=== PATIENT | female | born 2005 | race Caucasian/White ===

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

== ENCOUNTER 2023-11-20 15:23 | Inpatient (IN) | payer SELFPAY ==
[2023-11-20] VITALS (10 sets, daily range): BP systolic 114–130; BP diastolic 71–95; PULSE 75–94; RESP 15–17; TEMP 36.6–37; O2SAT 96–99; BMI 24.0; BMI 24.2
--- NOTE | 2023-11-20 16:03 | CT_ITS ---
PROCEDURE INFORMATION: Exam: CT Abdomen And Pelvis With Contrast Exam date and time: 11/20/2023 5:59 PM Age: 18 years old Clinical indication: Abdominal pain; Additional info: Generalized abdominal pain, brbpr TECHNIQUE: Imaging protocol: Computed tomography of the abdomen and pelvis with contrast. Radiation optimization: All CT scans at this facility use at least one of these dose optimization techniques: automated exposure control; mA and/or kV adjustment per patient size (includes targeted exams where dose is matched to clinical indication); or iterative reconstruction. Contrast material: ISOVUE; Contrast volume: 75 ml; Contrast route: IV; COMPARISON: CR XR ABDOMEN MIN 2V 03/27/2019 3:34 PM FINDINGS: Liver: Normal. No mass. Gallbladder and biliary ducts: Normal. No calcified stones. No ductal dilation. Pancreas: Normal. No ductal dilation. Spleen: Normal. No splenomegaly. Adrenal glands: Normal. No mass. Kidneys and ureters: Normal. No hydronephrosis. Stomach and bowel: Hoyt colonic wall thickening concerning for colitis. No small bowel obstruction. Appendix: No evidence of appendicitis. Intraperitoneal space: Unremarkable. No free air. No significant fluid collection. Vasculature: Unremarkable. No abdominal aortic aneurysm. Lymph nodes: Unremarkable. No enlarged lymph nodes. Urinary bladder: Unremarkable as visualized. Reproductive: Unremarkable as visualized. Bones/joints: Unremarkable. No acute fracture. Soft tissues: Unremarkable. IMPRESSION: Moderate to severe pancolitis
--- NOTE | 2023-11-20 16:04 | ED_ITS ---
Discharge Plan Disposition Patient Disposition: Admitted Clinical Impressions Clinical Impression: Infection, Shigella, E. coli colitis, Dehydration, Intractable abdominal pain Discharge ED Provider: Ivana Hughes General Adult HPI General Chief complaint: GI Bleed Stated complaint: cramps,nausea,abdomen pain Time Seen by Provider: 11/20/23 15:27 Mode of Arrival: Ambulatory Source of Information: Patient Limitations: No Limitations Description of Symptoms (Recalled from ER Triage Doc. by RN): pt presents to ED with c/o vomitting, diarrhea, nausea, abdominal pain/cramps. pt reports that today she noticed bllod in the toilet and on the toielt paper. pt reports she has had foue episodes of bloody diarrhea today History of Present Illness HPI narrative: This patient is a 18-year-old female who denies significant past medical history presenting to the emergency department for evaluation with concern for generalized abdominal pain, nausea, vomiting, and diarrhea for 7 days. Patient states that today, she started noticing a lot of blood in the toilet when she has a bowel movement. She states that she is pooping straight bright red blood and having bad periumbilical/generalized abdominal pain. No hematemesis, melena, or urinary symptoms noted. She states that she has had IBS type symptoms for a long time but denies any prior abdominal history, such as abdominal surgeries or prior abdominal imaging. Related Data Home Medications Medication Instructions Recorded Confirmed cholecalciferol (vitamin D3) 50 50 mcg PO DAILY 05/02/23 05/02/23 mcg (2,000 unit) capsule desvenlafaxine succinate 100 mg 100 mg PO DAILY Depression 07/25/23 07/25/23 tablet,extended release 24 hr Previous Rx's Medication Instructions Recorded medroxyprogesterone 150 mg/mL 150 mg IM [id number] #1 mL 02/02/23 intramuscular suspension (Depo-Provera) Allergies Allergy/AdvReac Type Severity Reaction Status Date / Time No Known Allergies Allergy Verified 07/25/23 10:10 [facility] Disclaimer: The information contained in this section may have been updated after the patient was seen, as this information can be updated by other users. Medical History Abnormal uterine bleeding Migraine with aura Family History Other Asthma Cancer Diabetes FHx: mental illness Hypertension Kidney disease Social History Smoking Status: Never smoker alcohol intake: never substance use type: denies use current occupational status: unemployed and other Travel in the last 8 weeks: None ROS Obtained: Yes All systems reviewed & no additional complaints except as documented Physical Exam General General appearance: alert and in no apparent distress Comment: Uncomfortable appearing Head Head exam: atraumatic and normocephalic Eye Eye exam: Present normal appearance, PERRL and EOMI ENT ENT exam: Present mucous membranes dry and normal external ear exam Neck Neck exam: Present normal inspection, full ROM and trachea midline; Absent tenderness Chest Chest inspection: Present normal inspection and symmetric chest wall rise; Absent tenderness Respiratory Respiratory exam: Present normal lung sounds bilaterally; Absent respiratory distress, wheezes, stridor or accessory muscle use Cardiovascular Cardiovascular exam: Present regular rate and normal rhythm Abdominal Exam Abdominal exam: Present soft and tenderness (Generalized); Absent distention or guarding Extremities Exam Extremities exam: Present normal inspection, full ROM and normal capillary refill; Absent tenderness or edema Back Exam Back exam: Present normal inspection and full ROM; Absent tenderness Neurological Exam Neurological exam: Present alert, oriented X3, CN II-XII intact and normal gait; Absent motor sensory deficit Psychiatric Psychiatric exam: Present normal affect and normal mood Skin Skin exam: Present warm and dry Medical Decision Making Medical Records Medical records reviewed: Yes I reviewed the patient's medical records. Eliseo Inquiry Pt receiving controlled substance: No Vital Signs: 11/20/23 15:26 11/20/23 15:34 11/20/23 16:00 Temperature 97.8 F Temperature Source Oral Pulse Rate 91 H 94 H Pulse Rate [Left Radial] 79 Respiratory Rate 15 Blood Pressure 123/80 114/84 Blood Pressure [Right Arm] 123/80 Blood Pressure Mean Blood Pressure Mean [Right Arm] 94 02 Sat by Pulse Oximetry 98 98 97 Oxygen Delivery Method Room Air Room Air Room Air 11/20/23 16:14 11/20/23 16:30 11/20/23 17:00 Temperature Temperature Source Pulse Rate 86 89 86 Pulse Rate [Left Radial] Respiratory Rate Blood Pressure 130/95 H 117/77 119/76 Blood Pressure [Right Arm] Blood Pressure Mean 86 Blood Pressure Mean [Right Arm] 02 Sat by Pulse Oximetry 97 97 99 Oxygen Delivery Method Room Air Room Air 11/20/23 17:50 11/20/23 18:30 11/20/23 21:21 Temperature 98.6 F Temperature Source Oral Pulse Rate 84 82 90 Pulse Rate [Left Radial] Respiratory Rate 16 Blood Pressure 123/71 122/84 114/81 Blood Pressure [Right Arm] Blood Pressure Mean Blood Pressure Mean [Right Arm] 02 Sat by Pulse Oximetry 97 96 Oxygen Delivery Method Room Air Room Air Room Air Lab Data Lab results reviewed: Yes I reviewed the patient's lab results. Lab Results 11/20/23 15:37: Urine Color Yellow, Urine Appearance Clear, Urine pH 6.0, Ur Specific [place] >= 1.030, Urine Protein Negative, Urine Glucose (UA) Negative, Urine Ketones Negative, Urine Blood Negative, Urine Nitrate Negative, Urine Bilirubin Negative, Urine Urobilinogen 0.2, Ur Leukocyte Esterase Negative, Urine WBC 3-5, Ur Squamous Epith Cells Occasional, Urine Bacteria 1+ 11/20/23 15:43: WBC 12.1, RBC 4.91, Hgb 14.4, Hct 43.2, MCV 87.9, MCH 29.3, MCHC 33.3, RDW 13.3, Plt Count 217, MPV 8.7, Neut % (Auto) 85.9 H, Lymph % (Auto) 7.5 L, Prentiss % (Auto) 5.7, Eos % (Auto) 0.7, Baso % (Auto) 0.3, Neut # (Auto) 10.4 H, Lymph # (Auto) 0.9, Prentiss # (Auto) 0.7, Eos # (Auto) 0.1, Baso # (Auto) 0.0, Total Counted 100, Neutrophils % (Manual) 81 H, Band Neutrophils % 3.0, L ymphocytes % (Manual) 9 L, Monocytes % (Manual) 7, Platelet Estimate Normal, RBC Morphology Normal, Sodium 141, Potassium 3.6, Chloride 108 H, Carbon Dioxide 21 L, Anion Gap 15.6 H, BUN 8, Creatinine 0.60, Estimated Creat Clear 150, Estimated GFR 127, Est GFR ( Amer) 154, Glucose 97, Calcium 9.6, Total Bilirubin 0.7, AST 28, ALT 19, Alkaline Phosphatase 93, Total Protein 7.5, Albumin 4.5, Globulin 3.0, Albumin/Globulin Ratio 1.5, Lipase 52, Serum HCG, Qual Negative 11/20/23 17:48: Stl Aeromonas (PCR) Not detected, Stl C. cayetanensis PCR Not detected, Stool Rotavirus (PCR) Not detected, Stl Adenov F 40/41 PCR Not detected, Stool Astrovirus (PCR) Not detected, Stool Campylobacter PCR Not detected, Stl C.difficile Tox PCR Not detected, Stool Cryptosporidium PCR Not detected, Stl E.coli Shiga Tox PCR Not detected, Stool E coli O157 PCR Detected A, Stl Enterotoxigenic E PCR Not detected, Stool EPEC (PCR) Not detected, Stool EAEC (PCR) Not detected, Stl E. histolytica PCR Not detected, Stool Giardia Lamblia PCR Not detected, Stool Salmonella PCR Not detected, Stool Sapovirus (PCR) Not detected, Stl P. shigelloides PCR Not detected, Stl Shigella/EIEC PCR Detected A, St Y.enterocolitica PCR Not detected, Stool Vibrio (PCR) Not detected, Stl Vibrio cholerae PCR Not detected, Stl Norovirus GI/GII PCR Not detected 11/20/23 15:43 11/20/23 15:43 Orders (Tests/Meds): ED MEDICATIONS Generic Name Dose Route Start Last Admin Trade Name Freq PRN Reason Stop Dose Admin Sodium Chloride 10 ml 11/20/23 18:06 11/20/23 18:07 Sodium Chloride 0.9% 10ml Syr (Rad Only) IV 12/20/23 18:05 10 ml NEEDED PRN Administration Maintain IV Site Discontinued Medications Generic Name Dose Route Start Last Admin Trade Name Freq PRN Reason Stop Dose Admin Acetaminophen 1,000 mg 11/20/23 16:02 11/20/23 16:08 Acetaminophen 1,000mg/100ml Vial IV 11/20/23 16:03 1,000 mg ONCE ONE Administration Dicyclomine HCl 20 mg 11/20/23 18:25 11/20/23 18:29 Dicyclomine 10mg Capsule PO 11/20/23 18:26 20 mg ONCE ONE Administration Lactated Ringer's 1,000 mls @ 999 mls/hr 11/20/23 16:02 11/20/23 16:09 Lactated Ringer's 1000 Ml Bag IV 11/20/23 17:02 999 mls/hr .Q1H1M ONE Administration Lactated Ringer's 1,000 mls @ 999 mls/hr 11/20/23 20:11 11/20/23 20:28 Lactated Ringer's 1000 Ml Bag IV 11/20/23 21:11 999 mls/hr .Q1H1M ONE Administration Iopamidol 75 ml 11/20/23 18:06 11/20/23 18:07 Iopamidol-370 (76%);100ml Bottle IV 11/20/23 18:07 75 ml ONCE ONE Administration Ketorolac Tromethamine 15 mg 11/20/23 16:02 11/20/23 16:08 Ketorolac 30mg/Ml Vial IV 11/20/23 16:03 15 mg ONCE ONE Administration Ketorolac Tromethamine 15 mg 11/20/23 18:50 11/20/23 19:37 Ketorolac 30mg/Ml Vial IV 11/20/23 18:51 15 mg ONCE ONE Administration Metoclopramide HCl 5 mg 11/20/23 18:25 11/20/23 18:30 Metoclopramide Hcl 10mg/2ml Vial IVP 11/20/23 18:26 5 mg ONCE ONE Administration Morphine Sulfate 4 mg 11/20/23 18:54 11/20/23 19:37 Morphine 4mg/Ml Syringe IV 11/20/23 18:55 4 mg ONCE ONE Administration Ondansetron HCl 4 mg 11/20/23 16:02 11/20/23 16:08 Ondansetron 4mg/2ml Vial IV 11/20/23 16:03 4 mg ONCE ONE Administration Oxycodone HCl 5 mg 11/20/23 20:30 11/20/23 20:35 Oxycodone 5mg Immediate Release Tablet PO 11/20/23 20:31 5 mg ONCE ONE Administration ORDERS Category Date Time Status CT abdomen pelvis w con Stat Cat Scan 11/20/23 16:03 Completed CBC w/Auto Diff [Complete Blood Count Auto Diff] Stat Lab 11/20/23 15:43 Completed CMP [Comprehensive Metabolic Panel] Stat Lab 11/20/23 15:43 Completed Diarrhea 23 Panel, PCR Stat Lab 11/20/23 17:48 Completed Lipase Stat Lab 11/20/23 15:43 Completed Serum [HCG Qualitative, Serum] Stat Lab 06/23/24 15:43 Completed UA [Urinalysis and Microscopic] Stat Lab 11/20/23 15:37 Completed Medical Decision Narrative: In summary, this patient is a 18-year-old female presenting to the Emergency Department for evaluation of generalized abdominal pain, nausea, vomiting, diarrhea, and bright red blood per rectum. Differential diagnoses considered include but are not limited to infectious colitis, bacterial gastroenteritis, viral gastroenteritis, Crohn's disease, ulcerative colitis, dehydration. Ruling out the most morbid conditions drove assessment. On exam, the patient is uncomfortable appearing with dry mucous membranes. She has mild abdominal tenderness that is generalized, but no focal tenderness with rebound or guarding. Workup included CBC, CMP, lipase, urinalysis, diarrhea panel, test, and CT abdomen pelvis with IV contrast. Patient was given a bolus of IV fluids as well as IV Toradol, acetaminophen, and Zofran for symptomatic improvement. I independently interpreted CT scan prior to the radiologist read and noted findings concerning for colitis. Please see their read for final interpretation. Labs were obtained that demonstrated mild left shift and her white blood cell count. She also appears dry with very mildly elevated anion gap. Stool panel tested positive for Shigella as well as E. coli. On multiple subsequent reassessments, the patient continues to have severe pain that is poorly controlled as well as multiple loose bowel movements anytime that she moves. She has stooled on herself multiple times. She was given multiple rounds of IV and oral pain medications and nausea medications but continued to have severe symptoms. Advised that she I felt she would be appropriate for discharge home with supportive management of infectious colitis if we get her symptoms under control, but she continued to have severe symptoms and inability to tolerate oral fluids. Given this, I feel that she would benefit from admission for symptomatic management of severe infectious colitis. I called and had an interactive discussion with the hospitalist who admitted the patient. I did not administer antibiotics, as antibiotics could worsen symptoms in the setting of E. coli colitis, though it is usually indicated to treat Shigella. Will defer to inpatient management. Patient was admitted in stable condition. Critical Care Critical Care Time Critical Care Time: No
[2023-11-20] MEDS: ONDANSETRON 4MG/2ML VIAL 4 MG IV (16:08)
[2023-11-20] MEDS: KETOROLAC 30MG/ML VIAL 15 MG IV ×2 (16:08→19:37)
[2023-11-20] MEDS: ACETAMINOPHEN 1,000MG/100ML VIAL 1000 MG IV (16:08)
[2023-11-20] MEDS: LACTATED RINGERS 1000ML 1,000 ML 999 ML IV ×2 (16:09→20:28)
--- NOTE | 2023-11-20 16:15 | PC.NURSE ---
I rounded on the pt, she was having N/V and took her zofran IV amongst other meds per MAR. I took her a blanket, changed her sheet, and helped her readjust in bed to make her more comfortable. pt denies any new symptoms. pt declines needing anything else at this time. vss.
[2023-11-20 16:26] LABS: Microscopic, Urine URINE MICROSCOPIC (MICROSCOPIC)
[2023-11-20 16:27] LABS: Appearance,Urine CLEAR (Clear); Bilirubin,Urine Negative (Negative); Blood, Urine Negative (Negative); Color,Urine YELLOW (Yellow); Glucose,Urine (UA) Negative (Negative); Ketones,Urine Negative (Negative); Leukocyte Esterase,Urine Negative (Negative); Nitrate,Urine Negative (Negative); Protein,Urine Negative (Negative); Specific Gravity, Urine >= 1.030 (1.005-1.030); Urobilinogen,Urine 0.2 EU/dl (0.2)
[2023-11-20 16:34] LABS: Alanine Aminotransferase 19 U/L (12-78); Albumin Level 4.5 g/dl (3.5-5.0); Albumin/Globulin Ratio 1.5 (1.1-1.8); Alkaline Phosphatase 93 U/L (38-126); Anion Gap 15.6 mEq/L (5-15); Aspartate Amino Transferase 28 U/L (14-36); Bilirubin,Total 0.7 mg/dl (0.2-1.3); Blood Urea Nitrogen 8 mg/dl (7-17); Calcium 9.6 mg/dl (8.4-10.2); Carbon Dioxide 21 mmol/L (22.0-30.0); Chloride 108 mmol/L (98-107); Creatinine Clearance Estimated 150 mL/min (50-200); Estimated Glomerular Filt Rate 127 ml/min (>60); GFR (African American) 154 ML/MIN (>60); Glucose 97 mg/dl (74-100); Lipase 52 U/L (23-300); Potassium 3.6 mmoL/L (3.5-5.1); Sodium 141 mmol/L (136-145); Total Protein,Serum 7.5 g/dl (6.3-8.2)
[2023-11-20 16:39] LABS: HCG Qualitative, Serum Negative (Negative)
[2023-11-20 16:40] LABS: Basophils % 0.3 % (0.1-2.0); Eosinophils # 0.1 K/mm3 (0.0-0.4); Eosinophils % 0.7 % (0.1-12.0); Hematocrit 43.2 % (37.0-47.0); Hemoglobin 14.4 g/dL (12.2-16.2); Lymphocytes # 0.9 K/mm3 (0.7-4.5); Lymphocytes % 7.5 % (10-50); Mean Corpuscular HGB Conc 33.3 g/dL (31.8-35.4); Mean Corpuscular Hemoglobin 29.3 pg (27.0-31.2); Mean Corpuscular Volume 87.9 fl (81-99); Mean Platelet Volume 8.7 fl (7.4-10.4); Monocytes # 0.7 K/mm3 (0.1-1.0); Monocytes % 5.7 % (1.7-9.3); Neutrophils # 10.4 K/mm3 (1.8-7.8); Neutrophils % 85.9 % (37.0-80.0); Platelet Count 217 K/mm3 (142-424); Red Blood Count 4.91 M/mm3 (4.20-5.40); Red Cell Distribution Width 13.3 % (11.5-17.5); White Blood Count 12.1 K/mm3 (4.5-13.0)
[2023-11-20 16:42] LABS: MANUAL DIFFERENTIAL MANUAL DIFFERENTIAL (MANUAL DIFF)
[2023-11-20 16:44] LABS: Bacteria,Urine 1+ /lpf; Squamous Epithelial Cell,Urine Occasional #/hpf (0-5)
--- NOTE | 2023-11-20 16:51 | PC.NURSE ---
pt reports that she is feeling much better. She is still having minimal abd cramping. pt states her pain was a 10/10 premedication and is now a 3/10
[2023-11-20 17:55] LABS: Adenovirus F 40/41, stool Not Detected (NotDetected); Astrovirus Not Detected (NotDetected); Campylobacter Not Detected (NotDetected); Clostridium Difficile A/B, PCR Not Detected (NotDetected); Cryptosporidium Not Detected (NotDetected); Cyclospora Cayetanesis Not Detected (NotDetected); Entamoeba histolytica Not Detected (NotDetected); Enteroaggregative E coli Not Detected (NotDetected); Enteropathogenic E coli Not Detected (NotDetected); Enterotoxigenic E coli Not Detected (NotDetected); Giardia lamblia Not Detected (NotDetected); Norovirus Not Detected (NotDetected); Plesimonas Shigalloides, PCR Not Detected (NotDetected); Rotavirus A Not Detected (NotDetected); Salmonella, PCR Not Detected (NotDetected); Sapovirus Not Detected (NotDetected); Shiga-like toxin E coli Not Detected (NotDetected); Vibrio Cholerae Not Detected (NotDetected); Vibrio, PCR Not Detected (NotDetected); Yersinia Entercolitica, PCR Not Detected (NotDetected)
[2023-11-20] MEDS: SODIUM CHLORIDE 0.9% 10ML SYR (RAD ONLY) 10 ML IV (18:07)
[2023-11-20] MEDS: IOPAMIDOL-370 (76%);100ML BOTTLE 75 ML IV (18:07)
[2023-11-20 18:21] LABS: Lymphocytes % 9 % (10-50); Monocytes % 7 % (2-9); Neutrophils % 81 % (42-76); Platelet Estimate Normal; RBC Morphology Normal; Total Cells Counted 100
[2023-11-20] MEDS: DICYCLOMINE 10MG CAPSULE 20 MG PO (18:29)
[2023-11-20] MEDS: METOCLOPRAMIDE HCL 10MG/2ML VIAL 5 MG IVP (18:30)
[2023-11-20] MEDS: MORPHINE 4MG/ML SYRINGE 4 MG IV (19:37)
--- NOTE | 2023-11-20 19:53 | PC.NURSE ---
Jessie from the Lab called and advised that the pts diarrhea panel came back and is showing code Ecoli [id number] like toxins producing ecoli. and RN made aware. CR
[2023-11-20 19:55] LABS: Shigella Enterovasive E coli Detected (NotDetected)
--- NOTE | 2023-11-20 20:31 | PC.NURSE ---
Pt is having 8/10 pain. notified
[2023-11-20] MEDS: OXYCODONE 5MG IMMEDIATE RELEASE TABLET 5 MG PO (20:35)
--- NOTE | 2023-11-20 21:18 | PC.NURSE ---
Report called to KAYLA Aguilar
--- NOTE | 2023-11-20 21:38 | PC.NURSE ---
Patient arrived to floor via wheelchair from ED at 21:34.
--- NOTE | 2023-11-20 22:31 | P.HP_ITS ---
History of Present Illness *Admission Date: 11/20/23 *Reason for visit:: 1 week of abdominal pain diarrhea and now blood in stools. *History of present illness: Patient's that this problem began about a week ago. Has progressively worsened until she is now having blood in her stool and not able to control her bowel movements. She denies vomiting or fever. Denies that she has been traveling or camping where she would have been exposed to abnormal water sources. 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 No history of any other immediate contacts being ill. [facility] Disclaimer: The information contained in this section may have been updated after the patient was seen, as this information can be updated by other users. Mother has IBS And a Aunt has Crohn's disease. Medical History Abnormal uterine bleeding Migraine with aura Family History Other Asthma Cancer Diabetes FHx: mental illness Hypertension Kidney disease Social History (Updated 11/20/23 @ 22:30 by Anu Watson RN) Smoking Status: Never smoker alcohol intake: never substance use type: denies use current occupational status: unemployed and other Travel in the last 8 weeks: None Review of Systems Review of Systems Review of systems:: pertinent systems reviewed and negative unless documented below Review of systems (narrative): Patient noted she had been on Depo-Provera in the past but stopped this 1 month ago. Constitutional Constitutional: Reports system reviewed and no additional complaints, except as documented Comments: Patient notes besides this abdominal pain with the diarrhea she had been feeling healthy Eyes Eyes: Reports system reviewed and no additional complaints, except as documented ENT Ears, Nose, Mouth, and Throat: Reports system reviewed and no additional complaints, except as documented *Cardiovascular Cardiovascular: Reports system reviewed and no additional complaints, except as documented *Respiratory Respiratory: Reports system reviewed and no additional complaints, except as documented *Gastrointestinal Gastrointestinal: Reports abdominal pain, Reports change in bowel habits, Reports change in stool character, Reports diarrhea, Reports fecal incontinence and Reports hematochezia *Genitourinary Genitourinary: Reports system reviewed and no additional complaints, except as documented Comments: Has recently stopped Depo-Provera shot *Musculoskeletal Musculoskeletal: Reports system reviewed and no additional complaints, except as documented Integumentary/Breasts Skin/Breast: Reports system reviewed and no additional complaints, except as documented *Neurologic Neurologic: Reports system reviewed and no additional complaints, except as documented Psychiatric Psychiatric: Reports system reviewed and no additional complaints, except as documented Endocrine Endocrine: Reports system reviewed and no additional complaints, except as documented Hematologic/Lymphatic Hematologic/Lymphatic: Reports system reviewed and no additional complaints, except as documented Allergic/Immunologic Allergic/Immunologic: Reports system reviewed and no additional complaints, except as documented Meds Home Medications and Allergies Home Medications Medication Instructions Recorded Confirmed Type sertraline 100 mg tablet 100 mg PO BID 11/21/23 11/21/23 History New Prescriptions to Start Prescriptions: Allergies Allergy/AdvReac Type Severity Reaction Status Date / Time No Known Allergies Allergy Verified 07/25/23 10:10 Exam Data for Last 24 hours Vital signs and Labs for Last 24 Hours: Temp Pulse Resp BP Pulse Ox O2 Del Method 97.9 F 75 17 128/81 99 Room Air 11/20/23 21:47 11/20/23 21:47 11/20/23 21:47 11/20/23 21:47 11/20/23 21:47 11/20/23 21:47 Laboratory Results - last 24 hr 11/20/23 15:37: Urine Color Yellow, Urine Appearance Clear, Urine pH 6.0, Ur Specific [place] >= 1.030, Urine Protein Negative, Urine Glucose (UA) Negative, Urine Ketones Negative, Urine Blood Negative, Urine Nitrate Negative, Urine Bilirubin Negative, Urine Urobilinogen 0.2, Ur Leukocyte Esterase Negative, Urine WBC 3-5, Ur Squamous Epith Cells Occasional, Urine Bacteria 1+ 11/20/23 15:43: WBC 12.1, RBC 4.91, Hgb 14.4, Hct 43.2, MCV 87.9, MCH 29.3, MCHC 33.3, RDW 13.3, Plt Count 217, MPV 8.7, Neut % (Auto) 85.9 H, Lymph % (Auto) 7.5 L, [place] % (Auto) 5.7, Eos % (Auto) 0.7, Baso % (Auto) 0.3, Neut # (Auto) 10.4 H, Lymph # (Auto) 0.9, [place] # (Auto) 0.7, Eos # (Auto) 0.1, Baso # (Auto) 0.0, Total Counted 100, Neutrophils % (Manual) 81 H, Band Neutrophils % 3.0, Lymphocytes % (Manual) 9 L, Monocytes % (Manual) 7, Platelet Estimate Normal, R BC Morphology Normal, Sodium 141, Potassium 3.6, Chloride 108 H, Carbon Dioxide 21 L, Anion Gap 15.6 H, BUN 8, Creatinine 0.60, Estimated Creat Clear 150, Estimated GFR 127, Est GFR ( Amer) 154, Glucose 97, Calcium 9.6, Total Bilirubin 0.7, AST 28, ALT 19, Alkaline Phosphatase 93, Total Protein 7.5, Albumin 4.5, Globulin 3.0, Albumin/Globulin Ratio 1.5, Lipase 52, Serum HCG, Qual Negative 11/20/23 17:48: Stl Aeromonas (PCR) Not detected, Stl C. cayetanensis PCR Not detected, Stool Rotavirus (PCR) Not detected, Stl Adenov F 40/41 PCR Not detected, Stool Astrovirus (PCR) Not detected, Stool Campylobacter PCR Not detected, Stl C.difficile Tox PCR Not detected, Stool Cryptosporidium PCR Not detected, Stl E.coli Shiga Tox PCR Not detected, Stool E coli O157 PCR Detected A, Stl Enterotoxigenic E PCR Not detected, Stool EPEC (PCR) Not detected, Stool EAEC (PCR) Not detected, Stl E. histolytica PCR Not detected, Stool Giardia Lamblia PCR Not detected, Stool Salmonella PCR Not detected, Stool Sapovirus (PCR) Not detected, Stl P. shigelloides PCR Not detected, Stl Shigella/EIEC PCR Detected A, St Y.enterocolitica PCR Not detected, Stool Vibrio (PCR) Not detected, Stl Vibrio cholerae PCR Not detected, Stl Norovirus GI/GII PCR Not detected I & O for Last 24 hours: Intake & Output 11/17/23 11/18/23 11/19/23 11/20/23 23:59 23:59 23:59 23:59 Weight 64.365 kg Microbiology Reports for the Last 24 Hours: Labs reviewed with stool with E. coli and Shigella Radiology Reports for the Last 24 Hours: CT scan of the abdomen finding thickening of bowel wall indicating colitis Constitutional Constitutional: moderate distress Comments: pain in control at this time *Routine HEENT Exam Head: Present normocephalic and atraumatic Eye: Present EOMI and PERRL ENT: Present mucous membranes moist *Routine Neck Exam Neck: Present supple and full ROM Routine Chest/Breast/Axilla Exam Comments: Chest exam normal *Routine Respiratory Exam Respiratory: Present normal respiratory effort Comments: Clear bowel sounds all duffy no signs of respiratory illness *Routine Cardiovascular Exam Cardiovascular: Present RRR, Normal S1 and Normal S2 *Routine Abdominal Exam Abdominal: Present soft Comments: Noted very quiet bowel sounds, tenderness basically holistic gentle palpation causes tenderness *Routine Rectal Exam Rectal:: deferred Comments:: Has been noting patient unable to control stools with bright red bleeding, in diaper from ER . *Routine Genitalia Exam Genitalia:: deferred *Routine Extremities Exam Comments: Moves all extremities well can stand has a good balance full range of motion in all limbs Routine Back/Spine/Pelvis Exam Back/Spine: Present full ROM *Routine Skin Exam Skin: Present intact Comments: No signs of rash or abnormal bruising *Routine Neurological Exam Neurological: Present alert, oriented X3, CN II-XII intact, moving all extremities and normal tone Routine Psychiatric Exam Psychiatric: Present normal affect and normal thought process Comments: Patient is appropriate and friendly, and is good historian H&P: Result Impressions 1. Onset of bloody diarrhea for the last week indicating colitis of unknown origin 2. Positive for E. coli and Shigella on stool specimen Imaging and Cardiology CT scan - abdomen: Status: image reviewed by me and final report Additional comments: Bowel wall thickening indicating colitis Assessment and Plan *Assessment and plan (1) Intractable abdominal pain: Start date: 11/13/23 Status: Acute Category: Medical Code(s): R10.9 - Unspecified abdominal pain Plan: Will admit to the hospital and monitor for pain and apply medication as needed for control (2) Dehydration: Start date: 11/20/23 Problem Comment: Large amounts of diarrhea Status: Acute Category: Medical Code(s): E86.0 - Dehydration Plan: Will add a fiber bulking agent (3) E. coli colitis: Start date: 11/13/23 Status: Acute Category: Medical Code(s): A04.4 - Other intestinal Escherichia coli infections Plan: Continue with hydration to see if the patient will clear this infection herself. Also noting that labs are stable at this time (4) Infection, Shigella: Start date: 11/20/23 Status: Acute Category: Medical Code(s): A03.9 - Shigellosis, unspecified Plan: Will not add antibiotics to bowel regime at this time to the presence of the E. coli, see if we can get the diarrhea to stop and then would treat this underlying infection (5) Bloody stools: Start date: 11/20/23 Status: Acute Category: Medical Code(s): K92.1 - Melena Plan: Unsure of source of intestinal, or is rectal from having so many stools that this may be hemorrhoidal blood Plan Discussed case with the ER, request admission due to at risk for decompensation and instability along with severity of symptoms and bloody stools. Agreed to admit for further management. Continue with bowel rest. Morphine 4 mg for pain as needed every 2 hours. Initiated on maintenance IV fluids. Continuing to have bloody stools. Decision made to hold on antibiotics due to positive culture for E. coli 0157 and risk of HUS/TTP. Kidney function electrolytes normal. White cell count within normal range. Ordered repeat labs for the morning CBC, CMP, magnesium. Severe condition acute at risk for decompensation Rounded on patient after nurse practitioner. Personally examined and interviewed patient. Agree with exam findings and care plan as documented.
[2023-11-20] MEDS: 0.9 % SODIUM CHLORIDE 1000ML 1,000 ML 50 ML IV (22:52)
[2023-11-21] VITALS (7 sets, daily range): BP systolic 117–159; BP diastolic 76–97; PULSE 88–140; RESP 16–18; TEMP 36.6–37.9; O2SAT 96–100; BMI 24.2
[2023-11-21] MEDS: HYDROCODONE/APAP 5/325 MG TABLET 1 TAB PO ×2 (00:11→03:54)
[2023-11-21] MEDS: MORPHINE 2MG/ML SYRINGE 2 MG IV ×8 (01:31→22:39)
--- NOTE | 2023-11-21 04:07 | PC.NURSE ---
Since admitting to the floor, pt has continued to have issues with abdominal pain. Since 930 pm, she has been medicated with morphine 2 mg IVP X 2 doses and [place] 5 mg x 2 doses. She has continued to have small BMS with mucus like blood in appearance, foul odor noted. She is wearing an adult diaper due to episodes of incont. Pt remains NPO
[2023-11-21] MEDS: ONDANSETRON 4MG/2ML VIAL 4 MG IV ×2 (06:48→18:12)
--- NOTE | 2023-11-21 07:18 | EXP.ACUTE.PN ---
Subjective *Date: 11/21/23 *Time: 21:49 Interval history: Having significant abdominal pain. Still having frequent loose bowel movements that are bloody. No nausea or vomiting. Afebrile this morning. On room air. Medical Exam Vital signs and Labs for Last 24 Hours: Vital Signs Temp Pulse Pulse Resp BP BP Pulse Ox 11/21/23 05:00 11/21/23 04:00 97.9 F 88 16 117/76 96 11/20/23 23:00 11/20/23 21:47 97.9 F 75 17 128/81 99 11/20/23 21:21 98.6 F 90 16 114/81 11/20/23 18:30 82 122/84 96 11/20/23 17:50 84 123/71 97 11/20/23 17:00 86 119/76 99 11/20/23 16:30 89 117/77 97 11/20/23 16:14 86 130/95 H 97 11/20/23 16:00 94 H 114/84 97 11/20/23 15:34 91 H 123/80 98 11/20/23 15:26 97.8 F 79 15 123/80 98 O2 Del Method 11/21/23 05:00 Room Air 11/21/23 04:00 Room Air 11/20/23 23:00 Room Air 11/20/23 21:47 Room Air 11/20/23 21:21 Room Air 11/20/23 18:30 Room Air 11/20/23 17:50 Room Air 11/20/23 17:00 11/20/23 16:30 Room Air 11/20/23 16:14 Room Air 11/20/23 16:00 Room Air 11/20/23 15:34 Room Air 11/20/23 15:26 Room Air Intake and Output 11/20/23 11/20/23 11/21/23 15:59 23:59 07:59 Intake Total 0 / 0 Output Total 0 / 0 Balance 0 / 0 Intake: Intake, Oral Amount 0 / 0 Output: Output, Urine Amount 0 / 0 Other: Intake, Other Source Saline Solution Number of Unmeasured Voids 1 Number of Bowel Movements 1 Weight 63.503 kg 64.365 kg 64.365 kg Patient Weight 11/21/23 23:59 Weight 64.365 kg Laboratory Results - last 24 hr 11/20/23 15:37: Urine Color Yellow, Urine Appearance Clear, Urine pH 6.0, Ur Specific [place] >= 1.030, Urine Protein Negative, Urine Glucose (UA) Negative, Urine Ketones Negative, Urine Blood Negative, Urine Nitrate Negative, Urine Bilirubin Negative, Urine Urobilinogen 0.2, Ur Leukocyte Esterase Negative, Urine WBC 3-5, Ur Squamous Epith Cells Occasional, Urine Bacteria 1+ 11/20/23 15:43: WBC 12.1, RBC 4.91, Hgb 14.4, Hct 43.2, MCV 87.9, MCH 29.3, MCHC 33.3, RDW 13.3, Plt Count 217, MPV 8.7, Neut % (Auto) 85.9 H, Lymph % (Auto) 7.5 L, [place] % (Auto) 5.7, Eos % (Auto) 0.7, Baso % (Auto) 0.3, Neut # (Auto) 10.4 H, Lymph # (Auto) 0.9, [place] # (Auto) 0.7, Eos # (Auto) 0.1, Baso # (Auto) 0.0, Total Counted 100, Neutrophils % (Manual) 81 H, Band Neutrophils % 3.0, Lymphocytes % (Manual) 9 L, Monocytes % (Manual) 7, Platelet Estimate Normal, RBC Morphology Normal, Sodium 141, Potassium 3.6, Chloride 108 H, Carbon Dioxide 21 L, Anion Gap 15.6 H, BUN 8, Creatinine 0.60, Estimated Creat Clear 150, Estimated GFR 127, Est GFR ( Amer) 154, Glucose 97, Calcium 9.6, Total Bilirubin 0.7, AST 28, ALT 19, Alkaline Phosphatase 93, Total Protein 7.5, Albumin 4.5, Globulin 3.0, Albumin/Globulin Ratio 1.5, Lipase 52, Serum HCG, Qual Negative 11/20/23 17:48: Stl Aeromonas (PCR) Not detected, Stl C. cayetanensis PCR Not detected, Stool Rotavirus (PCR) Not detected, Stl Adenov F 40/41 PCR Not detected, Stool Astrovirus (PCR) Not detected, Stool Campylobacter PCR Not detected, Stl C.difficile Tox PCR Not detected, Stool Cryptosporidium PCR Not detected, Stl E.coli Shiga Tox PCR Not detected, Stool E coli O157 PCR Detected A, Stl Enterotoxigenic E PCR Not detected, Stool EPEC (PCR) Not detected, Stool EAEC (PCR) Not detected, Stl E. histolytica PCR Not detected, Stool Giardia Lamblia PCR Not detected, Stool Salmonella PCR Not detected, Stool Sapovirus (PCR) Not detected, Stl P. shigelloides PCR Not detected, Stl Shigella/EIEC PCR Detected A, St Y.enterocolitica PCR Not detected, Stool Vibrio (PCR) Not detected, Stl Vibrio cholerae PCR Not detected, Stl Norovirus GI/GII PCR Not detected I & O for Labs for Last 24 Hours: Intake & Output 11/18/23 11/19/23 11/20/23 11/21/23 23:59 23:59 23:59 23:59 Intake Total 0 / 0 Output Total 0 / 0 Balance 0 / 0 Weight 64.365 kg 64.365 kg Constitutional: Present moderate distress Head: Present atraumatic ENT: Present normal exam Neck: Present normal inspection Respiratory: Present normal respiratory effort; Absent rhonchi, wheezes or crackles Cardiac: Present Regular Rhythm and Tachycardia GI: Present soft, tenderness (Diffuse moderate tenderness), guarding and hyperactive bowel sounds; Absent distention or rebound Extremities: Present normal inspection and full ROM Skin: Present intact; Absent erythema Comment:: No mottling Neuro: Present Grossly Intact, alert, awake, oriented x 3 and moves all extremities Assessment and Plan *Assessment and plan (1) E. coli colitis: Start date: 11/13/23 Status: Acute Category: Medical Code(s): A04.4 - Other intestinal Escherichia coli infections Plan: Continue with hydration to see if the patient will clear this infection herself. Also noting that labs are stable at this time (2) Intractable abdominal pain: Start date: 11/13/23 Status: Acute Category: Medical Code(s): R10.9 - Unspecified abdominal pain Plan: Will admit to the hospital and monitor for pain and apply medication as needed for control (3) Dehydration: Start date: 11/20/23 Problem Comment: Large amounts of diarrhea Status: Acute Category: Medical Code(s): E86.0 - Dehydration Plan: Will add a fiber bulking agent (4) Infection, Shigella: Start date: 11/20/23 Status: Acute Category: Medical Code(s): A03.9 - Shigellosis, unspecified Plan: Will not add antibiotics to bowel regime at this time to the presence of the E. coli, see if we can get the diarrhea to stop and then would treat this underlying infection (5) Bloody stools: Start date: 11/20/23 Status: Acute Category: Medical Code(s): K92.1 - Melena Plan: Unsure of source of intestinal, or is rectal from having so many stools that this may be hemorrhoidal blood Plan 18-year-old female with severe abdominal pain and diarrhea. Found to have E. coli 0157 and Shigella on stool panel. Discussed case with ER, request admission. I agree to admit for further management and supportive care. Patient having a lot of cramping pain overnight. Continues to have numerous loose bowel movements. Afebrile overnight. Problems addressed as follows: E. coli 0157 diarrhea Pancolitis Shigella -Continue supportive care. Administered bolus of IV fluids this morning. Will monitor for further fluid needs. Encourage p.o. fluid intake. -Fiber supplement to bulk stools. -Initiate probiotic -Due to risk factor for HUS/TTP in the setting of confirmed E. coli 0157 sample, will continue with supportive care and hold on antibiotics. High risk of decompensation and risk for organ dysfunction -White cell count elevated to 14 this morning. Repeat CBC, CMP, magnesium ordered for the morning. Kidney function remained stable -With BUN 4, creatinine 0.5. Platelets remain normal 196 -Tylenol 650mg every 6 hours as needed for pain. Oxycodone 5 mg immediate release every 4 hours as needed. Morphine 4 mg as needed every 2 hours for severe breakthrough pain. Given agitation, will trial as needed Ativan 0.5 mg IV. Monitoring for toxicity and side effects. Due to risk for decompensation, attempted transfer to [facility] today. Had discussion with hospitalist on-call, recommend continuing supportive management. Patient placed on wait list for transfer. Full code full liquid diet PPI
[2023-11-21] MEDS: OXYCODONE 5MG IMMEDIATE RELEASE TABLET 5 MG PO ×3 (07:26→21:26)
[2023-11-21] MEDS: ACETAMINOPHEN 325MG TAB 650 MG PO ×3 (07:26→21:26)
--- NOTE | 2023-11-21 07:39 | HMH.PHAINT1 ---
Pharmacy Intervention Comments: MEDICATION RECONCILIATION COMPLETED ON PATIENT USING EXTERNAL FILL HISTORY FROM PHARMACY. -CHER GALINDO, NORMAD
[2023-11-21] MEDS: PANTOPRAZOLE 40MG VIAL 40 MG IV ×2 (08:52→20:16)
[2023-11-21] MEDS: SODIUM CHLORIDE 0.9% 10ML VIAL 10 ML IV (08:52)
[2023-11-21] MEDS: PSYLLIUM UD PACKET 1 EACH PO (10:22)
[2023-11-21] MEDS: LORazepam 2MG/ML VIAL 0.5 MG IV ×3 (10:23→23:39)
[2023-11-21 11:10] LABS: Basophils % 0.1 % (0.1-2.0); Eosinophils % 0.1 % (0.1-12.0); Hematocrit 42.9 % (37.0-47.0); Hemoglobin 13.8 g/dL (12.2-16.2); Lymphocytes # 0.6 K/mm3 (0.7-4.5); Lymphocytes % 4.3 % (10-50); Mean Corpuscular HGB Conc 32.2 g/dL (31.8-35.4); Mean Corpuscular Hemoglobin 28.6 pg (27.0-31.2); Mean Corpuscular Volume 88.7 fl (81-99); Mean Platelet Volume 9.2 fl (7.4-10.4); Monocytes # 0.7 K/mm3 (0.1-1.0); Monocytes % 4.4 % (1.7-9.3); Neutrophils # 13.6 K/mm3 (1.8-7.8); Platelet Count 196 K/mm3 (142-424); Red Blood Count 4.83 M/mm3 (4.20-5.40); Red Cell Distribution Width 13.1 % (11.5-17.5); White Blood Count 14.9 K/mm3 (4.5-13.0)
[2023-11-21 11:11] LABS: Chloride 107 mmol/L (98-107); Potassium 3.6 mmoL/L (3.5-5.1); Sodium 136 mmol/L (136-145)
[2023-11-21 11:14] LABS: Alanine Aminotransferase 22 U/L (12-78); Albumin Level 3.8 g/dl (3.5-5.0); Albumin/Globulin Ratio 1.5 (1.1-1.8); Alkaline Phosphatase 85 U/L (38-126); Anion Gap 11.6 mEq/L (5-15); Aspartate Amino Transferase 27 U/L (14-36); Bilirubin,Total 0.7 mg/dl (0.2-1.3); Blood Urea Nitrogen 4 mg/dl (7-17); Calcium 8.8 mg/dl (8.4-10.2); Carbon Dioxide 21 mmol/L (22.0-30.0); Creatinine Clearance Estimated 182 mL/min (50-200); Estimated Glomerular Filt Rate 157 ml/min (>60); GFR (African American) 190 ML/MIN (>60); Globulin 2.6 g/dL (1.3-3.2); Glucose 110 mg/dl (74-100); Total Protein,Serum 6.4 g/dl (6.3-8.2)
[2023-11-21 11:25] LABS: MANUAL DIFFERENTIAL MANUAL DIFFERENTIAL (MANUAL DIFF)
[2023-11-21 11:29] LABS: Magnesium 1.6 mg/dl (1.6-2.3)
[2023-11-21 12:00] LABS: Erythrocyte Sedimentation Rate 9 mm/hr (0-20)
[2023-11-21 12:22] LABS: Lymphocytes % 8 % (10-50); Monocytes % 6 % (2-9); Neutrophils % 86 % (42-76); Platelet Estimate Normal; RBC Morphology Normal; Total Cells Counted 100
[2023-11-21 12:55] LABS: C-Reactive Protein 66.8 mg/L (0-4)
--- NOTE | 2023-11-21 17:26 | PC.NURSE ---
Pt has C/O abdominal discomfort t/o shift and has required multiple pain and anxiety medication for relief. She has had multiple incontinent liquid stools. Has slept at intervals today.Ambulated to BR some this shift. Call light within reach.
--- NOTE | 2023-11-21 18:23 | PC.NURSE ---
kelley at [facility] called and said patient was on wait list but no bed available
[2023-11-21] MEDS: LACTATED RINGERS 1000ML 1,000 ML 250 ML IV (20:30)
--- NOTE | 2023-11-21 21:02 | EXP.PN ---
Subjective *Date: 11/21/23 *Time: 22:07 Interval history: While rounding on patient, nursing reported that patient now has developed a fever and also heart rate going to 130 at a time. Exam Data for Last 24 hours Vital signs and Labs for Last 24 Hours: Temp Pulse Resp BP Pulse Ox O2 Del Method 100.3 F H 88 18 130/82 100 Room Air 11/21/23 20:57 11/21/23 16:00 11/21/23 16:00 11/21/23 16:00 11/21/23 16:00 11/21/23 19:00 Laboratory Results - last 24 hr 11/21/23 10:47: WBC 14.9 H, RBC 4.83, Hgb 13.8, Hct 42.9, MCV 88.7, MCH 28.6, MCHC 32.2, RDW 13.1, Plt Count 196, MPV 9.2, Neut % (Auto) 91.0 H, Lymph % (Auto) 4.3 L, [place] % (Auto) 4.4, Eos % (Auto) 0.1, Baso % (Auto) 0.1, Neut # (Auto) 13.6 H, Lymph # (Auto) 0.6 L, [place] # (Auto) 0.7, Eos # (Auto) 0.0, Baso # (Auto) 0.0, Total Counted 100, Neutrophils % (Manual) 86 H, Lymphocytes % (Manual) 8 L, Monocytes % (Manual) 6, Platelet Estimate Normal, RBC Morphology Normal, ESR 9, Sodium 136, Potassium 3.6, Chloride 107, Carbon Dioxide 21 L, Anion Gap 11.6, BUN 4 L D, Creatinine 0.50 L, Estimated Creat Clear 182, Estimated GFR 157, Est GFR ( Amer) 190 D, Glucose 110 H, Calcium 8.8, Magnesium 1.6, Total Bilirubin 0.7, AST 27, ALT 22, Alkaline Phosphatase 85, C-Reactive Protein 66.8 H, Total Protein 6.4, Albumin 3.8 D, Globulin 2.6, Albumin/Globulin Ratio 1.5 I & O for Last 24 hours: Intake & Output 11/18/23 11/19/23 11/20/23 11/21/23 23:59 23:59 23:59 23:59 Intake Total 300 / 300 Output Total 0 / 0 Balance 300 / 300 Weight 64.365 kg 64.365 kg Constitutional Constitutional: moderate distress Comments: Patient is in bed she is awake and alert but is in quite a bit of discomfort. Mother and other family members at bedside. *Routine Respiratory Exam Respiratory: Present normal respiratory effort Comments: Lung sounds are clear in all duffy *Routine Cardiovascular Exam Cardiovascular: Present RRR and tachycardia Comments: Patient is tachycardic but with a regular rhythm extremities showing no edema and are pink with brisk capillary refill *Routine Abdominal Exam Comments: Exam is limited as the patient is an acute abdominal pain with cramping so no palpation was done *Routine Skin Exam Skin: Present intact Comments: Examination of the skins finds no mottling or redness or signs of infection or rash *Routine Neurological Exam Neurological: Present alert, oriented X3 and CN II-XII intact Comments: Patient is in quite a bit of discomfort but she is able to answer questions respond appropriately. She is able to move all extremities with normal associate dean [employer] strength Assessment and Plan *Assessment and plan (1) Tachycardia: Start date: 11/21/23 Start time: 21:07 Status: Acute Category: Medical Code(s): R00.0 - Tachycardia, unspecified (2) Fever: Start date: 11/21/23 Start time: 21:07 Status: Acute Category: Medical Code(s): R50.9 - Fever, unspecified Plan 1. Onset of fever with increased heart rate, plan at this time have ordered CBC CMP mag, and blood cultures. IV fluids started 1 L of LR was started at 250 an hour for 4 hours. Once completed we will evaluate heart rate and continue to monitor urine output. Patient was placed on cardiac technologist. Presently awaiting for a bed to open at a transfer facility that was discussed by Dr. Sargent. Family members have been updated on condition and plans for treatment.
[2023-11-21 21:27] LABS: MANUAL DIFFERENTIAL MANUAL DIFFERENTIAL (MANUAL DIFF)
[2023-11-21 21:30] LABS: Basophils % 0.1 % (0.1-2.0); Eosinophils # 0.1 K/mm3 (0.0-0.4); Eosinophils % 0.3 % (0.1-12.0); Hematocrit 45.1 % (37.0-47.0); Hemoglobin 14.8 g/dL (12.2-16.2); Lymphocytes # 0.6 K/mm3 (0.7-4.5); Lymphocytes % 3.5 % (10-50); Mean Corpuscular HGB Conc 32.9 g/dL (31.8-35.4); Mean Corpuscular Hemoglobin 29.4 pg (27.0-31.2); Mean Corpuscular Volume 89.5 fl (81-99); Mean Platelet Volume 8.9 fl (7.4-10.4); Monocytes # 1.1 K/mm3 (0.1-1.0); Monocytes % 5.9 % (1.7-9.3); Neutrophils % 90.2 % (37.0-80.0); Platelet Count 210 K/mm3 (142-424); Red Blood Count 5.04 M/mm3 (4.20-5.40); Red Cell Distribution Width 13.3 % (11.5-17.5); White Blood Count 17.8 K/mm3 (4.5-13.0)
[2023-11-21 21:40] LABS: Chloride 106 mmol/L (98-107); Potassium 3.8 mmoL/L (3.5-5.1); Sodium 134 mmol/L (136-145)
[2023-11-21 21:42] LABS: Alanine Aminotransferase 18 U/L (12-78); Aspartate Amino Transferase 23 U/L (14-36); Blood Urea Nitrogen 4 mg/dl (7-17); Creatinine Clearance Estimated 182 mL/min (50-200); Estimated Glomerular Filt Rate 157 ml/min (>60); GFR (African American) 190 ML/MIN (>60)
[2023-11-21 21:43] LABS: Albumin Level 3.7 g/dl (3.5-5.0); Albumin/Globulin Ratio 1.4 (1.1-1.8); Alkaline Phosphatase 88 U/L (38-126); Anion Gap 12.8 mEq/L (5-15); Bilirubin,Total 0.7 mg/dl (0.2-1.3); Calcium 8.7 mg/dl (8.4-10.2); Carbon Dioxide 19 mmol/L (22.0-30.0); Globulin 2.6 g/dL (1.3-3.2); Glucose 114 mg/dl (74-100); Total Protein,Serum 6.3 g/dl (6.3-8.2)
[2023-11-21 21:45] LABS: Magnesium 1.6 mg/dl (1.6-2.3)
[2023-11-21 22:19] LABS: Lymphocytes % 6 % (10-50); Monocytes % 3 % (2-9); Neutrophils % 89 % (42-76); Platelet Estimate Normal; RBC Morphology Normal; Total Cells Counted 100
--- NOTE | 2023-11-21 22:59 | P.EN_ITS ---
Follow-up on care of patient heart rate has decreased to the 120s, presently afebrile. Have called transfer line for [facility]. Given them the upgrade of need the patient now has elevated white count was running temperature requiring boluses to keep heart rate down. The separator operator [employer] taking the information said that she will add this but that there is a long line and they are completely full at [facility]. That by morning they will then get together to discuss if they have beds of who to except with the greatest need. Will continue present care and will start IV fluids on a continuous basis at 125 cc / hr.
[2023-11-21] MEDS: 0.9 % SODIUM CHLORIDE 1000ML 1,000 ML 125 ML IV (23:42)
[2023-11-22] VITALS: BP 125/83; PULSE 120; PULSE 124; RESP 18; TEMP 37.1; O2SAT 99
[2023-11-22] MEDS: MORPHINE 2MG/ML SYRINGE 2 MG IV ×7 (00:39→14:13)
[2023-11-22 00:48] VITALS: TEMP 36.9
[2023-11-22] MEDS: OXYCODONE 5MG IMMEDIATE RELEASE TABLET 5 MG PO ×3 (02:22→14:58)
[2023-11-22] MEDS: ONDANSETRON 4MG/2ML VIAL 4 MG IV ×3 (03:34→14:58)
[2023-11-22 04:00] VITALS: BP 138/78; PULSE 117; PULSE 127; RESP 16; TEMP 37.2; O2SAT 98; BMI 24.2
[2023-11-22] MEDS: LORazepam 2MG/ML VIAL 0.5 MG IV (05:24)
[2023-11-22 06:04] LABS: Basophils % 0.2 % (0.1-2.0); Eosinophils # 0.1 K/mm3 (0.0-0.4); Eosinophils % 0.9 % (0.1-12.0); Hematocrit 43.2 % (37.0-47.0); Lymphocytes # 0.8 K/mm3 (0.7-4.5); Lymphocytes % 5.1 % (10-50); Mean Corpuscular HGB Conc 32.4 g/dL (31.8-35.4); Mean Corpuscular Volume 89.5 fl (81-99); Mean Platelet Volume 8.7 fl (7.4-10.4); Monocytes % 6.1 % (1.7-9.3); Neutrophils # 14.3 K/mm3 (1.8-7.8); Neutrophils % 87.8 % (37.0-80.0); Platelet Count 184 K/mm3 (142-424); Red Blood Count 4.83 M/mm3 (4.20-5.40); Red Cell Distribution Width 13.6 % (11.5-17.5); White Blood Count 16.3 K/mm3 (4.5-13.0)
[2023-11-22 06:06] LABS: MANUAL DIFFERENTIAL MANUAL DIFFERENTIAL (MANUAL DIFF)
[2023-11-22 06:11] LABS: Chloride 105 mmol/L (98-107); INR 1.18 (0.9-1.1); Prothrombin Time 12.6 seconds (10.1-12.5)
[2023-11-22 06:12] LABS: Potassium 4.1 mmoL/L (3.5-5.1); Sodium 133 mmol/L (136-145)
[2023-11-22 06:14] LABS: Alanine Aminotransferase 15 U/L (12-78); Aspartate Amino Transferase 19 U/L (14-36); Blood Urea Nitrogen 3 mg/dl (7-17); Creatinine Clearance Estimated 182 mL/min (50-200); Estimated Glomerular Filt Rate 157 ml/min (>60); GFR (African American) 190 ML/MIN (>60)
[2023-11-22 06:15] LABS: Albumin Level 3.2 g/dl (3.5-5.0); Albumin/Globulin Ratio 1.2 (1.1-1.8); Alkaline Phosphatase 79 U/L (38-126); Anion Gap 12.1 mEq/L (5-15); Bilirubin,Total 0.6 mg/dl (0.2-1.3); Calcium 8.4 mg/dl (8.4-10.2); Carbon Dioxide 20 mmol/L (22.0-30.0); Globulin 2.6 g/dL (1.3-3.2); Glucose 123 mg/dl (74-100); Magnesium 1.6 mg/dl (1.6-2.3); Total Protein,Serum 5.8 g/dl (6.3-8.2)
--- NOTE | 2023-11-22 07:27 | PC.NURSE ---
pt temp 100.1 hr 130's. provider, daria robison made aware. labs ordered. bolus ordered. pt cont to report intermitten cramping that makes patient holler out in pain. pt being treated frequently with prn pain medications, pt cont to have diarrhea, bright red blood at times, pt did have some bile colored emesis, zofran given, provide made aware
[2023-11-22] MEDS: PANTOPRAZOLE 40MG VIAL 40 MG IV (07:34)
[2023-11-22] MEDS: 0.9 % SODIUM CHLORIDE 1000ML 1,000 ML 125 ML IV (07:49)
[2023-11-22 08:00] VITALS: PULSE 120
[2023-11-22 08:06] LABS: Lactate Dehydrogenase 264 U/L (313-618)
[2023-11-22 08:18] LABS: Lymphocytes % 8 % (10-50); Monocytes % 4 % (2-9); Neutrophils % 88 % (42-76); Platelet Estimate Normal; RBC Morphology Normal; Total Cells Counted 100
--- NOTE | 2023-11-22 09:06 | PC.NURSE ---
emesis times one and dr. Kimbrough aware.
--- NOTE | 2023-11-22 09:31 | PC.NURSE ---
Pt. was medicated at 07:30 with morphine 2 mg and called out at 09:30 for more pain meds. Pt. states her pain is a 9 out of a ten but was sleeping and drowsy when i entered the room. Pt's mother requested a pain pill for the patient.
[2023-11-22 12:00] VITALS: BP 139/93; PULSE 120; PULSE 126; RESP 16; TEMP 37.1; O2SAT 98
--- NOTE | 2023-11-22 12:34 | PC.NURSE ---
Pt's mother requested for dr. Kimbrough to be aware she wants her transferred to [facility]! Luis E aware
[2023-11-22] MEDS: 0.9 % SODIUM CHLORIDE 1000ML 1,000 ML 150 ML IV (14:13)
--- NOTE | 2023-11-22 14:49 | PC.NURSE ---
Report called to Goldie GARZA at [facility].
--- NOTE | 2023-11-22 15:54 | P.DS_ITS ---
General Admission date:: 11/20/23 Discharge date: 11/22/23 HPI HPI HPI: Patient's that this problem began about a week ago. Has progressively worsened until she is now having blood in her stool and not able to control her bowel movements. She denies vomiting or fever. Denies that she has been traveling or camping where she would have been exposed to abnormal water sources. 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 No history of any other immediate contacts being ill. Hospital Course Hospital Course Hospital Course: 18-year-old female with severe abdominal pain and diarrhea. Found to have E. coli 0157 and Shigella on stool panel. Discussed case with ER, request admission. I agree to admit for further management and supportive care. Patient having a lot of cramping pain overnight. Continues to have numerous loose bowel movements. Afebrile overnight. Problems addressed as follows: E. coli 0157 diarrhea Pancolitis Shigella Patient remained symptomatic for abdominal pain. Patient family requesting to be transferred to higher level of care with ID and GI services, [facility]. Main was contacted and patient was discharged in stable condition Exam Data for Last 24 hours Vital signs and Labs for Last 24 Hours: Temp Pulse Resp BP Pulse Ox O2 Del Method 98.8 F 126 H 16 139/93 H 98 Room Air 11/22/23 12:00 11/22/23 12:00 11/22/23 12:00 11/22/23 12:00 11/22/23 12:00 11/22/23 13:50 Laboratory Results - last 24 hr 11/21/23 21:10: WBC 17.8 H, RBC 5.04, Hgb 14.8, Hct 45.1, MCV 89.5, MCH 29.4, MCHC 32.9, RDW 13.3, Plt Count 210, MPV 8.9, Neut % (Auto) 90.2 H, Lymph % (Auto) 3.5 L, Merrick % (Auto) 5.9, Eos % (Auto) 0.3, Baso % (Auto) 0.1, Neut # (Auto) 16.0 H, Lymph # (Auto) 0.6 L, Merrick # (Auto) 1.1 H, Eos # (Auto) 0.1, Baso # (Auto) 0.0, Total Counted 100, Neutrophils % (Manual) 89 H, Band Neutrophils % 1.0, Lymphocytes % (Manual) 6 L, Atypical Lymphs % 1.0, Monocytes % (Manual) 3, Platelet Estimate Normal, RBC Morphology Normal, Sodium 134 L, Potassium 3.8, Chloride 106, Carbon Dioxide 19 L, Anion Gap 12.8, BUN 4 L, Creatinine 0.50 L, Estimated Creat Clear 182, Estimated GFR 157, Est GFR ( Amer) 190, Glucose 114 H, Lactate 1.0, Calcium 8.7, Magnesium 1.6, Total Bilirubin 0.7, AST 23, ALT 18, Alkaline Phosphatase 88, Total Protein 6.3, Albumin 3.7, Globulin 2.6, Albumin/Globulin Ratio 1.4 11/22/23 05:51: WBC 16.3 H, RBC 4.83, Hgb 14.0, Hct 43.2, MCV 89.5, MCH 29.0, MCHC 32.4, RDW 13.6, Plt Count 184, MPV 8.7, Neut % (Auto) 87.8 H, Lymph % (Auto) 5.1 L, Merrick % (Auto) 6.1, Eos % (Auto) 0.9, Baso % (Auto) 0.2, Neut # (Auto) 14.3 H, Lymph # (Auto) 0.8, Merrick # (Auto) 1.0, Eos # (Auto) 0.1, Baso # (Auto) 0.0, Total Counted 100, Neutrophils % (Manual) 88 H, Lymphocytes % (Manual) 8 L, Monocytes % (Manual) 4, Platelet Estimate Normal, RBC Morphology Normal, PT 12.6 H, INR 1.18 H, Sodium 133 L, Potassium 4.1, Chloride 105, Carbon Dioxide 20 L, Anion Gap 12.1, BUN 3 L, Creatinine 0.50 L, Estimated Creat Clear 182, Estimated GFR 157, Est GFR ( Amer) 190, Glucose 123 H, Calcium 8.4, Magnesium 1.6, Total Bilirubin 0.6, AST 19, ALT 15, Alkaline Phosphatase 79, Lactate Dehydrogenase 264 L, Total Protein 5.8 L, Albumin 3.2 L D, Globulin 2.6, Albumin/Globulin Ratio 1.2 I & O for Last 24 hours: Intake & Output 11/19/23 11/20/23 11/21/23 11/22/23 23:59 23:59 23:59 23:59 Intake Total 300 / 300 2216 Output Total 0 / 0 300 / 300 Balance 300 / 300 1916 Weight 64.365 kg 64.365 kg 64.363 kg Constitutional Constitutional: no acute distress *Routine HEENT Exam Head: Present normocephalic Eye: Present EOMI and PERRL ENT: Present mucous membranes moist *Routine Neck Exam Neck: Present supple; Absent lymphadenopathy *Routine Respiratory Exam Respiratory: Present CTA bilaterally *Routine Cardiovascular Exam Cardiovascular: Present RRR *Routine Abdominal Exam Abdominal: Present soft and normoactive bowel sounds; Absent tenderness *Routine Extremities Exam Extremities: Absent cyanosis, clubbing or edema *Routine Skin Exam Skin: Present warm; Absent rash *Routine Neurological Exam Neurological: Present alert and oriented X3 Results Data Completed and Pending Labs on day of discharge: Labs from last 24 hours 11/22/23 11/21/23 05:51 21:10 WBC 16.3 H 17.8 H RBC 4.83 5.04 Hgb 14.0 14.8 Hct 43.2 45.1 MCV 89.5 89.5 MCH 29.0 29.4 MCHC 32.4 32.9 RDW 13.6 13.3 Plt Count 184 210 MPV 8.7 8.9 Neut % (Auto) 87.8 H 90.2 H Lymph % (Auto) 5.1 L 3.5 L Merrick % (Auto) 6.1 5.9 Eos % (Auto) 0.9 0.3 Baso % (Auto) 0.2 0.1 Neut # (Auto) 14.3 H 16.0 H Lymph # (Auto) 0.8 0.6 L Merrick # (Auto) 1.0 1.1 H Eos # (Auto) 0.1 0.1 Baso # (Auto) 0.0 0.0 Total Counted 100 100 Neutrophils % (Manual) 88 H 89 H Band Neutrophils % 1.0 Lymphocytes % (Manual) 8 L 6 L Atypical Lymphs % 1.0 Monocytes % (Manual) 4 3 Platelet Estimate Normal Normal RBC Morphology Normal Normal PT 12.6 H INR 1.18 H Sodium 133 L 134 L Potassium 4.1 3.8 Chloride 105 106 Carbon Dioxide 20 L 19 L Anion Gap 12.1 12.8 BUN 3 L 4 L Creatinine 0.50 L 0.50 L Estimated Creat Clear 182 182 Estimated GFR 157 157 Est GFR ( Amer) 190 190 Glucose 123 H 114 H Lactate 1.0 Calcium 8.4 8.7 Magnesium 1.6 1.6 Total Bilirubin 0.6 0.7 AST 19 23 ALT 15 18 Alkaline Phosphatase 79 88 Lactate Dehydrogenase 264 L Total Protein 5.8 L 6.3 Albumin 3.2 L D 3.7 Globulin 2.6 2.6 Albumin/Globulin Ratio 1.2 1.4 DS: Diagnosis Discharge Diagnosis (1) Tachycardia: Status: Acute Code(s): R00.0 - Tachycardia, unspecified (2) Fever: Status: Acute Code(s): R50.9 - Fever, unspecified Meds Home Medications and Allergies Home Medications Medication Instructions Recorded Confirmed Type sertraline 100 mg tablet 100 mg PO BID 11/21/23 11/21/23 History New Prescriptions to Start Prescriptions: Allergies Allergy/AdvReac Type Severity Reaction Status Date / Time No Known Allergies Allergy Verified 07/25/23 10:10 Discharge Plan Disposition Patient Disposition: Xfer Short-Term Hosp Condition: Fair Discharge Order Discharge Orders: Discharge Order (Routine); Ordered 11/22/23 Ordered By: Martinez Kimbrough Follow up Plan Prescriptions/Medication Reconciliation: Continued sertraline 100 mg tablet 100 mg PO BID Patient Comments: TAKE 1 TABLET BY MOUTH TWICE DAILY Problem Reconciliation Problems Reviewed?: Yes Patient Discharge Instructions ACTIVITY: Continue current activity DIET: continue same diet Patient Instructions: DI for Escherichia Coli (E. Coli) Infection, DI for Dehydration -- Adult, DI for Abdominal Pain-Adult, DI for Rectal Bleeding, DI for Shigellosis Providers Primary Care Provider: Edelmira Ma Admit Provider: Santhosh Sargent Attending Provider: Santhosh Sargent
== END 2023-11-22 16:01 | disposition short-term general hospital (02) | DRG 372 ==
LOC: ER 17:50 → 2ND 21:04
PROVIDERS: Nurse Practitioner Family; Admitting Provider Internal Medicine Adolescent Medicine; Emergency Provider Emergency Medicine; PCP Nurse Practitioner Family; Visit Provider Internal Medicine Adolescent Medicine
DX: A03.9 Shigellosis, unspecified (principal); K92.1 Melena; A04.4 Other intestinal Escherichia coli infections; E86.0 Dehydration
CPT/HCPCS: 36415; 74177; 80053; 81001; 83605; 83615; 83690; 83735; 84703; 85007; 85014; 85018; 85025; 85048; 85049; 85610; 85651; 86140; 87040; 87507; 99285; J0131; J1885; J2060; J2270; J2405; J2765; J7120; Q9967

== ENCOUNTER 2024-07-05 08:30 | Outpatient (CLI) | payer MEDICAID, SELFPAY ==
--- NOTE | 2024-07-05 08:35 | XR_ITS ---
FINAL REPORT TECHNIQUE: Chest PA & Lateral CLINICAL HISTORY: soa, hx of collapsed lung COMPARISON: None FINDINGS: 2 views of the chest were performed. The heart size is normal. The mediastinum is within normal limits. There is no acute cardiopulmonary process. There are no pleural effusions. There is no pneumothorax. The bony thorax appears intact. IMPRESSION: No acute cardiopulmonary process. Reviewed, Interpreted and Dictated by Leodan Ghosh MD Transcribed by Balbina Lacy Authenticated and . [facility]
== END 2024-07-05 23:59 | disposition home or self-care (01) ==
PROVIDERS: PCP Nurse Practitioner Family; Visit Provider Nurse Practitioner Family
DX: R06.02 Shortness of breath (principal); Z68.27 Body mass index [BMI] 27.0-27.9, adult
CPT/HCPCS: 71046

== ENCOUNTER 2024-07-16 14:53 | Outpatient (CLI) | payer MEDICAID, SELFPAY ==
[2024-07-16 15:30] VITALS: PULSE 87; PULSE 93
[2024-07-16] MEDS: ALBUTEROL 0.083% 2.5 MG/3 ML NEB IH (15:30)
== END 2024-07-16 23:59 | disposition home or self-care (01) ==
LOC: RT 14:54
PROVIDERS: PCP Nurse Practitioner Family; Visit Provider Nurse Practitioner Family
DX: R06.00 Dyspnea, unspecified (principal); Z87.891 Personal history of nicotine dependence
CPT/HCPCS: 94060; 94640; J7613

== ENCOUNTER 2024-12-19 01:09 | Emergency (ER) | payer MEDICAID, SELFPAY ==
--- OUTSIDE RECORDS SUMMARY | 2024-11-09 13:00 | XMS_ITS | Encounter Summary ---
Author Organization Healthcare Address [address] [place] [address] Care Team Providers Care Men'S Garment Fitter Name Role Phone Edelmira Ma APRN Primary Care Provider [phone] Reason for Visit * Consultation (Routine) - Authorized Specialty Diagnoses / Procedures Referred By Contcassidy t Referred To Contact [facility] Diagnoses Dysphonia Rebeka Palma MD [address] [place] [address] Phone: tel: fax: Referral ID Status Reason Start Date Expiration Date Visits Requested Visits Authorized [id number] Authorized Specialty Services Required 09/05/2024 03/07/2026 1 8 Encounter Details Date Type Department Care Team (Late st Contact Info) Description 11/09/2024 1:00 PM EDT Office Visit [facility] [address] [place] [address] Cheyenne Lozoya MS CCC-CLEANER ASSISTANT Dysphonia (Primary Dx) Social History Tobacco Use Types Packs/Day Years Used Date Smoking Tobacco: Never Smokeless Tobacco: Never Alcohol Use Standard Drinks/Week Comments Yes 0 (1 standard drink = 0.6 oz pur e alcohol) occ - not often PHQ-2 Answer Date Recorded Patient Health Questionnaire-2 Score 6 03/16/2021 Comments No Sex and Gender Information Value Date Recorded Sex Assigned at Female 06/10/2022 7:28 PM EST Legal Sex Female 7:31 PM EDT Gender Identity Female 06/10/2022 7:28 PM EST Sexual Orientation Straight 06/10/2022 7: 28 PM EST documented as of this encounter Miscellaneous Notes * Progress Notes - Cheyenne Lozoya MS CCC-CLEANER ASSISTANT - 11/09/2024 1:00 PM EDT [facility] Patient's name: Jennifer Franklin Date: 11/09/2024 Providing CLEANER ASSISTANT: Cheyenne Lozoya MM, , CCC-CLEANER ASSISTANT Treatment time: 45 minutes 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 Patient denies and discernible changes to her voice quality since her evaluation and last visit with Dr. Palma. She continues to have difficulty being heard and finds her voice to be hoarse chronically. The session was observed by Kaitlynn Bauer, financial business analyst internal medicine specialist. OBJECTIVE: A protocol was used to promote vocal loudness, respiratory effort, and encourage maximal glottic closure. The treatment focuses on the singular target of increasing vocal loudness to normal levels and delivering the treatment in an intensive, high-effort manner across a number of stimuli including modal pitch, pitch glides, and functional phrases. . Tasks: 10 trials of loud /a/ sustained phonation 3-5 seconds MPT 10 trials of hiz-myke-ddc glides 10 higher register increased loudness phrases- fair to good accuracy given moderate cueing 10 lower register increased loudness phrases- fair to good accuracy given moderate cueing Patient participated in spontaneous conversation for 4 minutes to address carryover of the techniques and achieve improved volume in connected speech tasks. ASSESSMENT: Patient incorporated all corrections provided today into the execution of exercises. Patient was motivated and compliant with all therapeutic activities. Patient benefited from cues to maintain adequate upright posture and appropriate respiratory drive for voicing. This patient continues to make progress within a reasonable time frame and will continue to benefit from skilled therapy. PLAN: Patient will return to the clinic in 2 wks to recheck for technique and progress. Patient will continue to practice exercises per the recommended twice daily schedule. Log sheets and instructions were provided. . documented in this encounter Plan of Treatment Upcoming Encounters Date Type Department Care Team (Latest Contact Info) Description 01/11/2025 7:30 AM EDT Hospital Encounter [facility] [address] [place] [address] Rebeka Palma MD [address] [address] 01/11/2025 7:30 AM EDT - 01/11/2025 11:30 AM EDT Surgery [facility] [address] [place] [id number] Rebeka Palma MD [address] [address] Endoscopic muscosal posterior glottic rotation flap with CO2 laser and endoscopic 01/17/2025 12:40 PM EDT Office [facility] [address], [address] [place] [address] Rebeka Palma MD [address] [phone] Scheduled Procedures Name Priority Associated Diagnoses Date/Ti me LARYNGOSCOPY, DIRECT, WITH L ASER PROCEDURE Dysphonia 01/11/2025 7:30 AM EDT LARYNGOSCOPY, WITH VOCAL COR D NODULE EXCISION Dysphonia 01/11/2025 7:30 AM EDT documented as of this encounter Visit Diagnoses Diagnosis Dysphonia- Primary Dysphonia documented in this encounter Additional Health Concerns Infection Onset Date Last Indicated Resolved Time 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 Source: [employer]. 12/25/2023 Assessment Noted Time PHQ-9 Depression Total Score: 15 1018/2 021 9:54 AM EDT A Body Mass Index follow-up plan has been documented for the patient 11/09/2024 2:15 PM EDT documented as of this encounter Care Teams Men'S Garment Fitter Relationship Specialty Start Date End Date Edelmira Ma APRN [address] [place] [address] PCP - General 08/23/24 documented as of this encounter
--- OUTSIDE RECORDS SUMMARY | 2024-12-04 13:30 | XMS_ITS | Encounter Summary ---
Author Organization Healthcare Address [address] [place] [address] Care Team Providers Care Typing Bookkeeper Name Role Phone Edelmira Ma APRN Primary Care Provider [phone] Reason for Visit * Reason Comments Follow-up Encounter Details Date Type Department Care Team (Latest Contact Info) Description 12/04/2024 1:30 PM EDT Office Visit [place] [facility] [address] [place] [address] Rebeka Palma MD [address] [place] [address] Dysphonia (Primary Dx); Glottic insufficiency Social History Tobacco Use Types Packs/Day Years [...] PM EST documented as of this encounter Last Filed Vital Signs Vital Sign Reading Time Taken Comments Blood Pressure 105/74 12/04/2024 2:23 PM EDT Pulse 80 12/04/2024 2:23 PM EDT Temperature - - Respiratory Rate - - Oxygen Saturation - - Inhaled Oxygen Concentration - - Weight 76.1 kg (167 lb 12.3 oz) 12/04/2024 2:23 PM EDT Height - - Body Mass Index 28.8 08/23/2024 11:53 AM EDT documented in this encounter Miscellaneous Notes * Progress Notes - Alex Lawson MD - 12/04/2024 1:30 PM EDT OTOLARYNGOLOGY - HEAD & NECK SURGERY FOLLOW-UP NOTE No chief complaint on file. TREATMENT HISTORY: Jennifer Franklin is a 19 y.o. female who presented to clinic for dysphonia. She had a tracheostomy inthe setting of prolonged intubation and bacteremia. On exam, she was found to have glottic insufficiency. There also appeared to be a posterior keyhole from the ETT. Recommendation was made for an injection augmentation in the operating room. She underwent this procedure on 08/23/2024; we injected 0.1 ml of prolaryn gel into each vocal cord. Following surgery, she had a few days where she felt like her voice was back to normal, before it returned to being raspy again. She was last seen on 09/04/2024 and found to have no residual material in the vocal folds and had persistent cooley hole deformity an d glottic insufficiency. She was recommended to continue voice therapy and follow up today to discuss further options. Voice therapy does not seem to be helping. She still has difficulty with people hearing her. PHYSICAL EXAM: There were no vitals taken for this visit. Gen: Well developed, well nourished female in no apparent distress. Neuro: A&Ox3. Respiratory: No increased WOB, no stridor Neck: Well healed tracheostomy scare. Lymph: No palpable lymphadenopathy Voice: G- 2 R- 1 B- 2 A- 1 S- 1 PROCEDURE NOTE: PROCEDURE PERFORMED: Flexible laryngoscopy with stroboscopy Indications: Dysphonia PROVIDER: Rebeka Palma MD ANESTHESIA: Local (4% lidocaine with afrin) PROCEDURE IN DETAIL: The patient was placed in the seated sniffing position. A flexible laryngoscope was inserted through the nasal cavity and guided to an area just above the vocal folds. The larynxwas visualized during respiration and phonation. See findings below. The patient was discharged in good condition. Velopharynx: Complete closure without weakness Vocal Fold Color/Quality: Normal Vocal Fold Mobility/Position: Normal Atrophy of Vocal Folds: Present bilaterally. The injected material no longer appears present. Vocal Fold Lesions: There is some fullness of the bilateral TVF, although this appears to be possibly the vocal process. Supraglottic Hyperfrunctional Contraction: Present Tremor: None Subglottis: Clear Other Findings (Nasopharynx, Base of tongue, Piriforms): Normal Vibratory Parameters: Symmetry: No phase asymmetry Amplitude: Decreased Mucosal Wave: Decreased Periodicity: 100% periodic Closure: At modal pitch, incomplete, and there is a posterior cooley hole which appears larger than a glottic chink. There is complete membranous vocal fold closure. Summary: Does not appear to have any residual material within the vocal folds. Continues to have a posterior cooley hole deformity that may be contributing to her dysphonia. Continued glottic insufficiency Difficult time tolerating the scope exam EAT-10: 0 RSI: 15 VHI-10: 20 CSI: 0 DI: 0 I reviewed her voice therapy notes. I reviewed her care with Cheyenne Butts, LEAD CARPENTER Assessment/Plan Jennifer Franklin is a 18 y.o. female who presented to clinic for dysphonia. She had a tracheostomy inthe setting of prolonged intubation and bacteremia. On exam, she was found to have glottic insufficiency. There also appeared to be a posterior keyhole from the ETT. Recommendation was made for an injection augmentation in the operating room. Her voice was back to normal for 3 days. It was really clear and strong . However, the results wore off after about 3 days.On exam, she does not appear to have any residual material within the vocal folds. There is continued glottic insufficiency. Continues to have a posterior cooley hole deformity that may be contributing to her dysphonia. I recommended co ntinued voice therapy. She is working on [employer], but does not feel like she has improvement in her voice. 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 I believe she had improvement in the voice after the injection augmentation due to inflammation/swelling in the posterior glottis from intubation. We discussed a trial of injection of filler into the interarytenoidspace/posterior glottis. We also discussed a more permanent surgery with an endoscopic posterior glottic rotation flap. She is aware that this may not resolve her symptoms. She is aware of the risks of bleeding, infection, mucocele, flap ischemia/loss, persistent glottic insufficiency, and posterior glottic scarring. She is aware of the need for a soft diet initially. Cosigned by Rebeka Palma MD at 12/05/2024 9:40 PM EDT Associated attestation - Rebeka Palma MD - 12/05/2024 9:40 PM EDT I saw and evaluated the patient with the resident/fellow. I discussed the case with the resident/fellow and agree with the findings and plan as documented. and I was present for the entirety of the procedure(s). documented in this encounter Plan of Treatment Upcoming Encounters Date Type Department Care Team (Latest Contact Info) Description 01/11/2025 7:30 AM EDT Hospital Encounter [facility] [address] [place] [address] Rebeka Palma MD [address] [address] 01/11/2025 7:30 AM EDT - 01/11/2025 11:30 AM EDT Surgery [facility] [address] [place] [address] Rebeka Palma MD [address] [address] Endoscopic muscosal posterior glottic rotation flap with CO2 laser and endoscopic 01/17/2025 12:40 PM EDT Office Visit [place] [facility] [address] [place] [address] Rebeka Palma MD [address] [place] [address] Scheduled Procedures Name Priority Associated Diagnoses Date/Ti me LARYNGOSCOPY, DIRECT, WITH L ASER PROCEDURE Dysphonia 01/11/2025 7:30 AM EDT LARYNGOSCOPY, WITH VOCAL COR D NODULE EXCISION Dysphonia 01/11/2025 7:30 AM EDT documented as of this encounter Visit Diagnoses Diagnosis Dysphonia- Primary Glottic insufficiency Other diseases of vocal cords Dysphonia documented in this encounter Additional Health Concerns Infection Onset Date Last Indicated Resolved Time 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 Source: [employer]. 12/25/2023 Assessment Noted Time PHQ-9 Depression Total Score: 15 10/ 021 9:54 AM EDT A Body Mass Index follow-up plan has been documented for the patient 12/05/2024 9:40 PM EDT documented as of this encounter Care Teams Typing Bookkeeper Relationship Specialty Start Date End Date Edelmira Ma APRN [address] [place] [address] PCP - General 08/23/24 documented as of this encounter
--- OUTSIDE RECORDS SUMMARY | 2024-12-19 01:14 | XMS_ITS | Encounter Summary ---
Author Organization Healthcare Address [address] [place] [address] Care Team Providers Care Sales Superintendent Name Role Phone Edelmira Ma APRN Primary Care Provider [phone] Encounter Details Date Type Department Care Team (Latest Contact Info) Description 11/09/2024 Travel Social History Tobacco Use Types Packs/Day Years [...] PM EST documented as of this encounter Plan of Treatment Upcoming Encounters Date Type Department Care Team (Latest Contact Info) Description 01/11/2025 7:30 AM EDT Hospital Encounter [facility] [address] [place] [address] Rebeka Palma MD [address] [facility] [address] [place] [address] 01/11/2025 7:30 AM EDT - 01/11/2025 11:30 AM EDT Surgery [facility] [address] [place] [phone] Rebeka Palma MD [address] [facility] [address] [place] [address] Endoscopic muscosal posterior glottic rotation flap with CO2 laser and endoscopic 01/17/2025 12:40 PM EDT [facility] [address] [place] [address] Rebeka Palma MD [address] [facility] [address] [place] [address] Scheduled Procedures Name Priority Associated Diagnoses Date/Ti me LARYNGOSCOPY, DIRECT, WITH L ASER PROCEDURE Dysphonia 01/11/2025 7:30 AM EDT LARYNGOSCOPY, WITH VOCAL COR D NODULE EXCISION Dysphonia 01/11/2025 7:30 AM EDT documented as of this encounter Visit Diagnoses Not on filedocumented in this encounter Additional Health Concerns Infection Onset Date Last Indicated Resolved Time 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 Source: [employer]. 12/25/2023 Assessment Noted Time PHQ-9 Depression Total Score: 15 021 9:54 AM EDT A Body Mass Index follow-up plan has been documented for the patient 11/09/2024 2:15 PM EDT documented as of this encounter Care Teams Sales Superintendent Relationship Specialty Start Date End Date Edelmira Ma APRN [address] [place] [address] PCP - General 08/23/24 documented as of this encounter
--- OUTSIDE RECORDS SUMMARY | 2024-12-19 01:14 | XMS_ITS | Encounter Summary ---
Author Organization Healthcare Address [address] [place] [address] Care Team Providers Care Janitor Custodian Name Role Phone Edelmira Ma APRN Primary Care Provider [phone] Encounter Details Date Type Department Care Team (Latest Contact Info) Description 12/04/2024 Travel Social History Tobacco Use Types Packs/Day [...] Hospital Encounter [facility] RO[facility] [address] [place] [address] Rebeka Palma MD [address] [facility] [address] [place] [address] 01/11/2025 7:30 AM EDT - 01/11/2025 11:30 AM EDT Surgery [facility] RO[facility] [address] [place] [address] Rebeka Palma MD [address] [facility] [address] [place] [address] Endoscopic muscosal posterior glottic rotation flap with CO2 laser and endoscopic 01/17/2025 12:40 PM EDT Office Visit [facility] [address] [place] [address] Rebeka Palma MD [address] [facility] [address] [place] [address] Scheduled Procedures Name Priority Associated Diagnoses Date/Ti me LARYNGOSCOPY, DIRECT, WITH L ASER PROCEDURE Dysphonia 01/11/2025 7:30 AM EDT LARYNGOSCOPY, WITH VOCAL COR D NODULE EXCISION Dysphonia 01/11/2025 7:30 AM EDT documented as of this encounter Visit Diagnoses Not on filedocumented in this encounter Additional Health Concerns Infection Onset Date Last Indicated Resolved Time 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 Source: [employer]. 12/25/2023 Assessment Noted Time PHQ-9 Depression Total Score: 15 03/16/ 021 9:54 AM EDT A Body Mass Index follow-up plan has been documented for the patient 12/05/2024 9:40 PM EDT documented as of this encounter Care Teams Janitor Custodian Relationship Specialty Start Date End Date Edelimra Ma APRN [address] [place] [address] PCP - General 08/23/24 documented as of this encounter
--- OUTSIDE RECORDS SUMMARY | 2024-12-19 01:14 | XMS_ITS | Clinical Summary ---
Author Organization [facility] Address [address] [place] [address] Care Team Providers Care Microfilm Mounter Name Role Phone Edelmira Ma APRN Primary Care Provider [phone] Allergies No known active allergies Medications escitalopram (Lexapro) 5 MG tabletIndications: Generalized anxiety disorder with panic attacks Take 1 tablet (5 mg total) by mouth 1 (one) time each day. 30 tablet 2 03/16/20 21 Active naproxen (Naprosyn) 500 MG tablet if needed. 12/02/19 22 Active ondansetron ODT (Zofran-ODT) 4 MG disintegrating tablet if needed. 12/30/19 22 Active azithromycin (Zithromax) 250 MG tabletIndications: Pelvic and perineal pain Take 2 tablets now and repeat in 4 hours 4 tablet 02/11/20 22 Active Additional Information Patient not taking.Reported on 12/04/2024 busPIRone (Buspar) 10 MG tablet Take 1 tablet by mouth in the morning and 1 tablet before bedtime. Active Vraylar 1.5 MG capsule Take 1 capsule by mouth 1 (one) time each day. 05/16/20 24 Active FLUoxetine (PROzac) 20 MG capsule 02/02/20 24 Active loratadine (Claritin) 10 MG tablet Take 1 tablet by mouth nightly. Active fluticasone (Flonase) 50 MCG/ACT nasal spray Administer 1 spray into each nostril nightly. Shake gently. Before first use, prime pump. After use, clean tip and replace cap. Active pantoprazole (Protonix) 40 MG EC tablet Take 1 tablet (40 mg) by mouth daily. 01/13/20 24 Active omeprazole OTC (PriLOSEC OTC) 20 MG EC tablet Take 1 tablet by mouth daily. Do not crush, chew, or split. Active Active Problems Problem Noted Date Diagnosed Date Dysphonia 09/04/2024 Menorrhagia with regular cycle 03/18/2021 Assessment & Plan (03/18/2021 9:57 AM EDT): - discussed different medical management options including OCPs and IUD. She would like to try an IUD. Recommended Kyleena. She would like to return for placement after premedicating with ibuprofen. Generalized anxiety disorder with panic attacks 03/16/2021 Encounters Date Type Department Care Team Description 12/04/2024 1:30 PM EDT Office Visit 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 Voice & Swallow [address] [place] [address] [facility] Dysphonia (Primary Dx) 11/09/2024 Travel from Last 3 Months Immunizations Immunization Administration Dates Next Due DTaP 12/11/2013, 9,06/08/2004,04/13,02/10/2004 HPV 9-Valent 09/29/2017,09/27/2016,02/24/2015 HPV, Quadrivalent 12/24/2014 Hep A, ped/adol, 2 dose 02/21/2009,09/26/2006 Hep B, Adolescent or Pediatric 11/19/2004,2003,2003 Hib (PRP-T) 11/19/2004,02/10/2004,2003 IPV 02/21/2009, 5,02/10/2004,12/11 Influenza, injectable, quadr ivalent, preservative free 02/24/2021,03/08/2020,02/21/2019,04/15 Influenza, live, intranasal, quadrivalent 05/10/2014 Influenza, seasonal, injectable 03/03/2017 MMR 02/21/2009,04/08/2005 Meningococcal B, Omv 02/24/2021,01/09/2020 Meningococcal MCV4O 01/09/2020,12/24/2014 Pneumococcal Conjugate PCV 13 11/19/2004 ,04/13/2004,02/10/2004,12/11 Pneumococcal Conjugate PCV 7 11/19/2004, 04/13/2004,02/10/2004,12/11 Tdap 12/24/2014 Varicella 02/21/2009,11/19/2004 Family History Medical History Relation Name Comments Allergy (severe) Brother Asthma Maternal Grandmother Diabetes Maternal Grandmother Hyperlipidemia Maternal Grandmother Liver disease Maternal Grandmother tobacco Maternal Grandmother Allergy (severe) Mother Conversions - Other Mother Healthy adult Asthma Paternal Grandmother Allergy (severe) Sister Anesthesia problems Neg Hx Malig Hyperthermia Neg Hx Relation Name Status Comments Brother Maternal Grandmother Mother Paternal Grandmother Sister Social History Tobacco Use Types Packs/Day Years [...] Orientation Straight 06/10/2022 7: 28 PM EST Last Filed Vital Signs Vital Sign Reading Time Taken Comments Blood Pressure 105/74 12/04/2024 2:23 PM EDT Pulse 80 12/04/2024 2:23 PM EDT Temperature 37 C (98.6 F) 08/23/2024 3:00 PM EDT Respiratory Rate 13 08/23/2024 3:00 PM EDT Oxygen Saturation 99% 08/23/2024 3:00 PM EDT Inhaled Oxygen Concentration - - Weight 76.1 kg (167 lb 12.3 oz) 12/04/2024 2:23 PM EDT Height 162.6 cm (5' 4 ) 08/23/2024 11:5 3 AM EDT Body Mass Index 28.8 08/23/2024 11:53 AM EDT Plan of Treatment Upcoming Encounters Date Type Department Care Team (Latest Contact Info) Description 01/11/2025 7:30 AM EDT Hospital Encounter [facility] [address] [place] [address] Rebeka Palma MD [address] [address] 01/11/2025 7:30 AM EDT - 01/11/2025 11:30 AM EDT Surgery [facility] [address] [place] [address] Rebeka Palma MD [address] [address] Endoscopic muscosal posterior glottic rotation flap with CO2 laser and endoscopic 01/17/2025 12:40 PM EDT Office Visit [facility] [address], [address] [place] [address] Rebeka Palma MD [address] [phone] Scheduled Procedures Name Priority Associated Diagnoses Date/Ti me LARYNGOSCOPY, DIRECT, WITH L ASER PROCEDURE Dysphonia 01/11/2025 7:30 AM EDT LARYNGOSCOPY, WITH VOCAL COR D NODULE EXCISION Dysphonia 01/11/2025 7:30 AM EDT Health Maintenance Due Date Last Done Comments [facility]-HIV Screening 2003 [facility]-Hepatitis C Screening 2003 [facility]-Infant/Child/Adol SDOH Screenings 2003 [facility]- SDOH Screenings 10/08/2021 [facility]-Adult SDOH Screenings 10/08/2021 [facility]-Depression Screening 03/16/2022 03/16/2021, 02/27 [id number] Vaccine ( season) 2024 [facility]-Pap Smear 10/08/2024 [facility]-DTaP,Tdap,and Td Vaccines (7 - Td or Tdap) 12/24/2024 12/24/2014, 12/11/2013, 02/21/2009, Additional history exists [facility]-Influenza Vaccine (#1) 01/28/202502/13, 04/25/2023, 02/24/2021, Additional history exists [facility]-Zoster Vaccines (1 of 2) 10/08/2053 02/21/2009, 11/19/2004 [facility]-Hepatitis B Vaccines Completed 005, 02/10/2004, 2003 [facility]-Hepatitis A Vaccines Completed 02/21/2009, 08/30 [facility]-IPV Vaccines Completed 02/21/2009, , 02/10/2004, Additional history exists [facility]-Varicella Vaccines Completed 02/21/2009, 2004 HPV Vaccines Completed 09/29/2017, 05/0 05/2016, 02/24/2015, Additional history exists [facility]-HIB Vaccines Completed 04/06/2024, , 02/10/2004, Additional history exists [facility]-Pneumococcal Vaccine: Pediatrics (0 to 5 Years) and At-Risk Patients (6 to 49 Years) Aged Out 04/06/2024, 11/19/2004, 11/19/2004, Additional history exists No longer eligible based on patient's age to complete this topic [facility]-Obesity Intervention Completed 025, 11/09/2024, 09/04/2024, Additional history exists [facility]-Rotavirus Vaccines Aged Out No lo nger eligible based on patient's age to complete this topic Goals Goal Patient Goal Type Associated Problems Recent Progress Patient-Stated? 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 Source: [employer]. 12/25/2023 Insurance Care Teams Microfilm Mounter Relationship Specialty Start Date End Date Edelmira Ma APRN [address] [place] [address] PCP - General 08/23/24
--- OUTSIDE RECORDS SUMMARY | 2024-12-19 01:14 | XMS_ITS | Clinical Summary ---
Author Organization [facility] Address [address] [facility] [address] [place] [address] Phone Care Team Providers Care Prop Attendant Name Role Phone Unavailable Unavailable Conditions or Problems No information available. Medications No information available. Medications Administered No information available. Allergies, Adverse Reactions, Alerts No information available. Results No information available. Plan of Care No information available. Procedures No information available. Vital Signs No information available. Immunizations No information available. Advance Directives No information available.
--- OUTSIDE RECORDS SUMMARY | 2024-12-19 01:14 | XMS_ITS | Clinical Summary ---
Author Organization [employer] ([place], [place], [place], [place]) Address [address] [place] [address] Care Team Providers Care Metal Punch Press Operator Name Role Phone Anil Edelmira TRIANA Primary Care Provider [phone] Allergies Active Allergy Reactions Criticality Noted Date Comments Adhesive 02/03/2024 Eucalyptus Lwh-Xcbst-Dnjdhgrx Swelling,Rash High 11/22/2023 Headache, rash and swelling Grass Pollen 02/03/2024 Medications busPIRone (BUSPAR) 10 MG tablet Take 1 tablet (10 mg total) by mouth 2 (two) times daily. 60 tablet 01/13/2024 Active fLUoxetine (PROzac) 10 MG capsule Take 1 capsule (10 mg total) by mouth daily. Active Vraylar 1.5 mg capsule Take 1 capsule (1.5 mg total) by mouth daily. 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 12/15/2023 Colitis due to Escherichia coli 11/22/2023 GIB (gastrointestinal bleeding) 11/22/2023 Choledocholithiasis 11/22/2023 Generalized anxiety disorder with panic attacks 03/16/2021 12/17/2023 Immunizations Name Administration Dates Next Due HiB 04/06/2024 Meningococcal B, Omv 04/06/2024,12/07/2023,11/26 Meningococcal Conjugate 04/06/2024,12/07/2023, Pneumococcal Conjugate Vacci ne (20-Valent) IM 04/06/2024 Social History Tobacco Use Types Packs/Day Years Used Date Smoking Tobacco: Never Smokeless Tobacco: Never Alcohol Use Standard Drinks/Week Comments Never 0 (1 standard drink = 0.6 oz pur e alcohol) Utilities Answer Date Recorded In the past 12 months, has t he electric, gas, oil, or water company threatened to shut off services in your home? No 11/22/2023 Interpersonal Safety Answer Date Record ed How often does anyone, chao raines family and friends, physically hurt you? Never 11/22/2023 How often does anyone, chao raines family and friends, insult or talk down to you? Never 11/22/2023 How often does anyone, chao raines family and friends, threaten you with harm? Never 11/22/2023 How often does anyone, chao raines family and friends, scream or curse at you? Never 11/22/2023 Housing Stability Answer Date Recorded What is your living situation today? [facility] 11/22/[address] you li ve. Do you have problems with any of the following? None of the above 11/22/2023 Food Insecurity Answer Date Recorded Within the past 12 months, y ou worried that your food would run out before you got money to buy more. Never true 11/22/2023 Within the past 12 months, t he food you bought just didn't last and you didn't have money to get more. Never true 11/22/2023 Transportation Needs Answer Date Record ed In the past 12 months, has l ack of reliable transportation kept you from medical appointments, meetings, work or from getting things needed for daily living? No 11/22/2023 Financial Resource Strain Answer Date R ecorded How hard is it for you to pa y for the very basics like food, housing, medical care, and heating? Would you say it is: Not hard at all 11/22/2023 Employment Answer Date Recorded Do you want help finding or keeping work or a job? I do not need or want help 11/22/2023 Family and Community Support Answer Brock e Recorded If for any reason you need h elp with day-to-day activities such as bathing, preparing meals, shopping, managing finances, etc., do you get the help you need? I don't need any help 11/22/2023 Feeling Lonely or Isolated 0 11/21 Educational Attainment Answer Date Gaston rded Do you speak a language other than [place] at [facility]? No 11/22/2023 Do you want help with school or training? For example, starting or completing job training or getting a high school diploma, GED or equivalent. No 11/22/2023 Physical Activity Answer Date Recorded Number of minutes of exercise per week 0 11/22/2023 Self Management Answer Date Recorded Because of a physical, menta l, or emotional condition, do you have serious difficulty concentrating, remembering, or making decisions? (5 years or older) No 11/22/2023 Because of a physical, menta l, or emotional condition, do you have difficulty doing errands alone such as visiting a doctor's office or shopping? (15 years or older) No 11/22/2023 Substance Use Answer Date Recorded How many times in the past y ear have you used prescription drugs for non-medical reasons? Never 11/22/2023 How many times in the past year have you used [place] legal drugs? Never 11/22/2023 Mental Health Answer Date Recorded Calculation of above two rows 0 Comments No Sex and Gender Information Value Date Recorded Sex Assigned at Female 11/22/2023 4:38 PM CDT Legal Sex Female 12:00 PM CDT Gender Identity Not on file Sexual Orientation Not on file Last Filed Vital Signs Vital Sign Reading Time Taken Comments Blood Pressure 130/79 08/17/2024 2:01 PM EDT Pulse 108 08/17/2024 2:01 PM EDT Temperature 37.1 C (98.7 F) 08/17/2024 2:01 PM EDT Respiratory Rate 18 08/17/2024 2:01 PM EDT Oxygen Saturation 97% 08/17/2024 2:01 PM EDT Inhaled Oxygen Concentration 28% 01/08/2024 8 :00 PM EDT Weight 71.8 kg (158 lb 6.4 oz) 08/17/2024 2:01 P M EDT Height 162.6 cm (5' 4 ) 04/06/2024 2:07 PM EST Body Mass Index 27.19 04/06/2024 2:07 PM EST Plan of Treatment Upcoming Encounters Date Type Department Care Team (Late st Contact Info) Description 02/22/2025 1:40 PM EDT Office Visit [facility] [address] [place] [address] Jeremy Molina MD [address] [place] [address] Health Maintenance Due Date Last Done Comments Depression Screening (12+) 2015 HIV Screening 10/08/2018 COVID-19 VACCINE ( - 2023-2 5 season) 2024 Meningococcal B Vaccine (1 o f 2 - Standard) 05/04/2024 04/06/2024, 12/07/2023, 11/27/2023 Pap Smear 10/08/2024 DTAP/TDAP/TD VACCINES (7 - T d or Tdap) 12/24/2024 12/24/2014, 12/11/2013, 02/21/2009, Additional history exists Influenza Vaccine (#1) 2025 02/28/2024, 2013 Tobacco Cessation Counseling and Screening (12+) 08/17/2025 08/17/2024 Hepatitis C Screening Completed 12/06/2023 , 12/04/2023, 12/03/2023, Additional history exists Pneumococcal Vaccine: 0-49 Years Completed 04/06/2024, 11/19/2004, 11/19/2004, Additional history exists Procedures Procedure Name Priority Date/Time Associated Diagnosis Comments HEPATITIS PANEL, ACUTE STAT 12/06/2023 1:53 PM EDT from Last 3 Months or Most Recently Relevant to Health Maintenance Results * Hepatitis panel, acute (12/06/2023 1:53 PM EDT) Hep A IgM Nonreactive Nonreactive, Equivocal 12/06/2023 3:54 PM EDT [facility] Hep B C IgM Nonreactive Nonreactive 12/06/2023 3:54 PM EDT [facility] Hepatitis B surface antigen Nonreactive Nonreactive, Equivocal 12/06/2023 3:54 PM EDT [facility] Hepatitis C Ab Nonreactive Nonreactive, Equivocal 12/06/2023 3:54 PM EDT [facility] Blood Venipuncture / Unknown 12/06/2023 1:53 PM EDT 12/06/2023 2:07 PM EDT [facility] - 12/06/2023 3:54 PM EDT Hepatitis A Antibody IgM: (a) A negative test result does not exclude the possibility of exposure to the hepatitis A virus. (b) This test can be used to determine if a patient has or recently had an acute or asymptomatic hepatitis A infection. (c) A reactive result does not exclude co-infection by another hepatitis virus. Biotin supplements can cause clinically significant incorrect lab results. The FDA has seen an increase in the number of adverse events related to biotin interference with lab tests. Hepatitis B Core Antibody IgM: A reactive anti-HBc IgM result does not exclude co-infection by another hepatitis virus. Biotin supplements can cause clinically significant incorrect lab results. The FDA has seen an increase in the number of adverse events related to biotin interference with lab tests. Hepatitis B Surface Antibody Qual: This test does not differentiate between a vaccine induced immune response and an immune response induced by infection with HBV. Individuals that have received blood component therapies, (e.g. whole blood, plasma, immunoglobulin) administered during the previous 3 to 6 months may have a false reactive anti HBs due to passive transfer of anti HBs. A positive anti HBs result does not exclude co infection by another hepatitis virus. Biotin supplements can cause clinically significant incorrect lab results. The FDA has seen an increase in the number of adverse events related to biotin interference with lab tests. Hepatitis B Surface Antigen: This test may not detect all HBV mutants. If acute or chronic HBV infection is suspected and this test is non-reactive other HBV markers should be tested. Biotin supplements can cause clinically significant incorrect lab results. The FDA has seen an increase in the number of adverse events related to biotin interference with lab tests. Hepatitis C Antibody: A negative test result does not exclude the possibility of exposure to the hepatitis C virus and a reactive result does not exclude co-infection by another hepatitis virus. Biotin supplements can cause clinically significant incorrect lab results. The FDA has seen an increase in the number of adverse events related to biotin interference with lab tests. Nusrat Prieto MD LAB BLOOD ORDERABLES Final Resu lt [facility] [address] [place] [address], [facility] [phone] from Last 3 Months or Most Recently Relevant to Health Maintenance Additional Health Concerns Infection Onset Date Last Indicated Other - see comment Comment:CTX-M 12/24/2023 12/24/2023 MDR Klebsiella pneumoniae (C ) Comment:ESBL 12/26 mdr in cath tip 12/25/2023 12/25/2023 [facility] [employer] [facility] Advance Directives For more information, please contact: [phone] * Full Code (Latest Code Status on File) Date Activated Date Inactivated Comments 11/22/2023 5:43 PM 01/13/2024 2:32 PM Care Teams Metal Punch Press Operator Relationship Specialty Start Date End Date Edelmira Ma APRN [address] [place] [address] PCP - General Nurse Practitioner 01/13/24
--- OUTSIDE RECORDS SUMMARY | 2024-12-19 01:14 | XMS_ITS | Encounter Summary ---
Author Organization Healthcare Address [address] [place] [address] Care Team Providers Care Video Editing Internship Name Role Phone Masoud Collazo MD Primary Care Provider [phone] Edelmira Ma APRN Primary Care Provider [phone] Encounter Details Date Type Department Care Team (Late st Contact Info) Description 01/09/2024 Orders Only External Location [address] [place] [id number] Provider, External Social History Tobacco Use Types Packs/Day Years Used Date Smoking Tobacco: Never Smokeless Tobacco: Never PHQ-2 Answer Date Recorded Patient Health Questionnaire-2 [...] Hospital Encounter [facility] [address] [place] [id number] Rebeka Palma MD [address] [facility] [address] [place] [phone] 01/11/2025 7:30 AM EDT - 01/11/2025 11:30 AM EDT Surgery [facility] [address] [place] [address] Rebeka Palma MD [address] [facility] [address] [place] [address] Endoscopic muscosal posterior glottic rotation flap with CO2 laser and endoscopic 01/17/2025 12:40 PM EDT Office Visit [facility] [address] [place] [address] Rebeka Palma MD [address] [place] [address] Scheduled Procedures Name Priority Associated Diagnoses Date/Ti me LARYNGOSCOPY, DIRECT, WITH L ASER PROCEDURE Dysphonia 01/11/2025 7:30 AM EDT LARYNGOSCOPY, WITH VOCAL COR D NODULE EXCISION Dysphonia 01/11/2025 7:30 AM EDT documented as of this encounter Procedures Procedure Name Priority Date/Time Associated Diagnosis Comments XR OUTSIDE IMAGES 01/09/2024 2:20 PM EDT documented in this encounter Results * XR OUTSIDE IMAGES (01/09/2024 2:20 PM EDT) Anatomical Region Laterality Modality Radiographic Jennifer ging 01/09/2024 2:20 PM EDT us External Provider IMG XR PROCEDURES Final Result documented in this encounter Visit Diagnoses Not on filedocumented in this encounter Additional Health Concerns Infection Onset Date Last Indicated Resolved Time 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 Source: [facility]. 12/25/2023 Assessment Noted Time PHQ-9 Depression Total Score: 15 03/16/2 021 9:54 AM EDT documented as of this encounter Care Teams Video Editing Internship Relationship Specialty Start Date End Date Masoud Collazo MD [facility] [place] [address] PCP - General 10/10/20 08/22/24 Edelmira Ma APRN [address] [place] [address] PCP - General 08/23/24 documented as of this encounter
--- OUTSIDE RECORDS SUMMARY | 2024-12-19 01:14 | XMS_ITS | Encounter Summary ---
Author Organization Healthcare Address [address] [place] [address] Care Team Providers Care Filler Shredder Helper Name Role Phone Masoud Collazo MD Primary Care Provider [phone] Edelmira Ma APRN Primary Care Provider [phone] Encounter Details Date Type Department Care Team (Late Contact Info) Description 07/03/2024 Community [facility] [address] [place] [address] Edelmira Ma APRN [address] [place] [address] Social History Tobacco Use Types Packs/Day Years [...] Hospital Encounter [facility] [address] [place] [phone] Rebeka Palma MD [address] [place] [phone] 01/11/2025 7:30 AM EDT - 01/11/2025 11:30 AM EDT Surgery [facility] [address] [place] [address] Rebeka Palma MD [address] [place] [address] Endoscopic muscosal posterior glottic rotation flap with CO2 laser and endoscopic 01/17/2025 12:40 PM EDT Office Visit [facility] Otol[facility]ology [address] [place] [address] Rebeka Palma MD [address] [facility] [address] [place] [address] Scheduled Procedures Name Priority Associated Diagnoses Date/Ti me LARYNGOSCOPY, DIRECT, WITH L ASER PROCEDURE Dysphonia 01/11/2025 7:30 AM EDT LARYNGOSCOPY, WITH VOCAL COR D NODULE EXCISION Dysphonia 01/11/2025 7:30 AM EDT documented as of this encounter Visit Diagnoses Not on filedocumented in this encounter Additional Health Concerns Infection Onset Date Last Indicated Resolved Time 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 Source: [facility]. 12/25/2023 Assessment Noted Time PHQ-9 Depression Total Score: 15 1018/2 021 9:54 AM EDT documented as of this encounter Care Teams Filler Shredder Helper Relationship Specialty Start Date End Date Masoud Collazo MD [facility] [place] [address] PCP - General 10/10/20 08/22/24 Edelmira Ma APRN [address] [place] [address] PCP - General 08/23/24 documented as of this encounter
--- OUTSIDE RECORDS SUMMARY | 2024-12-19 01:14 | XMS_ITS | Referral Summary ---
Author Organization [facility] ([place], [place], [place], [place]) Address [address] [place] [address] Care Team Providers Care Toll Mechanic Name Role Phone Anil Edelmira TRIANA Primary Care Provider [phone] Allergies Active Allergy Reactions Criticality Noted Date Comments Adhesive 02/03/2024 Eucalyptus Xye-Hnjix-Qppyaora Swelling,Rash High 11/22/2023 Headache, rash and swelling [...] your living situation today? I have a [facility] place to live 11/22/2023 Think [...] Do you speak a language other than [place] at [facility]? No 11/22/2023 Do you want help [...] Description 02/22/2025 1:40 PM EDT Office Visit [facility] [address] [place] [address] Jeremy Molina MD [address] [place] [address] Procedures Procedure Name Priority Date/Time Associated Diagnosis Comments HEPATITIS PANEL, ACUTE STAT 12/06/2023 1:53 PM EDT from Last 3 Months or Most Recently Relevant to Health Maintenance Results * Hepatitis panel, acute (12/06/2023 1:53 PM EDT) Hep A IgM Nonreactive Nonreactive, Equivocal 12/06/2023 3:54 PM EDT [facility] Hep B C IgM Nonreactive Nonreactive 12/06/2023 3:54 PM EDT [facility] Hepatitis B surface antigen Nonreactive Nonreactive, Equivocal 12/06/2023 3:54 PM EDT [facility] Hepatitis C Ab Nonreactive Nonreactive, Equivocal 12/06/2023 3:54 PM EDT [facility] Blood Venipuncture / Unknown 12/06/2023 1:53 PM EDT 12/06/2023 2:07 PM EDT Narrative [facility] - 12/06/2023 3:54 PM EDT Hepatitis [...] MD LAB BLOOD ORDERABLES Final Resu lt Performing Organization Address City/State/[facility] Co de Phone Number [facility] [address] [phone] from Last 3 Months or Most Recently Relevant to Health Maintenance Additional Health Concerns Infection Onset Date Last Indicated Other - see comment 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 Member Subscriber Plan / Payer (Ef fective 2023-Present) Name:Jennifer Campbell Relation to Subscriber:Self Name:Jennifer Campbell Payer ID:[id number] Group ID:Not on file Type:Not on file Address: [address] [id number] [address] MEDICAID Advance Directives For more information, please contact: [phone] * Full Code (Latest Code Status on File) Date Activated Date Inactivated Comments 11/22/2023 5:43 PM 01/13/2024 2:32 PM Care Teams Toll Mechanic Relationship Specialty Start Date End Date Edelmira Ma APRN [address] [place] [address] PCP - General Nurse Practitioner 01/13/24
--- NOTE | 2024-12-19 01:19 | HMH.EDGENADL ---
Discharge Plan Disposition Patient Disposition: Home, Self-Care Prescriptions Prescriptions: No Action sertraline 100 mg tablet 100 mg PO BID Patient Comments: TAKE 1 TABLET BY MOUTH TWICE DAILY Referrals Follow up/Referrals: Edelmira Ma APRN [Primary Care Provider, Medical] - See instructions Activity Restrictions/Add. Instructions Additional Instructions/Restrictions: Recommend following up with your PCP/specialist for continued laboratory assessment, especially if you have a bacterial diarrheal illness that is high risk for HUS. Clinical Impressions Clinical Impression: Bloody stools, History of hemolytic uremic syndrome Instructions Patient Instructions: DI for Acute Abdominal Pain Print Language Print Language: Spanish Discharge ED Provider: Antonio Foss General Adult HPI General Chief complaint: Abdominal Pain Stated complaint: abd pain, blood in stool, history of HUS Time Seen by Provider: 12/19/24 01:19 History of Present Illness HPI narrative: 19-year-old female with history of of HUS last year after E. coli diarrhea, presents for bloody stools. She reports that she has had some abdominal pain and vomiting today and has started having bloody stools. She denies fever. She reports that when she had HUS last year she was severely ill and almost . Related Data Home Medications ?Medication ?Instructions ?Recorded ?Confirmed sertraline 100 mg tablet 100 mg PO BID 11/21/23 11/21/23 Allergies Allergy/AdvReac Type Severity Reaction Status Date / Time No Known Allergies Allergy Verified 07/25/23 10:10 [facility] Disclaimer: The information contained in this section may have been updated after the patient was seen, as this information can be updated by other users. Medical History Abnormal uterine bleeding Migraine with aura Family History Other Asthma Cancer Diabetes FHx: mental illness Hypertension Kidney disease Social History (Updated 11/20/23 @ 22:30 by Anu Watson RN) Smoking Status: Never smoker alcohol intake: never substance use type: denies use current occupational status: unemployed and other Travel in the last 8 weeks?: None Have you lived/traveled outside US in past 30 days?: No Contact w/someone who lives/traveled outside US past 30 days?: No Exposure to someone with infectious disease in past 14 days?: No Do you have a fever (greater than 100.4 F or 38 C)?: No Have you tested positive for COVID-19?: No Exposed to someone with COVID-19 in past 14 days?: No Do you have a sore throat?: No Do you have a cough?: No Do you have any weakness?: No Do you have any diarrhea?: No Are you experiencing any unusual bleeding?: Yes Do you have any muscle aches/pain?: No Do you have any abdominal pain?: Yes Are you experiencing loss of taste or smell?: No Other Medical History Have you received the Flu Vaccine for this season: No Have you received the Pneumonia Vaccine: No ROS Obtained: Yes All systems reviewed & no additional complaints except as documented Physical Exam General General appearance: alert and in no apparent distress Head Head exam: atraumatic and normocephalic Eye Eye exam: Present normal appearance, PERRL and EOMI ENT ENT exam: Present normal oropharynx and normal external ear exam Neck Neck exam: Present normal inspection and full ROM Chest Chest inspection: Present normal inspection and symmetric chest wall rise; Absent tenderness Respiratory Respiratory exam: Present normal lung sounds bilaterally; Absent respiratory distress Cardiovascular Cardiovascular exam: Present regular rate and normal rhythm Abdominal Exam Abdominal exam: Present soft; Absent distention, tenderness or guarding Extremities Exam Extremities exam: Present normal inspection; Absent edema or joint swelling Back Exam Back exam: Present normal inspection; Absent tenderness Neurological Exam Neurological exam: Present alert and oriented X3; Absent motor sensory deficit Psychiatric Psychiatric exam: Present normal affect and normal mood Skin Skin exam: Present warm, dry and normal color Lymphatic Lymphatic Findings: no adenopathy Medical Decision Making Medical Records Medical records reviewed: Yes I reviewed the patient's medical records. Screening: Per USPSTF and CDC recommendations, given the prevalence of disease in our region, it is our hospital?s policy to screen for HIV and viral Hepatitis for all patients aged 18 and over and those with ongoing risk factors. Eliseo Inquiry Pt receiving controlled substance: No Eliseo was queried for this patient: No Vital Signs: 12/19/24 01:20 12/19/24 02:50 Temperature 98.7 F 98.7 F Temperature Source Oral Oral Pulse Rate 94 H Pulse Rate [Radial] 103 H Respiratory Rate 16 16 Blood Pressure 128/78 Blood Pressure [Right Arm] 130/91 H Blood Pressure Mean [Right Arm] 104 Blood Pressure Position Sitting Blood Pressure Position [Right Arm] Sitting 02 Sat by Pulse Oximetry 100 Oxygen Delivery Method Room Air Room Air Lab Data Lab results reviewed: Yes I reviewed the patient's lab results. Lab Results 12/19/24 01:29: WBC 9.1, RBC 4.89, Hgb 14.1, Hct 41.5, MCV 84.9, MCH 28.8, MCHC 34.0, RDW 12.4, Plt Count 272, MPV 10.9 H, Neut % (Auto) 64.3, Lymph % (Auto) 27.3, [place] % (Auto) 6.8, Eos % (Auto) 1.1, Baso % (Auto) 0.3, Neut # (Auto) 5.8, Lymph # (Auto) 2.5, [place] # (Auto) 0.6, Eos # (Auto) 0.1, Baso # (Auto) 0.0, Sodium 134 L, Potassium 3.7, Chloride 103, Carbon Dioxide 26, Anion Gap 8.7, BUN 11, Creatinine 0.80, Estimated Creat Clear 136, Estimated GFR 91, Est GFR ( Amer) 110, Glucose 102 H, Calcium 9.5, Magnesium 1.8, Total Bilirubin 1.0, AST 25, ALT 20, Alkaline Phosphatase 99, Total Protein 8.1 D, Albumin 4.8, Globulin 3.3 H, Albumin/Globulin Ratio 1.5, Lipase 91, Serum HCG, Qual Negative 12/19/24 01:29 12/19/24 01:29 Orders (Tests/Meds): ORDERS Category Date Time Status CBC w/Auto Diff [Complete Blood Count Auto Diff] Stat Lab 12/19/24 01: Completed CMP [Comprehensive Metabolic Panel] Stat Lab 12/19/24 01: Completed Lipase Stat Lab 12/19/24 01: Completed Magnesium Stat Lab 12/19/24 01: Completed Peripheral Smear Review Stat Lab 12/19/24 01: Received Serum [HCG Qualitative, Serum] Stat Lab 12/19/24 01: Completed Medical Decision Narrative: 19-year-old female with history of HUS presents for abdominal pain and bloody diarrhea x 1 day. History was obtained via interactive discussion with patient, family, chart review. On arrival, patient is [afebrile, hemodynamically stable, satting appropriately, alert, oriented x4, GCS 15], moving all extremities spontaneously. Full physical exam performed and significant for no significant physical exam abnormalities. Differential includes but is not limited to bacterial diarrheal illness, gastroenteritis, inflammatory bowel disease, anal fissure. Workup initiated including CBC CMP stool PCR, peripheral smear. On re-evaluation, patient [remains afebrile, HD stable.] Laboratory workup independently interpreted by me and significant for no evidence of anemia, thrombocytopenia, renal dysfunction or other signs of HUS. Peripheral smear results not back yet. Patient unable to provide stool sample.. CT imaging was considered, but deemed unnecessary due to low utility at this time.. Given patient history, exam and workup, patient's presentation most likely represents diarrheal illness. Unclear the source as patient was unable to provide stool sample. No evidence of HUS or more serious pathology at this time. Given her history, recommend that she return with a stool sample, was discharged with a collection kit and an outpatient order form. Recommend she follow-up with her PCP for further assessment. Return precautions given. Procedures Risk/Benefits of Procedure(s) Were Explained: Yes Critical Care Critical Care Time Critical Care Time: No
[2024-12-19 01:20] VITALS: BP 130/91; PULSE 103; RESP 16; TEMP 37.1; O2SAT 100; BMI 29.3
[2024-12-19 02:04] LABS: Chloride 103 mmol/L (98-107)
[2024-12-19 02:05] LABS: Albumin Level 4.8 g/dl (3.5-5.0); Potassium 3.7 mmoL/L (3.5-5.1); Sodium 134 mmol/L (136-145)
[2024-12-19 02:07] LABS: Alanine Aminotransferase 20 U/L (12-78); Anion Gap 8.7 mEq/L (5-15); Aspartate Amino Transferase 25 U/L (14-36); Blood Urea Nitrogen 11 mg/dl (7-17); Carbon Dioxide 26 mmol/L (22.0-30.0); Creatinine Clearance Estimated 136 mL/min (50-200); Creatinine,Serum 0.80 mg/dl (0.52-1.04); Estimated Glomerular Filt Rate 91 ml/min (>60); GFR (African American) 110 ML/MIN (>60); Hematocrit 41.5 % (37.0-47.0); Hemoglobin 14.1 g/dL (12.2-16.2); Immature Granulocytes % 0.2 %; Mean Corpuscular HGB Conc 34.0 g/dL (31.8-35.4); Mean Corpuscular Hemoglobin 28.8 pg (27.0-31.2); Mean Corpuscular Volume 84.9 fl (81-99); Nucleated Red Blood Cells % 0 %; Platelet Count 272 K/mm3 (142-424); Red Blood Count 4.89 M/mm3 (4.20-5.40); Red Cell Distribution Width-SD 38.0 fL; White Blood Count 9.1 K/mm3 (4.8-10.8)
[2024-12-19 02:08] LABS: Albumin/Globulin Ratio 1.5 (1.1-1.8); Alkaline Phosphatase 99 U/L (38-126); Bilirubin,Total 1.0 mg/dl (0.2-1.3); Calcium 9.5 mg/dl (8.4-10.2); Globulin 3.3 g/dL (1.3-3.2); Glucose 102 mg/dl (74-100); Lipase 91 U/L (23-300); Magnesium 1.8 mg/dl (1.6-2.3); Total Protein,Serum 8.1 g/dl (6.3-8.2)
[2024-12-19 02:24] LABS: HCG Qualitative, Serum Negative (Negative)
--- NOTE | 2024-12-19 02:32 | PC.NURSE ---
pt ambulatory to restroom to attempt to provide stool for testing.
[2024-12-19 02:50] VITALS: BP 128/78; PULSE 94; RESP 16; TEMP 37.1; O2SAT 100
== END 2024-12-19 02:52 | disposition home or self-care (01) ==
PROVIDERS: Emergency Provider Emergency Medicine; PCP Nurse Practitioner Family
DX: R10.9 Unspecified abdominal pain (principal); K92.1 Melena
CPT/HCPCS: 80053; 83690; 83735; 84703; 85025; 99284

== ENCOUNTER 2025-01-14 14:39 | Emergency (ER) | payer MEDICAID, SELFPAY ==
--- OUTSIDE RECORDS SUMMARY | 2024-12-04 13:30 | XMS_ITS | Encounter Summary ---
Author Organization Healthcare Address [address] [place] [address] Care Team Providers Care Cutter Operator Tile Name Role Phone AnilEdelmira Henny TRIANA Primary Care Provider [phone] Reason for Visit * Reason Comments Follow-up Encounter Details Date Type Department Care Team (Latest Contact Info) Description 12/04/2024 1:30 PM EDT Office Visit [place] [facility] [address] [place] [address] Rebeka Palma MD [address] [place] [address] Dysphonia (Primary Dx); Glottic insufficiency [...] I reviewed her care with Cheyenne Butts, VENEER MANUFACTURER Assessment/Plan Jennifer Franklin is a 18 y.o. [...] ntinued voice therapy. She is working on [employer], but does not feel like she has [...] Upcoming Encounters Date Type Department Care Team (Late st Contact Info) Description 01/17/2025 12:40 PM EDT Office Visit [facility] Ot[facility] [address] [place] [address] Rebeka Palma MD [address] [place] [address] documented as of this encounter Visit Diagnoses Diagnosis Dysphonia- Primary Glottic insufficiency Other diseases of vocal cords documented in this encounter Additional Health Concerns Infection Onset Date Last Indicated Resolved Time 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 Source: [employer]. 12/25/2023 Assessment Noted Time PHQ-9 Depression Total Score: 15 1018/2 021 9:54 AM EDT A Body Mass Index follow-up plan has been documented for the patient 12/05/2024 9:40 PM EDT documented as of this encounter Care Teams Cutter Operator Tile Relationship Specialty Start Date End Date Edelmira Ma APRN [address] [place] [address] PCP - General 08/23/24 documented as of this encounter
--- OUTSIDE RECORDS SUMMARY | 2025-01-11 06:04 | XMS_ITS | Encounter Summary ---
Author Organization [facility] Address [address] [place] [address] Care Team Providers Care Handcrew Foreman Name Role Phone Edelmira Ma APRN Primary Care Provider [phone] Reason for Visit * Auth/Cert (Routine) Specialty Diagnoses / Procedures Referred By Hazel gay Referred To Contact Diagnoses Dysphonia Dysphonia [R49.0] Procedures TN LARYNGOSCOPY,DIRCT,OP SCOP,EXC TUMR TN LARYNGOSCOPY,DIR,OP,EXC TUMR,LCL FLAP Endoscopic mucosal posterior glottic rotation flap with CO2 laser and endoscopic sutures LARYNGOSCOPY, WITH VOCAL CORD NODULE EXCISION Rebeka Palma MD [address] [place] [address] [address] Phone: tel: fax: [facility] [address] [place] [address] Phone: tel: Referral ID Status Reason Start Date Expiration Date Visits Re quested Visits Authorized [id number] 1 1 Encounter Details Date Type Department Care Team (Latest Contact Info) Description 01/11/2025 6:04 AM EDT - 01/12/2025 1:16 PM EDT Hospital Encounter [facility] [address] [place] [address] Rebeka Palma MD [address] [address] Discharge Disposition: Home or Self Care Social History Tobacco Use Types Packs/Day Years Used Date Smoking Tobacco: Never Smokeless Tobacco: Never Alcohol Use Standard Drinks/Week Comments Yes 0 (1 standard drink = 0.6 oz pur e alcohol) occ - not often reuben 6 months PHQ-2 Answer Date Recorded Patient Health Questionnaire-2 [...] Sign Reading Time Taken Comments Blood Pressure 108/69 01/12/2025 12:16 PM EDT Pulse 85 01/12/2025 12:16 PM EDT Temperature 36.6 C (97.8 F) 01/12/2025 12:16 PM EDT Respiratory Rate 14 01/12/2025 8:30 AM EDT Oxygen Saturation 97% 01/12/2025 12: 16 PM EDT Inhaled Oxygen Concentration - - Weight 77.1 kg (169 lb 15.6 oz) 025 11:00 AM EDT Height 162.6 cm (5' 4.02 ) 01/11/2025 1 1:00 AM EDT Body Mass Index 29.16 01/11/2025 11:00 AM EDT documented in this encounter Functional Status * Question Answer Date of Assessment Author 1. Wish to be (Past 1 Month) No 025 11:00 AM EDT Jesica Cárdenas RN 2. Non-Specific Active Suici makenna Thoughts (Past 1 Month) No 01/11/2025 11:00 AM EDT Duglas Cárdenas ra, RN * Calculated C-SSRS Risk Score (Lifetime/Recent) Answer Date of Assessment Author No Risk Indicated 01/11/2025 11:00 AM EDT Jesica Barnard RN * Question Answer Date of Assessment Author 6. Suicidal Behavior (Lifetime) No 6:43 AM EDT Freemire, Barb D, RN documented as of this encounter Discharge Instructions * Discharge Instructions* Jonna Ambrosio MD - 01/11/2025 12:34 PM EDT Medications: - You should take Tylenol and ibuprofen (unless not allowed to) for pain every 6 hours as scheduledor as needed - You have been prescribed opioid pain medications to be taken as needed for SEVERE pain only. If you are having constipation, then you can take [id number] stool softener as needed. - Take Nexium and Pepcid as prescribed - Resume your previous home medications unless otherwise instructed. Diet: - Resume your regular home diet as tolerated, focusing on liquids to keep yourself hydrated Activity: - Walking and climbing stairs are okay and encouraged. Avoid strenuous activity for 2 weeks from surgery - No lifting anything >10lbs for the next 2 weeks Precautions/Potential Issues: - It is normal to have some pain and soreness and a small amount of clear drainage from the incision NOTIFY PHYSICIAN IF: - you have difficulty breathing - you develop a fever >102 or show other obvious signs of infection (shaking, chills) - you start to have increased redness, swelling, pain, and/or bloody, purulent (pus), or foul-smelling drainage around your incision - you have severe pain not controlled with the prescribed medications Follow up: - You will follow up with Dr. Palma as scheduled on 01/17/25 Future Appointments Date Time Provider Department Center 01/17/2025 12:40 PM [facility] Third Floor, [facility], [address] [address] Call [phone] documented in this encounter Medications at Time of Discharge acetaminophen (Tylenol) 500 MG tablet Take 2 tablets by mouth every 6 hours as needed for pain. 60 tablet 01/12/2025 azithromycin (Zithromax) 250 MG tabletIndications:P elvic and perineal pain Take 2 tablets now and repeat in 4 hours 4 tablet 02/10/2022 busPIRone (Buspar) 10 MG tablet Take 1 tablet by mouth 2 times a day. esomeprazole (NexIUM) 40 MG packet 40 mg by Per G Tube route daily. 30 packet 01/13/2025 famotidine (Pepcid) 20 MG tablet Take 1 tablet by mouth 2 times a day. 60 tablet 01/12/2025 FLUoxetine (PROzac) 20 MG capsule 02/02/2024 fluticasone (Flonase) 50 MCG/ACT nasal spray Administer 1 spray into each nostril nightly. Shake gently. Before first use, prime pump. After use, clean tip and replace cap. ibuprofen 400 MG tablet Take 1 tablet by mouth every 6 hours as needed for moderate pain. 30 tablet 01/12/2025 Melatonin 10 MG chewable tablet Chew. ondansetron ODT (Zofran-ODT) 4 MG disintegrating tablet if needed. 12/29/2021 oxyCODONE (Roxicodone) 5 MG immediate release tablet Take 1 tablet by mouth every 6 hours as needed for moderate pain or severe pain. 5 tablet 01/12/2025 Vraylar 1.5 MG capsule Take 1 capsule by mouth 1 time each day. 05/16/2024 documented as of this encounter Miscellaneous Notes * Care Plan - Hunter Kohler RN - 01/12/2025 12:35 PM EDT Problem: Adult Inpatient Plan of Care Goal: Plan of Care Review 01/12/2025 1234 by Hunter Kohler RN Outcome: Met Flowsheets (Taken 01/12/2025 1234) Progress: improving Plan of Care Reviewed With: patient 01/12/2025 0956 by Hunter Kohler RN Outcome: Ongoing, Progressing Flowsheets Taken 01/12/2025 0956 Plan of Care Reviewed With: patient significant other Taken 01/12/2025 0955 Progress: improving 01/12/2025 0955 by Hunter Kohler RN Outcome: Ongoing, Progressing Flowsheets (Taken 01/12/2025954) Progress: improving Plan of Care Reviewed With: patient significant other Goal: Patient-Specific Goal (Individualized) 01/12/2025 1234 by Hunter Kohler RN Outcome: Met 01/12/2025 0956 by Hunter Kohler RN Outcome: Ongoing, Progressing Flowsheets (Taken 01/12/2025 08) Patient/Family-Specific Goals (Include Timeframe): pt will tolerate soft/bite size 6 diet this shift Individualized Care Needs: safety Anxieties, Fears or Concerns: asking when she will get to go home 01/12/2025 09 by Hunter Kohler RN Outcome: Ongoing, Progressing Flowsheets (Taken 01/12/2025799) Patient/Family-Specific Goals (Include Timeframe): pt will tolerate soft/bite size 6 diet this shift Individualized Care Needs: safety Anxieties, Fears or Concerns: asking when she will get to go home Goal: Absence of Hospital-Acquired Illness or Injury 01/12/2025 1234 by Hunter Kohler RN Outcome: Met 01/12/2025955 by Hunter Kohler RN Outcome: Ongoing, Progressing 01/12/2025954 by Hunter Kohler RN Outcome: Ongoing, Progressing Intervention: Identify and Manage Fall Risk 01/12/2025955 by Hunter Kohler RN Flowsheets (Taken 01/12/2025954) Safety Promotion/Fall Prevention: assistive device/personal items within reach clutter-free environment maintained fall prevention program maintained lighting adjusted nonskid shoes/slippers when out of bed room organization consistent safety round/check completed 01/12/2025954 by Hunter Kohler RN Flowsheets (Taken 01/12/2025954) Safety Promotion/Fall Prevention: assistive device/personal items within reach clutter-free environment maintained fall prevention program maintained lighting adjusted nonskid shoes/slippers when out of bed room organization consistent safety round/check completed Intervention: Prevent Skin Injury 01/12/2025955 by Hunter Kohler RN Flowsheets (Taken 01/12/2025954) Body Position: (able to turn self, up ad luis) weight shifting other (see comments) 01/12/2025 0955 by Hunter Kohler RN Flowsheets (Taken 01/12/2025954) Body Position: (able to turn self, up ad luis) weight shifting other (see comments) Goal: Optimal Comfort and Wellbeing 01/12/2025 1234 by Hunter Kohler RN Outcome: Met 01/12/2025 0956 by Hunter Kohler RN Outcome: Ongoing, Progressing 01/12/2025 0955 by Hunter Kohler RN Outcome: Ongoing, Progressing Problem: Infection Goal: Absence of Infection Signs and Symptoms 01/12/2025 1234 by Hunter Kohler RN Outcome: Met 01/12/2025 0956 by Hunter Kohler RN Outcome: Ongoing, Progressing 01/12/2025 09 by Hunter Kohler RN Outcome: Ongoing, Progressing Intervention: Prevent or Manage Infection Flowsheets (Taken 01/12/2025955) Infection Management: aseptic technique maintained Fever Reduction/Comfort Measures: lightweight bedding Isolation Precautions: precautions maintained contact Problem: Airway Clearance Ineffective Goal: Effective Airway Clearance 01/12/2025 1234 by Hunter Kohler RN Outcome: Met 01/12/2025 0956 by Hunter Kohler RN Outcome: Ongoing, Progressing Note: No intervention option had been selected. Encouraging cough and deep breathing. 01/12/2025 09 by Hunter Kohler RN Outcome: Ongoing, Progressing Problem: Pain Acute Goal: Optimal Pain Control and Function 01/12/2025 1234 by Hunter Kohler RN Outcome: Met 01/12/2025 0956 by Hunter Kohler RN Outcome: Ongoing, Progressing 01/12/2025 09 by Hunter Kohler RN Outcome: Ongoing, Progressing Intervention: Optimize Psychosocial Wellbeing Flowsheets (Taken 01/12/2025955) Supportive Measures: active listening utilized self-care encouraged verbalization of feelings encouraged decision-making supported Diversional Activities: television * Quirino Fenton - Hunter Kohler RN - 01/12/2025 12:15 PM EDT Images from the original note were not included. [id number] Ibuprofen IMPORTANT WARNING: People who take nonsteroidal anti-inflammatory drugs (NSAIDs) (other than aspirin) such as ibuprofen may have a higher risk of having a heart attack or a stroke than people who do not take these medications. These events may happen without warning and may cause . These problems may develop at any time during treatment, but the risk may be higher for people who take NSAIDs for a long time or at higher doses. Do not take an NSAID such as ibuprofen if you have recently had a heart attack, unless directed to do so by your doctor. Tell your doctor if you or anyone in your family has or has ever had heart disease, a heart attack, or a stroke; if you smoke; and if you have or have ever had high cholesterol, high blood pressure, or diabetes. Get emergency medical help right away if you experience any of the following symptoms: chest pain, shortness of breath, weakness in one part or side of the body, or slurred speech. If you will be undergoing a coronary artery bypass graft (CABG; a type of heart surgery), you should not take ibuprofen right before or right after the surgery. NSAIDs such as ibuprofen may cause ulcers, bleeding, or holes in the esophagus (tube between the mouth and stomach), stomach, or intestine. These problems may develop at any time during treatment, may happen without warning symptoms, and may cause . The risk may be higher for people who take NSAIDs for a long time, are older in age, have poor health, who smoke, or who drink large amounts of alcohol while taking ibuprofen. Tell your doctor if you take any of the following medications: anticoagulants ('blood thinners'); aspirin; other NSAIDs such as naproxen (Aleve, Naprosyn); oral steroids such as dexamethasone, methylprednisolone (Medrol), and prednisone (David);selective serotonin reuptake inhibitors (SSRIs) such as citalopram (Celexa), fluoxetine (Prozac, Sarafem, Selfemra, in Symbyax), fluvoxamine (Luvox), paroxetine (Brisdelle, Paxil, Pexeva), and sertraline (Zoloft); or serotonin norepinephrine reuptake inhibitors (SNRIs) such as desvenlafaxine (Khedezla, Pristiq), duloxetine (Cymbalta), and venlafaxine (Effexor XR). Also tell your doctor if you have or have ever had ulcers, bleeding in your stomach or intestines, or other bleeding disorders. If you experience any of thefollowing symptoms, stop taking ibuprofen and call your doctor: stomach pain, heartburn, vomit thatis bloody or looks like coffee grounds, blood in the stool, or black and tarry stools. Keep all appointments with your doctor and the laboratory. Your doctor will monitor your symptoms carefully and will probably order certain tests to check your body's response to ibuprofen. Be sure to tell your doctor how you are feeling so that your doctor can prescribe the right amount of medication to treat your condition with the lowest risk of serious side effects. Your doctor or pharmacist will give you the employee communications intern's patient information sheet (Medication Guide) when you begin treatment with prescription ibuprofen and each time you refill your prescription. Read the information carefully and ask your doctor or pharmacist if you have any questions. You can also visit the Food and Drug Administration (FDA) website (https://www.fda.gov/Drugs/DrugSafety/oma512837.htm) or the employee communications intern's website to obtain the Medication Guide. WHY is this medicine prescribed? Prescription ibuprofen is used to relieve pain, tenderness, swelling, and stiffness caused by osteoarthritis (arthritis caused by a breakdown of the lining of the joints) and rheumatoid arthritis (arthritis caused by swelling of the lining of the joints). It is also used to relieve mild to moderatepain, including menstrual pain (pain that happens before or during a menstrual period). Nonprescription ibuprofen is used to reduce fever and to relieve minor aches and pain from headaches, muscle aches, arthritis, menstrual periods, the common cold, toothaches, and backaches. Ibuprofen is in a class of medications called NSAIDs. It works by stopping the body's production of a substance that causes pain, fever, and inflammation. HOW should this medicine be used? Prescription ibuprofen comes as a tablet and suspension (liquid) to take by mouth. It is usually taken three or four times a day for arthritis or every 4 to 6 hours as needed for pain. Nonprescription ibuprofen comes as a tablet, chewable tablet, capsule, gel capsule, suspension (liquid), and drops (concentrated liquid). Adults and children older than 12 years of age may usually take nonprescription ibuprofen every 4 to 6 hours as needed for pain or fever, but should not take more than 6 doses in 24 hours. Children and infants may usually be given nonprescription ibuprofen every 6 to 8 hours as needed for pain or fever, but should not be given more than 4 doses in 24 hours. Ibuprofen may betaken with food or milk to prevent stomach upset. If you are taking ibuprofen on a regular basis, you should take it at the same time(s) every day. Follow the directions on the package or prescription label carefully, and ask your doctor or pharmacist to explain any part you do not understand. Take ibuprofen exactly as directed. Do not take more or less of it or take it more often than directed by the package label or prescribed by your doctor. Ibuprofen comes alone and in combination with other medications. Some of these combination productsare available by prescription only, and some of these combination products are available without a prescription and are used to treat cough and cold symptoms and other conditions. If your doctor has prescribed a medication that contains ibuprofen, you should be careful not to take any nonprescription medications that also contain ibuprofen. Swallow the tablet whole; do not chew or crush it. If you are selecting a product to treat cough or cold symptoms, ask your doctor or pharmacist for advice on which product is best for you. Check nonprescription product labels carefully before using two or more products at the same time. These products may contain the same active ingredient(s) and taking them together could cause you to receive an overdose. This is especially important if you will be giving cough and cold medications to a child. Nonprescription cough and cold combination products, including products that contain ibuprofen, cancause serious side effects or in young children. Do not give these products to children younger than 4 years of age. If you give these products to children 4 to 11 years of age, use caution andfollow the package directions carefully. If you are giving ibuprofen or a combination product that contains ibuprofen to a child, read the package label carefully to be sure that it is the right product for a child of that age. Do not give ibuprofen products that are made for adults to children. Before you give an ibuprofen product to a child, check the package label to find out how much medication the child should receive. Give the dose that matches the child's age on the chart. Ask the child's doctor if you don't know how much medication to give the child. Shake the suspension and drops well before each use to mix the medication evenly. Use the measuringcup provided to measure each dose of the suspension, and use the dosing device provided to measure each dose of the drops. Stop taking nonprescription ibuprofen and call your doctor if your symptoms get worse, you develop new or unexpected symptoms, the part of your body that was painful becomes red or swollen, your painlasts for more than 10 days, or your fever lasts more than 3 days. Stop giving nonprescription ibuprofen to your child and call your child's doctor if your child does not start to feel better during the first 24 hours of treatment. Also stop giving nonprescription ibuprofen to your child and call your child's doctor if your child develops new symptoms, including redness or swelling on the painfulpart of his body, or if your child's pain or fever get worse or lasts longer than 3 days. Do not give nonprescription ibuprofen to a child who has a sore throat that is severe or does not go away, or that comes along with fever, headache, nausea, or vomiting. Call the child's doctor rightaway, because these symptoms may be signs of a more serious condition. Are there OTHER USES for this medicine? Ibuprofen is also sometimes used to treat ankylosing spondylitis (arthritis that mainly affects thespine), gouty arthritis (joint pain caused by a build-up of certain substances in the joints), and psoriatic arthritis (arthritis that occurs with a long-lasting skin disease that causes scaling and swelling). Talk to your doctor about the risks of using this drug for your condition. This medication is sometimes prescribed for other uses; ask your doctor or pharmacist for more information. What SPECIAL PRECAUTIONS should I follow? Before taking ibuprofen, ? tell your doctor and pharmacist if you are allergic to ibuprofen, aspirin or other NSAIDs such asketoprofen and naproxen (Aleve, Naprosyn), any other medications, or any of the inactive ingredients in the type of ibuprofen you plan to take. Ask your pharmacist or check the label on the package for a list of the inactive ingredients. ? tell your doctor and pharmacist what prescription and nonprescription medications, vitamins, nutritional supplements, and herbal products you are taking or plan to take.Your doctor may need to change the doses of your medications or monitor you more carefully for side effects. ? do not take nonprescription ibuprofen with any other medication for pain unless your doctor tellsyou that you should. ? tell your doctor if you have or have ever had any of the conditions mentioned in the IMPORTANT WARNING section or asthma, especially if you also have frequent stuffed or runny nose or nasal polyps (swelling of the inside of the nose); heart failure; swelling of the hands, arms, feet, ankles, or lower legs; lupus (a condition in which the body attacks many of its own tissues and organs, often including the skin, joints, blood, and kidneys); or liver or kidney disease. If you are giving ibuprofen to a child, tell the child's doctor if the child has not been drinking fluids or has lost a largeamount of fluid from repeated vomiting or diarrhea. ? tell your doctor if you are , plan to become ; or are breast- feeding. Ibuprofen may harm the fetus and cause problems with delivery if it is taken around 20 weeks or later during . Do not take ibuprofen around or after 20 weeks of , unless you are told to do so by your doctor. If you become while taking ibuprofen, call your doctor. ? if you are having surgery, including dental surgery, tell the doctor or dentist that you are taking ibuprofen. ? talk to your doctor about the risks and benefits of taking ibuprofen if you are 75 years of age or older. Do not take this medication for a longer period of time or at a higher dose than recommended on the product label or by your doctor. ? if you have phenylketonuria (PKU, an inherited condition in which a special diet must be followedto prevent damage to your brain that can cause severe intellectual disability), read the package label carefully before taking nonprescription ibuprofen. Some types of nonprescription ibuprofen may be sweetened with aspartame, a source of phenylalanine. What SPECIAL DIETARY instructions should I follow? Unless your doctor tells you otherwise, continue your normal diet. What should I do IF I FORGET to take a dose? If you are taking ibuprofen on a regular basis, take the missed dose as soon as you remember it. However, if it is almost time for the next dose, skip the missed dose and continue your regular dosingschedule. Do not take a double dose to make up for a missed one. What SIDE EFFECTS can this medicine cause? Some side effects can be serious. If you experience any of the following symptoms, or those mentioned in the IMPORTANT WARNING section, call your doctor immediately. Do not take any more ibuprofen until you speak to your doctor. ? unexplained weight gain ? shortness of breath or difficulty breathing ? swelling of the abdomen, feet, ankles, or lower legs ? diarrhea ? fever, rash, blisters, or peeling skin ? itching ? hives ? swelling of the eyes, face, throat, arms, or hands ? difficulty breathing or swallowing ? hoarseness ? excessive tiredness ? pain in the upper right part of the stomach ? nausea ? loss of appetite ? yellowing of the skin or eyes ? flu-like symptoms ? pale skin ? fast heartbeat ? cloudy, discolored, or bloody urine ? back pain ? difficult or painful urination ? blurred vision, changes in color vision, or other vision problems ? headache, stiff neck, fever Ibuprofen may cause other side effects. Call your doctor if you have any unusual problems while taking this medication. If you experience a serious side effect, you or your doctor may send a report to the Food and Drug Administration's (FDA) MedWatch Adverse Event Reporting program online (https://www.fda.gov/Safety/MedWatch) or by phone ( ). What should I know about STORAGE and DISPOSAL of this medication? Keep this medication in the container it came in, tightly closed, and out of reach of children. Store it at room temperature and away from excess heat and moisture (not in the bathroom). Keep all medication out of sight and reach of children as many containers are not child-resistant. Always lock safety caps. Place the medication in a safe location - one that is up and away and out of their sight and reach. https://www.upandaway.org Dispose of unneeded medications in a way so that pets, children, and other people cannot take them.Do not flush this medication down the toilet. Use a medicine take-back program. Talk to your pharmacist about take-back programs in your community. Visit the FDA's Safe Disposal of Medicines website h ttps://goo.gl/c4Rm4p for more information. What should I do in case of OVERDOSE? In case of overdose, call the poison control helpline at . Information is also available online at https://www.poisonhelp.org/help. If the victim has collapsed, had a seizure, has trouble breathing, or can't be awakened, immediately call emergency services at 911. Symptoms of overdosage may include: ? extreme tiredness ? drowsiness ? stomach pain ? nausea ? vomiting ? slow or difficult breathing ? dizziness ? fast eye movements that you cannot control ? blue color around the lips, mouth, and nose What OTHER INFORMATION should I know? If you are taking prescription ibuprofen, do not let anyone else take your medication. Ask your pharmacist any questions you have about refilling your prescription. Keep a written list of all of the prescription and nonprescription (kzek-ftq-hunyhjb) medicines, vitamins, minerals, and dietary supplements you are taking. Bring this list with you each time you visit a doctor or if you are admitted to the hospital. You should carry the list with you in case of mariaelena rgencies. Brand Name(s): ? Addaprin? Advil?? ? Cedaprin? I-Prin? Midol?? ? Motrin?? ? Motrin?? IB ? NeoProfen? Profen IB? Proprinal? Ultraprin? Advil?? PM (as a combination product containing Diphenhydramine, Ibuprofen) ? Combunox?? (as a combination product containing Ibuprofen, Oxycodone)?? ? Duexis?? (as a combination product containing Famotidine, Ibuprofen) ? Ibudone?? (as a combination product containing Hydrocodone, Ibuprofen)?? ? Reprexain?? (as a combination product containing Hydrocodone, Ibuprofen)?? ? Vicoprofen?? (as a combination product containing Hydrocodone, Ibuprofen)?? also available generically ?? This branded product is no longer on the market. Generic alternatives may be available. This report on medications is for your information only, and is not considered individual patient advice. Because of the changing nature of drug information, please consult your physician or pharmacist about specific clinical use. [employer] represents that the information provided hereunder was formulated with a reasonable standard of care, and in conformity with professional standards in the field. [employer] makes no representations or warranties, express or implied, including, but not limited to, any implied warranty of merchantability and/or fitness for a particular purpose, with respect to such information and specifically disclaims all such warranties. Users are advised that decisions regarding drug therapy are complex medical decisions requiring the independent, informed decision of an appropriate health child care counselor, and the information is provided for informational purposes only. The entire monograph for a drug should be reviewed for a thorough understanding of the drug's actions, uses and side effects. The [employer] does not endorse or recommend the use of any drug.The information is not a substitute for medical care. AHFS?? Patient Medication Information?. ?? Copyright, 2023. [employer]??, [address], [address], [place], [place]. All Rights Reserved. Duplication for commercial use must be authorized by [facility]. Selected Revisions: February 11, 2023. AHFS?? Patient Medication Information?. ?? Copyright, 2024 * Quirino ParnellVANDANA - Hunter Kohler RN - 01/12/2025 12:15 PM EDT Images from the original note were not included. [id number] Famotidine WHY is this medicine prescribed? Prescription famotidine is used to treat ulcers (sores on the lining of the stomach or small intestine); gastroesophageal reflux disease (GERD, a condition in which backward flow of acid from the stomach causes heartburn and injury of the esophagus [tube that connects the mouth and stomach]); and conditions where the stomach produces too much acid, such as Bereket-Coleman syndrome (tumors in the pancreas or small intestine that cause increased production of stomach acid). Gkva-mbr-dbumsxk famotidine is used to prevent and treat heartburn due to acid indigestion and sour stomach caused by eating or drinking certain foods or drinks. Famotidine is in a class of medications called H2 blockers. It works by decreasing the amount of acid made in the stomach. HOW should this medicine be used? Prescription famotidine comes as a tablet and a suspension (liquid) to take by mouth. It is usuallytaken once daily at bedtime or two to four times a day. Bsos-wli-kyagnex famotidine comes as a tablet, a chewable tablet, and a capsule to take by mouth. It is usually taken once or twice a day. To prevent symptoms, it is taken 15 to 60 minutes before eating foods or drinking drinks that may cause heartburn. Follow the directions on your prescription or the package label carefully, and ask your doctor or pharmacist to explain any part you do not understand. Take famotidine exactly as directed. Do not take more or less of it or take it more often or for a longer time than prescribed by your doctor. Shake the liquid well for 5 to 10 seconds before each use to mix the medicine evenly. Swallow the tablets and capsules with a full glass of water. Thoroughly chew the chewable tablets before swallowing them. Swallow the chewed tablet with a full glass of water. Do not take more than two tablets, capsules, or chewable tablets of dozn-gxq-bzxjccb famotidine in 24 hours and do not take jkdm-fyi-zavccjq famotidine for longer than 2 weeks unless your doctor tells you that you should. If symptoms of heartburn, acid indigestion, or sour stomach last longer than 2 weeks, stop taking ipqv-yih-ebzjzdr famotidine and call your doctor. Are there OTHER USES for this medicine? This medication may be prescribed for other uses; ask your doctor or pharmacist for more information. What SPECIAL PRECAUTIONS should I follow? Before taking famotidine, ? tell your doctor and pharmacist if you are allergic to famotidine, cimetidine (Tagamet), nizatidine (Axid), ranitidine (Zantac), or any other medications. ? tell your doctor and pharmacist what prescription and nonprescription medications, vitamins, nutritional supplements, and herbal products you are taking while taking famotidine Your doctor may needto change the doses of your medications or monitor you carefully for side effects. ? the following nonprescription products may interact with famotidine: other medications for heartburn. Be sure to let your doctor and pharmacist know that you are taking these medications before youstart taking famotidine. Do not start any of these medications while taking famotidine without discussing with your healthcare provider. ? tell your doctor if you have phenylketonuria (PKU, an inherited condition in which a special dietmust be followed to prevent damage to your brain that can cause severe intellectual disability), and if you have or have ever had trouble swallowing or kidney disease. ? tell your doctor if you are , plan to become , or are breast- feeding. If you become while taking famotidine, call your doctor. What SPECIAL DIETARY instructions should I follow? Unless your doctor tells you otherwise, continue your normal diet. What should I do IF I FORGET to take a dose? If you forget a dose of prescription famotidine, take the missed dose as soon as you remember it. However, if it is almost time for the next dose, skip the missed dose and continue your regular dosing schedule. Do not take a double dose to make up for a missed one. Aeps-edz-ceygerz famotidine is usually taken as needed. If your doctor has told you to take hpoc-bng-fclicpn famotidine regularly, take the missed dose as soon as you remember it. However, if it is almost time for the next dose, skip the missed dose and continue your regular dosing schedule. Do nottake a double dose to make up for a missed one. What SIDE EFFECTS can this medicine cause? Some side effects can be serious. The following symptoms are uncommon, but if you experience any ofthem call your doctor immediately: ? hives ? skin rash ? itching ? swelling of the face, throat, tongue, lips, eyes, hands, feet, ankles, or lower legs ? hoarseness ? difficulty breathing or swallowing Famotidine may cause other side effects. Call your doctor if you have any unusual problems while taking this medication. If you experience a serious side effect, you or your doctor may send a report to the Food and Drug Administration's (FDA) MedWatch Adverse Event Reporting program online (https://www.fda.gov/Safety/MedWatch) or by phone ( ). What should I know about STORAGE and DISPOSAL of this medication? Keep this medication in the container it came in, tightly closed, and out of reach of children. Store it at room temperature and away from excess heat and moisture (not in the bathroom). Do not allowthe liquid to freeze. Dispose of unused famotidine liquid after 30 days. Dispose of unneeded medications in a way so that pets, children, and other people cannot take them.Do not flush this medication down the toilet. Use a medicine take-back program. Talk to your pharmacist about take-back programs in your community. Visit the FDA's Safe Disposal of Medicines website h ttps://goo.gl/c4Rm4p for more information. Keep all medication out of sight and reach of children as many containers are not child-resistant. Always lock safety caps. Place the medication in a safe location - one that is up and away and out of their sight and reach. https://www.upandaway.org What should I do in case of OVERDOSE? In case of overdose, call the poison control helpline at . Information is also available online at https://www.poisonhelp.org/help. If the victim has collapsed, had a seizure, has trouble breathing, or can't be awakened, immediately call emergency services at [phone]. What OTHER INFORMATION should I know? Keep all appointments with your doctor. Do not let anyone else take your medicine. Ask your pharmacist any questions you have about refilling your prescription. Keep a written list of all of the prescription and nonprescription (qssh-erg-cijagvr) medicines, vitamins, minerals, and dietary supplements you are taking. Bring this list with you each time you visit a doctor or if you are admitted to the hospital. You should carry the list with you in case of mariaelena rgencies. Brand Name(s): ? Fluxid? Pepcid?? ? Pepcid?? AC ? Pepcid?? RPD?? ? Duexis?? (as a combination product containing Famotidine, Ibuprofen) ? Pepcid?? Complete (as a combination product containing Calcium Carbonate, Famotidine, Magnesium Hydroxide) also available generically ?? This branded product is no longer on the market. Generic alternatives may be available. This report on medications is for your information only, and is not considered individual patient advice. Because of the changing nature of drug information, please consult your physician or pharmacist about specific clinical use. The [employer] represents that the information provided hereunder was formulated with a reasonable standard of care, and in conformity with professional standards in the field. The [employer] makes no representations or warranties, express or implied, including, but not limited to, any implied warranty of merchantability and/or fitness for a particular purpose, with respect to such information and specifically disclaims all such warranties. Users are advised that decisions regarding drug therapy are complex medical decisions requiring the independent, informed decision of an appropriate health child care counselor, and the information is provided for informational purposes only. The entire monograph for a drug should be reviewed for a thorough understanding of the drug's actions, uses and side effects. The [employer] does not endorse or recommend the use of any drug.The information is not a substitute for medical care. AHFS?? Patient Medication Information?. ?? Copyright, 2023. [employer]??, [address], [address], [place], [place]. All Rights Reserved. Duplication for commercial use must be authorized by [facility]. Selected Revisions: June 13, 2021. AHFS?? Patient Medication Information?. ?? Copyright, 2024 * Quirino Fenton - Hunter Kohler RN - 01/12/2025 12:15 PM EDT Images from the original note were not included. [id number] Esomeprazole WHY is this medicine prescribed? Prescription esomeprazole is used to treat the symptoms of gastroesophageal reflux disease (GERD), a condition in which backward flow of acid from the stomach causes heartburn and possible injury of the esophagus (the tube between the throat and stomach) in adults and children 1 year of age and older. Prescription esomeprazole is used to treat damage from GERD in adults and children 1 month of age and older. Prescription esomeprazole is used to allow the esophagus to heal and prevent further damage to the esophagus in adults with GERD. Prescription esomeprazole is also used to decrease the chance that people who are taking nonsteroidal anti-inflammatory drugs (NSAIDs) will develop ulcers (sores in the lining of the stomach or intestine) in adults. It is also used with other medications totreat and prevent the return of stomach ulcers caused by a certain type of bacteria (H. pylori) in adults. Prescription esomeprazole is also used to treat conditions in which the stomach produces toomuch acid such as Bereket-Coleman syndrome in adults. Nonprescription (shch-zxf-aeexgsu) esomeprazole is used to treat frequent heartburn (heartburn that occurs at least 2 or more days a week) in adults. Esomeprazole is in a class of medications called proton pump inhibitors. It works by decreasing the amount of acid made in the stomach. HOW should this medicine be used? Prescription esomeprazole comes as a delayed-release (releases the medication in the intestine to prevent break-down of the medication by stomach acids) capsule to take by mouth or to open, mix with water, and give through a feeding tube, and as packets of delayed-release (releases the medication in the intestine to prevent break-down of the medication by stomach acids) granules for suspension (to be mixed with water) to take by mouth or give through a feeding tube. Nonprescription (ipgo-bsd-maqeljn) esomeprazole comes as a delayed-release capsule and tablet to take by mouth. Prescription esomeprazole is usually taken once a day at least 1 hour before a meal. When prescription esomeprazole is used to treat certain conditions in which the stomach makes too much acid, it is taken twice a day. The nonprescription delayed-release capsules and tablets are usually taken once a day in the morning at least 1 hour before eating for 14 days in a row. If needed, additional 14-day treatments may be repeated, not more often than once every 4 months. Take esomeprazole at around the same time(s) every day. Follow the directions on your prescription label carefully, and ask your doctor or pharmacist to explain any part you do not understand. Take esomeprazole exactly as directed. Do not take more or less of it or take it more often than or for a longer period of time than prescribed by your doctor or stated on the package. Swallow the capsules whole; do not split, chew, or crush them. If you cannot swallow the capsule, put 1 tablespoon of cool, soft applesauce in an empty bowl. Open one esomeprazole capsule and carefully sprinkle the pellets onto the applesauce. Mix the pellets with the applesauce and swallow the entire tablespoonful of the applesauce and pellet mixture immediately. Do not crush or chew the pelletsin the applesauce. Do not save the pellets and applesauce for later use. If you are taking the granules for oral suspension, you will need to mix it with water before use. If you are using the 2.5- or 5-mg packet, place 1 teaspoonful (5 mL) of water in a container. If youare using the 10-, 20-, or 40-mg packet, place 1 tablespoonful (15 mL) of water in a container. Addthe contents of the powder packet and stir. Wait 2 to 3 minutes to allow the mixture to thicken, and stir the mixture again. Drink the entire mixture within 30 minutes. If any of the mixture is stuckto the container, pour more water into the container, stir and drink all the mixture immediately. The granules and the contents of the prescription delayed-release capsules can both be given through a feeding tube. If you have a feeding tube, ask your doctor or pharmacist how you should take the medication. Follow those directions carefully. Do not take nonprescription esomeprazole for immediate relief of heartburn symptoms. It may take 1 to 4 days for you to feel the full benefit of the medication. Call your doctor if your symptoms get worse or do not improve after 14 days or if your symptoms return sooner than 4 months after you finish your treatment. Do not take nonprescription esomeprazole for longer than 14 days or treat yourself with esomeprazole more often than once every 4 months without talking to your doctor. Continue to take prescription esomeprazole, even if you feel well. Call your doctor if your symptoms worsen or do not improve during this time. Do not stop taking esomeprazole without talking to yourdoctor. Ask your pharmacist or doctor for a copy of the employee communications intern's information for the patient. Are there OTHER USES for this medicine? This medication may be prescribed for other uses; ask your doctor or pharmacist for more information. What SPECIAL PRECAUTIONS should I follow? Before taking esomeprazole, ? tell your doctor and pharmacist if you are allergic to esomeprazole, dexlansoprazole (Dexilant), lansoprazole (Prevacid), omeprazole (Prilosec, in [place], in Zegerid), pantoprazole (Protonix), rabeprazole (AcipHex), any other medications, or any of the ingredients in esomeprazole capsules or powder. Ask your pharmacist for a list of the ingredients. ? Some medications should not be taken with esomeprazole. Other medications may cause dosing changes or extra monitoring when taken with esomeprazole. Make sure you have discussed any medications youare currently taking or plan to take before starting esomeprazole with your doctor and pharmacist. Before starting, stopping, or changing any medications while taking esomeprazole, please get the advice of your doctor or pharmacist. ? The following nonprescription or herbal products may interact with esomeprazole: iron supplements, Samantha's wort. Be sure to let your doctor and pharmacist know that you are taking these medications before you start taking esomeprazole. Do not start any of these medications while taking esomeprazole without discussing with your healthcare provider. ? if you plan to take nonprescription esomeprazole, tell your doctor if your heartburn has lasted 3months or longer, if you have taken nonprescription esomeprazole for a longer period of time than stated on the package, or if you have experienced any of the following symptoms: lightheadedness, sweating, or dizziness along with your heartburn; chest pain or shoulder pain; shortness of breath or wheezing; pain that spreads to your arms, neck, or shoulders; unexplained weight loss; nausea; vomiting, especially if the vomit is bloody; stomach pain; difficulty swallowing food or pain when you swallow food; or black or bloody stools. You may have a more serious condition that cannot be treated with nonprescription medication. ? tell your doctor if you have or have ever had a low level of magnesium, calcium, or potassium in your blood; hypoparathyroidism (condition in which the body does not produce enough parathyroid hormone [PTH; a natural substance needed to control the amount of calcium in the blood]); low levels of vitamin B12 in your body, osteoporosis (a condition in which the bones become thin and weak and break easily); an autoimmune disease (condition in which the body attacks its own organs, causing swelling and loss of function) such as systemic lupus erythematosus; or liver disease. ? tell your doctor if you are , plan to become , or are . If you become while taking esomeprazole, call your doctor. ? talk to your doctor about the risks and benefits of taking esomeprazole if you are 70 years of age or older. Do not take this medication for a longer period of time than recommended on the product label or by your doctor. What SPECIAL DIETARY instructions should I follow? Unless your doctor tells you otherwise, continue your normal diet. What should I do IF I FORGET to take a dose? Take the missed dose as soon as you remember it. However, if it is almost time for the next dose, skip the missed dose and continue your regular dosing schedule. Do not take a double dose to make up for a missed one. What SIDE EFFECTS can this medicine cause? Some side effects can be serious. If you experience any of these symptoms, call your doctor immediately, or get emergency medical help: ? blisters, peeling, or bleeding skin; sores on the lips, nose, mouth, or genitals; swollen glands;shortness of breath; fever; or flu-like symptoms ? rash; hives; itching; swelling of the eyes, face, lips, mouth, throat, or tongue; difficulty breathing or swallowing; or hoarseness ? irregular, fast, or pounding heartbeat; muscle spasms; uncontrollable shaking of a part of the body; excessive tiredness; lightheadedness; dizziness; or seizures ? severe diarrhea with watery stools, stomach pain, or fever that does not go away ? new or worsening joint pain; rash on cheeks or arms that is sensitive to sunlight ? increased or decreased urination, blood in urine, fatigue, nausea, loss of appetite, fever, rash,or joint pain People who take proton pump inhibitors such as esomeprazole may be more likely to fracture their wrists, hips, or spine than people who do not take one of these medications. People who take proton pump inhibitors may also develop fundic gland polyps (a type of growth on the stomach lining). These risks are highest in people who take high doses of one of these medications or take them for one yearor longer. Talk to your doctor about the risk of taking esomeprazole. Esomeprazole may cause other side effects. Call your doctor if you have any unusual problems while taking this medication. If you experience a serious side effect, you or your doctor may send a report to the Food and Drug Administration's (FDA) MedWatch Adverse Event Reporting program online (https://www.fda.gov/Safety/MedWatch) or by phone ( ). What should I know about STORAGE and DISPOSAL of this medication? Keep this medication in the container it came in, tightly closed, and out of reach of children. Store it at room temperature and away from excess heat and moisture (not in the bathroom). Keep all medication out of sight and reach of children as many containers are not child-resistant. Always lock safety caps. Place the medication in a safe location - one that is up and away and out of their sight and reach. https://www.[employer]KECHAR[employer].org Dispose of unneeded medications in a way so that pets, children, and other people cannot take them.Do not flush this medication down the toilet. Use a medicine take-back program. Talk to your pharmacist about take-back programs in your community. Visit the FDA's Safe Disposal of Medicines website h ttps://goo.gl/c4Rm4p for more information. What should I do in case of OVERDOSE? In case of overdose, call the poison control helpline at . Information is also available online at https://www.poisonhelp.org/help. If the victim has collapsed, had a seizure, has trouble breathing, or can't be awakened, immediately call emergency services at [phone]. Symptoms of overdose may include the following: ? confusion ? drowsiness ? blurred vision ? fast heartbeat ? nausea ? sweating ? flushing ? headache ? dry mouth What OTHER INFORMATION should I know? Keep all appointments with your doctor and the laboratory. Your doctor may order certain laboratorytests before and during your treatment. Before having any laboratory test, tell your doctor and the laboratory personnel that you are taking esomeprazole. Do not let anyone else take your medication. Ask your pharmacist any questions you have about refilling your prescription. Keep a written list of all of the prescription and nonprescription (urmq-cfg-lonbjkl) medicines, vitamins, minerals, and dietary supplements you are taking. Bring this list with you each time you visit a doctor or if you are admitted to the hospital. You should carry the list with you in case of mariaelena rgencies. Brand Name(s): ? Nexium?? ? Nexium?? 24HR ? Vimovo?? (as a combination product containing Esomeprazole, Naproxen)? This branded product is no longer on the market. Generic alternatives may be available. This report on medications is for your information only, and is not considered individual patient advice. Because of the changing nature of drug information, please consult your physician or pharmacist about specific clinical use. The [employer] represents that the information provided hereunder was formulated with a reasonable standard of care, and in conformity with professional standards in the field. The [employer] makes no representations or warranties, express or implied, including, but not limited to, any implied warranty of merchantability and/or fitness for a particular purpose, with respect to such information and specifically disclaims all such warranties. Users are advised that decisions regarding drug therapy are complex medical decisions requiring the independent, informed decision of an appropriate health child care counselor, and the information is provided for informational purposes only. The entire monograph for a drug should be reviewed for a thorough understanding of the drug's actions, uses and side effects. The [employer] does not endorse or recommend the use of any drug.The information is not a substitute for medical care. AHFS?? Patient Medication Information?. ?? Copyright, 2023. The [employer]??, [address], [address], [place], [place]. All Rights Reserved. Duplication for commercial use must be authorized by [facility]. Selected Revisions: April 13, 2023. AHFS?? Patient Medication Information?. ?? Copyright, 2024 * [facility] Hunter Kohler RN - 01/12/2025 12:15 PM EDT Images from the original note were not included. [id number] Acetaminophen IMPORTANT WARNING: Taking too much acetaminophen can cause liver damage, sometimes serious enough to require liver transplantation or cause . You might accidentally take too much acetaminophen if you do not followthe directions on the prescription or package label carefully, or if you take more than one productthat contains acetaminophen. To be sure that you take acetaminophen safely, you should ? not take more than one product that contains acetaminophen at a time. Read the labels of all the prescription and nonprescription medications you are taking to see if they contain acetaminophen. Beaware that abbreviations such as APAP, AC, Acetaminophen, Acetaminoph, Acetaminop, Acetamin, or Acetam. may be written on the label in place of the word acetaminophen. Ask your doctor or pharmacist if you don't know if a medication that you are taking contains acetaminophen. ? take acetaminophen exactly as directed on the prescription or package label. Do not take more acetaminophen or take it more often than directed, even if you still have fever or pain. Ask your doctor or pharmacist if you do not know how much medication to take or how often to take your medication.Call your doctor if you still have pain or fever after taking your medication as directed. ? be aware that you should not take more than 4000 mg of acetaminophen per day. If you need to takemore than one product that contains acetaminophen, it may be difficult for you to calculate the total amount of acetaminophen you are taking. Ask your doctor or pharmacist to help you. ? tell your doctor if you have or have ever had liver disease. ? not take acetaminophen if you drink three or more alcoholic drinks every day. Talk to your doctorabout the safe use of alcohol while you are taking acetaminophen. ? stop taking your medication and call your doctor right away if you think you have taken too much acetaminophen, even if you feel well. Talk to your pharmacist or doctor if you have questions about the safe use of acetaminophen or acetaminophen-containing products. WHY is this medicine prescribed? Acetaminophen is used to relieve mild to moderate pain from headaches, muscle aches, menstrual periods, colds and sore throats, toothaches, backaches, reactions to vaccinations (shots), and to reducefever. Acetaminophen may also be used to relieve the pain of osteoarthritis (arthritis caused by the breakdown of the lining of the joints). Acetaminophen is in a class of medications called analgesics (pain relievers) and antipyretics (fever reducers). It works by changing the way the body senses pain and by cooling the body. HOW should this medicine be used? Acetaminophen comes as a tablet, chewable tablet, capsule, suspension or solution (liquid), extended-release (long-acting) tablet, and orally disintegrating tablet (tablet that dissolves quickly in the mouth), to take by mouth, with or without food. Acetaminophen is available without a prescription, but your doctor may prescribe acetaminophen to treat certain conditions. Follow the directions on the package or prescription label carefully, and ask your doctor or pharmacist to explain any part you do not understand. If you are giving acetaminophen to your child, read the package label carefully to make sure that it is the right product for the age of the child. Do not give children acetaminophen products that are made for adults. Some products for adults and older children may contain too much acetaminophen for a younger child. Check the package label to find out how much medication the child needs. If you know how much your child weighs, give the dose that matches that weight on the chart. If you don't know your child's weight, give the dose that matches your child's age. Ask your child's doctor if you don't know how much medication to give your child. Acetaminophen comes in combination with other medications to treat cough and cold symptoms. Ask your doctor or pharmacist for advice on which product is best for your symptoms. Check nonprescription cough and cold product labels carefully before using two or more products at the same time. These products may contain the same active ingredient(s) and taking them together could cause you to receivean overdose. This is especially important if you will be giving cough and cold medications to a child. Swallow the extended-release tablets whole; do not split, chew, crush, or dissolve them. Place the orally disintegrating tablet ('Meltaways') in your mouth and allow it to dissolve, or chew it before swallowing. Shake the suspension well before each use to mix the medication evenly. Always use the measuring cup or syringe provided by the employee communications intern to measure each dose of the solution or suspension. Do notswitch dosing devices between different products; always use the device that comes in the product packaging. Stop taking acetaminophen and call your doctor if your symptoms get worse, you develop new or unexpected symptoms, including redness or swelling, your pain lasts for more than 10 days, or your fever gets worse or lasts more than 3 days. Also stop giving acetaminophen to your child and call your child's doctor if your child develops new symptoms, including redness or swelling, or if your child's pain lasts for longer than 5 days, or if a fever gets worse or lasts longer than 3 days. Do not give acetaminophen to a child who has a sore throat that is severe or does not go away, or that occurs along with fever, headache, rash, nausea, or vomiting. Call the child's doctor right away, because these symptoms may be signs of a more serious condition. Are there OTHER USES for this medicine? Acetaminophen may also be used in combination with aspirin and caffeine to relieve the pain associated with migraine headache. This medication is sometimes prescribed for other uses; ask your doctor or pharmacist for more information. What SPECIAL PRECAUTIONS should I follow? Before taking acetaminophen, ? tell your doctor and pharmacist if you are allergic to acetaminophen, any other medications, or any of the ingredients in the product. Ask your pharmacist or check the label on the package for a list of ingredients. ? tell your doctor and pharmacist what prescription and nonprescription medications, vitamins, nutritional supplements, or herbal products you are taking or plan to take while taking acetaminophen. Your doctor may need to change the doses of your medications or monitor you carefully for side effects. ? The following nonprescription products may interact with acetaminophen: medications for pain, coughs, fever, and colds. Be sure to let your doctor and pharmacist know that you are taking these medications before you start taking acetaminophen. Do not start any of these medications while taking acetaminophen without discussing with your healthcare provider. ? tell your doctor if you have ever developed a rash after taking acetaminophen. ? tell your doctor if you are , plan to become , or are breast- feeding. If you become while taking acetaminophen, call your doctor. ? if you drink three or more alcoholic beverages every day, do not take acetaminophen. Ask your doctor or pharmacist about the safe use of alcoholic beverages while taking acetaminophen. ? you should know that combination acetaminophen products for cough and colds that contain nasal decongestants, antihistamines, cough suppressants, and expectorants should not be used in children younger than 2 years of age. Use of these medications in young children can cause serious and life-threatening effects or . In children 2 through 11 years of age, combination cough and cold productsshould be used carefully and only according to the directions on the label. ? if you have phenylketonuria (PKU, an inherited condition in which a special diet must be followedto prevent damage to your brain that can cause severe intellectual disability), you should know that some brands of acetaminophen chewable tablets may be sweetened with aspartame, a source of phenylalanine. What SPECIAL DIETARY instructions should I follow? Unless your doctor tells you otherwise, continue your normal diet. What should I do IF I FORGET to take a dose? This medication is usually taken as needed. If your doctor has told you to take acetaminophen regularly, take the missed dose as soon as you remember it. However, if it is almost time for the next dose, skip the missed dose and continue your regular dosing schedule. Do not take a double dose to make up for a missed one. What SIDE EFFECTS can this medicine cause? Some side effects can be serious. If you experience any of the following symptoms, stop taking acetaminophen and call your doctor immediately or get emergency medical attention: ? red, peeling or blistering skin ? rash ? hives ? itching ? swelling of the face, throat, tongue, lips, eyes, hands, feet, ankles, or lower legs ? hoarseness ? difficulty breathing or swallowing Acetaminophen may cause other side effects. Call your doctor if you have any unusual problems whileyou are taking this medication. If you experience a serious side effect, you or your doctor may send a report to the Food and Drug Administration's (FDA) MedWatch Adverse Event Reporting program online (https://www.fda.gov/Safety/MedWatch) or by phone ( ). What should I know about STORAGE and DISPOSAL of this medication? Keep this medication in the container it came in, tightly closed, and out of reach of children. Store it at room temperature and away from excess heat and moisture (not in the bathroom). Keep all medication out of sight and reach of children as many containers are not child-resistant. Always lock safety caps. Place the medication in a safe location - one that is up and away and out of their sight and reach. https://www.upandaway.org Dispose of unneeded medications in a way so that pets, children, and other people cannot take them.Do not flush this medication down the toilet. Use a medicine take-back program. Talk to your pharmacist about take-back programs in your community. Visit the FDA's Safe Disposal of Medicines website h ttps://goo.gl/c4Rm4p for more information. What should I do in case of OVERDOSE? In case of overdose, call the poison control helpline at . Information is also available online at https://www.poisonhelp.org/help. If the victim has collapsed, had a seizure, has trouble breathing, or can't be awakened, immediately call emergency services at 911. If someone takes more than the recommended dose of acetaminophen, get medical help immediately, even if the person does not have any symptoms. Symptoms of overdose may include the following: ? nausea ? vomiting ? loss of appetite ? sweating ? extreme tiredness ? unusual bleeding or bruising ? pain in the upper right part of the stomach ? yellowing of the skin or eyes ? flu-like symptoms What OTHER INFORMATION should I know? Before having any laboratory test, tell your doctor and the laboratory personnel that you are taking acetaminophen. Ask your pharmacist any questions you have about acetaminophen. Keep a written list of all of the prescription and nonprescription (mdzh-ycl-nroglnd) medicines, vitamins, minerals, and dietary supplements you are taking. Bring this list with you each time you visit a doctor or if you are admitted to the hospital. You should carry the list with you in case of mariaelena rgencies. Brand Name(s): ? Actamin?? ? Feverall?? ? Panadol?? ? Tempra Quicklets?? ? Tylenol?? ? Dayquil?? (as a combination product containing Acetaminophen, Dextromethorphan, Pseudoephedrine) ? NyQuil Cold/Flu Relief?? (as a combination product containing Acetaminophen, Dextromethorphan, Doxylamine) ? Percocet?? (as a combination product containing Acetaminophen, Oxycodone) APAP, M-sgxcdv-xdji-aminophenol, Paracetamol This report on medications is for your information only, and is not considered individual patient advice. Because of the changing nature of drug information, please consult your physician or pharmacist about specific clinical use. The [employer] represents that the information provided hereunder was formulated with a reasonable standard of care, and in conformity with professional standards in the field. The [employer] makes no representations or warranties, express or implied, including, but not limited to, any implied warranty of merchantability and/or fitness for a particular purpose, with respect to such information and specifically disclaims all such warranties. Users are advised that decisions regarding drug therapy are complex medical decisions requiring the independent, informed decision of an appropriate health child care counselor, and the information is provided for informational purposes only. The entire monograph for a drug should be reviewed for a thorough understanding of the drug's actions, uses and side effects. The [employer] does not endorse or recommend the use of any drug.The information is not a substitute for medical care. AHFS?? Patient Medication Information?. ?? Copyright, 2023. The [employer]??, [address], [address], [place], [place]. All Rights Reserved. Duplication for commercial use must be authorized by [facility]. Selected Revisions: February 11, 2023. AHFS?? Patient Medication Information?. ?? Copyright, 2024 * Quirino Fenton - Hunter Kohler RN - 01/12/2025 12:14 PM EDT Images from the original note were not included. [id number] Vocal Cord Dysfunction (VCD) You have been told that you may have vocal cord dysfunction (VCD). What is VCD? The vocal cords are 2 bands of muscle and connective tissue inside the larynx (voice box). The larynx rests at the top of your trachea (windpipe). This is in your throat. Normally, when a person breathes in and out, air flows through the vocal cords and in and out of the lungs, allowing the person to breathe easily. But with VCD, the vocal cords close when they should open. When you breathe in, instead of opening, the vocal cords close and cut off the air supply. Sometimes another part of your voice box above or around the vocal cords is causing the blockage ofyour breathing. The problem is then called inspiratory laryngeal obstruction (ILO). VCD and ILO often have the same triggers and symptoms. They are also usually diagnosed and treated the same way. What causes VCD? The cause of VCD is often unclear. But these conditions or triggers can lead to it: ? Postnasal drip ? Acid reflux, or gastroesophageal reflux disease (GERD) ? Upper respiratory infections from a virus or bacteria ? Exercise ? Strong emotions, such as stress ? Strong odors (fumes) ? Cigarette smoke Symptoms of VCD Symptoms of VCD are like those for asthma. Sometimes people with VCD are thought to have asthma. But VCD symptoms are not eased by asthma medicines used to open the airway in your lungs, like bronchodilators. Also, symptoms of VCD often don't occur while you're sleeping. Possible symptoms of VCD are: ? Trouble breathing or shortness of breath. With VCD, you have more trouble breathing in than breathing out. ? Noisy breathing (gasping, wheezing, or making raspy sounds). ? Hoarseness. ? Voice changes. ? Repeated coughing or throat clearing. ? Tightness in the chest or throat. Diagnosing VCD Because VCD is sometimes confused with asthma, you might see an corporate training manager or ethernet network architect for an accurate diagnosis. This is a specialist in complex conditions such as asthma and VCD. You may be asked to do breathing tests to measure how well air flows into and out of your lungs. Laryngoscopy may also be done. This test allows the health care provider to view your vocal cords using a thin, often flexible scope called a laryngoscope. Tests for asthma may be done. Some people may have both asthmaand VCD. Treating VCD The main treatment for VCD is learning to manage and control symptoms when they happen. Your provider may advise: ? Speech therapy. This treatment teaches you how to control your vocal cords. A speech therapist orother specialist instructs you how to relax the muscles in your throat. ? Relaxation methods. Deep breathing, meditation, and activities like yoga can help reduce stress. ? Biofeedback. This treatment teaches you how to control certain physical functions and responses. You learn how to reduce muscle tension. ? Psychotherapy. You work with a specially trained mental health professional about your problems. They can help you better cope with stress. Other methods of treatment may be available. Your provider can tell you more, if needed. Preventing VCD To help prevent episodes of VCD, make changes in your life to reduce and manage triggers. If the cause of your VCD is a health problem, such as acid reflux, you may need to take medicine and change certain eating habits. If you smoke, quitting can help you control VCD. Stay away from secondhand smoke, too. Don't let people smoke in your car or your home. Your provider can tell you more. When to call 911 Call 911 right away if you have severe trouble breathing. Last Reviewed Date: 2024 00:00:00 ?? [id number] [employer]. All rights reserved. This information is not intended as a substitute for professional medical care. Always follow your healthcare professional's instructions. * Quirino Fenton - Hunter Kohler RN - 01/12/2025 12:13 PM EDT Images from the original note were not included. [id number] Direct Rigid Laryngoscopy Direct rigid laryngoscopy is a procedure to look at the vocal cords or larynx. A laryngoscope is a rigid, hollow tube with a light attached. Using this tool, your healthcare provider can look behind your tongue and down your throat to your vocal cords. A tissue sample (biopsy) can be taken for study in a lab, or a growth can be removed. Your healthcare provider can tell you more about your procedure depending on why it?s being done. Getting ready for the procedure Prepare for the procedure as you have been instructed. Be sure to tell your healthcare provider about all medicines you take. This includes crjk-wiq-wjysswu medicines, herbs, and other supplements. You may need to stop taking some or all of them before surgery. Your healthcare provider will let youknow. Also, follow any directions you?re given for not eating or drinking before surgery. The day of the procedure The procedure takes 15 to 30 minutes. You will likely go home the same day. Before the procedure Here is what to expect before the procedure begins: ? An IV (intravenous) line is put into a vein in your arm or hand. This line delivers fluids and medicines. ? You will be given medicine (anesthesia) to keep you pain-free during the procedure. This may be general anesthesia, which allows you to sleep comfortably during the procedure. During the procedure Here is what to expect during the procedure: ? You will lie on your back on a table. You may need to extend your head and straighten your neck to allow the endoscope to pass. Let your healthcare provider know if you have neck problems. The scope is put into your mouth and passed down into the throat. ? If you have dentures, they will be removed for the laryngoscopy. ? Your healthcare provider examines the larynx and surrounding areas with the scope. If needed, a small tissue sample (biopsy) is taken using small tools put through the scope. ? If a growth is found, tools can be put through the scope to remove it. After the procedure You will be taken to the post anesthesia care unit (PACU) to be monitored as you wake up from the anesthesia. At first, your throat may feel numb, but once that wears off, your throat may feel sore and scratchy. Your voice may be hoarse, making talking difficult and it may be hard to swallow. You will receive medicine to control pain, if needed. When you are released to go home, have an adult family member or friend ready to drive you. Recovering at home Once home, follow any instructions you have been given. Be sure to: ? Take pain medicine as directed. ? Drink plenty of water as soon as you can swallow normally. ? Use throat lozenges as advised by your healthcare provider to help ease throat soreness. ? Rest your voice as instructed by your healthcare provider. When to call your healthcare provider After you get home, call your healthcare provider right away if you have any of the following: ? Chest pain or trouble breathing (call 911) ? Fever of 100.4?? F ( 38?? C) or higher, or as directed by your healthcare provider ? Problems swallowing that prevent you from eating or drinking ? Pain that does not go away, even after taking pain medicine ? Severe nausea or vomiting ? Bloody vomit ? Cough that brings up blood Follow-up Within a few weeks, you will see your healthcare provider for a follow-up visit. During this visit,your provider will discuss the results of the procedure. Depending on what was found, you may need further evaluation and treatment. Risks and possible complications The risks of this procedure include: ? Bleeding ? Infection ? Gagging ? Vomiting ? Cuts in the mouth or throat ? Injury to the teeth ? Vocal cord injury ? Breathing problems ? Collapsed lung ? Risks of anesthesia Last Reviewed Date: 2022 00:00:00 ?? [id number] [employer]. All rights reserved. This information is not intended as a substitute for professional medical care. Always follow your healthcare professional's instructions. * Care Plan - Hunter Kohler RN - 01/12/2025 10:00 AM EDT Problem: Adult Inpatient Plan of Care Goal: Plan of Care Review 01/12/2025955 by Hunter Kohler RN Outcome: Ongoing, Progressing Flowsheets Taken 01/12/2025955 Plan of Care Reviewed With: patient significant other Taken 01/12/2025954 Progress: improving 01/12/2025954 by Hunter Kohler RN Outcome: Ongoing, Progressing Flowsheets (Taken 01/12/2025954) Progress: improving Plan of Care Reviewed With: patient significant other Goal: Patient-Specific Goal (Individualized) 01/12/2025955 by Hunter Kohler RN Outcome: Ongoing, Progressing Flowsheets (Taken 01/12/2025799) Patient/Family-Specific Goals (Include Timeframe): pt will tolerate soft/bite size 6 diet this shift Individualized Care Needs: safety Anxieties, Fears or Concerns: asking when she will get to go home 01/12/2025954 by Hunter Kohler RN Outcome: Ongoing, Progressing Flowsheets (Taken 01/12/2025799) Patient/Family-Specific Goals (Include Timeframe): pt will tolerate soft/bite size 6 diet this shift Individualized Care Needs: safety Anxieties, Fears or Concerns: asking when she will get to go home Goal: Absence of Hospital-Acquired Illness or Injury 01/12/2025955 by Hunter Kohler RN Outcome: Ongoing, Progressing 01/12/2025954 by Hunter Kohler RN Outcome: Ongoing, Progressing Intervention: Identify and Manage Fall Risk 01/12/2025955 by Hunter Kohler RN Flowsheets (Taken 01/12/2025954) Safety Promotion/Fall Prevention: assistive device/personal items within reach clutter-free environment maintained fall prevention program maintained lighting adjusted nonskid shoes/slippers when out of bed room organization consistent safety round/check completed 01/12/2025954 by Hunter Kohler RN Flowsheets (Taken 01/12/2025954) Safety Promotion/Fall Prevention: assistive device/personal items within reach clutter-free environment maintained fall prevention program maintained lighting adjusted nonskid shoes/slippers when out of bed room organization consistent safety round/check completed Intervention: Prevent Skin Injury 01/12/2025955 by Hunter Kohler RN Flowsheets (Taken 01/12/2025954) Body Position: (able to turn self, up ad luis) weight shifting other (see comments) 01/12/2025954 by Hunter Kohler RN Flowsheets (Taken 01/12/2025954) Body Position: (able to turn self, up ad luis) weight shifting other (see comments) Goal: Optimal Comfort and Wellbeing 01/12/2025955 by Hunter Kohler RN Outcome: Ongoing, Progressing 01/12/2025954 by Hunter Kohler RN Outcome: Ongoing, Progressing Problem: Infection Goal: Absence of Infection Signs and Symptoms 01/12/2025955 by Hunter Kohler RN Outcome: Ongoing, Progressing 01/12/2025954 by Hunter Kohler RN Outcome: Ongoing, Progressing Intervention: Prevent or Manage Infection Flowsheets (Taken 01/12/2025955) Infection Management: aseptic technique maintained Fever Reduction/Comfort Measures: lightweight bedding Isolation Precautions: precautions maintained contact Problem: Airway Clearance Ineffective Goal: Effective Airway Clearance 01/12/2025955 by Hunter Kohler RN Outcome: Ongoing, Progressing Note: No intervention option had been selected. Encouraging cough and deep breathing. 01/12/2025954 by Hunter Kohler RN Outcome: Ongoing, Progressing Problem: Pain Acute Goal: Optimal Pain Control and Function 01/12/2025955 by Hunter Kohler RN Outcome: Ongoing, Progressing 01/12/2025954 by Hunter Kohler RN Outcome: Ongoing, Progressing Intervention: Optimize Psychosocial Wellbeing Flowsheets (Taken 01/12/2025955) Supportive Measures: active listening utilized self-care encouraged verbalization of feelings encouraged decision-making supported Diversional Activities: television * Care Plan - Michelle Lao - 01/12/2025 5:00 AM EDT Problem: Adult Inpatient Plan of Care Goal: Plan of Care Review 01/12/2025457 by Michelle Lao Outcome: Ongoing, Progressing Flowsheets (Taken 01/12/2025 0458) Progress: improving Plan of Care Reviewed With: patient sibling 01/12/2025456 by Michelle Lao Flowsheets (Taken 01/12/2025456) Progress: improving Plan of Care Reviewed With: patient Goal: Patient-Specific Goal (Individualized) Outcome: Ongoing, Progressing Goal: Absence of Hospital-Acquired Illness or Injury Outcome: Ongoing, Progressing Goal: Optimal Comfort and Wellbeing Outcome: Ongoing, Progressing Problem: Infection Goal: Absence of Infection Signs and Symptoms Outcome: Ongoing, Progressing Intervention: Prevent or Manage Infection 01/12/2025457 by Michelle Lao Flowsviola (Taken 01/11/20251999) Isolation Precautions: precautions maintained protective 01/12/2025456 by Michelle Lao Flowsviola (Taken 01/11/20251999) Isolation Precautions: precautions maintained protective Problem: Airway Clearance Ineffective Goal: Effective Airway Clearance Outcome: Ongoing, Progressing Problem: Pain Acute Goal: Optimal Pain Control and Function Outcome: Ongoing, Progressing Intervention: Develop Pain Management Plan Flowsheets (Taken 01/12/2025457) Pain Management Interventions: medication (see MAR) rest quiet environment facilitated Intervention: Prevent or Manage Pain Flowsheets (Taken 01/12/2025457) Sensory Stimulation Regulation: care clustered lighting decreased Sleep/Rest Enhancement: awakenings minimized Medication Review/Management: medications reviewed * Care Plan - Selina Saavedra RN - 01/11/2025 5:24 PM EDT Problem: Adult Inpatient Plan of Care Goal: Plan of Care Review Outcome: Ongoing, Progressing Flowsheets (Taken 01/11/2025 1723) Progress: improving Plan of Care Reviewed With: patient Goal: Patient-Specific Goal (Individualized) Outcome: Ongoing, Progressing Flowsheets (Taken 01/11/2025 1600) Patient/Family-Specific Goals (Include Timeframe): Patient's pain will be controlled during shift Individualized Care Needs: Pain control Anxieties, Fears or Concerns: Pain Goal: Absence of Hospital-Acquired Illness or Injury Outcome: Ongoing, Progressing Goal: Optimal Comfort and Wellbeing Outcome: Ongoing, Progressing Problem: Infection Goal: Absence of Infection Signs and Symptoms Outcome: Ongoing, Progressing Intervention: Prevent or Manage Infection Flowsheets (Taken 01/11/2025 1723) Isolation Precautions: precautions maintained contact Problem: Airway Clearance Ineffective Goal: Effective Airway Clearance Outcome: Ongoing, Progressing * Anesthesia PACU Signout - Gabe Vazquez MD - 01/11/2025 1:32 PM EDT Patient: Jennifer Franklin Patient is s/p Procedure(s) and Anesthesia Type: * Endoscopic mucosal posterior glottic rotation flap with CO2 laser and endoscopic sutures - General * LARYNGOSCOPY, WITH VOCAL CORD NODULE EXCISION - General. Patient remains HDS on room air, neurologically appropriate, pain is controlled, and tolerating PO w/o N/V. Patient is appropriate for discharge from PACU to inpatient unit for continued postop care. Anesthesia Type: No value filed. Vitals Value Taken Time BP 106/73 01/11/25 13:30 Temp 36.9 ??C (98.5 ??F) 01/11/25 11:00 Pulse 101 01/11/25 13:31 Resp 19 01/11/25 13:31 SpO2 95 % 01/11/25 13:31 Vitals shown include unfiled device data. Anesthesia PACU Signout Patient location during evaluation: PACU Patient participation: complete - patient participated Level of consciousness: baseline and awake Pain management: adequate (pain score 0-3) Airway patency: natural airway Hydration status: acceptable PONV: none Cardiovascular status: acceptable and hemodynamically stable Respiratory status: acceptable, spontaneous ventilation, unassisted and nonlabored ventilation Discharge Disposition: admit to inpatient unit Cosigned by Kurt Day MD at 01/11/2025 2:55 PM EDT Associated attestation - Kurt Day MD - 01/11/2025 2:55 PM EDT Agree with above assessment and evaluation from resident/PLATE WORKER HELPER. * Hospital Course - Jonna Ambrosio MD - 01/11/2025 12:32 PM EDT Jennifer Franklin is a 19 y.o. female who presented to clinic with dysphonia and glottic insufficiencyin the setting of a prior tracheostomy and prolonged intubation. She was taken to the operating room on 01/11/2025 for posterior glottis rotational flap. The patient tolerated the procedure well with no significant intraoperative complications and was subsequently extubated and transferred to the PACU for recovery. After recovery, the patient was transferred to the floor. * Discharge Summary - Jonna Ambrosio MD - 01/11/2025 12:27 PM EDT Hospitalization Admit Date/Time: 01/11/2025 6:04 AM Admitting Attending: Rbeeka Palma Discharge Date: 01/12/2025 Discharge Attending Physician: Rebeka Palma MD PCP name and Address: Edelmira Ma, APPLICATION DEVELOPMENT INTERN [address] [address] Referring provider name and address: No referring provider defined for this encounter. Chief Concern, Brief History of Present Illness, and Hospital Course Jennifer Franklin is a 19 y.o. female who presented to clinic with dysphonia and glottic insufficiencyin the setting of a prior tracheostomy and prolonged intubation. She was taken to the operating room on 01/11/2025 for posterior glottis rotational flap. The patient tolerated the procedure well with no significant intraoperative complications and was subsequently extubated and transferred to the PACU for recovery. After recovery, the patient was transferred to the floor. Surgeries and Procedures Endoscopic mucosal posterior glottic rotation flap with CO2 laser and endoscopic sutures (Bilateral), LARYNGOSCOPY, WITH VOCAL CORD NODULE EXCISION (Bilateral) Medication List .. acetaminophen 500 MG tablet Commonly known as: Tylenol Take 2 tablets by mouth every 6 hours as needed for pain. busPIRone 10 MG tablet Commonly known as: Buspar Take 1 tablet by mouth 2 times a day. escitalopram 5 MG tablet Commonly known as: Lexapro Take 1 tablet (5 mg total) by mouth 1 (one) time each day. esomeprazole 40 MG packet Commonly known as: NexIUM 40 mg by Per G Tube route daily. Start taking on: January 13, 2025 famotidine 20 MG tablet Commonly known as: Pepcid Take 1 tablet by mouth 2 times a day. FLUoxetine 20 MG capsule Commonly known as: PROzac fluticasone 50 MCG/ACT nasal spray Commonly known as: Flonase Administer 1 spray into each nostril nightly. Shake gently. Before first use, prime pump. After use, clean tip and replace cap. ibuprofen 400 MG tablet Take 1 tablet by mouth every 6 hours as needed for moderate pain. Melatonin 10 MG chewable tablet Chew. oxyCODONE 5 MG immediate release tablet Commonly known as: Roxicodone Take 1 tablet by mouth every 6 hours as needed for moderate pain or severe pain. Vraylar 1.5 MG capsule Generic drug: cariprazine Take 1 capsule by mouth 1 time each day. . azithromycin 250 MG tablet Commonly known as: Zithromax Take 2 tablets now and repeat in 4 hours ondansetron ODT 4 MG disintegrating tablet Commonly known as: Zofran-ODT if needed. Where to Get Your Medications These medications were sent to [facility] - [place], [place] - [address] [facility] [address] [facility] [address] [facility] [address] acetaminophen 500 MG tablet esomeprazole 40 MG packet famotidine 20 MG tablet ibuprofen 400 MG tablet oxyCODONE 5 MG immediate release tablet Discharge Diagnosis Medical Problems Active and Resolved Hospital Problems Hospital * (Principal) Post-operative state Post Discharge Instructions -Medications: - You should take Tylenol and ibuprofen (unless not allowed to) for pain every 6 hours as scheduledor as needed - You have been prescribed opioid pain medications to be taken as needed for SEVERE pain only. If you are having constipation, then you can take [id number] stool softener as needed. - Take Nexium and Pepcid as prescribed - Resume your previous home medications unless otherwise instructed. Diet: - Resume your regular home diet as tolerated, focusing on liquids to keep yourself hydrated Activity: - Walking and climbing stairs are okay and encouraged. Avoid strenuous activity for 2 weeks from surgery - No lifting anything >10lbs for the next 2 weeks Precautions/Potential Issues: - It is normal to have some pain and soreness and a small amount of clear drainage from the incision NOTIFY PHYSICIAN IF: - you have difficulty breathing - you develop a fever >102 or show other obvious signs of infection (shaking, chills) - you start to have increased redness, swelling, pain, and/or bloody, purulent (pus), or foul-smelling drainage around your incision - you have severe pain not controlled with the prescribed medications Follow up: - You will follow up with Dr. Palma as scheduled on 01/17/25 Future Appointments Date Time Provider Department Center 01/17/2025 12:40 PM [facility] Third Floor, Wing [address], [address] [address] Call [phone] Test Results Pending At Discharge Pertinent Physical Exam At Time of Discharge Vitals: Vitals: 01/12/25 0830 BP: 109/72 Pulse: 77 Resp: 14 Temp: 36.7 ??C (98 ??F) SpO2: 96% Physical Exam: GEN: No apparent distress. Resting comfortably in bed. NEURO: Awake, alert and oriented x3. No focal deficits. HENT: NCAT. Trachea appears midline. CV: Appears well-perfused. Normal rate. RESP: Symmetric chest rise. Non-labored breathing. ABD: Non-distended, soft MSK: Moves all extremities. No obvious deformities. SKIN: Warm and dry. Without pallor. Discharge Disposition/Condition Disposition: Home Condition: Stable (s/sx potential problems absent or manageable) I spent < 30 minutes of patient care and instruction time in preparation for this discharge. Cosigned by Rebeka Palma MD at 01/13/2025 1:56 PM EDT Associated attestation - Rebeka Palma MD - 01/13/2025 1:56 PM EDT I saw and evaluated the patient. I discussed the case with the resident/fellow and agree with the findings and plan as documented. and I spent < 30 minutes of patient care and instruction time in preparation for this discharge. * Care Plan - Jesica Cárdenas RN - 01/11/2025 11:10 AM EDT Problem: Airway Clearance Ineffective Goal: Effective Airway Clearance Outcome: Ongoing, Progressing Note: Pt able to swallow without difficulty * Op Note - Rebeka Palma MD - 01/11/2025 8:05 AM EDT Operative Note Otolaryngology- Head and Neck Surgery PATIENT NAME:Kortney Franklin DATE OF : 2005 DATE OF PROCEDURE: 01/11/2025 [place] [facility] [place]: Dysphonia Prolonged intubation Post intubation phonatory insufficiency Posterior glottic insufficiency PROCEDURE PERFORMED: Suspension microlaryngoscopy CO2 assisted Endoscopic Mucosal glottic inversion flap with endoscopic suturing ATTENDING SURGEON: Rebeka Palma MD RESIDENT SURGEON: MD Efrain ANESTHESIA: General ASA: III DRAINS, STENTS, IMPLANTS: None SPECIMEN: none ESTIMATED BLOOD LOSS: 5 cc. OPERATIVE FINDINGS: No obvious keyhole deformity of the vocal processes. Although the vocal processes extended anteriorly to what should be the mid membranous TVF. Grade 1 view with the Buster laryngoscope. Laryngoscope easily placed posterior to the ETT. A flap was successfully raised with excellent appearing blood flow. The flap was secured with vicryls. There was some cheese wiring of the flap due to the suture, which did not impact viability or position. OPERATIVE DESCRIPTION: On the day of surgery, the patient was met in the preoperative holding area. Informed consent was confirmed, and the patient's medical history was updated. The surgical plan was discussed and all thepatient's questions were answered. The patient was brought to the operating room and placed on the operating table in supine position. General anesthesia was induced, and the patient was intubated with a5-0 laser safe ETT and positioned for surgery with the bed turned 90 degrees from anesthesia. A time-out was performed to ensure the correct patient and correct procedure. A tooth guard was placedover the maxillary and mandibular dentition. A suspension microlaryngoscopy using a Buster laryngoscope was performed. The glottis was inspected and photo documented with a 0 degree Hopkin's amado. The Laryngoscope was the placed posterior to the ETT. The ETT was protected with a saline pledget. Laser safe precautions were employed. The microscope was brought into the field. A CO2 LASER with setting of a line, 5W, 0.3 repeat, 0.6 depth created a trapezoidal incision between the arytenoids and onto the anterior face of posterior cricoid mucosa. It extended laterally to the posterior face of the cricoid, and then laterally and then back superior over the arytenoid and then anteriorly onto the vocal process. A flap was elevated with the laser and microflap elevator. The microflap elevator was used to create a midline pocket between the vocal processes. The mucosa on the distal portion of the flap was ablated with a defocused laser to decrease the risk of mucocele. The distal edge of the flap was tucked deep into the pocket, then secured with two 4?0 Vicryl sutures. The patient was extubated without difficulty and accompanied to PACU in stable condition. COMPLICATIONS:? None immediate 22 modifier due to the complexity of the surgery which required extra preparation and prolonged time. * H&P - Francisco Zuniga MD - 01/11/2025 6:13 AM EDT The H&P below from 12/04/24 was reviewed with the patient for accuracy and there are no changes to be made. Patient to OR for Endoscopic mucosal posterior glottic rotational flap with CO2 laser andendoscopic sutures.. A 14-point review of systems was obtained and is negative except as noted in the HPI. Francisco Zuniga MD Otolaryngology-Head and Neck Surgery PGY-1 Pager: [phone] OTOLARYNGOLOGY - HEAD & NECK SURGERY FOLLOW-UP [...] A&Ox3. Respiratory: No increased WOB, no stridor Chest: Regular rate and rhythm Neck: Well healed tracheostomy scare. Lymph: No [...] I reviewed her care with Cheyenne Butts, ENVIRONMENTAL SYSTEMS COORDINATOR Assessment/Plan Jennifer Franklin is a 18 y.o. [...] ntinued voice therapy. She is working on NovoED, but does not feel like she has [...] initially. Cosigned by Rebeka Palma MD at 01/13/2025 1:54 PM EDT * PAT Phone Note - Jael Ball RN - 01/03/2025 2:43 PM EDT HPI Date scheduled is 01/11/2025. Last surgery @ [facility] 08/23/24 - microlaryngoscopy with vocal folds injection. See Last PAT 07/30/24 by Deysi Wallace. Jennifer Franklin is a 19 y.o. female who presents with Pre-op Diagnosis * Dysphonia [R49.0] now scheduled for Endoscopic muscosal posterior glottic rotation flap with CO2 laser and endoscopic (Bilateral), LARYNGOSCOPY, WITH VOCAL CORD NODULE EXCISION (Bilateral). Past Medical History[1] Family History[2] Social History[3] SURGICAL HISTORY: Surgical History[4] Allergies[5] MEDICATIONS: Current Medications[6] Jael Ball RN [1] Past Medical History: Diagnosis Date Allergic Anxiety Astigmatism of both eyes Depression Headache Irritable bowel syndrome Migraines Motion sickness [2] Family History Problem Relation Name Age of Onset Allergy (severe) Mother Conversions - Other Mother Healthy adult Allergy (severe) Sister Allergy (severe) Brother Diabetes Maternal Grandmother Asthma Maternal Grandmother Hyperlipidemia Maternal Grandmother Liver disease Maternal Grandmother Other (tobacco) Maternal Grandmother Asthma Paternal Grandmother Anesthesia problems Neg Hx Malig Hyperthermia Neg Hx [3] Social History Tobacco Use Smoking status: Never Smokeless tobacco: Never Vaping Use Vaping status: Never Used Substance Use Topics Alcohol use: Yes Comment: occ - not often reuben 6 months Drug use: Never [4] Past Surgical History: Procedure Laterality Date CHEST TUBE INSERTION CHOLECYSTECTOMY 2023 ERCP 12/17/2023 with balloon sweeping ERCP W/ SPHINCTEROTOMY AND BALLOON DILATION 12/06/2023 ESOPHAGOSCOPY / EGD 12/2023 LARYNGOSCOPY N/A 08/23/2024 TRACHEOSTOMY CLOSURE TRACHEOSTOMY TUBE PLACEMENT [5] Allergies Allergen Reactions Lavender Oil Rash Itching and hives [6] No current facility-administered medications for this encounter. Current Outpatient Medications: busPIRone, Take 1 tablet by mouth 2 times a day. FLUoxetine, fluticasone, Administer 1 spray into each nostril nightly. Shake gently. Before first use, prime pump. After use, clean tip and replace cap. ibuprofen, Take 1 tablet by mouth every 6 hours as needed for mild pain. Melatonin, Chew. omeprazole OTC, Take 1 tablet by mouth daily. Do not crush, chew, or split. Vraylar, Take 1 capsule by mouth 1 time each day. azithromycin, Take 2 tablets now and repeat in 4 hours (Patient not taking: Reported on 12/04/2024) escitalopram, Take 1 tablet (5 mg total) by mouth 1 (one) time each day. loratadine, Take 1 tablet by mouth nightly. (Patient not taking: Reported on 01/03/2025) naproxen, if needed. (Patient not taking: Reported on 07/12/2024) ondansetron ODT, if needed. (Patient not taking: Reported on 07/12/2024) pantoprazole, Take 1 tablet (40 mg) by mouth daily. (Patient not taking: Reported on 08/23/2024) * Preprocedure Instructions - Jael Ball RN - 01/03/2025 2:20 PM EDT Home Medication Instructions Current Medications Medication Instructions busPIRone (Buspar) 10 MG tablet Take morning of surgery FLUoxetine (PROzac) 20 MG capsule Take night before surgery fluticasone (Flonase) 50 MCG/ACT nasal spray Take as needed ibuprofen 800 MG tablet Hold 5 days before surgery Melatonin 10 MG chewable tablet Take night before surgery omeprazole OTC (PriLOSEC OTC) 20 MG EC tablet Take night before surgery Vraylar 1.5 MG capsule Take night before surgery General Preoperative Instructions You will be called the business day before surgery with your arrival time Do not eat or drink anything after midnight except water, apple juice or light colored gatorade up to 2 hours before arrival time. No alcohol or smoking prior to surgery Arrive on time to avoid delays Parking/Registration procedure explained You MUST have a responsible adult available for transport to and from hospital Visitation policy for the day of surgery reviewed Bring insurance card, photo ID, along with power of sports attorney, guardianship or advanced directives if applicable Do not bring money, jewelry or other valuables Hibiclens bathing instructions reviewed if applicable Notify surgeon of fever, illness, any changes or if you decide not to have surgery documented in this encounter Plan of Treatment Upcoming Encounters Date Type Department Care Team (Late st Contact Info) Description 01/17/2025 12:40 PM EDT Office Visit [facility] [address], [address] [place] [address] Rebeka Palma MD [address] [place] [address] documented as of this encounter Goals Goal Patient Goal Type Associated Problems Recent Progress Patient-Stated? Author Autogenera isiah Goal Care Plan Autogenerated Problem No EneMaryanne documented as of this encounter Procedures Procedure Name Priority Date/Time Associated Diagnosis Comments LARYNGOSCOPY, WITH VOCAL CORD NODULE EXCISION 01/11/2025 7:25 AM EDT Dysphonia LARYNGOSCOPY, DIRECT, WITH LASER PROCEDURE 01/11/2025 7:25 AM EDT Dysphonia POCT , URINE Routine 01/11/2025 6:57 AM EDT documented in this encounter Results * POCT , URINE (01/11/2025 6:57 AM EDT) POCT Test, Urine Negative Males and Non- Females: Negative 01/11/2025 7:04 AM EDT [facility] Ob Tech ID Summer Rutherford 01/11/2025 7:04 AM EDT HEALTHCARE LAB Device ID [id number] 01/11/2025 7:04 AM EDT [facility] Urine Urine specimen obtained by clean catch procedure / Unknown 01/11/2025 6:57 AM EDT 01/11/2025 7:04 AM EDT us Rebeka Palma MD LAB POINT OF CARE TE ST DOCKED DEVICE UNSOLICITED RESULTS Final Result [facility] [address] [place] [address] documented in this encounter Visit Diagnoses Diagnosis Post-operative state- Primary Other postprocedural status documented in this encounter Admitting Diagnoses Diagnosis Post-operative state Other postprocedural status documented in this encounter Administered Medications Inactive Administered Medications - up to 3 most recent administrations Medication Order MAR Action Action Date Dose Rate Site acetaminophen (Tylenol) tablet 1,000 mg 1,000 mg, Oral, Every 6 hours scheduled, First dose on Tue01/11/25 at 1200, Until Discontinued, Routine, Recovery(Phase II-Outpatient)/On Unit(Inpatient) Given 01/12/2025 12:02 PM EDT 1,000 mg Given 01/12/2025 6:13 AM EDT 1,000 mg Given 01/11/2025 11:49 PM EDT 1,000 mg docusate sodium (Colace) 50 MG/5ML oral liquid 100 mg 100 mg, Oral, 2 times daily, First dose on Tue01/11/25 at 1130, Until Discontinued, Routine, Recovery(Phase II-Outpatient)/On Unit(Inpatient) esomeprazole (NexIUM) packet for suspension 40 mg 40 mg, Per G Tube, Daily, First dose on Tue01/11/25 at 1130, Until Discontinued, Routine, Recovery(Phase II-Outpatient)/On Unit(Inpatient) Given 01/12/2025 8:47 AM EDT 40 mg famotidine (Pepcid) tablet 20 mg 20 mg, Oral, 2 times daily, First dose on Tue01/11/25 at 1130, Until Discontinued, Routine, Recovery(Phase II-Outpatient)/On Unit(Inpatient) Given 01/12/2025 8:48 AM EDT 20 mg Given 01/11/2025 8:45 PM EDT 20 mg Given 01/11/2025 11:30 AM EDT 20 mg ibuprofen tablet 400 mg 400 mg, Oral, Every 8 hours, First dose on Tue01/11/25 at 1130, Until Discontinued, Routine, Recovery(Phase II-Outpatient)/On Unit(Inpatient) Given 01/12/2025 12:02 PM EDT 400 mg Given 01/12/2025 4:29 AM EDT 400 mg Given 01/11/2025 8:45 PM EDT 400 mg ipratropium-albuterol (Duo-Neb) 0.5-2.5 mg/3 mL nebulizer solution 3 mL 3 mL, Nebulization, Every 4 hours PRN, Starting on Tue01/11/25 at 1044, Until 01/12/25 at 1517, Routine, Recovery(Phase II-Outpatient)/On Unit(Inpatient), shortness of breath lactated Ringer's infusion 20 mL/hr, Intravenous, Continuous, Starting on Tue01/11/25 at 0745, Until 01/12/25 at 1517, Routine New Bag 01/11/2025 10:18 AM EDT New Bag 01/11/2025 7:40 AM EDT ondansetron (Zofran) 4 MG/5ML solution 4 mg 4 mg, Oral, Every 6 hours PRN, Starting on Tue01/11/25 at 1044, Until 01/12/25 at 1517, Routine, Recovery(Phase II-Outpatient)/On Unit(Inpatient), nausea, vomiting ondansetron (Zofran) injection 4 mg 4 mg, Intravenous, Once as needed, 1 dose, Starting on Tue01/11/25 at 1037, Until Tue01/11/25 at 1230, Routine, Recovery (Phase I only), nausea, vomiting Given 01/11/2025 12:30 PM EDT 4 mg ondansetron (Zofran) injection 4 mg 4 mg, Intravenous, Every 6 hours PRN, Starting on Tue01/11/25 at 1044, Until 01/12/25 at 1517, Routine, Recovery(Phase II-Outpatient)/On Unit(Inpatient), vomiting, nausea Given 01/11/2025 12:21 PM EDT 4 mg ondansetron ODT (Zofran-ODT) disintegrating tablet 4 mg 4 mg, Oral, Every 6 hours PRN, Starting on Tue01/11/25 at 1044, Until 01/12/25 at 1517, Routine, Recovery(Phase II-Outpatient)/On Unit(Inpatient), nausea, vomiting oxyCODONE (Roxicodone) immediate release tablet 5 mg 5 mg, Oral, Every 6 hours PRN, Starting on Tue01/11/25 at 1044, Until 01/12/25 at 1517, Routine, Recovery(Phase II-Outpatient)/On Unit(Inpatient), moderate pain, severe pain senna (Senokot) 8.8 MG/5ML syrup 17.6 mg 17.6 mg, Oral, 2 times daily, First dose on Tue01/11/25 at 1130, Until Discontinued, Routine, Recovery(Phase II-Outpatient)/On Unit(Inpatient) documented in this encounter Active and Recently Administered Medications Times are shown in EDT. Scheduled Medication Order 01/10/2025 01/11/2025 01/12/2025 acetaminophen (Tylenol) tablet 1,000 mg 1,000 mg, Oral, Every 6 hours scheduled, First dose on Tue01/11/25 at 1200, Until Discontinued, Routine, Recovery(Phase II-Outpatient)/On Unit(Inpatient) 1130 (Given - Provider: Jesica Cárdenas RN)1744 (Given - Provider: Selina Saavedra RN)2349 (Given - Provider: Michelle Lao) 0613 (Given - Provider: Michelle Lao)1202 (Given - Provider: Hunter Kohler, KAYLA) dexamethasone (Decadron) injection 10 mg 10 mg, Intravenous, Once, 1 dose, On Tue01/11/25 at 0930, STAT 0930 (Canceled Entry - Provider: Automatic Discharge Provider - Comment: Automatically canceled at discontinue of medication order) docusate sodium (Colace) 50 MG/5ML oral liquid 100 mg 100 mg, Oral, 2 times daily, First dose on Tue01/11/25 at 1130, Until Discontinued, Routine, Recovery(Phase II-Outpatient)/On Unit(Inpatient) 1133 (Not Given - Provider: Jesica Cárdenas RN - Reason: Patient/family refused)2045 (Not Given - Provider: Michelle Lao - Reason: Patient/family refused) 0848 (Not Given - Provider: Hunter Kohler RN - Reason: Patient/family refused) esomeprazole (NexIUM) packet for suspension 40 mg 40 mg, Per G Tube, Daily, First dose on Tue01/11/25 at 1130, Until Discontinued, Routine, Recovery(Phase II-Outpatient)/On Unit(Inpatient) 1133 (Not Given - Provider: Jesica Cárdenas RN - Reason: Patient/family refused) 0847 (Given - Provider: Hunter Kohler, KAYLA) famotidine (Pepcid) tablet 20 mg 20 mg, Oral, 2 times daily, First dose on Tue01/11/25 at 1130, Until Discontinued, Routine, Recovery(Phase II-Outpatient)/On Unit(Inpatient) 1130 (Given - Provider: Jesica Cárdenas RN)204 (Given - Provider: Michelle Lao) 0848 (Given - Provider: Hunter Kohler RN) ibuprofen tablet 400 mg 400 mg, Oral, Every 8 hours, First dose on Tue01/11/25 at 1130, Until Discontinued, Routine, Recovery(Phase II-Outpatient)/On Unit(Inpatient) 1130 (Given - Provider: Jesica Cárdenas RN)204 (Given - Provider: Michelle Lao) 0429 (Given - Provider: Michelle Lao)1202 (Given - Provider: Hunter Kohler, KAYLA) senna (Senokot) 8.8 MG/5ML syrup 17.6 mg 17.6 mg, Oral, 2 times daily, First dose on Tue01/11/25 at 1130, Until Discontinued, Routine, Recovery(Phase II-Outpatient)/On Unit(Inpatient) 1133 (Not Given - Provider: Jesica Cárdenas RN - Reason: Patient/family refused)2044 (Not Given - Provider: Michelle Lao - Reason: Patient/family refused) 0848 (Not Given - Provider: Hunter Kohler RN - Reason: Patient/family refused) Continuous Medication Order 01/10/2025 01/11/2025 01/12/2025 lactated Ringer's infusion 20 mL/hr, Intravenous, Continuous, Starting on Tue01/11/25 at 0745, Until 01/12/25 at 1517, Routine 0740 (New Bag - Provider: Dontrell Patterson MD)1018 (New Bag - Provider: Dontrell Patterson MD) PRN Medication Order 01/10/2025 01/11/2025 01/12/2025 EPINEPHrine (Adrenalin) 1 MG/ML injection (CANCELED) As needed, Starting on Tue01/11/25 at 0830, Until Tue01/11/25 at 1055, Routine, Intraprocedure 0830 (Given - Provider: Sharon Palma MD - Comment: To field mixed with 9mL normal saline for hemostasis) ipratropium-albuterol (Duo-Neb) 0.5-2.5 mg/3 mL nebulizer solution 3 mL 3 mL, Nebulization, Every 4 hours PRN, Starting on Tue01/11/25 at 1044, Until 01/12/25 at 1517, Routine, Recovery(Phase II-Outpatient)/On Unit(Inpatient), shortness of breath ondansetron (Zofran) 4 MG/5ML solution 4 mg(Linked Group 1) 4 mg, Oral, Every 6 hours PRN, Starting on Tue01/11/25 at 1044, Until 01/12/25 at 1517, Routine, Recovery(Phase II-Outpatient)/On Unit(Inpatient), nausea, vomiting 1221 (See Alternative - Provider: Jesica Cárdenas RN) ondansetron (Zofran) injection 4 mg (COMPLETED) 4 mg, Intravenous, Once as needed, 1 dose, Starting on Tue01/11/25 at 1037, Until Tue01/11/25 at 1230, Routine, Recovery (Phase I only), nausea, vomiting 1230 (Given - Provider: Raphael Cárdenas RN) ondansetron (Zofran) injection 4 mg(Linked Group 1) 4 mg, Intravenous, Every 6 hours PRN, Starting on Tue01/11/25 at 1044, Until 01/12/25 at 1517, Routine, Recovery(Phase II-Outpatient)/On Unit(Inpatient), vomiting, nausea 1221 (Given - Provider: Raphael Cárdenas RN) ondansetron ODT (Zofran-ODT) disintegrating tablet 4 mg(Linked Group 1) 4 mg, Oral, Every 6 hours PRN, Starting on Tue01/11/25 at 1044, Until 01/12/25 at 1517, Routine, Recovery(Phase II-Outpatient)/On Unit(Inpatient), nausea, vomiting 1221 (See Alternative - Provider: Jesica Cárdenas, KAYLA) oxyCODONE (Roxicodone) immediate release tablet 5 mg 5 mg, Oral, Every 6 hours PRN, Starting on 01/11/25 at 1044, Until 01/12/25 at 1517, Routine, Recovery(Phase II-Outpatient)/On Unit(Inpatient), moderate pain, severe pain Linked Groups Order Group 1: ondansetron ODT (Zofran-ODT) disintegrating tablet 4 mgJump to med 4 mg, Oral, Every 6 hours PRN, Starting on 01/11/25 at 1044, Until 01/12/25 at 1517, Routine, Recovery(Phase II-Outpatient)/On Unit(Inpatient), nausea, vomiting Or ondansetron (Zofran) injection 4 mgJump to med 4 mg, Intravenous, Every 6 hours PRN, Starting on 01/11/25 at 1044, Until 01/12/25 at 1517, Routine, Recovery(Phase II-Outpatient)/On Unit(Inpatient), vomiting, nausea Or ondansetron (Zofran) 4 MG/5ML solution 4 mgJump to med 4 mg, Oral, Every 6 hours PRN, Starting on 01/11/25 at 1044, Until 01/12/25 at 1517, Routine, Recovery(Phase II-Outpatient)/On Unit(Inpatient), nausea, vomiting documented in this encounter Additional Health Concerns Active Problems Noted Date Diagnosed Date Autogenerated Problem 12/06/2024 Infection Onset Date Last Indicated Resolved Time 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 Source: [employer] [facility]. 12/25/2023 Assessment Noted Time PHQ-9 Depression Total Score: 15 021 9:54 AM EDT A Body Mass Index follow-up plan has been documented for the patient 01/12/2025 12:17 PM EDT documented as of this encounter Care Teams Handcrew Foreman Relationship Specialty Start Date End Date Edelmira Ma APRN [address] [place] [address] PCP - General 08/23/24 documented as of this encounter
--- OUTSIDE RECORDS SUMMARY | 2025-01-11 07:41 | XMS_ITS | Encounter Summary ---
Author Organization [facility] Address [address] [place] [address] Care Team Providers Care Yard Coupler Name Role Phone Edelmira Ma APRN Primary Care Provider [phone] Reason for Visit * Auth/Cert (Routine) Specialty Diagnoses / Procedures Referred By Hazel gay Referred To Contact Diagnoses Dysphonia Dysphonia [R49.0] Procedures AR LARYNGOSCOPY,DIRCT,OP SCOP,EXC TUMR AR LARYNGOSCOPY,DIR,OP,EXC TUMR,LCL FLAP Endoscopic mucosal posterior glottic rotation flap with CO2 laser and endoscopic sutures LARYNGOSCOPY, WITH VOCAL CORD NODULE EXCISION Rebeka Palma MD [address] [facility] [address] [place] [address] Phone: tel: fax: [facility] [address] [place] [address] Phone: tel: Referral ID Status Reason Start Date Expiration Date Visits Re quested Visits Authorized [id number] 1 1 Encounter Details Date Type Department Care Team (Late st Contact Info) Description 01/11/2025 7:41 AM EDT Anesthesia Event [facility] [address] [place] [address] Marcellus Noel MD [address] [place] [address] Dontrell Patterson MD [address] [place] [id number] Anesthesia Record Procedure Summary Procedure Name Responsible Anesthesiologist Anesthesia Start Time Anesthesia Stop Time Endoscopic mucosal posterior glottic rotation flap with CO2 laser and endoscopic sutures (Bilateral: Throat) Marcellus Noel MD 01/11/25 0741 01/11/25 1059 Events Date Time Event Comment 01/11/2025 0740 In Room 0741 An Start The patient was reevaluated immediately before sedation and remains eligible for anesthesia plan. 0741 An Start Data 0745 An Induction The patient was reevaluated immediately before moderate or deep sedation use and before anesthesia induction. 0753 An Intubation 0756 Anesthesia Ready 0805 Proc Start 1032 Proc Fin 1051 An Extubation 1052 an stop data 1054 Out of Room 1059 Handoff to Receiving I compl eted my handoff to the receiving clinician during which we: 1. Identified the patient 2. Identified the responsible provider 3. Reviewed the pertinent medical history 4. Discussed the surgical course 5. Reviewed intra-op anesthesia management and issues during anesthesia 6. Set expectations for post-procedure period 7. Allowed opportunity for questions and acknowledgement of understanding. 1059 An Stop Meds Name Total fentaNYL (Sublimaze) injection 50 mcg/mL 200 mcg lidocaine PF (Xylocaine-MPF) 2% 80 mg propofol (Diprivan) injection 10 mg/mL 2 00 mg rocuronium (ZeMuron) injection 10 mg/mL 80 mg dexamethasone (Decadron) injection 4 mg/ mL 4 mg HYDROmorphone PF (Dilaudid) injection 1 mg/mL 0.6 mg phenylephrine (Rosas-Synephrine) prefilled syringe 1 mg/10 mL 200 mcg ondansetron (Zofran) injection 2 mg/mL 4 mg sugammadex (Bridion) injection 100 mg/mL 300 mg dexmedetomidine (Precedex) infusion in N aCl 4 mcg/mL 8 mcg ketorolac (Toradol) injection 30 mg/mL 3 0 mg lactated Ringer's infusion 1,000 mL * Agents Name O2 Sevoflurane Inspired Sevoflurane * Blood No blood administrations on file. Lines, Drains, and Airways Type Details Placement Removal Wound 08/23/24; 1307; N; Y es; Surgical; Closed Surgi; Throat; 01/12/25; 0936; Healed 08/23/24 1307 by Brianna Marley 01/12/25 0936 by Hunter Kohler RN Peripheral IV Placement Date: 12/28 10/21; Placement Time: 0700; Catheter Size: 20 G; Orientation: Posterior, Right; Location: Hand; Site Prep: Chlorhexidine ; Local Anesth: Hubbell; Technique: Anatomical landmarks; Inserted by: Aliya; Insertion Attempts: 1; Patient Tolerance: Tolerated well; Removal Date: 01/12/25; Removal Time: 1212 01/11/25 0700 by Barb Pisano RN 01/12/25 1212 by Hunter Kohler RN ETT Placement Date: 12/28 10/21; Placement Time: 0753 (created via procedure documentation); Mask Ventilation: 2; Technique: Video laryngoscopy; Type: ETT - single; Single Lumen Tube Size: 5 mm (Laser tube); Cuffed: Yes; Laryngoscope: (Hyper 3); Location: Oral; Grade View: Grade I; Insertion Attempts: 1; Placement Verification: Auscultation, Capnometry; Airway Comments: Atraumatic. No change to dentition. Small 5.0 laser tube used per surgeon request; Placed by: Resident ; Removal Date: 01/11/25; Removal Time: 1051 01/11/25 0753 by Dontrell Patterson MD 01/11/25 1051 by Dontrell Patterson MD Peripheral IV Placement Date: 12/28 10/21; Placement Time: 1100; Catheter Size: 18 G; Orientation: Left, Posterior; Location: Forearm; Removal Date: 01/11/25; Removal Time: 1800; Removal Reason: Per patient/family request 01/11/25 1100 by Jesica Cárdenas RN 01/11/25 1800 by Selina Saavedra RN documented in this encounter Social History Tobacco Use Types Packs/Day Years [...] PM EST documented as of this encounter Functional Status * Calculated C-SSRS Risk Score (Lifetime/Recent) Answer Date of Assessment Author No Risk Indicated 01/11/2025 6:43 AM EDT Barb Perkins RN * Question Answer Date of Assessment Author 1. Wish to be (Past 1 Month) No 01/11/2025 6:43 AM EDT Barb Pisano RN 2. Non-Specific Active Suici makenna Thoughts (Past 1 Month) No 01/11/2025 6:43 AM EDT Magali Pisano RN 6. Suicidal Behavior (Lifetime) No 6:43 AM EDT Barb Pisano RN documented as of this encounter Miscellaneous Notes * Anesthesia Preprocedure Evaluation - Marcellus Noel MD - 01/11/2025 6:38 AM EDT Images from the original note were not included. No anesthesia staff entered. Patient: Jennifer Franklin is a 19 y.o. female with body mass index is 29.18 kg/m??. who presents with No Principal Problem: There is no principal problem currently on the Problem List. Please update the ProblemList and refresh., now for Endoscopic mucosal posterior glottic rotation flap with CO2 laser and endoscopic sutures (Bilateral), LARYNGOSCOPY, WITH VOCAL CORD NODULE EXCISION (Bilateral) Procedure Information Date/Time: 01/11/25 0745 Procedures: Endoscopic mucosal posterior glottic rotation flap with CO2 laser and endoscopic sutures (Bilateral) LARYNGOSCOPY, WITH VOCAL CORD NODULE EXCISION (Bilateral) Location: [facility] Surgeons: Rebeka Palma MD Department of Anesthesiology Perioperative Critical Care and Pain Medicine Anesthesia Preoperative Evaluation EMIL Franklin is a 19 y.o. female and presents for the above procedure: HPI: Dysphonia, had a tracheostomy from prolonged intubation from bacteremia. 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 Recommendation was made for an injection augmentation in the operating room. She underwent this procedure on 08/23/2024; we injected 0.1 ml of prolaryn gel into each vocal cord. Following surgery, shehad a few days where she felt like her voice was back to normal, before it returned to being raspy again. 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 PMH: Allergies, depression, anxiety, motion sickness, IBS, migraines, Pshx: EGD, clemente, tracheostomy and closure, chest tube insertion, ERCP sphincterotomy and balloon dilation, laryngoscopy Social Hx: Never smoker, NPO: >8 Hours METS/Activity Level: > 4 METS GLP-1 ag./SGLT-2 in.: Allergies: Labs: Anesthesia History: Imaging: Cardiovascular: EKG: ECHO: Imaging and other studies: CXR: PFTs: ROS Relevant Problems No relevant active problems SOCIAL HX Tobacco Use History[1] Social History Substance and Sexual Activity Alcohol Use Yes Comment: occ - not often reuben 6 months Social History Substance and Sexual Activity Drug Use Never SURGICAL HX Surgical History[2] MEDICATIONS Scheduled Current Scheduled Medications[3] PHYSICAL EXAM Body mass index is 29.18 kg/m??. There were no vitals filed for this visit. Marcellus Noel MD Anesthesiology 01/11/2025 Physical Exam Anesthesia Plan Anesthesia Evaluation [1] Social History Tobacco Use Smoking Status Never Smokeless Tobacco Never [2] Past Surgical History: Procedure Laterality Date CHEST TUBE INSERTION CHOLECYSTECTOMY 2023 ERCP 12/17/2023 with balloon sweeping ERCP W/ SPHINCTEROTOMY AND BALLOON DILATION 12/06/2023 ESOPHAGOSCOPY / EGD 12/2023 LARYNGOSCOPY N/A 08/23/2024 TRACHEOSTOMY CLOSURE TRACHEOSTOMY TUBE PLACEMENT [3] documented in this encounter Plan of Treatment Upcoming Encounters Date Type Department Care Team (Late st Contact Info) Description 01/17/2025 12:40 PM EDT Office Visit [facility] [address] [place] [address] Rebeka Palma MD [address] [facility] [address] [place] [id number] Pending Results Name Type Priority Associated Diagnoses Date /Time Airway Procedures Routine 01/11/2025 7:5 3 AM EDT documented as of this encounter Goals Goal Patient Goal Type Associated Problems Recent Progress Patient-Stated? Author Autogenera isiah Goal Care Plan Autogenerated Problem No Maryanne Luque documented as of this encounter Procedures Procedure Name Priority Date/Time Associated Diagnosis Comments ANESTHESIA INTUBATION Routine 01/11/2025 7:53 AM EDT documented in this encounter Visit Diagnoses Not on filedocumented in this encounter Administered Medications Inactive Administered Medications - up to 3 most recent administrations Medication Order MAR Action Action Date Dose Rate Site dexamethasone (Decadron) injection Intravenous, As needed, Starting on Tue01/11/25 at 0805, Until Tue01/11/25 at 1059, Routine, Anesthesia Intraprocedure Given 01/11/2025 8:05 AM EDT 4 mg dexmedetomidine in NS (Precedex) 4 mcg/mL infusion Intravenous, As needed, Starting on Tue01/11/25 at 1007, Until Tue01/11/25 at 1059, Routine Given 01/11/2025 10:07 AM EDT 8 mcg fentaNYL (Sublimaze) injection Intravenous, As needed, Starting on Tue01/11/25 at 0745, Until Tue01/11/25 at 1059, Routine, Anesthesia Intraprocedure Given 01/11/2025 9:37 AM EDT 50 mcg Given 01/11/2025 8:34 AM EDT 50 mcg Given 01/11/2025 7:45 AM EDT 100 mcg HYDROmorphone PF (Dilaudid) injection Intravenous, As needed, Starting on Tue01/11/25 at 0813, Until Tue01/11/25 at 1059, Routine, Anesthesia Intraprocedure Given 01/11/2025 8:50 AM EDT 0.3 mg Given 01/11/2025 8:13 AM EDT 0.3 mg ketorolac (Toradol) injection Intravenous, As needed, Starting on Tue01/11/25 at 1008, Until Tue01/11/25 at 1059, Routine, Anesthesia Intraprocedure Given 01/11/2025 10:08 AM EDT 30 mg lactated Ringer's infusion 20 mL/hr, Intravenous, Continuous, Starting on Tue01/11/25 at 0745, Until 01/12/25 at 1517, Routine New Bag 01/11/2025 10:18 AM EDT New Bag 01/11/2025 7:40 AM EDT lidocaine PF (Xylocaine) 2 % injection Intravenous, As needed, Starting on Tue01/11/25 at 0745, Until Tue01/11/25 at 1059, Routine, Anesthesia Intraprocedure Given 01/11/2025 7:45 AM EDT 80 mg ondansetron (Zofran) injection Intravenous, As needed, Starting on Tue01/11/25 at 1002, Until Tue01/11/25 at 1059, Routine, Anesthesia Intraprocedure Given 01/11/2025 10:02 AM EDT 4 mg phenylephrine in NS (Rosas-Synephrine) 100 mcg/mL prefilled syringe Intravenous, As needed, Starting on Tue01/11/25 at 0758, Until Tue01/11/25 at 1059, Routine, Anesthesia Intraprocedure Given 01/11/2025 8:21 AM EDT 100 mcg Given 01/11/2025 7:58 AM EDT 100 mcg propofol (Diprivan) injection Intravenous, As needed, Starting on Tue01/11/25 at 0747, Until Tue01/11/25 at 1059, Routine, Anesthesia Intraprocedure Given 01/11/2025 8:11 AM EDT 50 mg Given 01/11/2025 7:47 AM EDT 150 mg rocuronium (ZeMuron) injection Intravenous, As needed, Starting on Tue01/11/25 at 0747, Until Tue01/11/25 at 1059, Routine, Anesthesia Intraprocedure Given 01/11/2025 8:06 AM EDT 20 mg Given 01/11/2025 7:47 AM EDT 60 mg sugammadex (Bridion) 100 MG/ML injection Intravenous, As needed, Starting on Tue01/11/25 at 1034, Until Tue01/11/25 at 1059, Routine, Anesthesia Intraprocedure Given 01/11/2025 10:40 AM EDT 100 mg Given 01/11/2025 10:34 AM EDT 200 mg documented in this encounter Additional Health Concerns Active Problems Noted Date Diagnosed Date Autogenerated Problem 12/06/2024 Infection Onset Date Last Indicated Resolved Time 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 Source: [facility]. 12/25/2023 Assessment Noted Time PHQ-9 Depression Total Score: 15 021 9:54 AM EDT A Body Mass Index follow-up plan has been documented for the patient 01/12/2025 12:17 PM EDT documented as of this encounter Care Teams Yard Coupler Relationship Specialty Start Date End Date Edelmira Ma APRN [address] [place] [address] PCP - General 08/23/24 documented as of this encounter
--- OUTSIDE RECORDS SUMMARY | 2025-01-11 07:45 | XMS_ITS | Encounter Summary ---
Author Organization [facility] Address [address] [place] [address] Care Team Providers Care Pest Control Operator Name Role Phone Edelmira Ma APRN Primary Care Provider [phone] Reason for Visit * Auth/Cert (Routine) Specialty Diagnoses / Procedures Referred By Hazel gay Referred To Contact Diagnoses Dysphonia Dysphonia [R49.0] Procedures CT LARYNGOSCOPY,DIRCT,OP SCOP,EXC TUMR CT LARYNGOSCOPY,DIR,OP,EXC TUMR,LCL FLAP Endoscopic mucosal posterior glottic rotation flap with CO2 laser and endoscopic sutures LARYNGOSCOPY, WITH VOCAL CORD NODULE EXCISION Rebeka Palma MD [address] [address] Phone: tel: fax: [facility] [address] [place] [address] Phone: tel: Referral ID Status Reason Start Date Expiration Date Visits Re quested Visits Authorized [id number] 1 1 Encounter Details Date Type Department Care Team (Late st Contact Info) Description 01/11/2025 7:45 AM EDT - 01/11/2025 11:45 AM EDT Surgery [facility] [address] [place] [id number] Rebeka Palma MD [address] [address] Endoscopic mucosal posterior glottic rotation flap with CO2 laser and endoscopic sutures Surgery Details Date/Time Status Location OR Service Patient Class Case Class Case Type Trauma Case? 01/11/2025 7:45 AM Posted [facility] OR Tomi[facility] 03 ENT Extended Recovery E-Electiv e Panel 1 Procedure LRB Anes Op Region Wound Class Comments Endoscopic mucosal posterior glottic rotation flap with CO2 laser and endoscopic sutures Bilateral General Throat Class II/ Clean Contaminated LARYNGOSCOPY, WITH VOCAL CORD NODULE EXCISION Bilateral General Throat Class II/ Clean Contaminated Surgeon Surgeon Role Service Panel Rebeka Palma MD Primary ENT 1 Francisco Zuniga MD Resident - Assisting 1 documented in this encounter Social History Tobacco [...] Sign Reading Time Taken Comments Blood Pressure 122/75 01/11/2025 11:45 AM EDT Pulse 90 01/11/2025 11:45 AM EDT Temperature 36.9 C (98.5 F) 01/11/2025 11:00 AM EDT Respiratory Rate 18 01/11/2025 11:4 5 AM EDT Oxygen Saturation 93% 01/11/2025 11: 45 AM EDT Inhaled Oxygen Concentration - - Weight 77.1 kg (169 lb 15.6 oz) 025 11:00 AM EDT Height 162.6 cm (5' 4.02 ) 01/11/2025 1 1:00 AM EDT Body Mass Index 29.16 01/11/2025 11:00 AM EDT documented in this encounter Functional Status * Question Answer Date of Assessment Author 1. Wish to be (Past 1 Month) No 025 11:00 AM EDT Jesica Cárdenas, RN 2. Non-Specific Active Suici makenna Thoughts (Past 1 Month) No 01/11/2025 11:00 AM EDT Duglas Cárdenas ra, RN * Calculated C-SSRS Risk Score (Lifetime/Recent) Answer Date of Assessment Author No Risk Indicated 01/11/2025 11:00 AM EDT Jesica Barnard RN * Question Answer Date of Assessment Author 6. Suicidal Behavior (Lifetime) No 6:43 AM EDT Barb Pisano RN documented as of this encounter Discharge [...] are having constipation, then you can take kies-lzb-jplrmbs stool softener as needed. - Take Nexium [...] Center 01/17/2025 12:40 PM [facility] Third Floor, Wing [address], [address] [place] [address] Call [phone] documented in this encounter Medications at Time [...] RN Outcome: Ongoing, Progressing Flowsheets Taken 01/12/2025 09 Plan of Care Reviewed With: patient significant other Taken 01/12/2025 09 Progress: improving 01/12/2025954 by Hunter Kohler RN Outcome: Ongoing, Progressing Flowsheets (Taken 01/12/2025 09) Progress: improving Plan of Care Reviewed With: patient significant other Goal: Patient-Specific Goal (Individualized) 01/12/2025 1234 by Hunter Kohler RN Outcome: Met 01/12/2025 09 by Hunter Kohler RN Outcome: Ongoing, Progressing Flowsheets (Taken 01/12/2025 0800) Patient/Family-Specific Goals (Include Timeframe): pt will tolerate soft/bite size 6 diet this shift Individualized Care Needs: safety Anxieties, Fears or Concerns: asking when she will get to go home 01/12/2025954 by Hunter Kohler RN Outcome: Ongoing, Progressing Flowsheets (Taken 01/12/2025 0800) Patient/Family-Specific Goals (Include Timeframe): pt will tolerate [...] 01/12/2025955 by Hunter Kohler RN Flowsheets (Taken 01/12/2025 09) Safety Promotion/Fall Prevention: assistive device/personal items within [...] safety round/check completed Intervention: Prevent Skin Injury 01/12/2025 09 by Hunter Kohler RN Flowsheets (Taken 01/12/2025954) Body Position: (able to turn self, up ad luis) weight shifting other (see comments) 01/12/2025954 by Hunter Kohler RN Flowsheets (Taken 01/12/2025954) Body Position: (able to turn self, up ad luis) weight shifting other (see comments) Goal: Optimal Comfort and Wellbeing 01/12/2025 1234 by Hunter Kohler RN Outcome: Met 01/12/2025 09 by Hunter Kohler RN Outcome: [...] by Hunter Kohler RN Outcome: Met 01/12/2025 09 by Hunter Kohler RN Outcome: Ongoing, Progressing Note: No intervention option had been selected. Encouraging cough and deep breathing. 01/12/2025954 by Hunter Kohler RN Outcome: Ongoing, Progressing Problem: Pain Acute Goal: Optimal Pain Control and Function 01/12/2025 1234 by Hunter Kohler RN Outcome: Met 01/12/2025 09 by Hunter Kohler RN Outcome: Ongoing, Progressing 01/12/2025 0955 by Hunter Kohler RN Outcome: Ongoing, Progressing Intervention: Optimize Psychosocial Wellbeing Flowsheets (Taken 01/12/2025 0956) Supportive Measures: active listening utilized self-care encouraged verbalization of feelings encouraged decision-making supported Diversional Activities: television * Quirino Fenton - Hunter Kohler RN - 01/12/2025 12:15 PM EDT Images from the original note were not included. [id number] Ibuprofen IMPORTANT WARNING: People who take nonsteroidal [...] doctor or pharmacist will give you the finance lecturer's patient information sheet (Medication Guide) when you begin treatment with prescription ibuprofen and each time you refill your prescription. Read the information carefully and ask your doctor or pharmacist if you have any questions. You can also visit the Food and Drug Administration (FDA) website (https://www.fda.gov/Drugs/DrugSafety/kob693673.htm) or the finance lecturer's website to obtain the Medication Guide. WHY [...] and out of their sight and reach. https://www.ViaCyte.org Dispose of unneeded medications in a way [...] be awakened, immediately call emergency services at 962. Symptoms of overdosage may include: ? extreme [...] of all of the prescription and nonprescription (qokd-nfi-emklhjl) medicines, vitamins, minerals, and dietary supplements you [...] or pharmacist about specific clinical use. The [employer] represents that the information provided hereunder was formulated with a reasonable standard of care, and in conformity with professional standards in the field. The [place] makes no representations or warranties, express or implied, including, but not limited to, any implied warranty of merchantability and/or fitness for a particular purpose, with respect to such information and specifically disclaims all such warranties. Users are advised that decisions regarding drug therapy are complex medical decisions requiring the independent, informed decision of an appropriate health in home caregiver, and the information is provided for informational purposes only. The entire monograph for a drug should be reviewed for a thorough understanding of the drug's actions, uses and side effects. The [employer] does not endorse or recommend the use of any drug.The information is not a substitute for medical care. AHFS?? Patient Medication Information?. ?? Copyright, 2023. The [employer]??, [address], [address], [place], [place]. All Rights Reserved. Duplication for commercial use must be authorized by [facility]. Selected Revisions: February 11, 2023. AHFS?? Patient Medication Information?. ?? Copyright, 2024 * Quirino ParnellVANDANA - Hunter Kohler RN - 01/12/2025 12:15 PM EDT Images from the original note were not included. [id number] Famotidine WHY is this medicine prescribed? Prescription [...] that cause increased production of stomach acid). Tymw-osn-asgkxha famotidine is used to prevent and treat [...] or two to four times a day. Inns-dov-pxyehqx famotidine comes as a tablet, a chewable [...] two tablets, capsules, or chewable tablets of xaya-ntq-rmhvpoc famotidine in 24 hours and do not take ogsf-kqd-wdsmukc famotidine for longer than 2 weeks unless your doctor tells you that you should. If symptoms of heartburn, acid indigestion, or sour stomach last longer than 2 weeks, stop taking gbfk-mpl-icdqekx famotidine and call your doctor. Are there [...] to make up for a missed one. Cltf-hue-jiexlvq famotidine is usually taken as needed. If your doctor has told you to take gyar-tcb-nlvvbdv famotidine regularly, take the missed dose as [...] to the Food and Drug Administration's (FDA) [employer] Adverse Event Reporting program online (https://www.fda.gov/Safety/MedWatch) or [...] awakened, immediately call emergency services at 911. What OTHER INFORMATION should I know? Keep all appointments with your doctor. Do not let anyone else take your medicine. Ask your pharmacist any questions you have about refilling your prescription. Keep a written list of all of the prescription and nonprescription (pdwz-bjv-zvjdpvg) medicines, vitamins, minerals, and dietary supplements you [...] or pharmacist about specific clinical use. The [employer] represents that the information provided hereunder was formulated with a reasonable standard of care, and in conformity with professional standards in the field. The [employer] makes no representations or warranties, express or implied, including, but not limited to, any implied warranty of merchantability and/or fitness for a particular purpose, with respect to such information and specifically disclaims all such warranties. Users are advised that decisions regarding drug therapy are complex medical decisions requiring the independent, informed decision of an appropriate health in home caregiver, and the information is provided for informational purposes only. The entire monograph for a drug should be reviewed for a thorough understanding of the drug's actions, uses and side effects. The [employer] does not endorse or recommend the use of any drug.The information is not a substitute for medical care. AHFS?? Patient Medication Information?. ?? Copyright, 2023. The [employer]??, [address], [address], [place], [place]. All Rights Reserved. Duplication for commercial use must be authorized by [facility]. Selected Revisions: June 13, 2021. AHFS?? Patient Medication Information?. ?? Copyright, 2024 * Hunter Parrish RN - 01/12/2025 12:15 PM EDT Images from the original note were not included. [id number] Esomeprazole WHY is this medicine prescribed? Prescription [...] such as Bereket-Coleman syndrome in adults. Nonprescription (trex-lsl-adlbefn) esomeprazole is used to treat frequent heartburn [...] or give through a feeding tube. Nonprescription (oqrb-xcf-dacpymw) esomeprazole comes as a delayed-release capsule and [...] or doctor for a copy of the finance lecturer's information for the patient. Are there OTHER [...] products may interact with esomeprazole: iron supplements, [place]'s wort. Be sure to let your doctor [...] and out of their sight and reach. https://www.SciencendChannelEyes.org Dispose of unneeded medications in a way [...] call emergency services at 911. Symptoms of overdose may include the following: [...] of all of the prescription and nonprescription (xogc-gkp-iimqmel) medicines, vitamins, minerals, and dietary supplements you [...] or pharmacist about specific clinical use. The [employer] represents that the information provided hereunder was formulated with a reasonable standard of care, and in conformity with professional standards in the field. The [employer] makes no representations or warranties, express or implied, including, but not limited to, any implied warranty of merchantability and/or fitness for a particular purpose, with respect to such information and specifically disclaims all such warranties. Users are advised that decisions regarding drug therapy are complex medical decisions requiring the independent, informed decision of an appropriate health in home caregiver, and the information is provided for informational purposes only. The entire monograph for a drug should be reviewed for a thorough understanding of the drug's actions, uses and side effects. The [employer] does not endorse or recommend the use of any drug.The information is not a substitute for medical care. AHFS?? Patient Medication Information?. ?? Copyright, 2023. The [employer]??, [address], [address], [place], [place]. All Rights Reserved. Duplication for commercial use must be authorized by [facility]. Selected Revisions: April 13, 2023. AHFS?? Patient Medication Information?. ?? Copyright, 2024 * Qiurino Fenton - Hunter Kohler RN - 01/12/2025 12:15 PM EDT Images from the original note were not included. [id number] Acetaminophen IMPORTANT WARNING: Taking too much acetaminophen [...] measuring cup or syringe provided by the finance lecturer to measure each dose of the solution [...] and out of their sight and reach. https://www.ViaCyte.org Dispose of unneeded medications in a way [...] be awakened, immediately call emergency services at 441. If someone takes more than the recommended [...] of all of the prescription and nonprescription (aone-qoj-uyviaac) medicines, vitamins, minerals, and dietary supplements you [...] a combination product containing Acetaminophen, Oxycodone) APAP, F-xjsczk-hrdf-aminophenol, Paracetamol This report on medications is for your information only, and is not considered individual patient advice. Because of the changing nature of drug information, please consult your physician or pharmacist about specific clinical use. The [employer] represents that the information provided hereunder was formulated with a reasonable standard of care, and in conformity with professional standards in the field. The [employer] makes no representations or warranties, express or implied, including, but not limited to, any implied warranty of merchantability and/or fitness for a particular purpose, with respect to such information and specifically disclaims all such warranties. Users are advised that decisions regarding drug therapy are complex medical decisions requiring the independent, informed decision of an appropriate health in home caregiver, and the information is provided for informational purposes only. The entire monograph for a drug should be reviewed for a thorough understanding of the drug's actions, uses and side effects. The [employer] does not endorse or recommend the use of any drug.The information is not a substitute for medical care. AHFS?? Patient Medication Information?. ?? Copyright, 2023. The [employer]??, [address], [address], [place], [place]. All Rights Reserved. Duplication for commercial use must be authorized by [facility]. Selected Revisions: February 11, 2023. AHFS?? Patient Medication Information?. ?? Copyright, 2024 * [facility] - Hunter Kohler RN - 01/12/2025 12:14 PM EDT Images from the original note were not included. 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 This is a [...] breathing. Last Reviewed Date: 2024 00:00:00 ?? [id number] [employer]. All rights reserved. This information is not intended as a substitute for professional medical care. Always follow your healthcare professional's instructions. * Quirino Fenton - Hunter Kohler RN - 01/12/2025 12:13 PM EDT Images from the original note were not included. [id number] Direct Rigid Laryngoscopy Direct rigid laryngoscopy is [...] about all medicines you take. This includes cfrs-zrl-wdbvtac medicines, herbs, and other supplements. You may [...] anesthesia Last Reviewed Date: 2022 00:00:00 ?? [id number] [employer]. All rights reserved. This information is not [...] Michelle Lao Outcome: Ongoing, Progressing Flowsheets (Taken 01/12/2025457) Progress: improving Plan of Care Reviewed With: patient sibling 01/12/2025456 by Michelle Lao (Taken 01/12/2025456) Progress: improving Plan of Care Reviewed With: patient Goal: Patient-Specific Goal (Individualized) Outcome: Ongoing, Progressing Goal: Absence of Hospital-Acquired Illness or Injury Outcome: Ongoing, Progressing Goal: Optimal Comfort and Wellbeing Outcome: Ongoing, Progressing Problem: Infection Goal: Absence of Infection Signs and Symptoms Outcome: Ongoing, Progressing Intervention: Prevent or Manage Infection 01/12/2025457 by Michelle Lao (Taken 01/11/20251999) Isolation Precautions: precautions maintained protective 01/12/2025456 by Michelle Lao (Taken 01/11/20251999) Isolation Precautions: precautions maintained protective [...] Agree with above assessment and evaluation from resident/XEROX MACHINE OPERATOR. * Hospital Course - Jonna Ambrosio MD [...] Admit Date/Time: 01/11/2025 6:04 AM Admitting Attending: Rebeka Palma Discharge Date: 01/12/2025 Discharge Attending Physician: Rebeka Palma MD PCP name and Address: Edelmira Ma, [place] [employer]ER [address] [id number] Referring provider name and address: No referring [...] Your Medications These medications were sent to [facility] - [place], [place] - [address] , [facility] [id number] acetaminophen 500 MG tablet esomeprazole 40 MG [...] are having constipation, then you can take tijy-uij-ucyirjn stool softener as needed. - Take Nexium [...] Center 01/17/2025 12:40 PM [facility] Third Floor, [address], [address] [address] Call [phone] Test Results Pending At Discharge Pertinent Physical [...] : 2005 DATE OF PROCEDURE: 01/11/2025 LOCATION: [facility] [place] [place] PREOPERATIVE DIAGNOSIS: Dysphonia Prolonged intubation Post intubation [...] MD Otolaryngology-Head and Neck Surgery PGY-1 Pager: [phone] OTOLARYNGOLOGY - HEAD & NECK SURGERY FOLLOW-UP [...] I reviewed her care with Cheyenne Butts, POLICE STENOGRAPHER Assessment/Plan Jennifer Franklin is a 18 y.o. [...] ntinued voice therapy. She is working on [employer], but does not feel like she has [...] a soft diet initially. Cosigned by Rebeka Palam MD at 01/13/2025 1:54 PM EDT * PAT Phone Note - Jael Ball RN - 01/03/2025 2:43 PM EDT HPI Date scheduled is 01/11/2025. Last surgery @ [facility] 08/23/24 - microlaryngoscopy with vocal folds injection. See Last PAT 07/30/24 by Deysi Wallace. Jennifer rFanklin is a 19 y.o. female who presents [...] card, photo ID, along with power of county attorney, guardianship or advanced directives if applicable Do not bring money, jewelry or other valuables Hibiclens bathing instructions reviewed if applicable Notify surgeon of fever, illness, any changes or if you decide not to have surgery documented in this encounter Plan of Treatment Upcoming Encounters Date Type Department Care Team (Late st Contact Info) Description 01/17/2025 12:40 PM EDT Office Visit [facility] Otolaryngology [address], [address] [place] [address] Rebeka Palma MD [address] [place] [address] documented as of this encounter [...] Negative 01/11/2025 7:04 AM EDT HEALTHCARE LAB Curator Of Education ID Summer Rutherford 01/11/2025 7:04 AM EDT HEALTHCARE LAB Device ID [id number] 01/11/2025 7:04 AM EDT HEALTHCARE LAB Urine Urine specimen obtained by clean catch procedure / Unknown 01/11/2025 6:57 AM EDT 01/11/2025 7:04 AM EDT Rebeka Palma MD LAB POINT OF CARE TE ST DOCKED DEVICE UNSOLICITED RESULTS Final Result [facility]ALTH[facility]ARE [facility] [address] [place] [address] documented in this encounter Visit Diagnoses Diagnosis Dysphonia documented in this encounter Admitting Diagnoses Diagnosis [...] 1130, Until Discontinued, Routine, Recovery(Phase II-Outpatient)/On Unit(Inpatient) EPINEPHrine (Adrenalin) 1 MG/ML injection As needed, Starting on Tue01/11/25 at 0830, Until Tue01/11/25 at 1055, Routine, Intraprocedure Given 01/11/2025 8:30 AM EDT 1 mL Oth er esomeprazole (NexIUM) packet for suspension 40 mg [...] Provider: Michelle Lao)1202 (Given - Provider: Hunter Kohler RN) dexamethasone (Decadron) injection 10 mg 10 mg, [...] Patient/family refused) 0847 (Given - Provider: Hunter Kohler RN) famotidine (Pepcid) tablet 20 mg 20 mg, Oral, 2 times daily, First dose on Tue01/11/25 at 1130, Until Discontinued, Routine, Recovery(Phase II-Outpatient)/On Unit(Inpatient) 1130 (Given - Provider: Jesica Cárdenas RN)2044 (Given - Provider: Michelle Lao) 0848 (Given - Provider: Hunter Kohler RN) ibuprofen tablet 400 mg 400 mg, Oral, Every 8 hours, First dose on Tue01/11/25 at 1130, Until Discontinued, Routine, Recovery(Phase II-Outpatient)/On Unit(Inpatient) 1130 (Given - Provider: Jesica Cárdenas RN)2044 (Given - Provider: Michelle Lao) 0429 (Given - Provider: Michelle Lao)1202 (Given - Provider: Hunter Kohler RN) senna (Senokot) 8.8 MG/5ML syrup 17.6 mg [...] (See Alternative - Provider: Jesica Cárdenas RN) oxyCODONE (Roxicodone) immediate release tablet 5 mg [...] Time 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 Source: [facility]. 12/25/2023 Assessment Noted Time PHQ-9 Depression Total Score: 15 021 9:54 AM EDT A Body Mass Index follow-up plan has been documented for the patient 01/12/2025 12:17 PM EDT documented as of this encounter Care Teams Pest Control Operator Relationship Specialty Start Date End Date Edelmira Ma APRN [address] [place] [address] PCP - General 08/23/24 documented as of this encounter
--- OUTSIDE RECORDS SUMMARY | 2025-01-14 07:17 | XMS_ITS | Continuity of Care Document ---
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 Unhealthy drug use screening due Goal Vitamin D. Due on due Goal Hepatitis C Screening due Goal PAP. Due on due Goal Depression screening. Due on due Goal Vitamin B12. Due on due Goal Drug Abuse Scree cyrus Test (DAST-10). Due on due Goal Obtain blood Pressure. Due o n due Goal Urinalysis due Goal ECG due Goal CMP. Due on due Goal Tobacco Use Screening. Due o n due Goal CBC. Due on due Goal Tobacco screening. Due on due Goal Obtain Height, Weight, and B TN. Due on due Goal Lipid panel. Due on due Goal Influenza vaccine. Due on due Goal CBC. Due on due Goal CMP. Due on due Goal Unhealthy drug use screening due Goal HIV screen due Goal Diabetes screening. Due on due Goal Generalized Anxi ety Disorder - 7 (RUI-7). Due on due Goal Tobacco Use Screening. Due o n due Goal Tobacco Use Cess ation Counseling. Due on due Goal Vitamin B12. Due on due Goal Follow up Plan f or abnormal BMI (Less than 18.5, greater than 25). Due on due Goal Tobacco screening. Due on due Goal TSH. Due on due Goal Drug Abuse Scree cyrus Test (DAST). Due on due Goal Vitamin D. Due on due Goal Obtain Height, Weight, and B TN. Due on due Goal Hepatitis C Screening due Goal Depression screening. Due on due Goal Drug Abuse Scree cyrus Test (DAST-10). Due on due Goal Urinalysis due Goal Obtain blood Pressure. Due o n due Goal ECG due Goal Unhealthy drug use screening due Goal CMP. Due on due Goal Depression screening. Due on due Goal Drug Abuse Scree cyrus Test (DAST). Due on due Goal Tobacco Use Cess ation Counseling. Due on due Goal Diabetes screening. Due on due Goal Generalized Anxi ety Disorder - 7 (RUI-7). Due on due Goal Vitamin D. Due on due Goal Follow up Plan f or abnormal BMI (Less than 18.5, greater than 25). Due on due Goal Tobacco Use Screening. Due o n due Goal Vitamin B12. Due on due Goal Tobacco screening. Due on due Goal Influenza vaccine. Due on due Goal Hepatitis C Screening due Goal TSH. Due on due Goal HIV screen due Goal CBC. Due on due Goal Obtain Height, Weight, and B TN. Due on due Goal Drug Abuse Scree cyrus Test (DAST-10). Due on due Goal Obtain blood Pressure. Due o n due Goal Urinalysis due Goal ECG due Goal Lipid panel. Due on due Goal Lipid panel. Due on due Goal Drug Abuse Scree cyrus Test (DAST-10). Due on due Goal Tobacco screening. Due on due Goal Unhealthy drug use screening due Goal Drug Abuse Scree cyrus Test (DAST). Due on due Goal Obtain Height, Weight, and B TN. Due on due Goal Tobacco Use Cess ation Counseling. Due on due Goal Tobacco Use Screening. Due o n due Goal Vitamin B12. Due on due Goal CMP. Due on due Goal Vitamin D. Due on due Goal TSH. Due on due Goal Diabetes screening. Due on due Goal Follow up Plan f or abnormal BMI (Less than 18.5, greater than 25). Due on due Goal CBC. Due on due Goal Generalized Anxi ety Disorder - 7 (RUI-7). Due on due Goal Depression screening. Due on due Goal Hepatitis C Screening due Goal Influenza vaccine. Due on due Goal HIV screen due Goal Obtain blood Pressure. Due o n due Goal ECG due Goal Urinalysis due Goal Tobacco screening. Due on due Goal Diabetes screening. Due on due Goal Tobacco Use Screening. Due o n due Goal Depression screening. Due on due Goal Vitamin B12. Due on due Goal HIV screen due Goal CMP. Due on due Goal Drug Abuse Scree cyrus Test (DAST). Due on due Goal Tobacco Use Cess ation Counseling. Due on due Goal Follow up Plan f or abnormal BMI (Less than 18.5, greater than 25). Due on due Goal Generalized Anxi ety Disorder - 7 (RUI-7). Due on due Goal Drug Abuse Scree cyrus Test (DAST-10). Due on due Goal Vitamin D. Due on due Goal Obtain Height, Weight, and B TN. Due on due Goal Lipid panel. Due on due Goal CBC. Due on due Goal Hepatitis C Screening due Goal Influenza vaccine. Due on due Goal Unhealthy drug use screening due Goal TSH. Due on due Goal Urinalysis due Goal Obtain blood Pressure. Due o n due Goal ECG due Goal Generalized Anxi ety Disorder - 7 (RUI-7). Due on due Goal Influenza vaccine. Due on due Goal Drug Abuse Scree cyrus Test (DAST). Due on due Goal Vitamin B12. Due on due Goal TSH. Due on due Goal CBC. Due on due Goal Diabetes screening. Due on due Goal Depression screening. Due on due Goal Tobacco Use Screening. Due o n due Goal Follow up Plan f or abnormal BMI (Less than 18.5, greater than 25). Due on due Goal Vitamin D. Due on due Goal Tobacco Use Cess ation Counseling. Due on due Goal Obtain Height, Weight, and B TN. Due on due Goal Lipid panel. Due on due Goal Unhealthy drug use screening due Goal HIV screen due Goal CMP. Due on due Goal Drug Abuse Scree cyrus Test (DAST-10). Due on due Goal Hepatitis C Screening due Goal ECG due Goal Urinalysis due Goal Obtain blood Pressure. Due o n due Goal Lifestyle education regardin g diet completed Goal Lipid panel. Due on 044 due Goal Diabetes screening. Due on due Goal Drug Abuse Scree cyrus Test (DAST-10). Due on due Goal Depression screening. Due on due Goal Follow up Plan f or abnormal BMI (Less than 18.5, greater than 25). Due on due Goal Hepatitis C Screening due Goal CBC. Due on due Goal HIV screen due Goal CMP. Due on due Goal Obtain Height, Weight, and B TN. Due on due Goal Influenza vaccine. Due on due Goal Tobacco Use Screening. Due o n due Goal Vitamin B12. Due on 026 due Goal Vitamin D. Due on due Goal Tobacco Use Cess ation Counseling. Due on due Goal Generalized Anxi ety Disorder - 7 (RUI-7). Due on due Goal TSH. Due on due Goal Unhealthy drug use screening due Goal Drug Abuse Scree cyrus Test (DAST). Due on due Goal Obtain blood Pressure. Due o n due Goal Urinalysis due Goal ECG due Goal Lifestyle education regardin g diet completed Goal TSH. Due on due Goal Vitamin D. Due on due Goal Depression screening. Due on due Goal Generalized Anxi ety Disorder - 7 (RUI-7). Due on due Goal Obtain Height, Weight, and B TN. Due on due Goal CMP. Due on due Goal Lipid panel. Due on 044 due Goal Influenza vaccine. Due on due Goal Tobacco Use Cess ation Counseling. Due on due Goal Diabetes screening. Due on due Goal Vitamin B12. Due on 026 due Goal Hepatitis C Screening due Goal Tobacco Use Screening. Due o n due Goal Unhealthy drug use screening . Due on due Goal CBC. Due on due Goal HIV screen due Goal Drug Abuse Scree cyrus Test (DAST-10). Due on due Goal Follow up Plan f or abnormal BMI (Less than 18.5, greater than 25). Due on due Goal Drug Abuse Scree cyrus Test (DAST). Due on due Goal ECG due Goal Urinalysis due Goal Obtain blood Pressure. Due o n due Goal Vitamin B12. Due on 024 due Goal Unhealthy drug use screening due Goal Vitamin D. Due on due Goal Lipid panel. Due on 044 due Goal Tobacco Use Cess ation Counseling. Due on due Goal Obtain Height, Weight, and B TN. Due on due Goal Influenza vaccine. Due on due Goal Diabetes screening. Due on due Goal Drug Abuse Scree cyrus Test (DAST-10). Due on due Goal Depression screening. Due on due Goal Follow up Plan f or abnormal BMI (Less than 18.5, greater than 25). Due on due Goal CMP. Due on due Goal Tobacco Use Screening. Due o n due Goal Hepatitis C Screening due Goal CBC. Due on due Goal HIV screen due Goal Drug Abuse Scree cyrus Test (DAST). Due on due Goal TSH. Due on due Goal Generalized Anxi ety Disorder - 7 (RUI-7). Due on due Goal ECG due Goal Obtain blood Pressure. Due o n due Goal Urinalysis due Goal Lifestyle education regardin g diet completed Goal Vitamin D. Due on due Goal Hepatitis C Screening due Goal Diabetes screening. Due on due Goal CBC. Due on due Goal Tobacco Use Screening. Due o n due Goal HIV screen due Goal Drug Abuse Scree cyrus Test (DAST-10). Due on due Goal Tobacco Use Cess ation Counseling. Due on due Goal Obtain Height, Weight, and B TN. Due on due Goal Vitamin B12. Due on 024 due Goal TSH. Due on due Goal Follow up Plan f or abnormal BMI (Less than 18.5, greater than 25). Due on due Goal Depression screening. Due on due Goal Unhealthy drug use screening due Goal Lipid panel. Due on 044 due Goal Generalized Anxi ety Disorder - 7 (RUI-7). Due on due Goal Influenza vaccine. Due on due Goal Drug Abuse Scree cyrus Test (DAST). Due on due Goal CMP. Due on due Goal Urinalysis due Goal Obtain blood Pressure. Due o n due Goal ECG due Goal Lifestyle education regardin g diet completed Goal Vitamin D. Due on due Goal Depression screening. Due on due Goal Tobacco Use Screening. Due o n due Goal Unhealthy drug use screening due Goal Hepatitis C Screening due Goal Drug Abuse Scree cyrus Test (DAST-10). Due on due Goal Obtain Height, Weight, and B TN. Due on due Goal Diabetes screening. Due on due Goal Tobacco Use Cess ation Counseling. Due on due Goal Drug Abuse Scree cyrus Test (DAST). Due on due Goal Generalized Anxi ety Disorder - 7 (RUI-7). Due on due Goal CMP. Due on due Goal TSH. Due on due Goal Vitamin B12. Due on 024 due Goal Influenza vaccine. Due on due Goal Lipid panel. Due on 044 due Goal CBC. Due on due Goal Follow up Plan f or abnormal BMI (Less than 18.5, greater than 25). Due on due Goal HIV screen due Goal Urinalysis due Goal Obtain blood Pressure. Due o n due Goal ECG due Goal Depression screening. Due on due Goal CMP. Due on due Goal Generalized Anxi ety Disorder - 7 (RUI-7). Due on due Goal Drug Abuse Scree cyrus Test (DAST). Due on due Goal Obtain Height, Weight, and B TN. Due on due Goal Vitamin B12. Due on due Goal Diabetes screening. Due on due Goal Unhealthy drug use screening due Goal HIV screen due Goal Follow up Plan f or abnormal BMI (Less than 18.5, greater than 25). Due on due Goal Hepatitis C Screening due Goal Drug Abuse Scree cyrus Test (DAST-10). Due on due Goal Tobacco Use Screening. Due o n due Goal Influenza vaccine. Due on due Goal TSH. Due on due Goal Vitamin D. Due on due Goal CBC. Due on due Goal ECG due Goal Obtain blood Pressure. Due o n due Goal Urinalysis due Goal Lifestyle education regardin g diet completed Goal HIV screen due Goal Hepatitis C Screening due Goal Follow up Plan f or abnormal BMI (Less than 18.5, greater than 25). Due on due Goal Generalized Anxi ety Disorder - 7 (RUI-7). Due on due Goal Vitamin D. Due on due Goal Vitamin B12. Due on due Goal Drug Abuse Scree cyrus Test (DAST). Due on due Goal CBC. Due on due Goal Drug Abuse Scree cyrus Test (DAST-10). Due on due Goal CMP. Due on due Goal Diabetes screening. Due on due Goal Obtain Height, Weight, and B TN. Due on due Goal TSH. Due on due Goal Depression screening. Due on due Goal Unhealthy drug use screening due Goal Tobacco Use Screening. Due o n due Goal Tobacco Use Cess ation Counseling. Due on due Goal Influenza vaccine. Due on due Goal Urinalysis due Goal ECG due Goal Obtain blood Pressure. Due o n due Goal Hepatitis C Screening due Goal HIV screen due Goal Follow up Plan f or abnormal BMI (Less than 18.5, greater than 25). Due on due Goal CBC. Due on due Goal Influenza vaccine. Due on due Goal Depression screening. Due on due Goal CMP. Due on due Goal Diabetes screening. Due on due Goal Generalized Anxi ety Disorder - 7 (RUI-7). Due on due Goal Unhealthy drug use screening due Goal Vitamin B12. Due on due Goal Tobacco Use Cess ation Counseling. Due on due Goal Vitamin D. Due on due Goal Obtain Height, Weight, and B TN. Due on due Goal Drug Abuse Scree cyrus Test (DAST-10). Due on due Goal Tobacco Use Screening. Due o n due Goal TSH. Due on due Goal Drug Abuse Scree cyrus Test (DAST). Due on due Goal Urinalysis due Goal Obtain blood Pressure. Due o n due Goal ECG due Goal Drug Abuse Scree cyrus Test (DAST). Due on due Goal Vitamin B12. Due on due Goal Unhealthy drug use screening due Goal Tobacco Use Screening. Due o n due Goal Influenza vaccine. Due on due Goal Obtain Height, Weight, and B TN. Due on due Goal Tobacco Use Cess ation Counseling. Due on due Goal CMP. Due on due Goal Urinalysis due Goal ECG due Goal Obtain blood Pressure. Due o n due Goal Hepatitis C Screening due Goal Diabetes screening. Due on due Goal Drug Abuse Scree cyrus Test (DAST-10). Due on due Goal Generalized Anxi ety Disorder - 7 (RUI-7). Due on due Goal Follow up Plan f or abnormal BMI (Less than 18.5, greater than 25). Due on due Goal CBC. Due on due Goal HIV screen due Goal Depression screening. Due on due Goal TSH. Due on due Goal Vitamin D. Due on due Goal Lifestyle education regardin g diet completed Goal Diabetes screening. Due on due Goal Influenza vaccine. Due on due Goal Obtain Height, Weight, and B TN. Due on due Goal Drug Abuse Scree cyrus Test (DAST). Due on due Goal TSH. Due on due Goal Hepatitis C Screening due Goal Unhealthy drug use screening due Goal CBC. Due on due Goal Depression screening. Due on due Goal Tobacco Use Cess ation Counseling. Due on due Goal Vitamin D. Due on due Goal Urinalysis due Goal Obtain blood Pressure. Due o n due Goal ECG due Goal Generalized Anxi ety Disorder - 7 (RUI-7). Due on due Goal Drug Abuse Scree cyrus Test (DAST-10). Due on due Goal Tobacco Use Screening. Due o n due Goal HIV screen due Goal Follow up Plan f or abnormal BMI (Less than 18.5, greater than 25). Due on due Goal CMP. Due on due Goal Vitamin B12. Due on due Goal Vitamin D. Due on due Goal HIV screen due Goal Unhealthy drug use screening due Goal CBC. Due on due Goal Generalized Anxi ety Disorder - 7 (RUI-7). Due on due Goal Drug Abuse Scree cyrus Test (DAST-10). Due on due Goal Influenza vaccine. Due on due Goal Depression screening. Due on due Goal Tobacco Use Screening. Due o n due Goal Diabetes screening. Due on due Goal TSH. Due on due Goal Hepatitis C Screening due Goal Vitamin B12. Due on due Goal Drug Abuse Scree cyrus Test (DAST). Due on due Goal Obtain Height, Weight, and B TN. Due on due Goal CMP. Due on due Goal Tobacco Use Cess ation Counseling. Due on due Goal ECG due Goal Obtain blood Pressure. Due o n due Goal Urinalysis due Goal HIV screen due Goal Drug Abuse Scree cyrus Test (DAST). Due on due Goal Influenza vaccine. Due on due Goal Depression screening. Due on due Goal TSH. Due on due Goal CBC. Due on due Goal Tobacco Use Screening. Due o n due Goal Generalized Anxi ety Disorder - 7 (RUI-7). Due on due Goal Hepatitis C Screening due Goal Unhealthy drug use screening due Goal Obtain Height, Weight, and B TN. Due on due Goal Vitamin B12. Due on due Goal CMP. Due on due Goal Vitamin D. Due on due Goal Drug Abuse Scree cyrus Test (DAST-10). Due on due Goal Diabetes screening. Due on due Goal Urinalysis due Goal Obtain blood Pressure. Due o n due Goal ECG due Goal Lifestyle education regardin g diet completed Goal Diabetes screening. Due on due Goal Influenza vaccine. Due on due Goal Depression screening. Due on due Goal TSH. Due on due Goal Drug Abuse Scree cyrus Test (DAST). Due on due Goal Unhealthy drug use screening due Goal Drug Abuse Scree cyrus Test (DAST-10). Due on due Goal Tobacco Use Cess ation Counseling. Due on due Goal Generalized Anxi ety Disorder - 7 (RUI-7). Due on due Goal Vitamin B12. Due on due Goal Follow up Plan f or abnormal BMI (Less than 18.5, greater than 25). Due on due Goal CBC. Due on due Goal Obtain Height, Weight, and B TN. Due on due Goal Vitamin D. Due on due Goal Tobacco Use Screening. Due o n due Goal Hepatitis C Screening due Goal HIV screen due Goal CMP. Due on due Goal Urinalysis due Goal Obtain blood Pressure. Due o n due Goal ECG. Due on due Goal Lifestyle education regardin g diet completed Goal TSH. Due on due Goal Tobacco Use Screening. Due o n due Goal Drug Abuse Scree cyrus Test (DAST-10). Due on due Goal HIV screen due Goal Diabetes screening. Due on due Goal Influenza vaccine. Due on due Goal Unhealthy drug use screening due Goal Depression screening. Due on due Goal Drug Abuse Scree cyrus Test (DAST). Due on due Goal Vitamin D. Due on 4 due Goal Generalized Anxi ety Disorder - 7 (RUI-7). Due on due Goal CBC. Due on due Goal Obtain Height, Weight, and B TN. Due on due Goal Hepatitis C Screening due Goal Vitamin B12. Due on 024 due Goal CMP. Due on due Goal Lifestyle education regardin g diet completed Goal Drug Abuse Scree cyrus Test (DAST). Due on due Goal HIV screen due Goal CBC. Due on due Goal CMP. Due on due Goal Influenza vaccine. Due on No due Goal Diabetes screening. Due on D due Goal Unhealthy drug use screening due Goal TSH. Due on due Goal Vitamin B12. Due on due Goal Hepatitis C Screening due Goal Tobacco Use Screening. Due o n due Goal Drug Abuse Scree cyrus Test (DAST-10). Due on due Goal Vitamin D. Due on due Goal Obtain Height, Weight, and B TN. Due on due Goal Depression screening. Due on due Goal Lifestyle education regardin g diet completed Goal Follow up Plan f or abnormal BMI (Less than 18.5, greater than 25). Due on due Goal HIV screen due Goal Tobacco Use Cess ation Counseling. Due on due Goal Influenza vaccine. Due on No due Goal Drug Abuse Scree cyrus Test (DAST-10). Due on due Goal Drug Abuse Scree cyrus Test (DAST). Due on due Goal Generalized Anxi ety Disorder - 7 (RUI-7). Due on due Goal Tobacco Use Screening. Due o n due Goal Hepatitis C Screening due Goal CMP. Due on due Goal Obtain Height, Weight, and B TN. Due on due Goal Vitamin B12. Due on due Goal Depression screening. Due on due Goal Unhealthy drug use screening due Goal Vitamin D. Due on due Goal Diabetes screening. Due on due Goal CBC. Due on due Goal TSH. Due on due Goal Diabetes screening. Due on due Goal Vitamin B12. Due on due Goal HIV screen due Goal Drug Abuse Scree cyrus Test (DAST-10). Due on due Goal Obtain Height, Weight, and B TN. Due on due Goal Generalized Anxi ety Disorder - 7 (RUI-7). Due on due Goal Hepatitis C Screening due Goal Drug Abuse Scree cyrus Test (DAST). Due on due Goal CBC. Due on due Goal Vitamin D. Due on due Goal Tobacco Use Cess ation Counseling. Due on due Goal CMP. Due on due Goal Depression screening. Due on due Goal Follow up Plan f or abnormal BMI (Less than 18.5, greater than 25). Due on due Goal TSH. Due on due Goal Unhealthy drug use screening due Goal Tobacco Use Screening. Due o n due Goal Influenza vaccine. Due on due Goal Lifestyle education regardin g diet completed Goal Obtain Height, Weight, and B TN. Due on due Goal Unhealthy drug use screening due Goal CBC. Due on due Goal Vitamin D. Due on due Goal Hepatitis C Screening due Goal HIV screen due Goal Vitamin B12. Due on due Goal Diabetes screening. Due on due Goal Generalized Anxi ety Disorder - 7 (RUI-7). Due on due Goal CMP. Due on due Goal Drug Abuse Scree cyrus Test (DAST-10). Due on due Goal Tobacco Use Screening. Due o n due Goal Drug Abuse Scree cyrus Test (DAST). Due on due Goal Influenza vaccine. Due on due Goal TSH. Due on due Goal Depression screening. Due on due Goal Drug Abuse Scree cyrus Test (DAST-10). Due on due Goal Vitamin D. Due on due Goal Vitamin B12. Due on due Goal Influenza vaccine. Due on due Goal CMP. Due on due Goal Drug Abuse Scree cyrus Test (DAST). Due on due Goal Unhealthy drug use screening due Goal Follow up Plan f or abnormal BMI (Less than 18.5, greater than 25). Due on due Goal Tobacco Use Screening. Due o n due Goal HIV screen due Goal TSH. Due on due Goal CBC. Due on due Goal Tobacco Use Cess ation Counseling. Due on due Goal Hepatitis C Screening due Goal Depression screening. Due on due Goal Generalized Anxi ety Disorder - 7 (RUI-7). Due on due Goal Obtain Height, Weight, and B TN. Due on due Goal Diabetes screening. Due on D due Goal Vitamin D. Due on due Goal Follow up Plan f or abnormal BMI (Less than 18.5, greater than 25). Due on due Goal Influenza vaccine. Due on due Goal Depression screening. Due on due Goal Unhealthy drug use screening due Goal CMP. Due on due Goal Drug Abuse Scree cyrus Test (DAST). Due on due Goal Tobacco Use Cess ation Counseling. Due on due Goal Tobacco Use Screening. Due o n due Goal Hepatitis C Screening due Goal Drug Abuse Scree cyrus Test (DAST-10). Due on due Goal CBC. Due on due Goal Generalized Anxi ety Disorder - 7 (RUI-7). Due on due Goal Vitamin B12. Due on due Goal Obtain Height, Weight, and B TN. Due on due Goal TSH. Due on due Goal Diabetes screening. Due on due Goal HIV screen due Goal Drug Abuse Scree cyrus Test (DAST). Due on due Goal Tobacco Use Screening. Due o n due Goal TSH. Due on due Goal Generalized Anxi ety Disorder - 7 (RUI-7). Due on due Goal CBC. Due on due Goal Diabetes screening. Due on due Goal Tobacco Use Cess ation Counseling. Due on due Goal Depression screening. Due on due Goal Unhealthy drug use screening due Goal Influenza vaccine. Due on due Goal Vitamin B12. Due on due Goal HIV screen due Goal Hepatitis C Screening due Goal Follow up Plan f or abnormal BMI (Less than 18.5, greater than 25). Due on due Goal Obtain Height, Weight, and B TN. Due on due Goal Vitamin D. Due on due Goal CMP. Due on due Goal Drug Abuse Scree cyrus Test (DAST-10). Due on due Goal Generalized Anxi ety Disorder - 7 (RUI-7). Due on due Goal Hepatitis C Screening due Goal Influenza vaccine. Due on due Goal CBC. Due on due Goal Tobacco Use Screening. Due o n due Goal Vitamin D. Due on due Goal Depression screening. Due on due Goal Unhealthy drug use screening due Goal Diabetes screening. Due on due Goal Drug Abuse Scree cyrus Test (DAST). Due on due Goal TSH. Due on due Goal Obtain Height, Weight, and B TN. Due on due Goal CMP. Due on due Goal Vitamin B12. Due on due Goal HIV screen due Goal Tobacco Use Cess ation Counseling. Due on due Goal Depression screening. Due on due Goal Vitamin D. Due on due Goal Vitamin B12. Due on due Goal CMP. Due on due Goal Diabetes screening. Due on due Goal Hepatitis C Screening due Goal Drug Abuse Scree cyrus Test (DAST). Due on due Goal Generalized Anxi ety Disorder - 7 (RUI-7). Due on due Goal Tobacco Use Screening. Due o n due Goal HIV screen due Goal Follow up Plan f or abnormal BMI (Less than 18.5, greater than 25). Due on due Goal TSH. Due on due Goal Drug Abuse Scree cyrus Test (DAST-10). Due on due Goal CBC. Due on due Goal Obtain Height, Weight, and B TN. Due on due Goal Influenza vaccine. Due on No due Goal Unhealthy drug use screening due Goal Obtain Height, Weight, and B TN. Due on due Goal CBC. Due on due Goal Hepatitis C Screening due Goal Unhealthy drug use screening due Goal Drug Abuse Scree cyrus Test (DAST). Due on due Goal Tobacco Use Screening. Due o n due Goal Influenza vaccine. Due on No due Goal Diabetes screening. Due on due Goal Vitamin B12. Due on due Goal CMP. Due on due Goal Generalized Anxi ety Disorder - 7 (RUI-7). Due on due Goal Depression screening. Due on due Goal Drug Abuse Scree cyrus Test (DAST-10). Due on due Goal TSH. Due on due Goal HIV screen due Goal Vitamin D. Due on due Goal CBC. Due on due Goal TSH. Due on due Goal Diabetes screening. Due on D due Goal Influenza vaccine. Due on due Goal Drug Abuse Scree cyrus Test (DAST-10). Due on due Goal Tobacco Use Screening. Due o n due Goal HIV screen. Due on due Goal Drug Abuse Scree cyrus Test (DAST). Due on due Goal Hepatitis C Screening. Due o n due Goal Follow up Plan f or abnormal BMI (Less than 18.5, greater than 25). Due on due Goal Unhealthy drug use screening due Goal Vitamin D. Due on due Goal Obtain Height, Weight, and B TN. Due on due Goal Depression screening. Due on due Goal CMP. Due on due Goal Vitamin B12. Due on 024 due Goal Generalized Anxi ety Disorder - 7 (RUI-7). Due on due Goal Tobacco Use Cess ation Counseling. Due on due Goal TSH. Due on due Goal Hepatitis C Screening. Due o n due Goal Vitamin D. Due on 3 due Goal Drug Abuse Scree cyrus Test (DAST-10). Due on due Goal Generalized Anxi ety Disorder - 7 (RUI-7). Due on due Goal Depression screening. Due on due Goal CMP. Due on due Goal HIV screen. Due on due Goal Influenza vaccine. Due on No due Goal Unhealthy drug use screening due Goal Tobacco Use Screening. Due o n due Goal CBC. Due on due Goal Tobacco Use Cess ation Counseling. Due on due Goal Diabetes screening. Due on N due Goal Vitamin B12. Due on 023 due Goal Drug Abuse Scree cyrus Test (DAST). Due on due Goal Follow up Plan f or abnormal BMI (Less than 18.5, greater than 25). Due on due Goal Obtain Height, Weight, and B TN. Due on due Goal HIV screen. Due on due Goal Vitamin B12. Due on 023 due Goal CBC. Due on due Goal Unhealthy drug use screening due Goal Hepatitis C Screening. Due o n due Goal TSH. Due on due Goal Tobacco Use Cess ation Counseling. Due on due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
--- NOTE | 2025-01-14 15:15 | ED_ITS ---
Discharge Plan Disposition Patient Disposition: Home, Self-Care Prescriptions Prescriptions: New ofloxacin 0.3 % drops 10 drp otic (ear) DAILY 7 Days Qty: 10 0RF Rx Instructions: Use in the left ear cefdinir 300 mg capsule 300 mg PO BID 7 Days Qty: 14 0RF No Action sertraline 100 mg tablet 100 mg PO BID Patient Comments: TAKE 1 TABLET BY MOUTH TWICE DAILY Referrals Follow up/Referrals: Edelmira Ma APRN [Primary Care Provider, Medical] - See instructions Activity Restrictions/Add. Instructions Additional Instructions/Restrictions: You are being prescribed antibiotic drops and antibiotics to take by mouth for what appears to be an infection of your left ear. Use these as prescribed. You can also take 600mg Ibuprofen and 1000mg Tylenol every 6 hours to help with pain. Follow up with your ENT on as scheduled. If you develop any new or worsening symptoms, or if you become concerned for your health for any reason, return to the ED for evaluation. Clinical Impressions Clinical Impression: Acute left otitis media, Otitis externa Print Language Print Language: Canadian Discharge ED Provider: Bobby Rosado Adult HPI General Chief complaint: Ear Stated complaint: surgery 01/11, sore throat, ear pain Time Seen by Provider: 01/14/25 15:15 History of Present Illness HPI narrative: Jennifer Franklin is a 19F with a history of septicemia status post trach placement and removal who presents to the emergency department for left ear pain. Patient states that on Tuesday of last week, she underwent vocal cord surgery by ENT at the [facility] due to hoarseness of her voice since her trach. She states that she was told that she will have some pain in her throat due to the surgery, which she has had, however over the last few days she has had pain and yellow drainage from her left ear. She called the ENT clinic today and was told that this is likely a separate issue unrelated to her surgery. She denies any worsening pain in her throat, swelling, shortness of breath, difficulty tolerating secretions, fever. She notes that she has follow- up with surgery team on . She denies any stiffness in her neck. On arrival, patient is normotensive, heart rate within normal limits, breathing comfortably on room air with oxygen saturation 98% SpO2. Afebrile. Related Data Home Medications ?Medication ?Instructions ?Recorded ?Confirmed sertraline 100 mg tablet 100 mg PO BID 11/21/2311/20 Previous Rx's ?Medication ?Instructions ?Recorded cefdinir 300 mg capsule 300 mg PO BID 7 days #14 cap s 01/14/25 ofloxacin 0.3 % ear drops 10 drp otic (ear) DAILY 7 da ys #10 01/14/25 mL Allergies Allergy/AdvReac Type Severity Reaction Status Date / Time No Known Allergies Allergy Verified 07/25/23 10:10 [facility] Disclaimer: The information contained in this section may have been updated after the patient was seen, as this information can be updated by other users. Medical History Abnormal uterine bleeding Migraine with aura Family History Other Asthma Cancer Diabetes FHx: mental illness Hypertension Kidney disease Social History (Updated 11/20/23 @ 22:30 by Anu Watson RN) Smoking Status: Never smoker alcohol intake: never substance use type: denies use current occupational status: unemployed and other Travel in the last 8 weeks?: None Have you lived/traveled outside US in past 30 days?: No Contact w/someone who lives/traveled outside US past 30 days?: No Exposure to someone with infectious disease in past 14 days?: No Do you have a fever (greater than 100.4 F or 38 C)?: No Have you tested positive for COVID-19?: No Exposed to someone with COVID-19 in past 14 days?: No Do you have a sore throat?: No Do you have a cough?: No Do you have any weakness?: No Do you have any diarrhea?: No Are you experiencing any unusual bleeding?: No Do you have any muscle aches/pain?: No Do you have any abdominal pain?: No Are you experiencing loss of taste or smell?: No Other Medical History Have you received the Flu Vaccine for this season: No Have you received the Pneumonia Vaccine: No ROS Obtained: Yes Systems reviewed as appropriate & no additional complaints except as documented Physical Exam General General appearance: alert and in no apparent distress Head Head exam: atraumatic Eye Eye exam: Present normal appearance ENT ENT exam: Absent TM's normal bilaterally (Left tympanic membrane is bulging and erythematous) or normal external ear exam (Swollen and mildly erythematous without active drainage) Neck Neck exam: Present full ROM and trachea midline; Absent tenderness or meningismus Chest Chest inspection: Present symmetric chest wall rise Respiratory Respiratory exam: Present normal lung sounds bilaterally; Absent respiratory distress Cardiovascular Cardiovascular exam: Present regular rate and normal rhythm Abdominal Exam Abdominal exam: Present soft; Absent tenderness or guarding Extremities Exam Extremities exam: Present normal inspection Back Exam Back exam: Present normal inspection Neurological Exam Neurological exam: Present alert and oriented X3 Psychiatric Psychiatric exam: Present normal affect Skin Skin exam: Present warm and dry Medical Decision Making Medical Records Screening: Per USPSTF and CDC recommendations, given the prevalence of disease in our region, it is our hospital?s policy to screen for HIV and viral Hepatitis for all patients aged 18 and over and those with ongoing risk factors. Eliseo Inquiry Pt receiving controlled substance: No Vital Signs: 01/14/25 15:25 01/14/25 16:01 Temperature 98.5 F 98.2 F Temperature Source Oral Pulse Rate 80 Pulse Rate [Left Brachial] 91 H Respiratory Rate 16 20 Blood Pressure 120/70 Blood Pressure [Left Arm] 120/78 Blood Pressure Mean [Left Arm] 92 Blood Pressure Source [Left Arm] Automatic Cuff Blood Pressure Position [Left Arm] Sitting 02 Sat by Pulse Oximetry 98 Oxygen Delivery Method Room Air Room Air Medical Decision Narrative: Jennifer Franklin is a 19F with a history of septicemia status post trach placement and removal who presents to the emergency department for left ear pain. Patient states that on Tuesday of last week, she underwent vocal cord surgery by ENT at the [facility] due to hoarseness of her voice since her trach. She states that she was told that she will have some pain in her throat due to the surgery, which she has had, however over the last few days she has had pain and yellow drainage from her left ear. She called the ENT clinic today and was told that this is likely a separate issue unrelated to her surgery. She denies any worsening pain in her throat, swelling, shortness of breath, difficulty tolerating secretions, fever. She notes that she has follow- up with surgery team on . She denies any stiffness in her neck. On arrival, patient is normotensive, heart rate within normal limits, breathing comfortably on room air with oxygen saturation 98% SpO2. Afebrile. Physical exam, stated above, revealed an overall well-appearing female in no distress. She is breathing comfortably. She speaking in full sentences. She does have a raspy voice, however she states that this is normal and unchanged from her baseline. She has no tenderness or fullness in her neck. Oropharyngeal exam is unremarkable without swelling, exudates. Uvula is midline. Tympanic membrane is red and swollen on the left. The external auditory canal also appears somewhat swollen and erythematous. She has full range of motion of her neck without meningismus. Differential diagnosis includes, but is not limited to: Otitis media, otitis externa, low concern for mastoiditis or malignant otitis externa based on physical exam and lack of fever. Low concern for retropharyngeal abscess, peritonsillar abscess or deep space abscess of the neck given she has not had fever, voice changes. The pain that she is having in her neck is likely secondary to the surgery she had she has no other red flag symptoms for infectious etiology in the neck. CT imaging soft tissue neck with IV contrast was considered, however was deferred at this time due to low suspicion for infectious etiology within the neck. Her diagnosis is consistent with otitis media and likely otitis externa. Will prescribe cefdinir orally for 7 days as well as ofloxacin eardrops. I did encourage her to take Tylenol and ibuprofen for her pain and return if any worsening or concerning symptoms. She does have follow-up with her textile clothing and footwear mechanic on and I encouraged her to follow-up with them as scheduled. Return precautions were given. All questions were answered. She demonstrated understanding and was in agreement this plan. She was then discharged from the emergency department in stable condition. Critical Care Critical Care Time Critical Care Time: No
[2025-01-14 15:25] VITALS: BP 120/78; PULSE 91; RESP 16; TEMP 36.9; O2SAT 98; BMI 29.2
--- OUTSIDE RECORDS SUMMARY | 2025-01-14 15:31 | XMS_ITS | Clinical Summary ---
Author Organization [facility] Address [address] [place] [address] Phone Care Team Providers Care Commercial Representative Name Role Phone Unavailable Unavailable Conditions or Problems No information available. Medications No information available. Medications Administered No information available. Allergies, Adverse Reactions, Alerts No information available. Results No information available. Plan of Care No information available. Procedures No information available. Vital Signs No information available. Immunizations No information available. Advance Directives No information available.
--- OUTSIDE RECORDS SUMMARY | 2025-01-14 15:32 | XMS_ITS | Referral Summary ---
Author Organization [facility] ([place], [place], [place], [place]) Address [address] [place] [address] Care Team Providers Care Spray Painting Machine Operator Name Role Phone MaEdelmira escalante KONG Primary Care Provider [phone] Encounters Date Type Department Care Team Description 12/19/2024 Telephone [facility] [place] [address] [place] [address] Jeremy Molina MD Hematochezia from Last 3 Months Allergies Active Allergy Reactions Criticality Noted Date Comments Adhesive 02/03/2024 Eucalyptus Jew-[id number]-[id number] Swelling,Rash High 11/22/2023 Headache, rash and swelling [...] 12/17/2023 Immunizations Name Administration Dates Next Due HIB (PRP-OMP) 04/06/2024 Meningococcal B, Omv 04/06/2024,12/07/2023,11/26 Meningococcal Conjugate [...] your living situation today? I have a [facility] place to live 11/22/2023 Think about [...] Do you speak a language other than Cameroonian at [facility]? No 11/22/2023 Do you want help with [...] Description 02/22/2025 1:40 PM EDT Office Visit [facility] [place] [address] [place] [address] Jeremy Molina MD [address] [place] [address] Procedures Procedure Name Priority Date/Time Associated Diagnosis Comments HEPATITIS PANEL, ACUTE STAT 12/06/2023 1:53 PM EDT from Last 3 Months or Most Recently Relevant to Health Maintenance Results * Hepatitis panel, acute (12/06/2023 1:53 PM EDT) Hep A IgM Nonreactive Nonreactive, Equivocal 12/06/2023 3:[address] [facility] [place] Hep B C IgM Nonreactive Nonreactive 12/06/2023 3:[address] [facility] [place] Hepatitis B surface antigen Nonreactive Nonreactive, Equivocal 12/06/2023 3:[address] [facility] [place] Hepatitis C Ab Nonreactive Nonreactive, Equivocal 12/06/2023 3:[address] [facility] [place] Blood Venipuncture / Unknown 12/06/2023 1:53 PM EDT 12/06/2023 2:[address] [facility] [place] - 12/06/2023 3:54 PM EDT Hepatitis [...] MD LAB BLOOD ORDERABLES Final Resu lt [facility] [place] [address] [phone] from Last 3 Months or Most Recently Relevant to Health Maintenance Additional Health Concerns Infection Onset Date Last Indicated Other - see comment Comment:CTX-M 12/24/2023 12/24/2023 MDR Klebsiella pneumoniae (C ) Comment:ESBL 12/26 mdr in cath tip 12/25/2023 12/25/2023 Insurance [facility] Member Subscriber Plan / Payer (Ef fective 2023-Present) Name:Jennifer Campbell Relation to Subscriber:Self Name:Jennifer Campbell Payer ID:[id number] Group ID:Not on file Type:Not on file Address: [address] [id number] [employer] Advance Directives For more information, please contact: [phone] * Full Code (Latest Code Status on File) Date Activated Date Inactivated Comments 11/22/2023 5:43 PM 01/13/2024 2:32 PM Care Teams Spray Painting Machine Operator Relationship Specialty Start Date End Date Edelmira Ma APRN [address] [place] [address] PCP - General Nurse Practitioner 01/13/24
--- OUTSIDE RECORDS SUMMARY | 2025-01-14 15:32 | XMS_ITS | Encounter Summary ---
Author Organization [facility] Address [address] [place] [address] Care Team Providers Care Green Marketing Specialist Name Role Phone Masoud Collazo MD Primary Care Provider [phone] Edelmira Ma APRN Primary Care Provider [phone] Encounter Details Date Type Department Care Team (Late st Contact Info) Description 07/03/2024 Community [facility] [address] [place] [address] Edelmira Ma APRN [address] [place] [address] Social History Tobacco Use Types Packs/Day Years [...] Description 01/17/2025 12:40 PM EDT Office Visit [facility] [address] [place] [address] Rebeka Palma MD [address] [place] [address] documented as of this encounter Visit Diagnoses Not on filedocumented in this encounter Additional Health Concerns Infection Onset Date Last Indicated Resolved Time 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 Source: [facility] [employer] [facility]. 12/25/2023 Assessment Noted Time PHQ-9 Depression Total Score: 15 021 9:54 AM EDT documented as of this encounter Care Teams Green Marketing Specialist Relationship Specialty Start Date End Date Masoud Collazo MD [address] [place] [address] PCP - General 10/10/20 08/22/24 Eedlmira Ma APRN [address] [place] [address] PCP - General 08/23/24 documented as of this encounter
--- OUTSIDE RECORDS SUMMARY | 2025-01-14 15:32 | XMS_ITS | Encounter Summary ---
Author Organization [facility] Address [address] [place] [address] Care Team Providers Care Cro Name Role Phone Masoud Collazo MD Primary Care Provider [phone] Edelmira Ma APRN Primary Care Provider [phone] Encounter Details Date Type Department Care Team (Late st Contact Info) Description 01/09/2024 Orders Only External Location [address] [place] [address] Provider, External Social History Tobacco Use Types [...] Description 01/17/2025 12:40 PM EDT Office Visit [facility] [address] [place] [address] Rebeka Palma MD [address] [place] [address] documented as of this encounter Procedures Procedure [...] Time 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 Source: [employer]. 12/25/2023 Assessment Noted Time PHQ-9 Depression Total Score: 15 021 9:54 AM EDT documented as of this encounter Care Teams Cro Relationship Specialty Start Date End Date Masoud Collazo MD [facility] [place] [address] PCP - General 10/10/20 08/22/24 Edelmira Ma APRN [address] [place] [address] PCP - General 08/23/24 documented as of this encounter
--- OUTSIDE RECORDS SUMMARY | 2025-01-14 15:32 | XMS_ITS | Encounter Summary ---
Author Organization [facility] ([place], [place], [place], [place]) Address [address] [place] [address] Care Team Providers Care Energy Administrator Name Role Phone AnilEdelmira KONG Primary Care Provider [phone] Reason for Visit * Reason Onset Date Comments Hematochezia 12/19/2024 Encounter Details Date Type Department Care Team (Late st Contact Info) Description 12/19/2024 Telephone [facility] [place] [address] [place] [address] Jeremy Molina MD [address] [place] [address] Hematochezia Social History Tobacco Use Types Packs/Day Years [...] your living situation today? I have a [facility] place to live 11/22/2023 Think about the [...] Do you speak a language other than Fijian at [facility]? No 11/22/2023 Do you want help [...] on file Sexual Orientation Not on file documented as of this encounter Miscellaneous Notes * Telephone Encounter - Kana Lopez RN - 12/19/2024 4:59 PM EDT Spoke with pt's mother and informed her of recommendations, she verbalized understanding. States that pt has not had any more episodes of hematochezia today. She is going to fax over pt's discharge summary for review. * Telephone Encounter - Kana Lopez RN - 12/19/2024 3:04 PM EDT Pt's mother called and said that pt started passing blood in her stool again, they took her to the ED last night and she states that all of her labs were fine. She is wondering if Dr. Molina would like for her to come in sooner than Jan. Or if he has other recommendations. documented in this encounter Plan of Treatment Upcoming Encounters Date Type Department Care Team (Late st Contact Info) Description 02/22/2025 1:40 PM EDT Office Visit [facility] [place] [address] [place] [address] Jeremy Molina MD [address] [place] [address] documented as of this encounter Visit Diagnoses Not on filedocumented in this encounter Additional Health Concerns Infection Onset Date Last Indicated Resolved Time Other - see comment Comment:CTX-M 12/24/2023 12/24/2023 MDR Klebsiella pneumoniae (C ) Comment:ESBL 12/26 mdr in cath tip 12/25/2023 12/25/2023 documented as of this encounter Care Teams Energy Administrator Relationship Specialty Start Date End Date Edelmira Ma, KONG [address] [place] [address] PCP - General Nurse Practitioner 01/13/24 documented as of this encounter
--- OUTSIDE RECORDS SUMMARY | 2025-01-14 15:32 | XMS_ITS | Encounter Summary ---
Author Organization [facility] Address [address] [place] [address] Care Team Providers Care Abstract Clerk Name Role Phone MaEdelmira Henny TRIANA Primary Care Provider [phone] Encounter Details Date Type Department Care Team [...] Description 01/17/2025 12:40 PM EDT Office Visit [facility] [address] [place] [address] Rebeka Palma MD [address] [place] [address] documented as of this encounter Visit Diagnoses Not on filedocumented in this encounter Additional Health Concerns Infection Onset Date Last Indicated Resolved Time 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 [facility] 12/25/2023 Assessment Noted Time PHQ-9 Depression Total Score: 15 021 9:54 AM EDT A Body Mass Index follow-up plan has been documented for the patient 12/05/2024 9:40 PM EDT documented as of this encounter Care Teams Abstract Clerk Relationship Specialty Start Date End Date Edelmira Ma APRN [address] [place] [address] PCP - General 08/23/24 documented as of this encounter
--- OUTSIDE RECORDS SUMMARY | 2025-01-14 15:32 | XMS_ITS | Clinical Summary ---
Author Organization [employer] ([place], [place], [place], [place]) Address [address] [place] [address] Care Team Providers Care Correctional Substance Abuse Counselor Name Role Phone MaEdelmira KONG Primary Care Provider [phone] Allergies Active Allergy Reactions Criticality Noted Date Comments Adhesive 02/03/2024 Eucalyptus Mdo-Ankkz-Zsblqnsx Swelling,Rash High 11/22/2023 Headache, rash and swelling [...] anxiety disorder with panic attacks 03/16/2021 12/17/2023 Encounters Date Type Department Care Team Description 12/19/2024 Telephone [facility] [place] [address] [place] [address] Jeremy Molina MD Hematochezia from Last 3 Months Immunizations Name Administration Dates Next Due HIB [...] your living situation today? I have a [facility] place to live 11/22/2023 Think about [...] Do you speak a language other than Latvian at [facility]? No 11/22/2023 Do you want help [...] Description 02/22/2025 1:40 PM EDT Office Visit [facility] [place] [address] [place] [address] Jeremy Molina MD [address] [place] [address] Health Maintenance Due Date Last [...] Nonreactive Nonreactive, Equivocal 12/06/2023 3:54 PM EDT [facility] Hep B C IgM Nonreactive Nonreactive 12/06/2023 3:54 PM EDT [facility] Hepatitis B surface antigen Nonreactive Nonreactive, Equivocal 12/06/2023 3:54 PM EDT [facility] Hepatitis C Ab Nonreactive Nonreactive, Equivocal 12/06/2023 3:54 PM EDT [facility] Blood Venipuncture / Unknown 12/06/2023 1:53 PM EDT 12/06/2023 2:07 PM EDT [facility] - 12/06/2023 3:54 PM EDT Hepatitis [...] MD LAB BLOOD ORDERABLES Final Resu lt [facility] [address] [phone] from Last 3 Months or Most Recently Relevant to Health Maintenance Additional Health Concerns Infection Onset Date Last Indicated Other - see comment Comment:CTX-M 12/24/2023 12/24/2023 MDR Klebsiella pneumoniae (C ) Comment:ESBL 12/26 mdr in cath tip 12/25/2023 12/25/[address] [facility] [employer] Advance Directives For more information, please contact: [phone] * Full Code (Latest Code Status on File) Date Activated Date Inactivated Comments 11/22/2023 5:43 PM 01/13/2024 2:32 PM Care Teams Correctional Substance Abuse Counselor Relationship Specialty Start Date End Date Edelmira Ma, DIELECTRIC EMBOSSING MACHINE OPERATOR [address] [place] [address] PCP - General Nurse Practitioner 01/13/24
--- OUTSIDE RECORDS SUMMARY | 2025-01-14 15:32 | XMS_ITS | Encounter Summary ---
Author Organization Healthcare Address [address] [place] [address] Care Team Providers Care Disability Liaison Officer Name Role Phone AnilEdelmira Henny TRIANA Primary Care Provider [phone] Encounter Details Date Type Department Care Team (Latest Contact Info) Description 01/11/2025 Travel Social History Tobacco Use Types Packs/Day [...] as of this encounter Functional Status * Question Answer Date of Assessment Author 1. Wish to be (Past 1 Month) No 025 11:00 AM EDT Jesica Cárdenas, RN 2. Non-Specific Active Suici makenna Thoughts (Past 1 Month) No 01/11/2025 11:00 AM EDT Duglas Cárdenas ra RN * Calculated C-SSRS Risk Score (Lifetime/Recent) Answer Date of Assessment Author No Risk Indicated 01/11/2025 11:00 AM EDT Jesica Barnard, RN * Question Answer Date of Assessment Author 6. Suicidal Behavior (Lifetime) No 6:43 AM EDT Barb Pisano, RN documented as of this encounter Plan of Treatment Upcoming Encounters Date Type Department Care Team (Late st Contact Info) Description 01/17/2025 12:40 PM EDT [facility] [address], [address] [place] [address] Rebeka Palma MD [address] [place] [address] documented as of this encounter Goals Goal Patient Goal Type Associated Problems Recent Progress Patient-Stated? Author Autogenera isiah Goal Care Plan Autogenerated Problem No Maryanne Luque documented as of this encounter Visit Diagnoses Not on filedocumented in this encounter Additional Health Concerns Active Problems Noted Date Diagnosed Date Autogenerated Problem 12/06/2024 Infection Onset Date Last Indicated Resolved Time 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 Source: [employer]. 12/25/2023 Assessment Noted Time PHQ-9 Depression Total Score: 15 021 9:54 AM EDT A Body Mass Index follow-up plan has been documented for the patient 01/12/2025 12:17 PM EDT documented as of this encounter Care Teams Disability Liaison Officer Relationship Specialty Start Date End Date Edelmira Ma APRN [address] [place] [address] PCP - General 08/23/24 documented as of this encounter
--- OUTSIDE RECORDS SUMMARY | 2025-01-14 15:32 | XMS_ITS | Clinical Summary ---
Author Organization [facility] Address [address] [place] [place] [address] Care Team Providers Care Booky Name Role Phone AnilEdelmira Henny TRIANA Primary Care Provider [phone] Allergies Active Allergy Reactions Criticality Noted Date Comments Lavender Oil Rash Low 01/03/2025 Itching and hives Medications escitalopram (Lexapro) 5 MG tabletIndications :Generalized anxiety disorder with panic attacks Take 1 tablet (5 mg total) by mouth 1 (one) time each day. 30 tablet 2 Active ondansetron ODT (Zofran-ODT) 4 MG disintegrating tablet if needed. Active azithromycin (Zithromax) 250 MG tabletIndications :Pelvic and perineal pain Take 2 tablets now and repeat in 4 hours 4 tablet Active Additional Information Patient not taking.Reported on 12/04/2024 busPIRone (Buspar) 10 MG tablet Take 1 tablet by mouth 2 times a day. Active Vraylar 1.5 MG capsule Take 1 capsule by mouth 1 time each day. Active FLUoxetine (PROzac) 20 MG capsule Active fluticasone (Flonase) 50 MCG/ACT nasal spray Administer 1 spray into each nostril nightly. Shake gently. Before first use, prime pump. After use, clean tip and replace cap. Active Melatonin 10 MG chewable tablet Chew. Acti ve oxyCODONE (Roxicodone) 5 MG immediate release tablet Take 1 tablet by mouth every 6 hours as needed for moderate pain or severe pain. 5 tablet Active ibuprofen 400 MG tablet Take 1 tablet by mouth every 6 hours as needed for moderate pain. 30 tablet 025 Active acetaminophen (Tylenol) 500 MG tablet Take 2 tablets by mouth every 6 hours as needed for pain. 60 tablet Active famotidine (Pepcid) 20 MG tablet Take 1 tablet by mouth 2 times a day. 60 tablet Active esomeprazole (NexIUM) 40 MG packet 40 mg by Per G Tube route daily. 30 packet Active naproxen (Naprosyn) 500 MG tablet if needed. 022 2024 Discontinued(S top Taking at Discharge) loratadine (Claritin) 10 MG tablet Take 1 tablet by mouth nightly. 2024 Discontinued pantoprazole (Protonix) 40 MG EC tablet Take 1 tablet (40 mg) by mouth daily. 024 2024 Discontinued(S top Taking at Discharge) omeprazole OTC (PriLOSEC OTC) 20 MG EC tablet Take 1 tablet by mouth daily. Do not crush, chew, or split. 2024 Discontinued(S top Taking at Discharge) ibuprofen 800 MG tablet Take 1 tablet by mouth every 6 hours as needed for mild pain. 2024 Discontinued(S top Taking at Discharge) Active Problems Problem Noted Date Diagnosed Date Post-operative state 01/11/2025 Dysphonia 09/04/2024 Menorrhagia with regular cycle 03/18/2021 Assessment & Plan (03/18/2021 9:57 AM EDT): - discussed different medical management options including OCPs and IUD. She would like to try an IUD. Recommended Kyleena. She would like to return for placement after premedicating with ibuprofen. Generalized anxiety disorder with panic attacks 03/16/2021 Encounters Date Type Department Care Team Description 01/11/2025 7:45 AM EDT - 01/11/2025 11:45 AM EDT Surgery [facility] [address] [place] [address] Rebeka Palma MD Endoscopic mucosal posterior glottic rotation flap with CO2 laser and endoscopic sutures 01/11/2025 7:41 AM EDT Anesthesia Event [facility] [address] [place] [address] Marcellus Noel MD Brar, Sumeer S, MD 01/11/2025 6:04 AM EDT - 01/12/2025 1:16 PM EDT Hospital Encounter [facility] Inpatient [address] [place] [address] Rebeka Palma MD Discharge Disposition: Home or Self Care 01/11/2025 Travel 12/04/2024 1:30 PM EDT [facility] [address] [place] [address] Rebeka Palma MD Dysphonia (Primary Dx); 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 Travel 11/09/2024 1:00 PM EDT Office Visit [facility] [address] [place] [address] Cheyenne Lozoya MS [facility] Dysphonia (Primary Dx) 11/09/2024 Travel from Last [...] Mass Index 29.16 01/11/2025 11:00 AM EDT Plan of Treatment Upcoming Encounters Date Type Department Care Team (Late st Contact Info) Description 01/17/2025 12:40 PM EDT Office Visit [place] [facility] [address], [address] [place] [address] Rebeka Palma MD [address] [place] [address] Health Maintenance Due Date Last Done Comments [facility]-HIV Screening 2003 [facility]-Hepatitis C Screening 2003 [facility]-Infant/Child/Adol SDOH Screenings 2003 [facility]- SDOH Screenings 10/08/2021 [facility]-Adult SDOH Screenings 10/08/2021 [facility]-Depression Screening 03/16/2022 03/16/2021, 02/27 [id number] Vaccine ( season) 2024 [facility]-Pap Smear 10/08/2024 [...] Completed 02/21/2009, 2004 HPV Vaccines Completed 09/29/2017, 050 05/2016, 02/24/2015, Additional history exists [facility]-HIB Vaccines Completed 04/06/2024, , 02/10/2004, Additional history exists [facility]-Pneumococcal Vaccine: Pediatrics (0 to 5 Years) and At-Risk Patients (6 to 49 Years) Aged Out 04/06/2024, 11/19/2004, 11/19/2004, Additional history exists No longer eligible based on patient's age to complete this topic [facility]-Obesity Intervention Completed 025, 12/04/2024, 11/09/2024, Additional history exists [facility]-Rotavirus Vaccines Aged Out No lo nger eligible based on patient's age to complete this topic Goals Goal Patient Goal Type Associated Problems Recent Progress Patient-Stated? Author Autogene isiah Goal Care Plan Autogenerated Problem No Maryanne Luque [employer] Implanted Type Area 3Rd Pressman Device Identifier Shelf Expiration Date Model / Serial / Lot Kimberly Barrett - [id number] Implanted:Qty: 1 on 08/23/2024 by Rebeka Palma MD at [facility] Larynx [employer]-[id number] 06/08/2026 [id number] / / [id number] Procedures Procedure Name Priority Date/Time Associated Diagnosis Comments ANESTHESIA INTUBATION Routine 01/11/2025 7:53 AM EDT LARYNGOSCOPY, WITH VOCAL CORD NODULE EXCISION 01/11/2025 7:25 AM EDT Dysphonia LARYNGOSCOPY, DIRECT, WITH LASER PROCEDURE 01/11/2025 7:25 AM EDT Dysphonia POCT , URINE Routine 01/11/2025 6:57 AM EDT from Last 3 Months Results * POCT , URINE (01/11/2025 6:57 AM EDT) POCT Test, Urine Negative Males and Non- Females: Negative 01/11/2025 7:04 AM EDT [facility] Assignment Editor ID Summer Rutherford 01/11/2025 7:04 AM EDT [facility] Device ID [id number] 01/11/2025 7:04 AM EDT [facility] Urine Urine specimen obtained by clean catch procedure / Unknown 01/11/2025 6:57 AM EDT 01/11/2025 7:04 AM EDT us Rebeka Palma MD LAB POINT OF CARE TE ST DOCKED DEVICE UNSOLICITED RESULTS Final Result [facility] [address] [place] [address] from Last 3 Months Additional Health Concerns Active Problems Noted Date Diagnosed Date Autogenerated Problem 12/06/2024 Infection Onset Date Last Indicated 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 Source: [employer]. 12/25/2023 Insurance Advance Directives * Full Code (Latest Code Status on File) Date Activated Date Inactivated Comments 01/11/2025 10:44 AM 01/12/2025 3:22 PM Question Answer Comments I have reviewed the capacity from the link above and, if needed, have updated to appropriate status: Yes Care Teams Booky Relationship Specialty Start Date End Date Edelmira Ma APRN [address] [place] [address] PCP - General 08/23/24
[2025-01-14 16:01] VITALS: BP 120/70; PULSE 80; RESP 20; TEMP 36.8; O2SAT 98
== END 2025-01-14 16:03 | disposition home or self-care (01) ==
PROVIDERS: Emergency Provider Student in an Organized Health Care Education/Training Program; PCP Nurse Practitioner Family
DX: H66.92 Otitis media, unspecified, left ear (principal); H60.92 Unspecified otitis externa, left ear
CPT/HCPCS: 99283

== ENCOUNTER 2025-03-24 10:27 | Emergency (ER) | payer MEDICAID, SELFPAY ==
--- OUTSIDE RECORDS SUMMARY | 2025-02-22 13:40 | XMS_ITS | Encounter Summary ---
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 Never 11/22/2023 How often does anyone, hcao raines family and friends, insult or talk [...] Do you speak a language other than [place]i at [place]? No 11/22/2023 Do you want help with [...] you used [place] legal drugs? Never 11/22/2023 Comments No Sex and Gender Information Value Date Recorded Sex Assigned at Female 11/22/2023 4:38 PM CDT Legal Sex Female 12:00 PM CDT Gender Identity Not on file Sexual Orientation Not on file documented as of this encounter Last Filed Vital Signs Vital Sign Reading Time Taken Comments Blood Pressure 123/78 02/22/2025 1:58 PM EDT Pulse 68 02/22/2025 1:58 PM EDT Temperature 36.8 C (98.3 F) 02/22/2025 1:58 PM EDT Respiratory Rate 18 02/22/2025 1:58 PM EDT Oxygen Saturation 96% 02/22/2025 1:58 PM EDT Inhaled Oxygen Concentration - - Weight 74.7 kg (164 lb 9.6 oz) 02/22/2025 1:58 P M EDT Height 162.6 cm (5' 4 ) 02/22/2025 1:58 PM EDT Body Mass Index 28.25 02/22/2025 1:58 PM EDT documented in this encounter Progress Notes * Jeremy Molina MD - 02/22/2025 1:40 PM EDT [facility] Hematology Oncology Follow Up Note Diagnosis: 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 Diagnosed October 2023. Completed 6 monthscourse of Soliris April 2024. History of Present Illness: Jennifer Campbell returns today for follow up visit. She is doing very well today and denied any complaint including fever, night sweats, weight loss, sore throat, nausea, vomiting or diarrhea. She underwent suspension microlaryngoscopy and vocal cord augmentation injection on August 23, 2024 to help with the hoarseness and she reported some improvement but not as much as she would like to have. 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, with status epilepticus (HCC) Past Surgical History: Procedure Laterality Date Endoscopic Mucosal Rotational Flap for Posterior Glottic 01/11/2025 ERCP,BALLOON SWEEPING N/A 12/17/2023 Procedure: ERCP; Surgeon: Parker Carlisle MD; Location: [facility]; Service: Gastroenterology; Laterality: N/A; cholangitis, cholidolithiasis ERCP,PAPILLOTOMY 12/17/2023 Procedure: ERCP, WITH SPHINCTEROTOMY; Surgeon: Parker Carlisle MD; Location: [facility]; Service: Gastroenterology;; ESOPHAGOGASTRODUODENOSCOPY (EGD) N/A 12/06/2023 Procedure: ESOPHAGOGASTRODUODENOSCOPY (EGD); Surgeon: Neha Abdalla MD; Location: [facility]; Service: Gastroenterology; Laterality: N/A; INSERTION, PHARYNGOSTOMY TUBE, FOR FEEDING 12/06/2023 Procedure: INSERTION, PHARYNGOSTOMY TUBE, FOR FEEDING; Surgeon: Neha Abdalla MD; Location: [facility]; Service: Gastroenterology;; LAPAROSCOPY,CHOLECYSTECTOMY N/A 12/31/2023 Procedure: LAPAROSCOPIC CHOLECYSTECTOMY; Surgeon: Giancarlo Mccracken MD; Location: [facility] OR; Service: General Surgery; Laterality: N/A; suspension micolaryngoscopy 08/23/2024 TRACHEOSTOMY 12/15/2023 Procedure: TRACHEOSTOMY & EGD ATTEMPED PEG TUBE PLACEMENT; Surgeon: Cortez Granados MD; Location: [facility] OR; Service: General Surgery;; UNSUCCESSFUL ATTEMPT AT PEG vocal augmentation 08/23/2024 Dr. Rebeka Palma with ENT Allergies: Eucalyptus [id number]-Hbagygte, Adhesive, and Grass Pollen Medications: Current Outpatient Medications Medication Instructions busPIRone (BUSPAR) 10 mg, oral, 2 times daily famotidine (PEPCID) 20 mg, 2 times daily fLUoxetine (PROZAC) 10 mg, Daily Vraylar 1.5 mg, Daily Review of Symptoms: Review of Systems Constitutional: Negative. HENT: Negative. Eyes: Negative. Respiratory: Negative. Gastrointestinal: Negative. Genitourinary: Negative. Musculoskeletal: Negative. Skin: Negative. Neurological: Negative. Endo/Heme/Allergies: Negative. Psychiatric/Behavioral: Negative. Vitals Vitals: 02/22/25 1358 BP: 123/78 BP Location: Left arm Patient Position: Sitting Cuff Size: Adult Pulse: 68 Resp: 18 Temp: 98.3 ??F (36.8 ??C) TempSrc: Temporal Artery SpO2: 96% Weight: 74.7 kg (164 lb 9.6 oz) Height: 1.626 m (5' 4 ) Gain/Loss Since Last Wt (Kgs): 3 kg Physical Exam Vitals reviewed. HENT: Head: Normocephalic. Mouth/Throat: Mouth: Mucous membranes are moist. Pharynx: Oropharynx is clear. Eyes: Pupils: Pupils are equal, round, and reactive to light. Cardiovascular: Rate and Rhythm: Normal rate and regular rhythm. Pulmonary: Breath sounds: Normal breath sounds. Abdominal: General: Abdomen is flat. Palpations: Abdomen is soft. Musculoskeletal: General: No swelling. Cervical back: Normal range of motion and neck supple. Right lower leg: Edema present. Left lower leg: Edema present. Lymphadenopathy: Cervical: No cervical adenopathy. Right cervical: No superficial or posterior cervical adenopathy. Left cervical: No superficial or posterior cervical adenopathy. Upper Body: Right upper body: No supraclavicular or axillary adenopathy. Left upper body: No supraclavicular or axillary adenopathy. Lower Body: No right inguinal adenopathy. No left inguinal adenopathy. Skin: Coloration: Skin is not jaundiced. Neurological: Mental Status: She is alert. Relevant Results: WBC Date Value Ref Range Status 08/17/2024 7.5 4.5 - 12.5 K/??L Final 05/18/2024 5.6 4.5 - 12.5 K/??L Final 05/04/2024 6.0 4.5 - 12.5 K/??L Final RBC Date Value Ref Range Status 08/17/2024 5.06 4.00 - 5.25 M/??L Final 05/18/2024 4.73 4.00 - 5.25 M/??L Final 05/04/2024 4.92 4.00 - 5.25 M/??L Final Hemoglobin Date Value Ref Range Status 08/17/2024 14.6 12.0 - 16.0 GM/DL Final 05/18/2024 13.5 12.0 - 16.0 GM/DL Final 05/04/2024 14.1 12.0 - 16.0 GM/DL Final Hematocrit Date Value Ref Range Status 08/17/2024 43.0 36.0 - 46.0 % Final 05/18/2024 39.8 36.0 - 46.0 % Final 05/04/2024 40.8 36.0 - 46.0 % Final Platelets Date Value Ref Range Status 08/17/2024 265 140 - 440 K/CU MM Final 05/18/2024 259 140 - 440 K/CU MM Final 05/04/2024 271 140 - 440 K/CU MM Final Chemistry Component Value Date/Time NA 136 08/17/2024 1356 K 3.7 08/17/2024 1356 CL 105 08/17/2024 1356 CO2 24 08/17/2024 1356 BUN 11 08/17/2024 1356 CREATININE 0.60 08/17/2024 1356 Component Value Date/Time CALCIUM 8.7 01/12/2024 0244 ALKPHOS 114 05/18/2024 1423 AST 13 05/18/2024 1423 ALT 22 05/18/2024 1423 BILITOT 0.4 05/18/2024 1423 Radiology Results (last 7 days) No results found for the last 168 hours. 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 She completed 6 months course of Soliris in April 2024. Her peripheral blood count on February 15, 2025 was within normal range with normal creatinine. Fibrinogen was normal as well Complement anticoagulation mediated TMA genetic analysis was negative. Plan: I discussed the finding of the peripheral blood count with the patient and she was reassured. I recommended to repeat her peripheral blood count, LDH, kidney function and haptoglobin in 3 months from now and then and I will see her back in 6 months. 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) Expected: 05/24/2025, Expires: 08/22/2025 Lactate dehydrogenase (LDH) Lab Routine 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) Expected: 05/24/2025, Expires: 08/22/2025 Basic Metabolic Panel Lab Routine 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) Expected: 05/24/2025, Expires: 08/22/2025 Haptoglobin (SENDOUT) Lab Routine 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) Expected: 05/24/2025, Expires: 08/22/2025 CBC with Diff Lab Routine 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) Expected: 02/22/2025, Expires: 02/22/2026 ONC BMP Lab Routine 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) Expected: 02/22/2025, Expires: 02/22/2026 LFTs Lab Routine 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) Expected: 02/22/2025, Expires: 03/24/2025 Lactate dehydrogenase (LDH) Lab Routine 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) Expected: 05/24/2025, Expires: 08/22/2025 documented as of this encounter Visit Diagnoses Diagnosis 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) documented in this encounter Additional Health Concerns Infection Onset Date Last Indicated Resolved Time Other - see comment Comment:CTX-M 12/24/2023 12/24/2023 MDR Klebsiella pneumoniae (C ) Comment:ESBL 12/26 mdr in cath tip 12/25/2023 12/25/2023 documented as of this encounter Care Teams Shoe Stock Associate Relationship Specialty Start Date End Date Edelmira Ma APRN [address] [id number] PCP - General Nurse Practitioner 01/13/24 Jeremy Molina MD [address] [facility] [address] [place] [address] Consulting Physician Hematology and Oncology 02/21/25 documented as of this encounter
--- OUTSIDE RECORDS SUMMARY | 2025-03-19 07:15 | XMS_ITS | Continuity of Care Document ---
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 Screening Test (D AST). Due on due Goal Vitamin D. Due on due Goal Obtain Height, Weight, and B DC. Due on due Goal Hepatitis C Screening due Goal Depression screening. Due on due Goal Obtain blood Pressure. Due o n due Goal Drug Abuse Scree cyrus Test (DAST-10). Due on due Goal ECG due Goal Urinalysis due Goal Unhealthy drug use screening due Goal CMP. Due on due Goal Depression screening. Due on due Goal Drug Abuse Screening Test (D AST). Due on due Goal Tobacco Use Cessation Counse ling. Due on due Goal Diabetes screening. Due [...] Goal Urinalysis due Goal ECG due Goal TSH. Due on due Goal HIV screen due Goal CBC. Due on due Goal Obtain Height, Weight, and B DC. Due on due Goal Drug Abuse Scree cyrus Test (DAST-10). Due on due Goal Lipid panel. Due on due Goal Lipid panel. Due on due Goal Drug Abuse Scree cyrus Test (DAST-10). Due on due Goal Tobacco screening. Due on due Goal Unhealthy drug use screening due Goal Drug Abuse Screening Test (D AST). Due on due Goal Obtain Height, Weight, and B DC. Due on due Goal Tobacco Use Cessation Counse ling. Due on due Goal Tobacco Use Screening. Due o n due Goal Vitamin B12. Due on due Goal CMP. Due on due Goal Vitamin D. Due on due Goal TSH. Due on due Goal Obtain blood Pressure. Due o n due Goal Diabetes screening. Due on due Goal Follow up Plan f or abnormal BMI (Less than 18.5, greater than 25). Due on due Goal ECG due Goal CBC. Due on due Goal Generalized Anxi ety Disorder - 7 (RUI-7). Due on due Goal Depression screening. Due on due Goal Hepatitis C Screening due Goal Influenza vaccine. Due on due Goal Urinalysis due Goal HIV screen due Goal Tobacco screening. Due on due Goal Diabetes screening. Due on due Goal Tobacco Use Screening. Due o n due Goal Depression screening. Due on due Goal Vitamin B12. Due on due Goal HIV screen due Goal CMP. Due on due Goal Drug Abuse Screening Test (D AST). Due on due Goal Tobacco Use Cessation Counse ling. Due on due Goal Obtain blood Pressure. Due o n due Goal Follow up Plan f or abnormal BMI (Less than 18.5, greater than 25). Due on due Goal Generalized Anxi ety Disorder - 7 (RUI-7). Due on due Goal Drug Abuse Scree cyrus Test (DAST-10). Due on due Goal Vitamin D. Due on due Goal Obtain Height, Weight, and B DC. Due on due Goal Urinalysis due Goal Lipid panel. Due on due Goal CBC. Due on due Goal Hepatitis C Screening due Goal Influenza vaccine. Due on due Goal Unhealthy drug use screening due Goal TSH. Due on due Goal ECG due Goal Generalized Anxi ety Disorder - 7 (RUI-7). Due on due Goal Tobacco Use Screening. Due o n due Goal Diabetes screening. Due on F due Goal Vitamin B12. Due on due Goal CBC. Due on due Goal Drug Abuse Screening Test (D AST). Due on due Goal Influenza vaccine. Due on due Goal Follow up Plan f or abnormal BMI (Less than 18.5, greater than 25). Due on due Goal Obtain Height, Weight, and B DC. Due on due Goal TSH. Due on due Goal Tobacco Use Cessation Counse ling. Due on due Goal Vitamin D. Due on due Goal Depression screening. Due on due Goal Lipid panel. Due on due Goal ECG due Goal CMP. Due on due Goal Obtain blood Pressure. Due o n due Goal Drug Abuse Scree cyrus Test (DAST-10). Due on due Goal Unhealthy drug use screening due Goal Urinalysis due Goal Hepatitis C Screening due Goal HIV screen due Goal Lifestyle education regardin g diet completed Goal HIV screen due Goal CMP. Due on due Goal Drug Abuse Scree cyrus Test (DAST-10). Due on due Goal Hepatitis C Screening due Goal Influenza vaccine. Due on due Goal Vitamin B12. Due on 026 due Goal Depression screening. Due on due Goal Tobacco Use Screening. Due o n due Goal Follow up Plan f or abnormal BMI (Less than 18.5, greater than 25). Due on due Goal Vitamin D. Due on due Goal Tobacco Use Cessation Counse ling. Due on due Goal Obtain Height, Weight, and B DC. Due on due Goal CBC. Due on due Goal Diabetes screening. Due on due Goal Lipid panel. Due on 044 due Goal Unhealthy drug use screening due Goal Obtain blood Pressure. Due o n due Goal ECG due Goal Urinalysis due Goal TSH. Due on due Goal Drug Abuse Screening Test (D AST). Due on due Goal Generalized Anxi ety Disorder - 7 (RUI-7). Due on due Goal Lifestyle education regardin g diet completed Goal Lipid panel. Due on 044 due Goal Diabetes screening. Due on due Goal Depression screening. Due on due Goal CMP. Due on due Goal Obtain Height, Weight, and B DC. Due on due Goal Influenza vaccine. Due on due Goal TSH. Due on due Goal Vitamin D. Due on due Goal Tobacco Use Cessation Counse ling. Due on due Goal Generalized Anxi ety Disorder - 7 (RUI-7). Due on due Goal Urinalysis due Goal ECG due Goal Unhealthy drug use screening . Due on due Goal Drug Abuse Screening Test (D AST). Due on due Goal Tobacco Use Screening. Due o n due Goal Vitamin B12. Due on 026 due Goal Obtain blood Pressure. Due o n due Goal Follow up Plan f or abnormal BMI (Less than 18.5, greater than 25). Due on due Goal Hepatitis C Screening due Goal CBC. Due on due Goal HIV screen due Goal Drug Abuse Scree cyrus Test (DAST-10). Due on due Goal CMP. Due on due Goal Hepatitis C Screening due Goal Tobacco Use Screening. Due o n due Goal ECG due Goal TSH. Due on due Goal Generalized Anxi ety Disorder - 7 (RUI-7). Due on due Goal Urinalysis due Goal CBC. Due on due Goal HIV screen due Goal Obtain blood Pressure. Due o n due Goal Drug Abuse Screening Test (D AST). Due on due Goal Drug Abuse Scree cyrus Test (DAST-10). Due on due Goal Follow up Plan f or abnormal BMI (Less than 18.5, greater than 25). Due on due Goal Obtain Height, Weight, and B DC. Due on due Goal Vitamin D. Due on due Goal Depression screening. Due on due Goal Influenza vaccine. Due on due Goal Tobacco Use Cessation Counse ling. Due on due Goal Diabetes screening. Due on due Goal Vitamin B12. Due on due Goal Unhealthy drug use screening due Goal Lipid panel. Due on due Goal Lifestyle education regardin g diet completed Goal TSH. Due on due Goal Diabetes screening. Due on due Goal Drug Abuse Scree cyrus Test (DAST-10). Due on due Goal Vitamin D. Due on due Goal Tobacco Use Cessation Counse ling. Due on due Goal Obtain Height, Weight, and B DC. Due on due Goal Tobacco Use Screening. Due o n due Goal Hepatitis C Screening due Goal CBC. Due on due Goal HIV screen due Goal Vitamin B12. Due on due Goal Unhealthy drug use screening due Goal Drug Abuse Screening Test (D AST). Due on due Goal Influenza vaccine. Due on due Goal Lipid panel. Due on due Goal ECG due Goal Obtain blood Pressure. Due o n due Goal Urinalysis due Goal Depression screening. Due on due Goal Follow up Plan f or abnormal BMI (Less than 18.5, greater than 25). Due on due Goal CMP. Due on due Goal Generalized Anxi ety Disorder - 7 (RUI-7). Due on due Goal Lifestyle education regardin g diet completed Goal Vitamin D. Due on due Goal Hepatitis C Screening due Goal Diabetes screening. Due on due Goal Drug Abuse Scree cyrus Test (DAST-10). Due on due Goal Tobacco Use Cessation Counse ling. Due on due Goal Obtain Height, Weight, and B DC. Due on due Goal Tobacco Use Screening. Due o n due Goal Vitamin B12. Due on 024 due Goal TSH. Due on due Goal Depression screening. Due on due Goal Unhealthy drug use screening due Goal Generalized Anxi ety Disorder - 7 (RUI-7). Due on due Goal Drug Abuse Screening Test (D AST). Due on due Goal CMP. Due on due Goal Influenza vaccine. Due on due Goal ECG due Goal Lipid panel. Due on 044 due Goal Follow up Plan f or abnormal BMI (Less than 18.5, greater than 25). Due on due Goal Urinalysis due Goal HIV screen due Goal Obtain blood Pressure. Due o n due Goal CBC. Due on due Goal Obtain Height, Weight, and B DC. Due on due Goal Diabetes screening. Due on due Goal Drug Abuse Screening Test (D AST). Due on due Goal Generalized Anxi ety [...] o n due Goal Urinalysis due Goal Tobacco Use Screening. Due o n due Goal Vitamin D. Due on due Goal ECG due Goal Influenza vaccine. Due on due Goal CBC. Due on due Goal TSH. Due on due Goal Lifestyle education regardin g diet completed Goal CMP. Due on due Goal Generalized Anxi ety Disorder - 7 (RUI-7). Due on due Goal Drug Abuse Screening Test (D AST). Due on due Goal HIV screen due Goal Follow up Plan f or abnormal BMI (Less than 18.5, greater than 25). Due on due Goal Vitamin D. Due on due Goal CBC. Due on due Goal Hepatitis C Screening due Goal Drug Abuse Scree cyrus Test (DAST-10). Due on due Goal Vitamin B12. Due on due Goal Diabetes screening. Due on due Goal Unhealthy drug use screening due Goal Tobacco Use Cessation Counse ling. Due on due Goal Tobacco Use Screening. Due o n due Goal Influenza vaccine. Due on due Goal TSH. Due on due Goal Depression screening. Due on due Goal ECG due Goal Obtain blood Pressure. Due o n due Goal Urinalysis due Goal Obtain Height, Weight, and B DC. Due on due Goal HIV screen due Goal Hepatitis C Screening due Goal Follow up Plan f or abnormal BMI (Less than 18.5, greater than 25). Due on due Goal CBC. Due on due Goal Influenza vaccine. Due on due Goal CMP. Due on due Goal Depression screening. Due on due Goal Obtain blood Pressure. Due o n due Goal Unhealthy drug use screening due Goal Tobacco Use Screening. Due o n due Goal Tobacco Use Cessation Counse ling. Due on due Goal Diabetes screening. Due on due Goal ECG due Goal Obtain Height, Weight, and B DC. Due on due Goal TSH. Due on due Goal Drug Abuse Scree cyrus Test (DAST-10). Due on due Goal Generalized Anxi ety Disorder - 7 (RUI-7). Due on due Goal Vitamin D. Due on due Goal Vitamin B12. Due on due Goal Drug Abuse Screening Test (D AST). Due on due Goal Urinalysis due Goal Depression screening. Due on due Goal TSH. Due on due Goal Vitamin D. Due on due Goal Drug Abuse Scree cyrus Test (DAST-10). Due on due Goal Diabetes screening. Due on due Goal Generalized Anxi ety Disorder - 7 (RUI-7). Due on due Goal Hepatitis C Screening due Goal HIV screen due Goal Follow up Plan for abnormal BMI (Less than 18.5, greater than 25). Due on due Goal CBC. Due on due Goal Influenza vaccine. Due on due Goal Urinalysis due Goal Unhealthy drug use screening due Goal Vitamin B12. Due on due Goal Obtain blood Pressure. Due o n due Goal Tobacco Use Cessation Counse ling. Due on due Goal ECG due Goal Tobacco Use Screening. Due o n due Goal Obtain Height, Weight, and B DC. Due on due Goal Drug Abuse Screening Test (D AST). Due on due Goal CMP. Due on due Goal Lifestyle education regardin g diet completed Goal Tobacco Use Screening. Due o n due Goal Drug Abuse Scree cyrus Test (DAST-10). Due on due Goal Generalized Anxi ety Disorder - 7 (RUI-7). Due on due Goal Follow up Plan f or abnormal BMI (Less than 18.5, greater than 25). Due on due Goal HIV screen due Goal Vitamin B12. Due on 024 due Goal CMP. Due on due Goal Influenza vaccine. Due on due Goal Diabetes screening. Due on due Goal Obtain blood Pressure. Due o n due Goal Obtain Height, Weight, and B DC. Due on due Goal Tobacco Use Cessation Counse ling. Due on due Goal Unhealthy drug use screening due Goal Depression screening. Due on due Goal TSH. Due on due Goal Vitamin D. Due on due Goal Drug Abuse Screening Test (D AST). Due on due Goal Urinalysis due Goal Hepatitis C Screening due Goal CBC. Due on due Goal ECG due Goal Vitamin D. Due on due Goal Unhealthy drug use screening due Goal HIV screen due Goal Drug Abuse Scree cyrus Test (DAST-10). Due on due Goal Influenza vaccine. Due on due Goal Depression screening. Due on due Goal CBC. Due on due Goal Diabetes screening. Due on due Goal TSH. Due on due Goal Tobacco Use Screening. Due o n due Goal Vitamin B12. Due on due Goal Hepatitis C Screening due Goal Generalized Anxi ety Disorder - 7 (RUI-7). Due on due Goal Drug Abuse Screening Test (D AST). Due on due Goal Urinalysis due Goal Obtain blood Pressure. Due o n due Goal ECG due Goal Obtain Height, Weight, and B DC. Due on due Goal Tobacco Use Cessation Counse ling. Due on due Goal CMP. Due on due Goal Influenza vaccine. Due on due Goal Depression screening. Due on due Goal Tobacco Use Screening. Due o n due Goal TSH. Due on due Goal Hepatitis C Screening due Goal Vitamin B12. Due on due Goal Drug Abuse Screening Test (D AST). Due on due Goal Obtain Height, Weight, and B DC. Due on due Goal HIV screen due Goal Unhealthy drug use screening due Goal CBC. Due on due Goal Generalized Anxi ety Disorder - 7 (RUI-7). Due on due Goal Drug Abuse Scree cyrus Test (DAST-10). Due on due Goal ECG due Goal Obtain blood Pressure. Due o n due Goal Vitamin D. Due on due Goal CMP. Due on due Goal Diabetes screening. Due on due Goal Urinalysis due Goal Lifestyle education regardin g diet completed Goal Generalized Anxi ety Disorder - 7 (RUI-7). Due on due Goal Unhealthy drug use screening due Goal Obtain Height, Weight, and B DC. Due on due Goal Vitamin B12. Due on due Goal Drug Abuse Screening Test (D AST). Due on due Goal Follow up Plan f or abnormal BMI (Less than 18.5, greater than 25). Due on due Goal Influenza vaccine. Due on due Goal Depression screening. Due on due Goal TSH. Due on due Goal CBC. Due on due Goal Tobacco Use Cessation Counse ling. Due on due Goal Drug Abuse Scree cyrus Test (DAST-10). Due on due Goal Diabetes screening. Due on due Goal CMP. Due on due Goal Vitamin D. Due on due Goal Tobacco Use Screening. Due o n due Goal Hepatitis C Screening due Goal HIV screen due Goal Urinalysis due Goal ECG. Due on due Goal Obtain blood Pressure. Due o n due Goal Lifestyle education regardin g diet completed Goal Diabetes screening. Due on due Goal Influenza vaccine. Due on due Goal Depression screening. Due on due Goal Generalized Anxi ety Disorder - 7 (RUI-7). Due on due Goal Vitamin B12. Due on due Goal CBC. Due on due Goal Obtain Height, Weight, and B DC. Due on due Goal Vitamin D. Due on due Goal CMP. Due on due Goal Drug Abuse Screening Test (D AST). Due on due Goal Unhealthy drug use screening due Goal Hepatitis C Screening due Goal Tobacco Use Screening. Due o n due Goal TSH. Due on due Goal HIV screen due Goal Drug Abuse Scree cyrus Test (DAST-10). Due on due Goal Lifestyle education regardin g diet completed Goal Depression screening. Due on due Goal Vitamin D. Due on due Goal Obtain Height, Weight, and B DC. Due on due Goal Hepatitis C Screening due Goal Tobacco Use Screening. Due o n due Goal Drug Abuse Scree cyrus Test (DAST-10). Due on due Goal HIV screen due Goal Vitamin B12. Due on due Goal CMP. Due on due Goal TSH. Due on due Goal CBC. Due on due Goal Drug Abuse Screening Test (D AST). Due on due Goal Diabetes screening. Due on D due Goal Influenza vaccine. Due on No due Goal Unhealthy drug use screening due Goal Lifestyle education regardin g diet completed Goal Tobacco Use Cessation Counse ling. Due on due Goal HIV screen due Goal Follow [...] due Goal Obtain Height, Weight, and B DC. Due on due Goal Depression screening. Due on due Goal Drug Abuse Screening Test (D AST). Due on due Goal CBC. Due on due Goal TSH. Due on due Goal Diabetes screening. Due on due Goal Vitamin D. Due on due Goal Diabetes screening. Due on due Goal CBC. Due on due Goal Hepatitis C Screening due Goal CMP. Due on due Goal Obtain Height, Weight, and B DC. Due on due Goal Vitamin B12. Due on due Goal Depression screening. Due on due Goal HIV screen due Goal Tobacco Use Cessation Counse ling. Due on due Goal Drug Abuse Scree cyrus Test (DAST-10). Due on due Goal Drug Abuse Screening Test (D AST). Due on due Goal Generalized Anxi ety [...] due Goal HIV screen due Goal Obtain Height, Weight, and B DC. Due on due Goal Hepatitis C Screening due Goal Drug Abuse Screening Test (D AST). Due on due Goal Generalized Anxi ety [...] Due o n due Goal Drug Abuse Screening Test (D AST). Due on due Goal Influenza vaccine. Due [...] screening. Due on due Goal Tobacco Use Cessation Counse ling. Due on due Goal Obtain Height, Weight, and B DC. Due on due Goal Follow up Plan f or abnormal BMI (Less than 18.5, greater than 25). Due on due Goal Depression screening. Due on due Goal Vitamin D. Due on due Goal Influenza vaccine. Due on due Goal CMP. Due on due Goal Drug Abuse Screening Test (D AST). Due on due Goal Unhealthy drug use screening due Goal Vitamin B12. Due on due Goal Generalized Anxi ety Disorder - 7 (RUI-7). Due on due Goal Obtain Height, Weight, and B DC. Due on due Goal Diabetes screening. Due on due Goal TSH. Due on due Goal CBC. Due on due Goal Tobacco Use Cessation Counse ling. Due on due Goal Hepatitis C Screening due Goal Tobacco Use Screening. Due o n due Goal Drug Abuse Scree cryus Test (DAST-10). Due on due Goal HIV screen due Goal TSH. Due on due Goal Diabetes screening. Due on due Goal CBC. Due on due Goal Generalized Anxi ety Disorder - 7 (RUI-7). Due on due Goal Depression screening. Due on due Goal Unhealthy drug use screening due Goal Drug Abuse Screening Test (D AST). Due on due Goal Tobacco Use Cessation Counse ling. Due on due Goal Tobacco Use Screening. [...] due Goal Obtain Height, Weight, and B DC. Due on due Goal HIV screen due Goal Generalized Anxi ety Disorder - 7 (RUI-7). Due on due Goal Hepatitis C Screening due Goal Vitamin D. Due on due Goal Drug Abuse Screening Test (D AST). Due on due Goal Tobacco Use Screening. Due o n due Goal TSH. Due on due Goal CBC. Due on due Goal Diabetes screening. Due on due Goal Depression screening. Due on due Goal Unhealthy drug use screening due Goal Influenza vaccine. Due on due Goal Vitamin B12. Due on 024 due Goal HIV screen due Goal CMP. Due on due Goal Obtain Height, Weight, and B DC. Due on due Goal Tobacco Use Cessation Counse ling. Due on due Goal Tobacco Use Screening. Due o n due Goal Follow up Plan f or abnormal BMI (Less than 18.5, greater than 25). Due on due Goal Vitamin D. Due on due Goal Depression screening. Due on due Goal Diabetes screening. Due on due Goal Drug Abuse Screening Test (D AST). Due on due Goal Generalized Anxi ety Disorder - 7 (RUI-7). Due on due Goal Hepatitis C Screening due Goal CMP. Due on due Goal Vitamin B12. Due on due Goal HIV screen due Goal TSH. Due on due Goal Influenza vaccine. Due on No due Goal CBC. Due on due Goal Unhealthy drug use screening due Goal Drug Abuse Scree cyrus Test (DAST-10). Due on due Goal Obtain Height, Weight, and B DC. Due on due Goal Unhealthy drug use screening due Goal CBC. Due on due Goal Obtain Height, Weight, and B DC. Due on due Goal Hepatitis C Screening due Goal Drug Abuse Screening Test (D AST). Due on due Goal Influenza vaccine. Due on No due Goal Tobacco Use Screening. Due o n due Goal Diabetes screening. Due on D due Goal HIV screen due Goal TSH. Due on due Goal Generalized Anxi ety Disorder - 7 (RUI-7). Due on due Goal Depression screening. Due on due Goal Vitamin D. Due on due Goal Vitamin B12. Due on due Goal CMP. Due on due Goal Drug Abuse Scree cyrus Test (DAST-10). Due on due Goal Tobacco Use Cessation Counse ling. Due on due Goal Vitamin B12. Due on due Goal CMP. Due on due Goal Generalized Anxi ety Disorder - 7 (RUI-7). Due on due Goal Drug Abuse Scree cyrus Test (DAST-10). Due on due Goal TSH. Due on due Goal HIV screen. Due on due Goal CBC. Due on due Goal Tobacco Use Screening. Due o n due Goal Influenza vaccine. Due on No due Goal Diabetes screening. Due on D due Goal Follow up Plan f or abnormal BMI (Less than 18.5, greater than 25). Due on due Goal Hepatitis C Screening. Due o n due Goal Unhealthy drug use screening due Goal Drug Abuse Screening Test (D AST). Due on due Goal Vitamin D. Due on due Goal Depression screening. Due on due Goal Obtain Height, Weight, and B DC. Due on due Goal CMP. Due on due Goal Generalized Anxi ety Disorder - 7 (RUI-7). Due on due Goal Influenza vaccine. Due on No due Goal Drug Abuse Scree cyrus Test (DAST-10). Due on due Goal HIV screen. Due on due Goal Depression screening. Due on due Goal Drug Abuse Screening Test (D AST). Due on due Goal Follow up Plan f or abnormal BMI (Less than 18.5, greater than 25). Due on due Goal Unhealthy drug use screening due Goal Tobacco Use Screening. Due o n due Goal Diabetes screening. Due on N due Goal Tobacco Use Cessation Counse ling. Due on due Goal CBC. Due on due Goal Obtain Height, Weight, and B DC. Due on due Goal Vitamin B12. Due on due Goal TSH. Due on due Goal Vitamin D. Due on due Goal Hepatitis C Screening. Due o n due Goal Hepatitis C Screening. Due o n due Goal HIV screen. Due on due Goal CMP. Due on due Goal Influenza vaccine. Due on Se due Goal Drug Abuse Screening Test (D AST). Due on due Goal Generalized Anxi ety Disorder - 7 (RUI-7). Due on due Goal CBC. Due on due Goal Vitamin B12. Due on 023 due Goal Obtain Height, Weight, and B DC. Due on due Goal Unhealthy drug use screening due Goal Tobacco Use Cessation Counse ling. Due on due Goal TSH. Due on due Goal Vitamin D. Due on due Goal Tobacco Use Screening. Due o n due Goal Depression screening. Due on due Goal Follow up Plan f or abnormal BMI (Less than 18.5, greater than 25). Due on due Goal Diabetes screening. Due on due Goal Drug Abuse Scree cyrus Test (DAST-10). Due on due Goal Lifestyle education regardin g diet completed Goal Influenza vaccine. Due on due Goal Obtain Height, Weight, and B DC. Due on due Goal HIV screen. Due on due Goal Generalized Anxi ety Disorder - 7 (RUI-7). Due on due Goal Follow up Plan f or abnormal BMI (Less than 18.5, greater than 25). Due on due Goal Tobacco Use Cessation Maurice millan. Due on due Goal CBC. Due on due Goal Drug Abuse Screening Test (D AST). Due on due Goal Unhealthy drug use screening due Goal Hepatitis C Screening. Due o n due Goal Vitamin D. Due on due Goal Depression screening. Due on due Goal Tobacco Use Screening. Due o n due Goal TSH. Due on due Goal Vitamin B12. Due on 023 due Goal CMP. Due on due Goal Drug Abuse Scree cyrus Test (DAST-10). Due on due Goal Diabetes screening. Due on A due Goal Lifestyle education regardin g diet completed Goal Drug Abuse Screening Test (D AST). Due on due Goal Depression screening. Due on due Goal Generalized Anxi ety Disorder - 7 (RUI-7). Due on due Goal Influenza vaccine. Due on due Goal Hepatitis C Screening. Due o n due Goal Drug Abuse Scree cyrus Test (DAST-10). Due on due Goal CMP. Due on due Goal Obtain Height, Weight, and B DC. Due on due Goal Follow up Plan f or abnormal BMI (Less than 18.5, greater than 25). Due on due Goal CBC. Due on due Goal HIV screen. Due on 23 due Goal Tobacco Use Screening. Due o n due Goal Vitamin B12. Due on due Goal TSH. Due on due Goal Unhealthy drug use screening due Goal Vitamin D. Due on 3 due Goal Tobacco Use Cessation Counse ling. Due on due Goal HIV screen. Due on due Goal Depression screening. Due on due Goal Influenza vaccine. Due on due Goal Generalized Anxi ety Disorder - 7 (RUI-7). Due on due Goal Drug Abuse Screening Test (D AST). Due on due Goal HIV screen. Due on due Goal Influenza vaccine. Due on due Goal Drug Abuse Screening Test (D AST). Due on due Goal Generalized Anxi ety Disorder - 7 (RUI-7). Due on due Goal Depression screening. Due on due Referral Referred To: Mari Carter MD Ordered: Referrals: Sleep Medicine. Mari Carter MD. Location: [facility]. Evaluate and treat Appointment date/timeframe: 02/14/2025 ordered Referral Ordered: X-RAY EXAM CHEST 2 VIEWS Bilateral chest Appointment date/timeframe: 07/11/2024 ordered Referral Referred To: [facility] Ordered: Referrals: Pulmonology. [facility]. Location: [place]. Diagnostic testing Appointment date/timeframe: 07/16/2024 ordered Referral Referred To: Dr. Lela Ramirez at [facility] Ordered: Referrals: Otolaryngology. Dr. Lela Ramirez at [facility]. Location: [place]. Evaluate and treat Appointment date/timeframe: 07/12/2024 ordered History Of Present Illness Encounter Date Complaint History Of Prese nt Illness Flu Vaccine Pt is here today to receive the flu vaccine afluria, 0.5 mL, Lot# [id number], Exp: 11.26.25. Administered into left deltoid, pt tolerated well, band aid applied. No reaction noted. B12 Injection Pt is here today to receive a B12 injection. Administered into right deltoid, pt tolerated well, band aide applied. FASTING LABS Pt is here today to have fasting labs collected for Dr. Molina, pt's Cafe Worker. 1x attempt in right hand with butterfly needle. Successfully collected 3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
[2025-03-24] VITALS (18 sets, daily range): BP systolic 102–152; BP diastolic 58–95; PULSE 59–101; RESP 15–16; TEMP 36.6–36.8; O2SAT 85–100; BMI 27.3
--- NOTE | 2025-03-24 10:45 | ED_ITS ---
<Statement entered by Kary Hall DO - 03/27/25 23:57> I was consulted by the SINCERE, and we discussed the complexity of problems being addressed. I approve the treatment and management plan for this patient's care in the emergency department, thus performing a substantial portion of the medical decision making. Kary Hall DO Discharge Plan Disposition Patient Disposition: Home, Self-Care Condition: Good Prescriptions Prescriptions: New ondansetron 4 mg tablet,disintegrating 4 mg PO DAILY Qty: 30 0RF dicyclomine 20 mg tablet 20 mg PO BID Qty: 20 0RF cefdinir 300 mg capsule 300 mg PO BID 7 Days Qty: 14 0RF No Action fluoxetine [Prozac] 10 mg capsule 10 mg PO DAILY Tyblume 0.1 mg- 20 mcg tablet,chewable 0RF ketorolac 10 mg tablet 10 mg PO Q6H Qty: 20 0RF Rx Instructions: maximum total duration of 5 days from all oral, intranasal, or parenteral formulations Referrals Follow up/Referrals: Amparo Mandel DO [Staff Physician, INTERNAL GRINDER TENDER] - See instructions Edelmira Ma APRN [Primary Care Provider, Medical] - See instructions Activity Restrictions/Add. Instructions Additional Instructions/Restrictions: Return for any acute or worsening symptoms. Follow up with Dr. Mandel or Dr. Bryan for your ovarian cyst. Clinical Impressions Clinical Impression: Abdominal pain Qualifiers: Abdominal location: generalized Qualified Code(s): R10.84 - Generalized abdominal pain Instructions Patient Instructions: DI for Acute Abdominal Pain Print Language Print Language: Serbian Discharge ED Provider: Bobby Rosado General Adult HPI <Bobby Rosado MD - Last Filed: 03/24/25 21:02> General Chief complaint: Abdominal Pain Stated complaint: vomiting, diarrhea Time Seen by Provider: 03/24/25 10:37 History of Present Illness HPI narrative: Jennifer Franklin is a 19-year-old female With a past medical history of E. coli 0157 and Shigella on stool sampling back in October 2023 requiring transfer to [facility] and was ultimately trached and developed HUS. She states that she has been doing well since discharge has not had any issues with renal function but states that her liver has had issues ever since. Starting 7 days ago, she developed a few episodes of loose, nonbloody stools patient states is not watery and not as severe as when she had E. coli last time. She does state over last 2 days, she has had nausea and vomiting. She reports a small amount of blood in her vomit recently. She states that she is urinating but is less than normal. She also states that she has had a period and has been bleeding for 16 days straight, which is abnormal for her. She denies history of abnormal uterine bleeding and states that she has regular periods. She reports some left-sided abdominal pain. She has a history of cholecystectomy. She denies any chest pain or shortness of breath. She denies any fevers. Related Data Home Medications ?Medication ?Instructions ?Recorded ?Confirmed fluoxetine 10 mg capsule (Prozac) 10 mg PO DAILY 03/2603/26/25 Previous Rx's ?Medication ?Instructions ?Recorded cefdinir 300 mg capsule 300 mg PO BID 7 days #14 cap s 03/24/25 dicyclomine 20 mg tablet 20 mg PO BID #20 tabs ondansetron 4 mg disintegrating 4 mg PO DAILY #30 tabs 03/24/25 tablet ketorolac 10 mg tablet 10 mg PO Q6H #20 tabs Allergies Allergy/AdvReac Type Severity Reaction Status Date / Time No Known Allergies Allergy Verified 03/26/25 09:52 [facility] <Bobby Rosado MD - Last Filed: 03/24/25 21:02> [facility] Disclaimer: The information contained in this section may have been updated after the patient was seen, as this information can be updated by other users. Medical History (Updated 03/26/25 @ 11:00 by Marcos Severino MD) Right ovarian cyst Abnormal uterine bleeding Migraine with aura Family History Other Asthma Cancer Diabetes FHx: mental illness Hypertension Kidney disease Social History Smoking Status: Current every day smoker alcohol intake: never substance use type: denies use current occupational status: unemployed and other Travel in the last 8 weeks?: None Have you lived/traveled outside US in past 30 days?: No Contact w/someone who lives/traveled outside US past 30 days?: No Exposure to someone with infectious disease in past 14 days?: No Do you have a fever (greater than 100.4 F or 38 C)?: No Have you tested positive for COVID-19?: No Exposed to someone with COVID-19 in past 14 days?: No Do you have a sore throat?: No Do you have a cough?: No Do you have shortness of breath?: No Do you have a headache?: No Do you have any weakness?: No Are you experiencing any nausea/vomitting?: No Do you have any diarrhea?: No Are you experiencing any unusual bleeding?: No Do you have any muscle aches/pain?: No Do you have any abdominal pain?: No Are you experiencing loss of taste or smell?: No Other Medical History Have you received the Flu Vaccine for this season: No Have you received the Pneumonia Vaccine: No <Bobby Rosado MD - Last Filed: 03/24/25 21:02> ROS Obtained: Yes Systems reviewed as appropriate & no additional complaints except as documented Physical Exam <Bobby Rosado MD - Last Filed: 03/24/25 21:02> General General appearance: alert and in no apparent distress Comment: appears uncomfortable Head Head exam: atraumatic Eye Eye exam: Present normal appearance ENT ENT exam: Present normal external ear exam Neck Neck exam: Present full ROM Chest Chest inspection: Present symmetric chest wall rise Respiratory Respiratory exam: Present normal lung sounds bilaterally; Absent respiratory distress Cardiovascular Cardiovascular exam: Present regular rate and normal rhythm Abdominal Exam Abdominal exam: Present soft and tenderness (mild RUQ and LLQ); Absent distention, guarding or rigidity Extremities Exam Extremities exam: Present normal inspection Back Exam Back exam: Present normal inspection Neurological Exam Neurological exam: Present alert and oriented X3 Psychiatric Psychiatric exam: Present normal affect Skin Skin exam: Present warm and dry Medical Decision Making <Bobby Rosado MD - Last Filed: 03/24/25 21:02> Medical Records Screening: Per USPSTF and CDC recommendations, given the prevalence of disease in our region, it is our hospital?s policy to screen for HIV and viral Hepatitis for all patients aged 18 and over and those with ongoing risk factors. Eliseo Inquiry Pt receiving controlled substance: No Vital Signs: 03/24/25 10:35 03/24/25 10:39 03/24/25 11:16 Temperature 98 F Temperature Source Oral Pulse Rate 101 H 84 Pulse Rate [Right Radial] 99 H Respiratory Rate 15 Blood Pressure 135/89 117/74 Blood Pressure [Right Arm] 135/89 Blood Pressure Mean Blood Pressure Mean [Right Arm] 104 Blood Pressure Source Blood Pressure Source [Right Arm] Automatic Cuff Blood Pressure Position Blood Pressure Position [Right Arm] Supine 02 Sat by Pulse Oximetry 100 98 95 Oxygen Delivery Method Room Air Room Air Room Air 03/24/25 11:31 03/24/25 12:00 03/24/25 12:30 Temperature Temperature Source Pulse Rate 68 90 97 H Pulse Rate [Right Radial] Respiratory Rate Blood Pressure 103/58 L 124/88 120/83 Blood Pressure [Right Arm] Blood Pressure Mean Blood Pressure Mean [Right Arm] Blood Pressure Source Blood Pressure Source [Right Arm] Blood Pressure Position Blood Pressure Position [Right Arm] 02 Sat by Pulse Oximetry 96 96 99 Oxygen Delivery Method Room Air Room Air Room Air 03/24/25 13:00 03/24/25 13:30 03/24/25 14:00 Temperature Temperature Source Pulse Rate 72 73 66 Pulse Rate [Right Radial] Respiratory Rate Blood Pressure 126/84 109/71 L 120/78 Blood Pressure [Right Arm] Blood Pressure Mean Blood Pressure Mean [Right Arm] Blood Pressure Source Blood Pressure Source [Right Arm] Blood Pressure Position Blood Pressure Position [Right Arm] 02 Sat by Pulse Oximetry 99 99 98 Oxygen Delivery Method Room Air Room Air Room Air 03/24/25 14:30 03/24/25 15:32 03/24/25 16:05 Temperature Temperature Source Pulse Rate 80 70 74 Pulse Rate [Right Radial] Respiratory Rate Blood Pressure 118/81 152/95 H 118/78 Blood Pressure [Right Arm] Blood Pressure Mean 118 Blood Pressure Mean [Right Arm] Blood Pressure Source Blood Pressure Source [Right Arm] Blood Pressure Position Blood Pressure Position [Right Arm] 02 Sat by Pulse Oximetry 99 99 85 L Oxygen Delivery Method Room Air Room Air 03/24/25 16:29 03/24/25 16:30 03/24/25 16:31 Temperature Temperature Source Pulse Rate 59 L 64 Pulse Rate [Right Radial] Respiratory Rate Blood Pressure 102/60 L 102/60 L 102/60 L Blood Pressure [Right Arm] Blood Pressure Mean 75 Blood Pressure Mean [Right Arm] Blood Pressure Source Blood Pressure Source [Right Arm] Blood Pressure Position Blood Pressure Position [Right Arm] 02 Sat by Pulse Oximetry 100 99 Oxygen Delivery Method 03/24/25 17:01 03/24/25 17:30 03/24/25 17:55 Temperature 98.2 F Temperature Source Oral Pulse Rate 67 75 62 Pulse Rate [Right Radial] Respiratory Rate 16 Blood Pressure 111/78 114/75 114/75 Blood Pressure [Right Arm] Blood Pressure Mean Blood Pressure Mean [Right Arm] Blood Pressure Source Automatic Cuff Blood Pressure Source [Right Arm] Blood Pressure Position Supine Blood Pressure Position [Right Arm] 02 Sat by Pulse Oximetry 100 99 Oxygen Delivery Method Room Air Room Air Room Air Lab Data Lab Results 03/24/25 10:30: Urine Color Yellow, Urine Appearance Clear, Urine pH 7.5, Ur Specific [place] 1.020, Urine Protein Trace, Urine Glucose (UA) Negative, Urine Ketones Negative, Urine Blood 1+ A, Urine Nitrate Positive A, Urine Bilirubin Negative, Urine Urobilinogen 1.0, Ur Leukocyte Esterase Trace, Urine RBC 3-5, Urine WBC 5-10, Ur Squamous Epith Cells 10-20, Urine Bacteria 3+ 03/24/25 10:45: WBC 11.1 H, RBC 5.01, Hgb 14.1, Hct 42.6, MCV 85.0, MCH 28.1, MCHC 33.1, RDW 12.8, Plt Count 231, MPV 11.7 H, Neut % (Auto) 51.0, Lymph % (Auto) 16.2, Morris % (Auto) 3.7, Eos % (Auto) 28.2 H, Baso % (Auto) 0.8, Neut # (Auto) 5.7, Lymph # (Auto) 1.8, Morris # (Auto) 0.4, Eos # (Auto) 3.1 H, Baso # (Auto) 0.1, Total Counted 100, Neutrophils % (Manual) 47, Lymphocytes % (Manual) 17, Monocytes % (Manual) 5, Eosinophils % (Manual) 31 H, Platelet Estimate Normal, RBC Morphology Normal, Serum HCG, Qual Negative, HCV Ab GISELA w/Rflx PCR Qn Negative, HIV Ag/Ab Combo Qual Negative 03/24/25 10:55: VBG pH 7.46 H, VBG pCO2 28.8 L, VBG pO2 156.5 H, VBG HCO3 20.2 L , VBG Total CO2 21.0 L, VBG O2 Saturation 99.4 H, VBG Base Excess -3.6 L, VBG Lactic Acid 2.1 H 03/24/25 11:15: Sodium 136, Potassium 3.6, Chloride 105, Carbon Dioxide 24, Anion Gap 10.6, BUN 7, Creatinine 0.70, Estimated Creat Clear 145, Estimated GFR 106, Est GFR ( Amer) 128, Glucose 103 H, Calcium 8.8, Magnesium 2.0, Total Bilirubin 0.5, AST 25, ALT 22, Alkaline Phosphatase 98, C-Reactive Protein 1.0, Total Protein 7.4, Albumin 4.2, Globulin 3.2, Albumin/Globulin Ratio 1.3 03/24/25 10:45 03/24/25 11:15 Orders (Tests/Meds): ED MEDICATIONS Discontinued Medications Generic Name Dose Route Start Last Admin Trade Name Freq PRN Reason Stop Dose Admin Acetaminophen 1,000 mg 03/24/25 12:10 03/24/25 12:14 Acetaminophen 500mg Tab PO 03/24/25 12:11 1,000 mg ONCE ONE Administration Dicyclomine HCl 10 mg 03/24/25 12:10 03/24/25 12:14 Dicyclomine 10mg Capsule PO 03/24/25 12:11 10 mg ONCE ONE Administration Lactated Ringer's 1,000 mls @ 999 mls/hr 03/24/25 10:42 03/24/25 13:01 Lactated Ringer's 1000 Ml Bag IV 03/24/25 11:42 Infused .Q1H1M ONE Infusion Lactated Ringer's 1,000 mls @ 999 mls/hr 03/24/25 11:27 03/24/25 14:14 Lactated Ringer's 1000 Ml Bag IV 03/24/25 12:27 Infused .Q1H1M ONE Infusion Iopamidol 75 ml 03/24/25 13:21 03/24/25 13:22 Iopamidol-370 (76%);100ml Bottle IV 03/24/25 13:22 75 ml ONCE ONE Administration Ketorolac Tromethamine 15 mg 03/24/25 11:35 03/24/25 11:43 Ketorolac 15mg/Ml Vial IV 03/24/25 11:36 15 mg ONCE ONE Administration Morphine Sulfate 4 mg 03/24/25 13:02 03/24/25 13:09 Morphine 4mg/Ml Syringe IV 03/24/25 13:03 4 mg ONCE ONE Administration Morphine Sulfate 4 mg 03/24/25 14:40 03/24/25 14:44 Morphine 4mg/Ml Syringe IV 03/24/25 14:41 4 mg ONCE ONE Administration Morphine Sulfate 4 mg 03/24/25 17:03 03/24/25 17:34 Morphine 4mg/Ml Syringe IV 03/24/25 17:04 4 mg ONCE ONE Administration Ondansetron HCl 4 mg 03/24/25 10:42 03/24/25 11:18 Ondansetron 4mg/2ml Vial IV 03/24/25 10:43 4 mg ONCE ONE Administration Ondansetron HCl 4 mg 03/24/25 15:22 03/24/25 15:28 Ondansetron 4mg/2ml Vial IV 03/24/25 15:23 4 mg ONCE ONE Administration Sodium Chloride 10 ml 03/24/25 13:21 03/24/25 13:22 Sodium Chloride 0.9% 10ml Syr (Rad Only) IV 04/23/25 13:20 10 ml NEEDED PRN Administration Maintain IV Site ORDERS Category Date Time Status CT abdomen pelvis w con Stat Cat Scan 03/24/25 12:50 Completed US transvaginal Stat Exams 03/24/25 14:07 Completed CBC w/Auto Diff [Complete Blood Count Auto Diff] Stat Lab 03/24/25 10:45 Completed CMP [Comprehensive Metabolic Panel] Stat Lab 03/24/25 11:15 Completed CRP [C-Reactive Protein] Stat Lab 03/24/25 11:15 Completed HIV Combo Stat Lab 03/24/25 10:45 Completed Hepatitis C Ab Qual. W/ RFX Stat Lab 03/24/25 10:45 Completed Magnesium Stat Lab 03/24/25 11:15 Completed Serum [HCG Qualitative, Serum] Stat Lab 03/24/25 10:45 Completed UA [Urinalysis and Microscopic] Stat Lab 03/24/25 10:30 Completed Urine Culture Stat Micro 03/24/25 10:30 Completed VBG [Venous Blood Gas] Stat RT 03/24/25 10:55 Completed Medical Decision Narrative: Jennifer Franklin is a 19-year-old female With a past medical history of E. coli 0157 and Shigella on stool sampling back in October 2023 requiring transfer to [facility] and was ultimately trached and developed HUS. She states that she has been doing well since discharge has not had any issues with renal function but states that her liver has had issues ever since. Starting 7 days ago, she developed a few episodes of loose, nonbloody stools patient states is not watery and not as severe as when she had E. coli last time. She does state over last 2 days, she has had nausea and vomiting. She reports a small amount of blood in her vomit recently. She states that she is urinating but is less than normal. She also states that she has had a period and has been bleeding for 16 days straight, which is abnormal for her. She denies history of abnormal uterine bleeding and states that she has regular periods. She reports some left-sided abdominal pain. She has a history of cholecystectomy. She denies any chest pain or shortness of breath. She denies any fevers. On arrival, patient is normotensive, afebrile, maintaining appropriate oxyfen saturation on room air. Physical exam, as stated above, revealed an uncomfortable but nontoxic-appearing female in no distress. Cardiopulmonary exam is unremarkable. Abdomen has some mild tenderness in the right upper quadrant and left lower quadrant but no guarding and no peritonitis. This is very mild tenderness. Differential diagnosis includes, but is not limited to: Viral gastroenteritis, colitis, ectopic , dehydration, urinary tract infection, among others. The most morbid conditions were considered and workup was based on these. At this time, I have low concern for biliary pathology as patient is status post cholecystectomy. Patient does not have any tenderness in the right lower quadrant to suggest appendicitis. I considered obtaining CT abdomen pelvis with IV contrast but given her minimal tenderness and reassuring physical exam vital signs, will obtain laboratory studies and reevaluate. She is in agreement with this plan. Initial workup in the emergency department included: CBC with differential, VBG with lactic acid, CMP, magnesium level, CRP, serum test, UA. Patient was initially treated with 4 mg of IV Zofran, 1 L lactated ringer, and 15 mg of IV Toradol patient subsequently received IV morphine and dicyclomine for continued abdominal pain. Patient's workup showed mild leukocytosis of 11.1, no anemia. Platelets within normal. VBG with a respiratory alkalosis with pH of 7.46, pCO2 of 28.8, bicarb low at 20.2. Lactate mildly elevated at 2.1. Electrolytes within normal limits. No REMINGTON. CRP normal at 1. test is negative. Urine is nitrate positive with 1+ blood but leukocyte esterase negative. Microscopy is pending at this time. Throughout the ED visit, patient stated that her pain had not worsened despite oral and IV medications. On reassessment, she stated that her pain had moved more to the right lower side of her abdomen. She is now tender in the right lower quadrant, negative heeltap sign, positive obturator sign. 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 She is in agreement with this plan. Ultimately, patient's care was handed off to the oncoming physician, Dr. Hall, pending CT imaging results. <Kary Hall, DO - Last Filed: 03/27/25 23:57> Vital Signs: 03/24/25 10:35 03/24/25 10:39 03/24/25 11:16 Temperature 98 F Temperature Source Oral Pulse Rate 101 H 84 Pulse Rate [Right Radial] 99 H Respiratory Rate 15 Blood Pressure 135/89 117/74 Blood Pressure [Right Arm] 135/89 Blood Pressure Mean Blood Pressure Mean [Right Arm] 104 Blood Pressure Source Blood Pressure Source [Right Arm] Automatic Cuff Blood Pressure Position Blood Pressure Position [Right Arm] Supine 02 Sat by Pulse Oximetry 100 98 95 Oxygen Delivery Method Room Air Room Air Room Air 03/24/25 11:31 03/24/25 12:00 03/24/25 12:30 Temperature Temperature Source Pulse Rate 68 90 97 H Pulse Rate [Right Radial] Respiratory Rate Blood Pressure 103/58 L 124/88 120/83 Blood Pressure [Right Arm] Blood Pressure Mean Blood Pressure Mean [Right Arm] Blood Pressure Source Blood Pressure Source [Right Arm] Blood Pressure Position Blood Pressure Position [Right Arm] 02 Sat by Pulse Oximetry 96 96 99 Oxygen Delivery Method Room Air Room Air Room Air 03/24/25 13:00 03/24/25 13:30 03/24/25 14:00 Temperature Temperature Source Pulse Rate 72 73 66 Pulse Rate [Right Radial] Respiratory Rate Blood Pressure 126/84 109/71 L 120/78 Blood Pressure [Right Arm] Blood Pressure Mean Blood Pressure Mean [Right Arm] Blood Pressure Source Blood Pressure Source [Right Arm] Blood Pressure Position Blood Pressure Position [Right Arm] 02 Sat by Pulse Oximetry 99 99 98 Oxygen Delivery Method Room Air Room Air Room Air 03/24/25 14:30 03/24/25 15:32 03/24/25 16:05 Temperature Temperature Source Pulse Rate 80 70 74 Pulse Rate [Right Radial] Respiratory Rate Blood Pressure 118/81 152/95 H 118/78 Blood Pressure [Right Arm] Blood Pressure Mean 118 Blood Pressure Mean [Right Arm] Blood Pressure Source Blood Pressure Source [Right Arm] Blood Pressure Position Blood Pressure Position [Right Arm] 02 Sat by Pulse Oximetry 99 99 85 L Oxygen Delivery Method Room Air Room Air 03/24/25 16:29 03/24/25 16:30 03/24/25 16:31 Temperature Temperature Source Pulse Rate 59 L 64 Pulse Rate [Right Radial] Respiratory Rate Blood Pressure 102/60 L 102/60 L 102/60 L Blood Pressure [Right Arm] Blood Pressure Mean 75 Blood Pressure Mean [Right Arm] Blood Pressure Source Blood Pressure Source [Right Arm] Blood Pressure Position Blood Pressure Position [Right Arm] 02 Sat by Pulse Oximetry 100 99 Oxygen Delivery Method 03/24/25 17:01 03/24/25 17:30 03/24/25 17:55 Temperature 98.2 F Temperature Source Oral Pulse Rate 67 75 62 Pulse Rate [Right Radial] Respiratory Rate 16 Blood Pressure 111/78 114/75 114/75 Blood Pressure [Right Arm] Blood Pressure Mean Blood Pressure Mean [Right Arm] Blood Pressure Source Automatic Cuff Blood Pressure Source [Right Arm] Blood Pressure Position Supine Blood Pressure Position [Right Arm] 02 Sat by Pulse Oximetry 100 99 Oxygen Delivery Method Room Air Room Air Room Air Lab Data Lab Results 03/24/25 10:30: Urine Color Yellow, Urine Appearance Clear, Urine pH 7.5, Ur Specific [place] 1.020, Urine Protein Trace, Urine Glucose (UA) Negative, Urine Ketones Negative, Urine Blood 1+ A, Urine Nitrate Positive A, Urine Bilirubin Negative, Urine Urobilinogen 1.0, Ur Leukocyte Esterase Trace, Urine RBC 3-5, Urine WBC 5-10, Ur Squamous Epith Cells 10-20, Urine Bacteria 3+ 03/24/25 10:45: WBC 11.1 H, RBC 5.01, Hgb 14.1, Hct 42.6, MCV 85.0, MCH 28.1, MCHC 33.1, RDW 12.8, Plt Count 231, MPV 11.7 H, Neut % (Auto) 51.0, Lymph % (Auto) 16.2, Morris % (Auto) 3.7, Eos % (Auto) 28.2 H, Baso % (Auto) 0.8, Neut # (Auto) 5.7, Lymph # (Auto) 1.8, Morris # (Auto) 0.4, Eos # (Auto) 3.1 H, Baso # (Auto) 0.1, Total Counted 100, Neutrophils % (Manual) 47, Lymphocytes % (Manual) 17, Monocytes % (Manual) 5, Eosinophils % (Manual) 31 H, Platelet Estimate Normal, RBC Morphology Normal, Serum HCG, Qual Negative, HCV Ab GISELA w/Rflx PCR Qn Negative, HIV Ag/Ab Combo Qual Negative 03/24/25 10:55: VBG pH 7.46 H, VBG pCO2 28.8 L, VBG pO2 156.5 H, VBG HCO3 20.2 L , VBG Total CO2 21.0 L, VBG O2 Saturation 99.4 H, VBG Base Excess -3.6 L, VBG Lactic Acid 2.1 H 03/24/25 11:15: Sodium 136, Potassium 3.6, Chloride 105, Carbon Dioxide 24, Anion Gap 10.6, BUN 7, Creatinine 0.70, Estimated Creat Clear 145, Estimated GFR 106, Est GFR ( Amer) 128, Glucose 103 H, Calcium 8.8, Magnesium 2.0, Total Bilirubin 0.5, AST 25, ALT 22, Alkaline Phosphatase 98, C-Reactive Protein 1.0, Total Protein 7.4, Albumin 4.2, Globulin 3.2, Albumin/Globulin Ratio 1.3 Orders (Tests/Meds): ED MEDICATIONS Discontinued Medications Generic Name Dose Route Start Last Admin Trade Name Freq PRN Reason Stop Dose Admin Acetaminophen 1,000 mg 03/24/25 12:10 03/24/25 12:14 Acetaminophen 500mg Tab PO 03/24/25 12:11 1,000 mg ONCE ONE Administration Dicyclomine HCl 10 mg 03/24/25 12:10 03/24/25 12:14 Dicyclomine 10mg Capsule PO 03/24/25 12:11 10 mg ONCE ONE Administration Lactated Ringer's 1,000 mls @ 999 mls/hr 03/24/25 10:42 03/24/25 13:01 Lactated Ringer's 1000 Ml Bag IV 03/24/25 11:42 Infused .Q1H1M ONE Infusion Lactated Ringer's 1,000 mls @ 999 mls/hr 03/24/25 11:27 03/24/25 14:14 Lactated Ringer's 1000 Ml Bag IV 03/24/25 12:27 Infused .Q1H1M ONE Infusion Iopamidol 75 ml 03/24/25 13:21 03/24/25 13:22 Iopamidol-370 (76%);100ml Bottle IV 03/24/25 13:22 75 ml ONCE ONE Administration Ketorolac Tromethamine 15 mg 03/24/25 11:35 03/24/25 11:43 Ketorolac 15mg/Ml Vial IV 03/24/25 11:36 15 mg ONCE ONE Administration Morphine Sulfate 4 mg 03/24/25 13:02 03/24/25 13:09 Morphine 4mg/Ml Syringe IV 03/24/25 13:03 4 mg ONCE ONE Administration Morphine Sulfate 4 mg 03/24/25 14:40 03/24/25 14:44 Morphine 4mg/Ml Syringe IV 03/24/25 14:41 4 mg ONCE ONE Administration Morphine Sulfate 4 mg 03/24/25 17:03 03/24/25 17:34 Morphine 4mg/Ml Syringe IV 03/24/25 17:04 4 mg ONCE ONE Administration Ondansetron HCl 4 mg 03/24/25 10:42 03/24/25 11:18 Ondansetron 4mg/2ml Vial IV 03/24/25 10:43 4 mg ONCE ONE Administration Ondansetron HCl 4 mg 03/24/25 15:22 03/24/25 15:28 Ondansetron 4mg/2ml Vial IV 03/24/25 15:23 4 mg ONCE ONE Administration Sodium Chloride 10 ml 03/24/25 13:21 03/24/25 13:22 Sodium Chloride 0.9% 10ml Syr (Rad Only) IV 04/23/25 13:20 10 ml NEEDED PRN Administration Maintain IV Site ORDERS Category Date Time Status CT abdomen pelvis w con Stat Cat Scan 03/24/25 12:50 Completed US transvaginal Stat Exams 03/24/25 14:07 Completed CBC w/Auto Diff [Complete Blood Count Auto Diff] Stat Lab 03/24/25 10:45 Completed CMP [Comprehensive Metabolic Panel] Stat Lab 03/24/25 11:15 Completed CRP [C-Reactive Protein] Stat Lab 03/24/25 11:15 Completed HIV Combo Stat Lab 03/24/25 10:45 Completed Hepatitis C Ab Qual. W/ RFX Stat Lab 03/24/25 10:45 Completed Magnesium Stat Lab 03/24/25 11:15 Completed Serum [HCG Qualitative, Serum] Stat Lab 03/24/25 10:45 Completed UA [Urinalysis and Microscopic] Stat Lab 03/24/25 10:30 Completed Urine Culture Stat Micro 03/24/25 10:30 Completed VBG [Venous Blood Gas] Stat RT 03/24/25 10:55 Completed Medical Decision Narrative: Jennifer Franklin is a 19-year-old female With a past medical history of E. coli 0157 and Shigella on stool sampling back in October 2023 requiring transfer to [facility] and was ultimately trached and developed HUS. She states that she has been doing well since discharge has not had any issues with renal function but states that her liver has had issues ever since. Starting 7 days ago, she developed a few episodes of loose, nonbloody stools patient states is not watery and not as severe as when she had E. coli last time. She does state over last 2 days, she has had nausea and vomiting. She reports a small amount of blood in her vomit recently. She states that she is urinating but is less than normal. She also states that she has had a period and has been bleeding for 16 days straight, which is abnormal for her. She denies history of abnormal uterine bleeding and states that she has regular periods. She reports some left-sided abdominal pain. She has a history of cholecystectomy. She denies any chest pain or shortness of breath. She denies any fevers. On arrival, patient is normotensive, afebrile, maintaining appropriate oxyfen saturation on room air. Physical exam, as stated above, revealed an uncomfortable but nontoxic-appearing female in no distress. Cardiopulmonary exam is unremarkable. Abdomen has some mild tenderness in the right upper quadrant and left lower quadrant but no guarding and no peritonitis. This is very mild tenderness. Differential diagnosis includes, but is not limited to: Viral gastroenteritis, colitis, ectopic , dehydration, urinary tract infection, among others. The most morbid conditions were considered and workup was based on these. At this time, I have low concern for biliary pathology as patient is status post cholecystectomy. Patient does not have any tenderness in the right lower quadrant to suggest appendicitis. I considered obtaining CT abdomen pelvis with IV contrast but given her minimal tenderness and reassuring physical exam vital signs, will obtain laboratory studies and reevaluate. She is in agreement with this plan. Initial workup in the emergency department included: CBC with differential, VBG with lactic acid, CMP, magnesium level, CRP, serum test, UA. Patient was initially treated with 4 mg of IV Zofran, 1 L lactated ringer, and 15 mg of IV Toradol patient subsequently received IV morphine and dicyclomine for continued abdominal pain. Patient's workup showed mild leukocytosis of 11.1, no anemia. Platelets within normal. VBG with a respiratory alkalosis with pH of 7.46, pCO2 of 28.8, bicarb low at 20.2. Lactate mildly elevated at 2.1. Electrolytes within normal limits. No REMINGTON. CRP normal at 1. test is negative. Urine is nitrate positive with 1+ blood but leukocyte esterase negative. Microscopy is pending at this time. Throughout the ED visit, patient stated that her pain had not worsened despite oral and IV medications. On reassessment, she stated that her pain had moved more to the right lower side of her abdomen. She is now tender in the right lower quadrant, negative heeltap sign, positive obturator sign. 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 She is in agreement with this plan. Ultimately, patient's care was handed off to the oncoming physician, Dr. Hall, pending CT imaging results. I assumed care of this patient at 2200. CT scan shows concern for a 5 centimeter right ovarian cyst. Patient is tender right lower quadrant transvaginal ultrasound was obtained to rule out ovarian torsion. Ultrasound was obtained which showed no acute ovarian torsion or other pathology but shows a 4.5 cm right ovarian cyst noted above. Patient was given another dose of IV morphine. At this time, I discussed admission versus discharging home. Patient elected to discharge home. Patient was sent with [facility]NAL [facility] referral. Patient was discharged home in stable condition. Critical Care <Bobby Rosado MD - Last Filed: 03/24/25 21:02> Critical Care Time Critical Care Time: No
--- OUTSIDE RECORDS SUMMARY | 2025-03-24 10:45 | XMS_ITS | Encounter Summary ---
Author Organization [facility] ([place], [place], [place], [place]) Address [address] [place] [address] Care Team Providers Care Design Agent Name Role Phone Edelmira Ma APRN Primary Care Provider [phone] Jeremy Molina MD Unavailable [phone] Encounter Details Date Type Department Care Team (Latest Contact Info) Description 02/22/2025 Travel Social History Tobacco Use Types Packs/Day [...] Do you speak a language other than [place] at [facility]? No 11/22/2023 Do you want [...] on file documented as of this encounter Plan of Treatment Upcoming Encounters Date Type Department Care Team (Late st Contact Info) Description 08/23/2025 2:20 PM EDT Office Visit [facility] [place] [address] [place] [address] Jeremy Molina MD [address] [place] [address] documented as of this encounter Visit Diagnoses Not on filedocumented in this encounter Additional Health Concerns Infection Onset Date Last Indicated Resolved Time Other - see comment Comment:CTX-M 12/24/2023 12/24/2023 MDR Klebsiella pneumoniae (C ) Comment:ESBL 12/26 mdr in cath tip 12/25/2023 12/25/2023 documented as of this encounter Care Teams Design Agent Relationship Specialty Start Date End Date Edelmira Ma, KNOT CUTTER [address] [place] [address] PCP - General Nurse Practitioner 01/13/24 Jeremy Molina MD [address] [place] [address] Consulting Physician Hematology and Oncology 02/21/25 documented as of this encounter
--- OUTSIDE RECORDS SUMMARY | 2025-03-24 10:45 | XMS_ITS | Clinical Summary ---
Author Organization [facility] Address [address] [place] [address] Care Team Providers Care Furnace Room Supervisor Name Role Phone AnilEdelmira Henny TRIANA Primary Care Provider [phone] Allergies Active Allergy Reactions Criticality Noted Date Comments Lavender Oil Rash Low 01/03/2025 Itching and hives Medications escitalopram (Lexapro) 5 MG tabletIndications: Generalized anxiety disorder with panic attacks Take 1 tablet (5 mg total) by mouth 1 (one) time each day. 30 tablet 2 03/16/20 21 Active ondansetron ODT (Zofran-ODT) 4 MG disintegrating tablet if needed. 12/30/19 22 Active azithromycin (Zithromax) 250 MG tabletIndications: Pelvic and perineal pain Take 2 tablets now and repeat in 4 hours 4 tablet 02/11/20 22 Active Additional Information Patient not taking.Reported on 01/22/2025 busPIRone (Buspar) 10 MG tablet Take 1 tablet by mouth 2 times a day. Active Vraylar 1.5 MG capsule Take 1 capsule by mouth 1 time each day. 05/16/20 24 Active FLUoxetine (PROzac) 20 MG capsule 02/02/20 24 Active fluticasone (Flonase) 50 MCG/ACT nasal spray Administer 1 spray into each nostril nightly. Shake gently. Before first use, prime pump. After use, clean tip and replace cap. Active Melatonin 10 MG chewable tablet Chew. Acti ve oxyCODONE (Roxicodone) 5 MG immediate release tablet Take 1 tablet by mouth every 6 hours as needed for moderate pain or severe pain. 5 tablet 01/13/20 Active Additional Information Patient not taking.Reported on 01/22/2025 ibuprofen 400 MG tablet Take 1 tablet by mouth every 6 hours as needed for moderate pain. 30 tablet 01/13/20 25 Active acetaminophen (Tylenol) 500 MG tablet Take 2 tablets by mouth every 6 hours as needed for pain. 60 tablet 01/13/20 Active famotidine (Pepcid) 20 MG tablet Take 1 tablet by mouth 2 times a day. 60 tablet 01/13/20 25 Active esomeprazole (NexIUM) 40 MG packet 40 mg by Per G Tube route daily. 30 packet 01/14/20 25 Active Active Problems Problem Noted Date Diagnosed [...] Encounters Date Type Department Care Team Description 01/22/2025 2:20 PM EDT Office Visit [facility] Otolaryngology [address] [place] [address], [address] [place] [phone] Rebeka Palma MD Glottic insufficiency (Primary Dx); Dysphonia; History of tracheostomy 01/22/2025 Travel 01/15/2025 1:00 PM EDT Office Visit [facility] Otolaryngology [address] [place] [phone] Rebeka Palma MD Glottic insufficiency (Primary Dx) 01/15/2025 Refill [facility] Otolaryngology [address] [place] [address], [address] [place] [phone] Rebeka Pamla MD 01/15/2025 Travel 01/15/2025 Telephone [facility] Otolaryngology [address] [place] [address] Rebeka Palma MD HCN Clinical Concern/Question 01/11/2025 7:45 AM EDT - 01/11/2025 11:45 AM EDT Surgery [facility] [address] [place] [address] Rebeka Palma MD Endoscopic mucosal posterior glottic rotation flap with CO2 laser and endoscopic sutures 01/11/2025 7:41 AM EDT Anesthesia Event [facility] [address] [place] [address] Marcellus Noel MD Brar, Sumeer S, MD 01/11/2025 6:04 AM EDT - 01/12/2025 1:16 PM EDT Hospital Encounter [facility] Inpatient [address] [place] [address] Rebeka Palma MD Discharge Disposition: Home or Self Care 01/11/2025 Travel from Last 3 Months Immunizations Immunization [...] Date Smoking Tobacco: Never Smokeless Tobacco: Never Tobacco Cessation:Counseling Given: Not Answered Alcohol Use Standard Drinks/Week Comments Yes 0 [...] Sign Reading Time Taken Comments Blood Pressure 118/70 01/22/2025 3:17 PM EDT Pulse 84 01/15/2025 1:36 PM EDT Temperature 36.6 C (97.8 F) 01/12/2025 12:16 PM EDT Respiratory Rate 14 01/12/2025 8:30 AM EDT Oxygen Saturation 97% 01/12/2025 12:16 PM EDT Inhaled Oxygen Concentration - - Weight 76.7 kg (169 lb) 01/22/2025 3:17 PM EDT Height 162.6 cm (5' 4.02 ) 01/11/2025 11:00 AM E DT Body Mass Index 28.99 01/11/2025 11:00 AM EDT Plan of Treatment Upcoming Encounters Date Type Department Care Team (Late st Contact Info) Description 04/22/2025 4:20 PM EST Office Visit [facility] [address] [place] [address] Rebeka Palma MD [address] [place] [address] Health Maintenance Due Date Last Done Comments [facility]-HIV Screening 2003 [facility]-Hepatitis C Screening 2003 [facility]-/Child/Adol SDOH Screenings 2003 [facility]- SDOH Screenings 10/08/2021 [facility]-Adult SDOH Screenings 10/08/2021 [facility]-Depression Screening 03/16/2022 03/16/2021, 02/27 [facility]-Pap Smear 10/08/2024 [facility]-DTaP,Tdap,and Td Vaccines (7 - Td or Tdap) 12/24/2024 12/24/2014, 12/11/2013, 02/21/2009, Additional history exists [id number]-31 Vaccine ( season) 2025 [facility]-Influenza Vaccine (#1) 01/28/202502/13, 04/25/2023, 02/24/2021, Additional [...] complete this topic [facility]-Obesity Intervention Completed 025, 01/15/2025, 12/06/2024, Additional history exists [facility]-Rotavirus Vaccines Aged Out No lo nger eligible based on patient's age to complete this topic Goals Goal Patient Goal Type Associated Problems Recent Progress Patient-Stated? Author Autogenera isiah Goal Care Plan Autogenerated Problem No Ketron, Maryanne L Medical Devices Implanted Type Area Product Support Rep Device Identifier Shelf Expiration Date Model / Serial / Lot Kimberly Barrett - [id number] Implanted:Qty: 1 on 08/23/2024 by Rebeka Palma MD at [facility] Larynx [id number] 06/08/2026 [id number] / / [id number] Procedures Procedure Name Priority Date/Time Associated Diagnosis Comments PB ANESTHESIA PLACEHOLDER Routine 01/11/2025 7:53 AM EDT PA AN ELECTIVE ENDOTRACHEAL AIRWAY Routine 01/11/2025 7:53 AM EDT LARYNGOSCOPY, WITH VOCAL CORD NODULE EXCISION 01/11/2025 7:25 AM EDT Dysphonia LARYNGOSCOPY, DIRECT, WITH LASER PROCEDURE 01/11/2025 7:25 AM EDT Dysphonia POCT , URINE Routine 01/11/2025 6:57 AM EDT from Last 3 Months Results * PA AN ELECTIVE ENDOTRACHEAL AIRWAY, PB ANESTHESIA PLACEHOLDER (01/11/2025 7:53 AM EDT) Narrative Marcellus Noel MD - 01/11/2025 7:53 AM EDT Marcellus Noel MD 01/18/2025 4:38 PM Airway Date/Time: 01/11/2025 7:53 AM Reason: elective Airway not difficult General Information and Staff Patient location during procedure: OR Anesthesiologist: Marcellus Noel MD Resident: Dontrell Patterson MD Performed: Resident Patient Condition Indications for airway management: anesthesia Patient position: sniffing Final Airway Details Final airway type: endotracheal airway Successful airway: ETT Cuffed: yes Successful intubation technique: video laryngoscopy Adjuncts used in placement: intubating stylet Endotracheal tube insertion site: oral Blade: other (Hyper 3) ETT size (mm): 5.0 (Laser tube) Cormack-Lehane Classification: grade I - full view of glottis Placement verified by: chest auscultation and capnometry Measured from: lips ETT to lips (cm): 22 Additional Comments Atraumatic. No change to dentition. Small 5.0 laser tube used per surgeon request us Marcellus Noel MD ANESTHESIA ORDERABLES Final Res ult * POCT , URINE (01/11/2025 6:57 AM EDT) POCT Test, Urine Negative Males and Non- Females: Negative 01/11/2025 7:04 AM EDT [facility] Parking Enforcer ID Summer Rutherford 01/11/2025 7:04 AM EDT HEALTHCARE LAB Device ID [id number] 01/11/2025 7:04 AM EDT HEALTH[facility]ARE LAB Urine Urine specimen obtained by clean catch procedure / Unknown 01/11/2025 6:57 AM EDT 01/11/2025 7:04 AM EDT us Rebeka Palma MD LAB POINT OF CARE TE ST DOCKED DEVICE UNSOLICITED RESULTS Final Result [facility] [address] [place] [phone] from Last 3 Months Additional Health Concerns Active Problems Noted Date Diagnosed Date Autogenerated Problem 12/06/2024 Infection Onset Date Last Indicated 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 Source: [email or web address]. 12/25/2023 Insurance [employer] [facility] MEDICAID Advance Directives * Full Code (Latest Code Status on File) Date Activated Date Inactivated Comments 01/11/2025 10:44 AM 01/12/2025 3:22 PM Question Answer Comments I have reviewed the capacity from the link above and, if needed, have updated to appropriate status: Yes Care Teams Furnace Room Supervisor Relationship Specialty Start Date End Date Edelmira Ma APRN [address] [place] [address] PCP - General 08/23/24
--- OUTSIDE RECORDS SUMMARY | 2025-03-24 10:46 | XMS_ITS | Clinical Summary ---
Author Organization [facility] Address [address] [place] [address] Phone Care Team Providers Care Loss Prevention Associate Name Role Phone Unavailable Unavailable Conditions or Problems No information available. Medications No information available. Medications Administered No information available. Allergies, Adverse Reactions, Alerts No information available. Results No information available. Plan of Care No information available. Procedures No information available. Vital Signs No information available. Immunizations No information available. Advance Directives No information available.
--- OUTSIDE RECORDS SUMMARY | 2025-03-24 10:47 | XMS_ITS | Encounter Summary ---
Author Organization [facility] Address [address] [place] [address] Care Team Providers Care Scrummaster Name Role Phone Masoud Collazo MD Primary Care Provider [phone] Edelmira Ma APRN Primary Care Provider [phone] Encounter Details Date Type Department Care Team (Late st Contact Info) Description 07/03/2024 [facility] [address] [place] [address] Edelmira Ma APRN [address] [place] [address] Social History Tobacco Use Types Packs/Day Years [...] Description 04/22/2025 4:20 PM EST Office Visit [facility] [address] [place] [phone] Rebeka Palma MD [address] [place] [address] documented as of this encounter Visit Diagnoses Not on filedocumented in this encounter Additional Health Concerns Infection Onset Date Last Indicated Resolved Time 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 Source: [employer] [facility]. 12/25/2023 Assessment Noted Time PHQ-9 Depression Total Score: 15 021 9:54 AM EDT documented as of this encounter Care Teams Scrummaster Relationship Specialty Start Date End Date Masoud Collazo MD [address] [place] [address] PCP - General 10/10/20 08/22/24 Edelmira Ma APRN [address] [place] [address] PCP - General 08/23/24 documented as of this encounter
--- OUTSIDE RECORDS SUMMARY | 2025-03-24 10:47 | XMS_ITS | Clinical Summary ---
Author Organization [employer] ([place], [place], [place], [place]) Address [address] [place] [address] Care Team Providers Care Mainspring Torque Tester Name Role Phone Edelmira Ma APRN Primary Care Provider [phone] Jeremy Molina MD Unavailable [phone] Allergies Active Allergy Reactions Criticality Noted Date Comments Adhesive 02/03/2024 Eucalyptus Jma-Vkmqe-Otgcjimv Swelling,Rash High 11/22/2023 Headache, rash and swelling Grass Pollen 02/03/2024 Medications busPIRone (BUSPAR) 10 MG tablet Take 1 tablet (10 mg total) by mouth 2 (two) times daily. 60 tablet 01/13/2024 Active fLUoxetine (PROzac) 10 MG capsule Take 1 capsule (10 mg total) by mouth daily. Active Vraylar 1.5 mg capsule Take 1 capsule (1.5 mg total) by mouth daily. 05/16/2024 Active famotidine (PEPCID) 20 MG tablet Take 1 tablet (20 mg total) by mouth 2 (two) times daily. 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 12/15/2023 Colitis due to Escherichia coli 11/22/2023 GIB (gastrointestinal bleeding) 11/22/2023 Choledocholithiasis 11/22/2023 Generalized anxiety disorder with panic attacks 03/16/2021 12/17/2023 Encounters Date Type Department Care Team Description 03/05/2025 Documentation [facility] [address] [place] [address] Criselda Monroy MD 02/22/2025 1:40 PM EDT Office Visit [facility] [place] [address] [place] [address] Jeremy Molina MD 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) 02/22/2025 Travel from Last 3 Months Immunizations Immunization Administration Dates Next Due HIB (PRP-OMP) 04/06/2024 Meningococcal B, Omv 04/06/2024,12/07/2023,11/26 Meningococcal Conjugate 04/06/2024,12/07/2023, Pneumococcal Conjugate Vacci ne (20-Valent) IM 04/06/2024 Family History Medical History Relation Name Comments No Known Problem Brother No Known Problem Father No Known Problem Maternal Aunt No Known Problem Maternal Grandfather No Known Problem Maternal Grandmother No Known Problem Maternal Uncle No Known Problem Mother No Known Problem Paternal Aunt No Known Problem Paternal Grandfather No Known Problem Paternal Grandmother No Known Problem Paternal Uncle No Known Problem Sister Relation Name Status Comments Brother Father Maternal Aunt Maternal Grandfather Maternal Grandmother Maternal Uncle Mother Paternal Aunt Paternal Grandfather Paternal Grandmother Paternal Uncle Sister Social History Tobacco Use Types Packs/Day [...] Do you speak a language other than [place] at [facility]? No 11/22/2023 Do you [...] 02/22/2025 1:58 PM EDT Inhaled Oxygen Concentration 28% 01/08/2024 8 :00 PM EDT Weight 74.7 kg (164 lb 9.6 oz) 02/22/2025 1:58 P M EDT Height 162.6 cm (5' 4 ) 02/22/2025 1:58 PM EDT Body Mass Index 28.25 02/22/2025 1:58 PM EDT Plan of Treatment Upcoming Encounters Date Type Department Care Team (Late st Contact Info) Description 08/23/2025 2:20 PM EDT Office Visit [facility] [place] [address] [place] [address] Jeremy Molina MD [address] [place] [address] Health Maintenance Due Date Last Done Comments Depression Screening (12+) 2015 HIV Screening 10/08/2018 Meningococcal B Vaccine (1 o f 2 - Standard) 05/04/2024 04/06/2024, 12/07/2023, 11/27/2023 Pap Smear 10/08/2024 DTAP/TDAP/TD VACCINES (7 - T d or Tdap) 12/24/2024 12/24/2014, 12/11/2013, 02/21/2009, Additional history exists COVID-19 VACCINE (1 - 2023-2 5 season) 2025 Influenza Vaccine (#1) 2025 02/28/2024, 2013 Tobacco Cessation Counseling and Screening (12+) 02/22/2026 02/22/2025 Hepatitis C Screening Completed 12/06/2023 , 12/04/2023, [...] Nonreactive Nonreactive, Equivocal 12/06/2023 3:54 PM EDT [facility] Hep B C IgM Nonreactive Nonreactive 12/06/2023 3:54 PM EDT [facility] Hepatitis B surface antigen Nonreactive Nonreactive, Equivocal 12/06/2023 3:54 PM EDT [facility] Hepatitis C Ab Nonreactive Nonreactive, Equivocal 12/06/2023 3:54 PM EDT [facility] Blood Venipuncture / Unknown 12/06/2023 1:53 PM EDT 12/06/2023 2:07 PM EDT [facility] - 12/06/2023 3:54 PM EDT Hepatitis [...] MD LAB BLOOD ORDERABLES Final Resu lt [facility] [address] [phone] from Last 3 Months or Most Recently Relevant to Health Maintenance Additional Health Concerns Infection Onset Date Last Indicated Other - see comment Comment:CTX-M 12/24/2023 12/24/2023 MDR Klebsiella pneumoniae (C ) Comment:ESBL 12/26 mdr in cath tip 12/25/2023 12/25/2023 Insurance [facility] MEDICAID Advance Directives For more information, please contact: [phone] * Full Code (Latest Code Status on File) Date Activated Date Inactivated Comments 11/22/2023 5:43 PM 01/13/2024 2:32 PM Care Teams Mainspring Torque Tester Relationship Specialty Start Date End Date Edelmira Ma, KONG [address], [place] [address] [phone] PCP - General Nurse Practitioner 01/13/24 Jeremy Molina MD [address] [facility] [address] [place] [address] Consulting Physician Hematology and Oncology 02/21/25
--- OUTSIDE RECORDS SUMMARY | 2025-03-24 10:47 | XMS_ITS | Referral Summary ---
Author Organization [employer] ([place], [place], [place], [place]) Address [address] [place] [address] Care Team Providers Care Edge Setter Name Role Phone MaEdelmira cool KONG Primary Care Provider [phone] Jeremy Molina MD Unavailable [phone] Encounters Date Type Department Care Team Description 03/05/2025 Documentation [facility] Pulm & Critical Care Medicine [address] [facility] [address] [place] [address] Criselda Monroy MD 02/22/2025 Travel 02/22/2025 1:40 PM EDT Office Visit [facility] [place] [address] [place] [address] Jeremy Molina MD 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 Never 11/22/2023 How often does anyone, bhavanawandy raines family and friends, insult or talk down to you? Never 11/22/2023 How often does anyone, bhavanawandy raines family and friends, threaten you with harm? Never 11/22/2023 How often does anyone, bhavanawandy raines family and friends, scream or curse [...] Do you speak a language other than Mosotho at [facility]? No 11/22/2023 Do you [...] Description 08/23/2025 2:20 PM EDT Office Visit [facility] [place] [address] [place] [address] Jeremy Molina MD [address] [place] [address] Procedures Procedure Name Priority Date/Time Associated Diagnosis Comments HEPATITIS PANEL, ACUTE STAT 12/06/2023 1:53 PM EDT from Last 3 Months or Most Recently Relevant to Health Maintenance Results * Hepatitis panel, acute (12/06/2023 1:53 PM EDT) Hep A IgM Nonreactive Nonreactive, Equivocal 12/06/2023 3:54 PM EDT [facility] Hep B C IgM Nonreactive Nonreactive 12/06/2023 3:54 PM EDT [facility] Hepatitis B surface antigen Nonreactive Nonreactive, Equivocal 12/06/2023 3:54 PM EDT [facility] Hepatitis C Ab Nonreactive Nonreactive, Equivocal 12/06/2023 3:54 PM EDT [facility] Blood Venipuncture / Unknown 12/06/2023 1:53 PM EDT 12/06/2023 2:07 PM EDT Narrative [facility] - 12/06/2023 3:54 PM EDT Hepatitis [...] MD LAB BLOOD ORDERABLES Final Resu lt [facility] [address] [phone] from Last 3 Months or Most Recently Relevant to Health Maintenance Additional Health Concerns Infection Onset Date Last Indicated Other - see comment Comment:CTX-M 12/24/2023 12/24/2023 MDR Klebsiella pneumoniae (C ) Comment:ESBL 12/26 mdr in cath tip 12/25/2023 12/25/2023 Insurance [facility] [employer] MED[employer] Advance Directives For more information, please contact: [phone] * Full Code (Latest Code Status on File) Date Activated Date Inactivated Comments 11/22/2023 5:43 PM 01/13/2024 2:32 PM Care Teams Edge Setter Relationship Specialty Start Date End Date Edelmira Ma APRN [address] [place] [address] PCP - General Nurse Practitioner 01/13/24 Jeremy Molina MD [address] [place] [id number] Consulting Physician Hematology and Oncology 02/21/25
--- OUTSIDE RECORDS SUMMARY | 2025-03-24 10:47 | XMS_ITS | Encounter Summary ---
Author Organization Healthcare Address [address] [place] [address] Care Team Providers Care Ramp Agent Name Role Phone Masoud Collazo MD Primary Care Provider [phone] Edelmira Ma APRN Primary Care Provider [phone] Encounter Details Date Type Department Care Team (Late st Contact Info) Description 01/09/2024 Orders Only External Location [address] [place] [address] Provider, External Social History Tobacco [...] Description 04/22/2025 4:20 PM EST Office Visit [facility] [address] [place] [address] Rebeka Palma MD [address] [place] [address] documented as of this encounter [...] Time 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 Source: [employer]. 12/25/2023 Assessment Noted Time PHQ-9 Depression Total Score: 15 021 9:54 AM EDT documented as of this encounter Care Teams Ramp Agent Relationship Specialty Start Date End Date Masoud Collazo MD [facility] [place] [address] PCP - General 10/10/20 08/22/24 Edelmira Ma APRN [address] [place] [address] PCP - General 08/23/24 documented as of this encounter
--- OUTSIDE RECORDS SUMMARY | 2025-03-24 10:47 | XMS_ITS | Encounter Summary ---
Author Organization [employer] ([place], [place], [place], [place]) Address [address] [place] [address] Care Team Providers Care Coal Miner Name Role Phone Edelmira Ma APRN Primary Care Provider [phone] Jeremy Molina MD Unavailable [phone] Encounter Details Date Type Department Care Team (Late st Contact Info) Description 03/05/2025 Documentation [facility] Pulm & Critical Care Medicine [address] [facility] [address] [place] [address] Criselda Monroy MD [address] [facility] [address] [place] [address] Social History Tobacco Use Types Packs/Day Years [...] Do you speak a language other than Portuguese at [facility]? No 11/22/2023 Do you want help with [...] on file documented as of this encounter Progress Notes * Kathy Hung CMA - 03/05/2025 12:49 PM EDT Records request received today, and sent to [employer] today for proper processing. 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
--- OUTSIDE RECORDS SUMMARY | 2025-03-24 10:47 | XMS_ITS | Encounter Summary ---
Author Organization Healthcare Address [address] [place] [address] Care Team Providers Care Prepress Operator Name Role Phone AnilEdelmira Henny TRIANA Primary Care Provider [phone] Reason for Visit * Reason Onset Date Comments HCN Clinical Concern/Question 01/15/2025 Encounter Details Date Type Department Care Team (Late st Contact Info) Description 01/15/2025 Telephone [facility] [address] [place] [address] Rebeka Palma MD [address] [place] [address] HCN Clinical Concern/Question Social History Tobacco Use Types Packs/Day Years [...] encounter Miscellaneous Notes * Telephone Encounter - Shanika Lara - 01/15/2025 8:09 AM EDT Clinical Concern/Question Reason for Call: Patient scheduled for PO appt 01/17/25. Having some PO complications and would liketo get in sooner if possible. Please call patient to discuss further. Thank you Best contact number: [phone] (mobile) Optimal time of day to reach caller: ANYTIME Additional comments/information from caller: None Note: Please do not reply to this message. Follow-up communication and further actions as a result of this message need to be communicated with the patient directly, if the patient is not active onMyChart. If the patient is active on MyChart, they will receive notification of the communication/outcome via MyChart. documented in this encounter Plan of Treatment Upcoming Encounters Date Type Department Care Team (Late st Contact Info) Description 04/22/2025 4:20 PM EST Office Visit [facility] [address] [place] [address] Rebeka Palma MD [address] [facility] [address] [place] [address] documented as of this encounter [...] Time 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 Source: [employer]. 12/25/2023 Assessment Noted Time PHQ-9 Depression Total Score: 15 03/16/ 021 9:54 AM EDT A Body Mass Index follow-up plan has been documented for the patient 01/17/2025 8:52 PM EDT documented as of this encounter Care Teams Prepress Operator Relationship Specialty Start Date End Date Edelmira Ma APRN [address] [place] [address] PCP - General 08/23/24 documented as of this encounter
[2025-03-24 10:55] LABS: Microscopic, Urine URINE MICROSCOPIC (MICROSCOPIC)
[2025-03-24 11:08] LABS: Hematocrit 42.6 % (37.0-47.0); Hemoglobin 14.1 g/dL (12.2-16.2); Immature Granulocytes % 0.1 %; Mean Corpuscular HGB Conc 33.1 g/dL (31.8-35.4); Mean Corpuscular Hemoglobin 28.1 pg (27.0-31.2); Mean Corpuscular Volume 85.0 fl (81-99); Nucleated Red Blood Cells % 0 %; Platelet Count 231 K/mm3 (142-424); Red Blood Count 5.01 M/mm3 (4.20-5.40); Red Cell Distribution Width-SD 39.1 fL; White Blood Count 11.1 K/mm3 (4.8-10.8)
[2025-03-24 11:18] LABS: HCG Qualitative, Serum Negative (Negative)
[2025-03-24] MEDS: ONDANSETRON 4MG/2ML VIAL 4 MG IV ×2 (11:18→15:28)
[2025-03-24] MEDS: LACTATED RINGERS 1000ML 1,000 ML 999 ML IV ×2 (11:18→13:01)
[2025-03-24 11:23] LABS: Lactate Venous 2.1 mmol/L (0.4-2.0); VBG HCO3 20.2 mmol/L (23-30); VBG PCO2 28.8 mmol/L (35-51); VBG PH 7.46 mmol/L (7.31-7.41); VBG PO2 156.5 mmol/L (28-40)
[2025-03-24 11:25] LABS: Chloride 105 mmol/L (98-107)
[2025-03-24 11:26] LABS: Albumin Level 4.2 g/dl (3.5-5.0); Potassium 3.6 mmoL/L (3.5-5.1); Sodium 136 mmol/L (136-145)
[2025-03-24 11:28] LABS: Anion Gap 10.6 mEq/L (5-15); Blood Urea Nitrogen 7 mg/dl (7-17); Carbon Dioxide 24 mmol/L (22.0-30.0); Creatinine Clearance Estimated 145 mL/min (50-200); Creatinine,Serum 0.70 mg/dl (0.52-1.04); Estimated Glomerular Filt Rate 106 ml/min (>60); GFR (African American) 128 ML/MIN (>60)
--- NOTE | 2025-03-24 11:28 | PC.NURSE ---
provider states no cultures needed
[2025-03-24 11:29] LABS: Alanine Aminotransferase 22 U/L (12-78); Albumin/Globulin Ratio 1.3 (1.1-1.8); Alkaline Phosphatase 98 U/L (38-126); Aspartate Amino Transferase 25 U/L (14-36); Bilirubin,Total 0.5 mg/dl (0.2-1.3); Calcium 8.8 mg/dl (8.4-10.2); Globulin 3.2 g/dL (1.3-3.2); Glucose 103 mg/dl (74-100); Magnesium 2.0 mg/dl (1.6-2.3); Total Protein,Serum 7.4 g/dl (6.3-8.2)
[2025-03-24 11:31] LABS: Bilirubin,Urine Negative (Negative); Color,Urine YELLOW (Yellow); Glucose,Urine (UA) Negative (Negative); Ketones,Urine Negative (Negative); Leukocyte Esterase,Urine TRACE (Negative); PH,Urine 7.5 (5.0-8.5); Protein,Urine TRACE (Negative); Specific Gravity, Urine 1.020 (1.005-1.030); Urobilinogen,Urine 1.0 EU/dl (0.2)
[2025-03-24] MEDS: KETOROLAC 15MG/ML VIAL 15 MG IV (11:43)
[2025-03-24 12:12] LABS: RBC Morphology Normal; Total Cells Counted 100
[2025-03-24] MEDS: ACETAMINOPHEN 500MG TAB 1000 MG PO (12:14)
[2025-03-24 12:19] LABS: C-Reactive Protein 1.0 mg/L (0-4)
--- NOTE | 2025-03-24 12:50 | CT_ITS ---
PROCEDURE INFORMATION: Exam: CT Abdomen And Pelvis With Contrast Exam date and time: 03/24/2025 1:22 PM Age: 19 years old Clinical indication: Other: Rlq pain, n/v/d, appendicits? TECHNIQUE: Imaging protocol: Computed tomography of the abdomen and pelvis with contrast. Radiation optimization: All CT scans at this facility use at least one of these dose optimization techniques: automated exposure control; mA and/or kV adjustment per patient size (includes targeted exams where dose is matched to clinical indication); or iterative reconstruction. Contrast material: ISOVUE; Contrast volume: 75 ml; Contrast route: IV; COMPARISON: CT ABDOMEN PELVIS W CON 11/20/2023 5:59 PM FINDINGS: Lungs: The lungs are unremarkable. Heart: The heart is unremarkable. No cardiomegaly. No pericardial effusion. Esophagus: The visible esophagus is unremarkable. Liver: Liver is unremarkable. Gallbladder and biliary ducts: Status post cholecystectomy. The biliary tree is unremarkable. Pancreas: Normal. No ductal dilation. Spleen: Spleen is unremarkable. Adrenal glands: Normal. No mass. Kidneys and ureters: The kidneys and ureters are unremarkable. Stomach and bowel: The stomach and bowel are unremarkable. Appendix: The appendix is normal. The appendix is normal. Intraperitoneal space: The intraperitoneal space is unremarkable. No free air. No significant fluid collection. Vasculature: The vasculature is unremarkable accounting for age. No abdominal aortic aneurysm. Lymph nodes: No enlarged lymph nodes. Urinary bladder: The urinary bladder is unremarkable. Reproductive: New 5.4 cm right ovarian cyst, image 3/91. The reproductive organs are otherwise unremarkable. Bones/joints: The visible skeletal structures are unremarkable. Soft tissues: The soft tissues are unremarkable. IMPRESSION: 1. 5.4 cm right ovarian cyst. Follow-up pelvic ultrasound with color and spectral Doppler imaging is recommended to rule out ovarian torsion. 2. Otherwise unremarkable exam.
[2025-03-24] MEDS: MORPHINE 4MG/ML SYRINGE 4 MG IV ×3 (13:09→17:34)
[2025-03-24 13:19] LABS: Bacteria,Urine 3+ /lpf
[2025-03-24] MEDS: IOPAMIDOL-370 (76%);100ML BOTTLE 75 ML IV (13:22)
[2025-03-24] MEDS: SODIUM CHLORIDE 0.9% 10ML SYR (RAD ONLY) 10 ML IV (13:22)
[2025-03-24 13:30] LABS: Hepatitis C Ab Qual. W/ RFX NEGATIVE (Negative)
--- NOTE | 2025-03-24 14:07 | US_ITS ---
PROCEDURE INFORMATION: Exam: US Pelvis, Transvaginal, Non-Obstetric Exam date and time: 03/24/2025 2:17 PM Age: 19 years old Clinical indication: Pelvic pain; Additional info: R ovarian cyst / torsion TECHNIQUE: Imaging protocol: Real-time transvaginal pelvic (non-obstetric) ultrasound with image documentation. Transvaginal imaging was used for better evaluation of the endometrium, adnexa, and/or cervix. COMPARISON: CT ABDOMEN PELVIS W CON 03/24/2025 1:22 PM FINDINGS: Uterus: The uterus is normal in size and appearance measuring 7.4 x 3.0 x 5.2 cm. The endometrium is normal in size and appearance measuring 2 mm in thickness. Right ovary/adnexa: The right ovary is enlarged measuring 5.8 x 5.0 x 4.2 cm with a calculated volume of 62 mL. There is a simple 4.5 cm cyst of the right ovary demonstrating ring down artifact. There is normal spectral and color Doppler flow of the right ovary. Left ovary/adnexa: The left ovary is normal in size and appearance measuring 2.5 x 1.6 x 1.3 cm with a calculated volume of 2.6 mL. There is normal color and arterial spectral Doppler imaging. Urinary bladder: Urinary bladder is limited. Intraperitoneal space: No free fluid. IMPRESSION: 1. No ovarian torsion. 2. 4.5 cm simple cyst of the right ovary. ASSESSMENT: O-RADS US 2 - Almost certainly benign (<1% chance of malignancy): For premenopausal patients, no imaging follow-up is recommended. For postmenopausal patients, a follow-up ultrasound in 12 months is recommended (Strachowski 2022). REFERENCES: 1. Dari[place] URIBE et al. O-RADS US v2022: An Update from the [employer]'s Ovarian-Adnexal Reporting and Data System US Committee. Radiology. 2022;3083):[id number] Assessment: O-RADS US 2 - Almost certainly benign (<1% chance of malignancy): For premenopausal patients, no imaging follow-up is recommended. For postmenopausal patients, a follow-up ultrasound in 12 months is recommended (Strachowski 2022). 2. Darien URIBE et melina. O-RADS US v2022: An Update from the [employer]'s Ovarian-Adnexal Reporting and Data System US Committee. Radiology. 2022;308(3):[id number]
--- NOTE | 2025-03-24 14:08 | PC.NURSE ---
I spoke with Mirlande requesting her call in US to rule out ovarian torsion
--- NOTE | 2025-03-24 14:10 | HMH.ITSTN ---
US has been called @[phone]
[2025-03-24 15:23] LABS: Reflex Lactic Add Lactic Reflex
--- NOTE | 2025-03-24 15:24 | PC.NURSE ---
provider notified that patient is in extreme pain no new orders at this time
--- NOTE | 2025-03-24 16:46 | PC.NURSE ---
patient requesting more pain meds provider notified, no new orders
--- NOTE | 2025-03-27 08:15 | PC.NURSE ---
Final urine culture discussed with . No change needed to treatment.
== END 2025-03-24 17:56 | disposition home or self-care (01) ==
PROVIDERS: Emergency Provider Student in an Organized Health Care Education/Training Program; PCP Nurse Practitioner Family
DX: R10.30 Lower abdominal pain, unspecified (principal); R10.11 Right upper quadrant pain; N83.201 Unspecified ovarian cyst, right side; N39.0 Urinary tract infection, site not specified; R74.02 Elevation of levels of lactic acid dehydrogenase [LDH]; E87.3 Alkalosis; R11.2 Nausea with vomiting, unspecified; R19.7 Diarrhea, unspecified; B96.20 Unspecified Escherichia coli [E. coli] as the cause of diseases classified elsewhere
CPT/HCPCS: 74177; 76830; 80053; 81001; 82803; 83735; 84703; 85007; 85025; 86140; 86803; 87086; 87088; 87186; 87389; 96361; 96374; 96375; 96376; 99285; J1885; J2270; J2405; J7120; Q9967

== ENCOUNTER 2025-05-06 19:56 | Emergency (ER) | payer MEDICAID, SELFPAY ==
[2025-05-06 20:18] VITALS: BP 140/96; PULSE 102; RESP 16; TEMP 37.1; O2SAT 99; BMI 27.4
--- NOTE | 2025-05-06 20:24 | US_ITS ---
PROCEDURE INFORMATION: Exam: US Duplex Artery or Vein of the Abdominal and/or Reproductive Organs, Limited Ovaries Exam date and time: 05/06/2025 8:43 PM Age: 19 years old Clinical indication: Pelvic pain and vaginal pain; Additional info: Low pelvic and left sided pain TECHNIQUE: Imaging protocol: Real-time duplex ultrasound scan of the arterial or venous flow with amaro scale, color Doppler flow and spectral waveform analysis with image documentation. Limited duplex exam focused on the ovaries. Duplex exam was performed to evaluate for torsion and other vascular conditions. COMPARISON: US TRANSVAGINAL 03/24/2025 2:17 PM FINDINGS: Right ovary/adnexa: Present arterial waveforms on duplex. Color Doppler flow is noted. Left ovary/adnexa: Present arterial waveforms on duplex. Color Doppler flow is noted. IMPRESSION: Flow is present in the ovaries bilaterally. PROCEDURE INFORMATION: Exam: US Pelvis, Transvaginal, Non-Obstetric Exam date and time: 05/06/2025 8:43 PM Age: 19 years old Clinical indication: Pelvic pain and vaginal pain; Additional info: Low pelvic and left sided pain TECHNIQUE: Imaging protocol: Real-time transvaginal pelvic (non-obstetric) ultrasound with image documentation. Transvaginal imaging was used for better evaluation of the endometrium, adnexa, and/or cervix. COMPARISON: US TRANSVAGINAL 03/24/2025 2:17 PM FINDINGS: Uterus: No suspicious endometrial thickening. Right ovary/adnexa: Present ovarian blood flow. 1.8 cm cyst in the right ovary. Left ovary/adnexa: Present ovarian blood flow. Urinary bladder: not well seen Intraperitoneal space: No free fluid. IMPRESSION: No acute findings.
--- NOTE | 2025-05-06 20:25 | CT_ITS ---
PROCEDURE INFORMATION: Exam: CT Abdomen And Pelvis With Contrast Exam date and time: 05/06/2025 9:21 PM Age: 19 years old Clinical indication: Abdominal pain; Additional info: Low abdominal/pelvic pain TECHNIQUE: Imaging protocol: Computed tomography of the abdomen and pelvis with contrast. Radiation optimization: All CT scans at this facility use at least one of these dose optimization techniques: automated exposure control; mA and/or kV adjustment per patient size (includes targeted exams where dose is matched to clinical indication); or iterative reconstruction. Contrast material: ISOVUE; Contrast volume: 75 ml; Contrast route: IV; COMPARISON: CT ABDOMEN PELVIS W CON 03/24/2025 1:22 PM FINDINGS: Liver: Too small to characterize hypodensities in the liver Gallbladder and biliary ducts: Cholecystectomy Pancreas: No ductal dilation. No peripancreatic inflammatory changes. Spleen: Unremarkable. Adrenal glands: No mass. Kidneys and ureters: No hydronephrosis. Unremarkable renogram. Stomach and bowel: Nonobstructive bowel gas pattern. Appendix: Unremarkable appendix. . Intraperitoneal space: No evidence of pneumoperitoneum. Vasculature: . No abdominal aortic aneurysm. Lymph nodes: No lymphadenopathy by size criteria. Urinary bladder: The urinary bladder is not distended and not well evaluated. Air in the urinary bladder, instrumentation versus infection from gas producing organism. Reproductive: The uterus is present. Known small right ovarian cyst. Punctate focus of air adjacent to right adnexa, possibly within adjacent small bowel loop. Bones/joints: No suspicious osseous lesion. No acute fracture. Soft tissues: Smallfat containing umbilical hernia. IMPRESSION: 1. Unremarkable appendix. . . 2. Nonobstructive bowel gas pattern.
--- NOTE | 2025-05-06 20:28 | ED_ITS ---
<Statement entered by Kary Hall DO - 05/06/25 22:19> I was consulted by the SINCERE, and we discussed the complexity of problems being addressed. I approve the treatment and management plan for this patient's care in the emergency department, thus performing a substantial portion of the medical decision making. Kary Hall DO Discharge Plan Disposition Chief Complaint: Abdominal Pain Prescriptions Prescriptions: No Action fluoxetine [Prozac] 10 mg capsule 10 mg PO DAILY Tyblume 0.1 mg- 20 mcg tablet,chewable 0RF ketorolac 10 mg tablet 10 mg PO Q6H Qty: 20 0RF Rx Instructions: maximum total duration of 5 days from all oral, intranasal, or parenteral formulations ondansetron 4 mg tablet,disintegrating 4 mg PO DAILY Qty: 30 0RF dicyclomine 20 mg tablet 20 mg PO BID Qty: 20 0RF cefdinir 300 mg capsule 300 mg PO BID 7 Days Qty: 14 0RF Referrals Follow up/Referrals: Edelmira Ma APRN [Primary Care Provider, Medical] - See instructions Instructions Patient Instructions: DI for Acute Abdominal Pain Print Language Print Language: Kiswahili Discharge ED Provider: Kary Hall General Adult HPI General Chief complaint: Abdominal Pain Stated complaint: Left lower abd. pain Time Seen by Provider: 05/06/25 20:19 Mode of Arrival: Ambulatory Source of Information: Patient Description of Symptoms (Recalled from ER Triage Doc. by RN): Patient presents with LLQ pain that started 4 days ago. She states that she was seen in this ER about 1 month ago with the same symptoms diagnosed with an ovarian cyst. History of Present Illness HPI narrative: 19 year old fm presents today for Left lower quadrant pain that started 4 days ago. She has some vaginal bleeding as well. She was seen a month ago and had an ovarian cyst that was 5 mm cyst. She says her pain is hurting worse after urinating. No fevers, chills She does have nausea, no vomiting. Related Data Home Medications ?Medication ?Instructions ?Recorded ?Confirmed fluoxetine 10 mg capsule (Prozac) 10 mg PO DAILY 03/2603/26/25 Previous Rx's ?Medication ?Instructions ?Recorded cefdinir 300 mg capsule 300 mg PO BID 7 days #14 cap s 03/24/25 dicyclomine 20 mg tablet 20 mg PO BID #20 tabs ondansetron 4 mg disintegrating 4 mg PO DAILY #30 tabs 03/24/25 tablet ketorolac 10 mg tablet 10 mg PO Q6H #20 tabs Allergies Allergy/AdvReac Type Severity Reaction Status Date / Time No Known Allergies Allergy Verified 03/26/25 09:52 [facility] Disclaimer: The information contained in this section may have been updated after the patient was seen, as this information can be updated by other users. Medical History (Updated 03/26/25 @ 11:00 by Marcos Severino MD) Right ovarian cyst Abnormal uterine bleeding Migraine with aura Family History Other Asthma Cancer Diabetes FHx: mental illness Hypertension Kidney disease Social History Smoking Status: Never smoker alcohol intake: never substance use type: denies use current occupational status: unemployed and other Travel in the last 8 weeks?: None Have you lived/traveled outside US in past 30 days?: No Contact w/someone who lives/traveled outside US past 30 days?: No Exposure to someone with infectious disease in past 14 days?: No Do you have a fever (greater than 100.4 F or 38 C)?: No Have you tested positive for COVID-19?: No Exposed to someone with COVID-19 in past 14 days?: No Do you have a sore throat?: No Do you have a cough?: No Do you have any weakness?: No Do you have any diarrhea?: No Are you experiencing any unusual bleeding?: No Do you have any muscle aches/pain?: No Do you have any abdominal pain?: No Are you experiencing loss of taste or smell?: No Other Medical History Have you received the Flu Vaccine for this season: No Have you received the Pneumonia Vaccine: No ROS Obtained: Yes Systems reviewed as appropriate & no additional complaints except as documented Constitutional Constitutional: Reports as per HPI Physical Exam General General appearance: alert Head Head exam: normocephalic Eye Eye exam: Present PERRL and EOMI ENT ENT exam: Present normal oropharynx and mucous membranes moist Neck Neck exam: Present full ROM and trachea midline Respiratory Respiratory exam: Present normal lung sounds bilaterally Cardiovascular Cardiovascular exam: Present regular rate, normal rhythm, normal heart sounds, +S1 and +S2 Abdominal Exam Abdominal exam: Present soft Abdominal tenderness: Present LLQ and moderate Extremities Exam Extremities exam: Present full ROM and normal capillary refill Neurological Exam Neurological exam: Present alert and oriented X3 Skin Skin exam: Present warm and dry Medical Decision Making Medical Records Screening: Per USPSTF and CDC recommendations, given the prevalence of disease in our region, it is our hospital?s policy to screen for HIV and viral Hepatitis for all patients aged 18 and over and those with ongoing risk factors. Eliseo Inquiry Pt receiving controlled substance: No Eliseo was queried for this patient: No Vital Signs: 05/06/25 20:18 Temperature 98.7 F Temperature Source Oral Pulse Rate [Right Radial] 102 H Respiratory Rate 16 Blood Pressure [Right Arm] 140/96 H Blood Pressure Mean [Right Arm] 110 Blood Pressure Source [Right Arm] Automatic Cuff Blood Pressure Position [Right Arm] Sitting 02 Sat by Pulse Oximetry 99 Oxygen Delivery Method Room Air Lab Data Lab Results 05/06/25 20:26: Urine Color Yellow, Urine Appearance Clear, Urine pH 6.5, Ur Specific Fiatt 1.025, Urine Protein Negative, Urine Glucose (UA) Negative, Urine Ketones Negative, Urine Blood Trace-i, Urine Nitrate Negative, Urine Bilirubin Negative, Urine Urobilinogen 0.2, Ur Leukocyte Esterase Negative, Urine RBC 3-5, Urine WBC 5-10, Ur Squamous Epith Cells None, Urine Bacteria 4+, Urine HCG, Qual Negative 05/06/25 20:40: WBC 10.4, RBC 4.95, Hgb 14.5, Hct 42.0, MCV 84.8, MCH 29.3, MCHC 34.5, RDW 12.3, Plt Count 321, MPV 10.6 H, Neut % (Auto) 71.0, Lymph % (Auto) 21.1, Sac % (Auto) 6.0, Eos % (Auto) 1.3, Baso % (Auto) 0.4, Neut # (Auto) 7.4, Lymph # (Auto) 2.2, Sac # (Auto) 0.6, Eos # (Auto) 0.1, Baso # (Auto) 0.0, PT 10.1, INR 0.90, APTT 25.9, Sodium Cancelled 05/06/25 20:40: Sodium 141, Potassium Cancelled 05/06/25 20:40: Potassium 4.3, Chloride Cancelled 05/06/25 20:40: Chloride 104, Carbon Dioxide Cancelled 05/06/25 20:40: Carbon Dioxide 23, Anion Gap Cancelled 05/06/25 20:40: Anion Gap 18.3 H, BUN Cancelled 05/06/25 20:40: BUN 12, Creatinine Cancelled 05/06/25 20:40: Creatinine 0.70, Estimated Creat Clear Cancelled 05/06/25 20:40: Estimated Creat Clear 146, Estimated GFR Cancelled 05/06/25 20:40: Estimated GFR 106, Est GFR ( Amer) Cancelled 05/06/25 20:40: Est GFR ( Amer) 128, Glucose Cancelled 05/06/25 20:40: Glucose 107 H, Calcium Cancelled 05/06/25 20:40: Calcium 9.4, Magnesium Cancelled, Total Bilirubin Cancelled 05/06/25 20:40: Total Bilirubin 0.3, AST Cancelled 05/06/25 20:40: AST 25, ALT Cancelled 05/06/25 20:40: ALT 20, Alkaline Phosphatase Cancelled 05/06/25 20:40: Alkaline Phosphatase 90, Total Protein Cancelled 05/06/25 20:40: Total Protein 8.5 H, Albumin Cancelled 05/06/25 20:40: Albumin 5.1 H, Globulin Cancelled 05/06/25 20:40: Globulin 3.4 H, Albumin/Globulin Ratio Cancelled 05/06/25 20:40: Albumin/Globulin Ratio 1.5, Lipase Cancelled 05/06/25 20:40 05/06/25 20:40 Orders (Tests/Meds): ED MEDICATIONS Generic Name Dose Route Start Last Admin Trade Name Freq PRN Reason Stop Dose Admin Sodium Chloride 10 ml 05/06/25 21:30 05/06/25 21:31 Sodium Chloride 0.9% 10ml Syr (Rad Only) IV 06/05/25 21:29 10 ml NEEDED PRN Administration Maintain IV Site Discontinued Medications Generic Name Dose Route Start Last Admin Trade Name Freq PRN Reason Stop Dose Admin Acetaminophen 1,000 mg 05/06/25 20:25 05/06/25 20:50 Acetaminophen 1,000mg/100ml Vial IV 05/06/25 20:26 1,000 mg ONCE ONE Administration Sodium Chloride 1,000 mls @ 999 mls/hr 05/06/25 20:25 05/06/25 20:47 Sod Chlor 0.9% 1000ml Bag IV 05/06/25 21:25 999 mls/hr .Q1H1M ONE Administration Iopamidol 75 ml 05/06/25 21:30 05/06/25 21:31 Iopamidol-370 (76%);100ml Bottle IV 05/06/25 21:31 75 ml ONCE ONE Administration Ketorolac Tromethamine 30 mg 05/06/25 20:25 05/06/25 20:48 Ketorolac 30mg/Ml Vial IV 05/06/25 20:26 30 mg ONCE ONE Administration ORDERS Category Date Time Status CT abdomen pelvis w con Stat Cat Scan 05/06/25 20:25 Completed US transvaginal Stat Exams 05/06/25 20:24 Completed CBC [Complete Blood Count Auto Diff] Stat Lab 05/06/25 20:40 Completed Comprehensive Metabolic Panel Stat Lab 05/06/25 20:40 Completed PT INR [Prothrombin Time INR] Stat Lab 05/06/25 20:40 Completed PTT [Activated Partial Thrombo Time] Stat Lab 05/06/25 20:40 Completed Urinalysis and Microscopic Stat Lab 05/06/25 20:26 Completed Urine , HCG Qual. Stat Lab 05/06/25 20:26 Completed Urine Culture Stat Micro 05/06/25 20:26 Received Medical Decision Narrative: patient is a 19 year old female presenting to the emergency department for evaluation of left lower quadrant. Patient is hemodynamically stable and nontoxic-appearing upon arrival, afebrile. Differential diagnosis includes ovarian torsion, diverticulitis, ovarian cyst, among others. Workup will be conducted with hematologic labs, specific imaging. Initial interventions include crystalloid bolus, analgesics. Hematologic labs include wbc 10.4, normal electrolytes. CT scan shows unremarkable appendix, nonobstructive bowel gas pattern, normal ultrasound with good flow to both ovaries. Discussed with patient that she needs to call [facility] in the morning for structures assembler follow up. Patient is safe for discharge home Critical Care Critical Care Time Critical Care Time: No
[2025-05-06 20:31] LABS: Microscopic, Urine URINE MICROSCOPIC (MICROSCOPIC)
[2025-05-06 20:43] LABS: Bilirubin,Urine Negative (Negative); Color,Urine YELLOW (Yellow); Glucose,Urine (UA) Negative (Negative); Ketones,Urine Negative (Negative); Leukocyte Esterase,Urine Negative (Negative); PH,Urine 6.5 (5.0-8.5); Protein,Urine Negative (Negative); Specific Gravity, Urine 1.025 (1.005-1.030); Urobilinogen,Urine 0.2 EU/dl (0.2)
[2025-05-06 20:46] LABS: Urine Pregnancy, HCG Qual. Negative (Negative)
[2025-05-06] MEDS: 0.9 % SODIUM CHLORIDE 1000ML 1,000 ML 999 ML IV (20:47)
[2025-05-06] MEDS: KETOROLAC 30MG/ML VIAL 30 MG IV (20:48)
[2025-05-06] MEDS: ACETAMINOPHEN 1,000MG/100ML VIAL 1000 MG IV (20:50)
[2025-05-06 20:53] LABS: Hematocrit 42.0 % (37.0-47.0); Hemoglobin 14.5 g/dL (12.2-16.2); Immature Granulocytes % 0.2 %; Mean Corpuscular HGB Conc 34.5 g/dL (31.8-35.4); Mean Corpuscular Hemoglobin 29.3 pg (27.0-31.2); Mean Corpuscular Volume 84.8 fl (81-99); Nucleated Red Blood Cells % 0 %; Platelet Count 321 K/mm3 (142-424); Red Blood Count 4.95 M/mm3 (4.20-5.40); Red Cell Distribution Width-SD 37.9 fL; White Blood Count 10.4 K/mm3 (4.8-10.8)
[2025-05-06 21:24] LABS: Bacteria,Urine 4+ /lpf
[2025-05-06] MEDS: IOPAMIDOL-370 (76%);100ML BOTTLE 75 ML IV (21:31)
[2025-05-06] MEDS: SODIUM CHLORIDE 0.9% 10ML SYR (RAD ONLY) 10 ML IV (21:31)
[2025-05-06 21:37] LABS: Activated Partial Thrombo Time 25.9 seconds (22.8-30.6); INR 0.90 (0.9-1.1); Prothrombin Time 10.1 seconds (10.1-12.5)
[2025-05-06 21:47] LABS: Alanine Aminotransferase 20 U/L (12-78); Albumin Level 5.1 g/dl (3.5-5.0); Albumin/Globulin Ratio 1.5 (1.1-1.8); Alkaline Phosphatase 90 U/L (38-126); Anion Gap 18.3 mEq/L (5-15); Aspartate Amino Transferase 25 U/L (14-36); Bilirubin,Total 0.3 mg/dl (0.2-1.3); Blood Urea Nitrogen 12 mg/dl (7-17); Calcium 9.4 mg/dl (8.4-10.2); Carbon Dioxide 23 mmol/L (22.0-30.0); Chloride 104 mmol/L (98-107); Creatinine Clearance Estimated 146 mL/min (50-200); Creatinine,Serum 0.70 mg/dl (0.52-1.04); Estimated Glomerular Filt Rate 106 ml/min (>60); GFR (African American) 128 ML/MIN (>60); Globulin 3.4 g/dL (1.3-3.2); Glucose 107 mg/dl (74-100); Potassium 4.3 mmoL/L (3.5-5.1); Sodium 141 mmol/L (136-145); Total Protein,Serum 8.5 g/dl (6.3-8.2)
[2025-05-06 22:02] VITALS: BP 110/70; PULSE 98; RESP 22; TEMP 36.6; O2SAT 100
[2025-05-06 22:03] LABS: Lipase 94 U/L (23-300); Magnesium 1.5 mg/dl (1.6-2.3)
--- NOTE | 2025-05-09 16:05 | PC.NURSE ---
Prelim urine culture discussed with . He sent macrobid electronically to her pharmacy. I notified the pt of her results and that medication was sent to [facility]. She verbalized her understanding.
== END 2025-05-06 22:08 | disposition home or self-care (01) ==
PROVIDERS: Nurse Practitioner; Emergency Provider Student in an Organized Health Care Education/Training Program; PCP Nurse Practitioner Family
DX: R10.32 Left lower quadrant pain (principal); N39.0 Urinary tract infection, site not specified; N83.201 Unspecified ovarian cyst, right side; B96.29 Other Escherichia coli [E. coli] as the cause of diseases classified elsewhere
CPT/HCPCS: 74177; 76830; 80053; 81001; 81025; 83690; 83735; 85025; 85610; 85730; 87086; 87088; 87186; 96361; 96374; 96375; 99285; J0131; J1885; J7030; Q9967

== ENCOUNTER 2025-05-20 13:10 | Outpatient (CLI) | payer MEDICAID, SELFPAY ==
--- OUTSIDE RECORDS SUMMARY | 2025-04-22 16:20 | XMS_ITS | Encounter Summary ---
Author Organization Healthcare Address [address] [place] [address] Care Team Providers Care Hot Knife Foxing Cutter Name Role Phone nAilEdelmira Henny TRIANA Primary Care Provider [phone] Reason for Visit * Reason Comments Glottic insufficiency Encounter Details Date Type Department Care Team (Latest Contact Info) Description 04/22/2025 4:20 PM EST Office Visit [facility] [address] [place] [address] Rebeka Palma MD [address] [place] [address] Glottic insufficiency (Primary Dx); Dysphonia Social History Tobacco Use Types Packs/Day Years [...] Sign Reading Time Taken Comments Blood Pressure 120/88 04/22/2025 4:09 PM EST Pulse 86 04/22/2025 4:09 PM EST Temperature - - Respiratory Rate - - Oxygen Saturation - - Inhaled Oxygen Concentration - - Weight 76.7 kg (169 lb) 04/22/2025 4:09 PM EST Height 162.6 cm (5' 4 ) 04/22/2025 4:09 PM EST Body Mass Index 29.01 04/22/2025 4:09 PM EST documented in this encounter Miscellaneous Notes * Progress Notes - Rebeka Palma MD - 04/22/2025 4:20 PM EST OTOLARYNGOLOGY - HEAD & NECK SURGERY FOLLOW-UP NOTE Chief Complaint Patient presents with Glottic insufficiency LAST VISIT: 01/22/25 TREATMENT HISTORY: Jennifer Franklin is a 19 y.o. 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 Previous injection augmentation failed to improve her symptoms. Recommendation was made for posterior glottic inversion flap. SURGERY PERFORMED: Suspension microlaryngoscopy CO2 assisted Endoscopic Mucosal glottic inversion flap with endoscopic suturing DATE OF SURGERY: 01/11/25 FINDINGS: No obvious keyhole deformity of the [...] which did not impact viability or position. Finished cosmetology school. Voice is raspy and started getting worse about a month ago. Over time has noticed that it has gotten worse. If talks in a higher pitch voice, it gets better. When lower, it gets better. She is continuing to run out of air when speaking. MEDS: Current Medications[1] ALLERGIES: Lavender oil PERTINENT SOCIAL HISTORY: She reports current alcohol use. She reports no history of drug use. PHYSICAL EXAM: BP 120/88 Pulse 86 Ht 1.626 m (5' 4 ) Wt 76.7 kg (169 lb) BMI 29.01 kg/m?? Gen: Well developed, well nourished female in no apparent distress. Neuro: A&Ox3. Respiratory: No increased WOB, no stridor OC/OP: Tongue midline and mobile, no oral cavity lesions or masses. No tonsillar hypertrophy, without exudate or erythema. Palate elevates symmetric. Lymph: No palpable lymphadenopathy PROCEDURE NOTE: PROCEDURE PERFORMED: Flexible laryngoscopy with [...] closure without weakness Vocal Fold Color/Quality: Normal with prominent vocal process Vocal Fold Mobility/Position: Normal Atrophy of Vocal Folds: None Vocal Fold Lesions: There is an interarytenoid pedunculated lesion, which may be a granuloma from the healing of the flap Supraglottic Hyperfrunctional Contraction: None Tremor: None Subglottis: HORACIO Other Findings (Nasopharynx, Base of tongue, Piriforms): Normal Vibratory Parameters: Symmetry: No phase asymmetry Amplitude: Normal Mucosal Wave: Normal Periodicity: 100% periodic Closure: At modal pitch, continued posterior glottic gap Assessment/Plan Doing well s/p posterior glottic inversion flap. However, with continued dysphonia. Appears to still have a posterior glottic gap. There appears to be a granuloma that formed at the flap site. Will treat with flovent. Follow up in a few months to discuss further intervention, although I am not surewhat else to offer at this point. [1] Current Outpatient Medications: acetaminophen (Tylenol) 500 MG tablet, Take 2 tablets by mouth every 6 hours as needed for pain., Disp: 60 tablet, Rfl: 0 azithromycin (Zithromax) 250 MG tablet, Take 2 tablets now and repeat in 4 hours (Patient not taking: Reported on 01/22/2025), Disp: 4 tablet, Rfl: 0 busPIRone (Buspar) 10 MG tablet, Take 1 tablet by mouth 2 times a day., Disp: , Rfl: escitalopram (Lexapro) 5 MG tablet, Take 1 tablet (5 mg total) by mouth 1 (one) time each day., Disp: 30 tablet, Rfl: 2 esomeprazole (NexIUM) 40 MG packet, 40 mg by Per G Tube route daily., Disp: 30 packet, Rfl: 0 famotidine (Pepcid) 20 MG tablet, Take 1 tablet by mouth 2 times a day., Disp: 60 tablet, Rfl: 0 FLUoxetine (PROzac) 20 MG capsule, , Disp: , Rfl: fluticasone (Flonase) 50 MCG/ACT nasal spray, Administer 1 spray into each nostril nightly. Shake gently. Before first use, prime pump. After use, clean tip and replace cap., Disp: , Rfl: ibuprofen 400 MG tablet, Take 1 tablet by mouth every 6 hours as needed for moderate pain., Disp: 30 tablet, Rfl: 0 Melatonin 10 MG chewable tablet, Chew., Disp: , Rfl: ondansetron ODT (Zofran-ODT) 4 MG disintegrating tablet, if needed. (Patient not taking: Reported on 01/22/2025), Disp: , Rfl: oxyCODONE (Roxicodone) 5 MG immediate release tablet, Take 1 tablet by mouth every 6 hours as needed for moderate pain or severe pain. (Patient not taking: Reported on 01/22/2025), Disp: 5 tablet, Rfl: 0 Vraylar 1.5 MG capsule, Take 1 capsule by mouth 1 time each day., Disp: , Rfl: documented in this encounter Plan of Treatment Upcoming Encounters Date Type Department Care Team (Late st Contact Info) Description 09/02/2025 11:10 AM EDT Office Visit [facility] Otol[facility]ology [address] [place] [address] Rebeka Palma MD [address] [place] [address] documented as of this encounter Goals Goal Patient Goal Type Associated Problems Recent Progress Patient-Stated? Author Autogenera isiah Goal Care Plan Autogenerated Problem No Maryanne Luque documented as of this encounter Visit Diagnoses Diagnosis Glottic insufficiency- Primary Other diseases of vocal cords Dysphonia documented in this encounter Additional Health Concerns Active Problems Noted Date Diagnosed Date Autogenerated Problem 12/06/2024 Infection Onset Date Last Indicated Resolved Time 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 Source: [facility]. 12/25/2023 Assessment Noted Time PHQ-9 Depression Total Score: 15 021 9:54 AM EDT A Body Mass Index follow-up plan has been documented for the patient 04/29/2025 2:33 PM EST documented as of this encounter Care Teams Hot Knife Foxing Cutter Relationship Specialty Start Date End Date Edelmira Ma APRN [address] [place] [address] PCP - General 08/23/24 documented as of this encounter
--- NOTE | 2025-05-20 13:00 | US_ITS ---
PROCEDURE: US TRANSVAGINAL CLINICAL INDICATION: RLQ pain, right ovarian cyst COMPARISON: US US TRANSVAGINAL from 05/06/2025 FINDINGS: Transvaginal sonographic images of the pelvis were obtained. UTERUS: 8.1cm x 4.5 cmx 3.1cm anteverted with a combined endometrial thickness of 4.2mm. LEFT OVARY: 1.4cmx1.7 cmx2.0cm with a volume of 2.6ml. RIGHT OVARY: 3.9 cmx 3.7 cmx3.6 cm with a volume of 28ml. There is a follicle in the right ovary measuring 2.6 cm x 2.6 cm x 2.8 cm. Both ovaries are seen and appear normal. Doppler flow to both ovaries are seen. There is trace fluid in the cul-de-sac. IMPRESSION: 1. Anteverted uterus normal in shape and size. The endometrium is thin measuring 4.2 mm. 2. Both ovaries are seen and appear normal. The right ovary has a follicle measuring 2.8 cm. 3. There is trace fluid in the cul-de-sac. Dictated by: Marcos Severino MD 05/21/2025 03:00 Marcos Severino MD in OV 05/21/2025 03:00
--- OUTSIDE RECORDS SUMMARY | 2025-05-20 13:25 | XMS_ITS | Encounter Summary ---
Author Organization [facility] Address [address] [place] [address] Care Team Providers Care Residential Care Officer Name Role Phone Masoud Collazo MD Primary Care Provider [phone] Edelmira Ma APRN Primary Care Provider [phone] Encounter Details Date Type Department Care Team (Late st Contact Info) Description 07/03/2024 [facility] [address] [place] [address] Edelmira Ma APRN [address] [place] [address] Social History Tobacco Use Types Packs/Day Years [...] Description 09/02/2025 11:10 AM EDT Office Visit [facility] [address], [address] [place] [address] Rebeka Palma MD [address] [place] [address] documented as of this encounter Visit Diagnoses Not on filedocumented in this encounter Additional Health Concerns Infection Onset Date Last Indicated Resolved Time 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 Source: [facility]. 12/25/2023 Assessment Noted Time PHQ-9 Depression Total Score: 15 021 9:54 AM EDT documented as of this encounter Care Teams Residential Care Officer Relationship Specialty Start Date End Date Masoud Collazo MD [address] [place] [address] PCP - General 10/10/20 08/22/24 Edelmira Ma APRN [address] [place] [address] PCP - General 08/23/24 documented as of this encounter
--- OUTSIDE RECORDS SUMMARY | 2025-05-20 13:25 | XMS_ITS | Encounter Summary ---
Author Organization [facility] Address [address] [place] [address] Care Team Providers Care Hygiene Coordinator Name Role Phone Masoud Collazo MD Primary Care Provider [phone] Edelmira Ma APRN Primary Care Provider [phone] Encounter Details Date Type Department Care Team (Late st Contact Info) Description 01/09/2024 Orders Only External Location [address] [place] [address] Provider, External Social History Tobacco [...] Description 09/02/2025 11:10 AM EDT Office Visit [facility] [address] [place] [address] Rebeka Palma MD [address] [place] [address] documented as of this encounter [...] Time 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 Source: [facility]. 12/25/2023 Assessment Noted Time PHQ-9 Depression Total Score: 15 021 9:54 AM EDT documented as of this encounter Care Teams Hygiene Coordinator Relationship Specialty Start Date End Date Masoud Collazo MD [facility] [place] [address] PCP - General 10/10/20 08/22/24 Edelmira Ma APRN [address] [place] [address] PCP - General 08/23/24 documented as of this encounter
--- OUTSIDE RECORDS SUMMARY | 2025-05-20 13:25 | XMS_ITS | Referral Summary ---
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 No 11/22/2023 Do you want help [...] Description 08/23/2025 2:20 PM EDT Office Visit [facility] [place] [address] [place] [address] Jeremy Molina MD [address] [place] [id number] Procedures Procedure Name Priority Date/Time Associated Diagnosis Comments HEPATITIS PANEL, ACUTE STAT 12/06/2023 1:53 PM EDT from Last 3 Months or Most Recently Relevant to Health Maintenance Results * Hepatitis panel, acute (12/06/2023 1:53 PM EDT) Hep A IgM Nonreactive Nonreactive, Equivocal 12/06/2023 3:[address] [facility] Hep B C IgM Nonreactive Nonreactive 12/06/2023 3:[address] [facility] Hepatitis B surface antigen Nonreactive Nonreactive, Equivocal 12/06/2023 3:[address] [facility] Hepatitis C Ab Nonreactive Nonreactive, Equivocal 12/06/2023 3:[address] [facility] Blood Venipuncture / Unknown 12/06/2023 1:53 PM EDT 12/06/2023 2:[address] [facility] - 12/06/2023 3:54 PM [...] LAB BLOOD ORDERABLES Final Resu lt [facility] [address] [phone] from Last 3 Months or Most Recently Relevant to Health Maintenance Additional Health Concerns Infection Onset Date Last Indicated Other - see comment Comment:CTX-M 12/24/2023 12/24/2023 MDR Klebsiella pneumoniae (C ) Comment:ESBL 12/26 mdr in cath tip 12/25/2023 12/25/[address] [facility] Member Subscriber Plan / Payer (Ef fective 2023-Present) Name:Jennifer Campbell Relation to Subscriber:Self Name:Jennifer Campbell Payer ID:[id number] Group ID:Not on file Type:Not on file Address: [place] [id number] [employer] MEDICA[employer] Advance Directives For more information, please contact: [phone] * Full Code (Latest Code Status on File) Date Activated Date Inactivated Comments 11/22/2023 5:43 PM 01/13/2024 2:32 PM Care Teams Blood Bank Assistant Relationship Specialty Start Date End Date Edelmira Ma, PATCHING MACHINE OPERATOR [address] [place] [address] PCP - General Nurse Practitioner 01/13/24 Jeremy Molina MD [address] [facility] [address] [place] [address] Consulting Physician Hematology and Oncology 02/21/25
--- OUTSIDE RECORDS SUMMARY | 2025-05-20 13:25 | XMS_ITS | Clinical Summary ---
Author Organization [facility] Address [address] [place] [address] Phone Care Team Providers Care Bus And Trolley Dispatcher Name Role Phone Juanito CUMMINGS, Josh Castro Unavailable [phone] Conditions or Problems No information available. Medications No information available. Medications Administered No information available. Allergies, Adverse Reactions, Alerts No information available. Results No information available. Plan of Care No information available. Procedures No information available. Vital Signs No information available. Immunizations No information available. Advance Directives No information available.
--- OUTSIDE RECORDS SUMMARY | 2025-05-20 13:25 | XMS_ITS | Clinical Summary ---
Author Organization [facility] Address [address] [place] [address] Care Team Providers Care Events Associate Name Role Phone AnilEdelmira Henny TRIANA Primary Care Provider [phone] Allergies Active Allergy Reactions Criticality Noted Date [...] needed for moderate pain. 30 tablet 01/13/20 Active acetaminophen (Tylenol) 500 MG tablet Take 2 tablets by mouth every 6 hours as needed for pain. 60 tablet 01/13/20 Active famotidine (Pepcid) 20 MG tablet Take 1 tablet by mouth 2 times a day. 60 tablet 01/13/20 Active esomeprazole (NexIUM) 40 MG packet 40 mg by Per G Tube route daily. 30 packet 01/14/20 Active fluticasone (Flovent HFA) 220 MCG/ACT inhaler Inhale 1 puff 2 times a day. Rinse mouth with water after use to reduce aftertaste and incidence of candidiasis. Do not swallow. 12 g 5 04/22/20 Active Active Problems Problem Noted Date Diagnosed [...] Encounters Date Type Department Care Team Description 04/22/2025 4:20 PM EST Office Visit [facility] Otolaryngology [address] [place] [address] Rebeka Palma MD Glottic insufficiency (Primary Dx); Dysphonia 04/22/2025 Travel from Last 3 Months Immunizations Immunization [...] Pulse 86 04/22/2025 4:09 PM EST Temperature 36.6 C (97.8 F) 01/12/2025 12:16 PM EDT Respiratory Rate 14 01/12/2025 8:30 AM EDT Oxygen Saturation 97% 01/12/2025 12:16 PM EDT Inhaled Oxygen Concentration - - Weight 76.7 kg (169 lb) 04/22/2025 4:09 PM EST Height 162.6 cm (5' 4 ) 04/22/2025 4:09 PM EST Body Mass Index 29.01 04/22/2025 4:09 PM EST Plan of Treatment Upcoming Encounters Date Type Department Care Team (Late st Contact Info) Description 09/02/2025 11:10 AM EDT Office Visit [facility] [address] [place] [address] Rebeka Palma MD [address] [place] [address] Health Maintenance Due Date Last Done Comments [facility]-HIV Screening 2003 [facility]-Hepatitis C Screening 2003 [facility]-/Child/Adol SDOH Screenings 2003 [facility]- SDOH Screenings 10/08/2021 [facility]-Adult SDOH Screenings 10/08/2021 [facility]-Depression Screening 03/16/2022 03/16/2021, 02/27 [facility]-Pap Smear 10/08/2024 [facility]-DTaP,Tdap,and Td Vaccines (7 - Td or Tdap) 12/24/2024 12/24/2014, 12/11/2013, 02/21/2009, Additional history exists [facility]-OINIL-56 Vaccine ( - season) 2025 [facility]-Zoster Vaccines (1 of 2) 10/08/2053 02/21/2009, [...] on patient's age to complete this topic [facility]-Influenza Vaccine Completed 03/19/2025 , 02/14/2024, 04/25/2023, Additional history exists [facility]-Obesity Intervention Completed 025, 01/22/2025, 01/15/2025, Additional history exists [facility]-Rotavirus Vaccines Aged Out No lo nger eligible based on patient's age to complete this topic Goals Goal Patient Goal Type Associated Problems Recent Progress Patient-Stated? 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 Source: [employer]. 12/25/2023 Insurance [id number] [facility] MEDICAID Advance Directives * Full Code (Latest Code Status on File) Date Activated Date Inactivated Comments 01/11/2025 10:44 AM 01/12/2025 3:22 PM Question Answer Comments I have reviewed the capacity from the link above and, if needed, have updated to appropriate status: Yes Care Teams Events Associate Relationship Specialty Start Date End Date Edelmira Ma APRN [address] [place] [address] PCP - General 08/23/24
--- OUTSIDE RECORDS SUMMARY | 2025-05-20 13:25 | XMS_ITS | Clinical Summary ---
Author Organization [facility] ([place], [place], [place], [place], [place]) Address [address] [place] [address] Care Team Providers Care Paralegal Internship Name Role Phone Edelmira Ma APRN Primary Care Provider [phone] Jeremy Molina MD Unavailable [phone] Allergies Active Allergy Reactions Criticality Noted Date Comments Adhesive 02/03/2024 Eucalyptus Uek-Sisck-Ezsbhtnn Swelling,Rash High 11/22/2023 Headache, rash and swelling [...] Date Type Department Care Team Description 02/22/2025 1:40 PM EDT Office Visit [facility] [place] [address] [place] [address] Jeremy Molina MD Atypical hemolytic uremic syndrome [...] the past 12 months, has t he [employer], gas, oil, or water [employer] threatened to shut off services in your [...] Do you speak a language other than [place] [facility]? No 11/22/2023 Do you want help with [...] Description 08/23/2025 2:20 PM EDT Office Visit [facility] [place] [address] [place] [address] Jeremy Molina MD [address] [place] [address] Health Maintenance Due Date Last [...] Nonreactive Nonreactive, Equivocal 12/06/2023 3:54 PM EDT [facility] Hep B C IgM Nonreactive Nonreactive 12/06/2023 3:54 PM EDT [facility] Hepatitis B surface antigen Nonreactive Nonreactive, Equivocal 12/06/2023 3:54 PM EDT [facility] Hepatitis C Ab Nonreactive Nonreactive, Equivocal 12/06/2023 3:54 PM EDT [facility] Blood Venipuncture / Unknown 12/06/2023 1:53 PM EDT 12/06/2023 2:07 PM EDT [facility] - 12/06/2023 3:54 PM EDT [...] ORDERABLES Final Resu lt Performing Organization Address City/State/[facility] Co de Phone Number [facility] [address] [phone] from Last 3 Months or Most Recently Relevant to Health Maintenance Additional Health Concerns Infection Onset Date Last Indicated Other - see comment Comment:CTX-M 12/24/2023 12/24/2023 MDR Klebsiella pneumoniae (C ) Comment:ESBL 12/26 mdr in cath tip 12/25/2023 12/25/2023 Insurance [facility] [employer] Advance Directives For more information, please contact: [phone] * Full Code (Latest Code Status on File) Date Activated Date Inactivated Comments 11/22/2023 5:43 PM 01/13/2024 2:32 PM Care Teams Paralegal Internship Relationship Specialty Start Date End Date Edelmira Ma, KONG [address] [place] [address] PCP - General Nurse Practitioner 01/13/24 Jeremy Molina MD [address] [facility] [address] [place] [address] Consulting Physician Hematology and Oncology 02/21/25
--- OUTSIDE RECORDS SUMMARY | 2025-05-20 13:25 | XMS_ITS | Encounter Summary ---
Author Organization Healthcare Address [address] [place] [address] Care Team Providers Care Campus Recruiting Intern Name Role Phone MaEdelmira Henny TRIANA Primary Care Provider [phone] Encounter Details Date Type Department Care Team (Latest Contact Info) Description 04/22/2025 Travel Social History Tobacco Use Types Packs/Day [...] Office Visit [facility] [address] [place] [address] Rebeka Palma MD [address] [place] [address] documented as of this encounter Goals Goal Patient Goal Type Associated Problems Recent Progress Patient-Stated? Author Autogenera joyce Goal Care Plan Autogenerated Problem No Maryanne Luque documented as of this encounter Visit Diagnoses Not on filedocumented in this encounter Additional Health Concerns Active Problems Noted Date Diagnosed Date Autogenerated Problem 12/06/2024 Infection Onset Date Last Indicated Resolved Time 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 Source: [facility]. 12/25/2023 Assessment Noted Time PHQ-9 Depression Total Score: 15 021 9:54 AM EDT A Body Mass Index follow-up plan has been documented for the patient 04/29/2025 2:33 PM EST documented as of this encounter Care Teams Campus Recruiting Intern Relationship Specialty Start Date End Date Edelmira Ma APRN [address] [place] [address] PCP - General 08/23/24 documented as of this encounter
== END 2025-05-20 23:59 | disposition home or self-care (01) ==
LOC: RAD 13:11
PROVIDERS: PCP Nurse Practitioner Family; Visit Provider Nurse Practitioner Obstetrics & Gynecology
DX: N83.01 Follicular cyst of right ovary (principal); N85.4 Malposition of uterus
CPT/HCPCS: 76830